=== PATIENT | male | born 1940 | race Caucasian/White ===

== ENCOUNTER 2017-06-05 15:11 | Inpatient (IN) | payer MEDICARE, MEDICAID ==
[2017-06-05 15:13] VITALS: BMI 29.2
--- NOTE | 2017-06-05 15:31 | ED PDOC ---
Arrival/HPI - General Time Seen by Provider: 06/05/17 15:20 Historian: Patient - History of Present Illness Narrative History of Present Illness (Text): 06/05/17 15:27 77yo male with PMhx of hypertension bib BLS for b/l lower leg swelling/pain. States he only noticed the swelling yesterday. He reports remote history of gout and thought it was gout. He admits to [facility] for few weeks now. States he have not seen his PMD for a while now and have not taken any antitussive for a while now. He denies diaphoresis, chest pain, dizziness, nausea, vomiting, ripping/tearing upper back pain, trauma, any other complaint. Past Medical History - Provider Review Nursing Documentation Reviewed: Yes - Infectious Disease Hx of Infectious Diseases: None - Tetanus Immunization Tetanus Immunization: Unknown - Past Medical History Past Medical History: No Previous - Cardiac Hx Hypertension: Yes - Musculoskeletal/Rheumatological Hx Musculoskeletal Disorders: Yes Hx Unsteady Gait: Yes - Psychiatric Hx Depression: No Hx Emotional Abuse: No Hx Physical Abuse: No Hx Substance Use: No - Past Surgical History Past Surgical History: No Previous - Suicidal Assessment Feels Threatened In Home Enviroment: No Family/Social History - Physician Review Nursing Documentation Reviewed: Yes Family/Social History: Unknown Family HX Smoking Status: Never Smoked Hx Alcohol Use: No Hx Substance Use: No Allergies/Home Meds Allergies/Adverse Reactions: Allergies No Known Allergies Allergy (Verified 05/25/13 15:34) Home Medications: Home Meds Medication Instructions Recorded Confirmed Cholecalciferol [Vitamin D 1000 IU] 2 cap PO DAILY 06/05/17 06/05/17 Febuxostat [Uloric] 1 tab PO DAILY 06/05/17 06/05/17 Folic Acid [Folic Acid] 4 mg PO DAILY 06/05/17 06/05/17 Magnesium Oxide [Mag-Ox] 1 tab PO BID 06/05/17 06/05/17 Nebivolol [Bystolic] 1 tab PO DAILY 06/05/17 06/05/17 Valsartan [Diovan] 1 tab PO DAILY 06/05/17 06/05/17 Warfarin [Coumadin] 1 tab PO DAILY 06/05/17 06/05/17 amLODIPine [Norvasc] 1 tab PO BID 06/05/17 06/05/17 hydrALAZINE [Apresoline] 1 tab PO QID 06/05/17 06/05/17 Review of Systems - Physician Review All systems were reviewed & negative as marked: Yes - Review of Systems Constitutional: Normal Eyes: Normal ENT: Normal Respiratory: SOB Cardiovascular: Edema, Calf Pain, ALAMO. absent: Chest Pain, Palpitations, Orthopnea, Syncope Gastrointestinal: Normal Genitourinary Male: Normal Musculoskeletal: Normal Skin: Normal Neurological: Normal Endocrine: Normal Hemo/Lymphatic: Normal Psychiatric: Normal Physical Exam Vital Signs Reviewed: Yes Vital Signs Temp Pulse Resp BP Pulse Ox 06/05/17 20:50 113 H 121/95 H 06/05/17 19:17 113 H 18 112/74 100 06/05/17 16:45 86 18 107/81 100 06/05/17 16:41 125/79 06/05/17 16:06 93 H 20 129/80 100 06/05/17 15:52 105 H 135/92 H 100 06/05/17 15:51 22 100 06/05/17 15:41 154 H 157/99 H 06/05/17 15:40 97.3 F L 153 H 24 157/99 H 100 Temperature: Afebrile Blood Pressure: Normal Pulse: Regular Respiratory Rate: Normal Appearance: Positive for: Well-Appearing, Non-Toxic, Comfortable Pain Distress: None Mental Status: Positive for: Alert and Oriented X 3 - Systems Exam Head: Present: Atraumatic, Normocephalic Pupils: Present: PERRL Extroacular Muscles: Present: EOMI Conjunctiva: Present: Normal Mouth: Present: Moist Mucous Membranes Neck: Present: Normal Range of Motion Respiratory/Chest: Present: Clear to Auscultation, Good Air Exchange, Other ( Crackles - scattered). No: Respiratory Distress, Accessory Muscle Use, Decreased Breath Sounds, Rales, Retracting, Rhonchi Cardiovascular: Present: Regular Rate and Rhythm, Normal S1, S2. No: Murmurs Abdomen: Present: Normal Bowel Sounds. No: Tenderness, Distention, Peritoneal Signs Back: Present: Normal Inspection Upper Extremity: Present: Normal Inspection. No: Cyanosis, Edema Lower Extremity: Present: Edema (3+ Edema), CALF TENDERNESS (Left lower calf), NORMAL PULSES, Normal ROM, Neurovascularly Intact. No: Tenderness Neurological: Present: GCS=15, CN II-XII Intact, Speech Normal Skin: Present: Warm, Dry, Normal Color. No: Rashes Psychiatric: Present: Alert, Oriented x 3, Normal Insight, Normal Concentration Medical Decision Making ED Course and Treatment: 06/05/17 23:33 PT in ED for stated history. EKG Afib with RVR @ 169bpm. Rate improved with Cardizem bolus in ED and Heparin bolus was given in ED. Lab was reviewed and hyponatremia was noted. Elevated lactic acid level was noted was noted in the first VBG, this was likely secondary to the Afib and Elevated BNP. Pt was afebrile and does not meet criteria for sepsis. Lasix was given for the elevated BNP LE doppler was negative for DVT b/l Case was DW Dr. Street, he accepted pt for admission and saw pt in ED at the bedside. He requested Dr. Grayson consult. cAse was DW Dr. Radford who is covering Dr. Grayson and he request Lovonox 100mg SQ instead of the Heparin drip. All result and plan was DW the pt and he agreed. - Lab Interpretations Lab Results: 06/05/17 15:45 06/05/17 15:45 Lab Results 06/05/17 15:45: TSH 3rd Generation 2.34 06/05/17 15:45: Sodium 127 L, Chloride 92 L, Potassium 4.4, Carbon Dioxide 21, Anion Gap 19, BUN 13, Creatinine 1.2, Est GFR ( Amer) > 60, Est GFR (Non- Af Amer) 58, Random Glucose 110, Calcium 9.9, Total Bilirubin 2.1 H, AST 43, ALT 39, Alkaline Phosphatase 112, Lactate Dehydrogenase 684, Total Creatine Kinase 245 H, CK-MB (CK-2) 5.7 H, CK-MB (CK-2) % 2.3 L, Troponin I 0.03 D, NT- Pro-B Natriuret Pep 56501 H, Total Protein 6.7, Albumin 3.5, Globulin 3.2, Albumin/Globulin Ratio 1.1 06/05/17 15:45: pO2 67 H, VBG pH 7.39, VBG pCO2 36.0 L, VBG HCO3 21.8, VBG Total CO2 22.9, VBG O2 Sat (Calc) 95.8 H, VBG Base Excess -2.6 L, VBG Potassium 4.7, Sodium 124.0 L, Chloride 91.0 L, Glucose 120 H, Lactate 2.5 H, FiO2 21.0, Venous Blood Potassium 4.7 06/05/17 15:45: WBC 3.1 L, RBC 4.96, Hgb 14.4, Hct 41.4 L, MCV 83.5, MCH 29.0, MCHC 34.8, RDW 15.5 H, Plt Count 164, MPV 9.9, Gran % 50.1, Lymph % (Auto) 30.5 , Preston % (Auto) 15.6 H, Eos % (Auto) 1.9, Baso % (Auto) 1.9, Gran # 1.54, Lymph # (Auto) 0.9 L, Preston # (Auto) 0.5, Eos # (Auto) 0.1, Baso # (Auto) 0.06 06/05/17 15:45: PT 18.0 H, INR 1.56 H, APTT 33.9 - RAD Interpretation Radiology Orders: 06/05/17 15:25 DUPLEX LOWER EXTRM VEIN BILAT [US] Stat 06/05/17 15:26 CHEST PORTABLE [RAD] Stat - Medication Orders Current Medication Orders: Allopurinol (Zyloprim) 300 mg PO DAILY [facility] Aspirin (Ecotrin) 81 mg PO DAILY [facility] Last Admin: 06/05/17 20:48 Dose: 81 mg Atorvastatin Calcium (Lipitor) 40 mg PO DIN [facility] Docusate Sodium (Colace) 100 mg PO TID [facility] Enoxaparin Sodium (Lovenox) 100 mg SC Q12H [facility] PRN Reason: Protocol Last Admin: 06/05/17 20:07 Dose: Furosemide (Lasix) 40 mg IVP Q12H [facility] Last Admin: 06/05/17 20:50 Dose: 40 mg MAR Blood Pressure Document 06/05/17 20:50 GMD (Rec: 06/05/17 20:50 GMD [facility] [id number]) Blood Pressure Blood Pressure (100/60-150/90) 121/95 IVP Administration Document 06/05/17 20:50 GMD (Rec: 06/05/17 20:50 GMD [facility] [id number]) Charges for Administration # of IVP Administrations 1 Dobutamine HCl/Dextrose (Dobutamine/Dextrose 5% 500mg/250ml) 500 mg in 250 mls @ 14.696 mls/hr IV .Q17H1M PRN; Protocol; 5 MCG/KG/MIN PRN Reason: TITRATE PER PROTOCOL Last Admin: 06/05/17 21:57 Dose: 5 mcg/kg/min, 14.696 mls/hr eMAR Start Stop Document 06/05/17 21:57 CLARICE (Rec: 06/05/17 21:58 CLARICE [id number]) Intravenous Solution Start Date 06/05/17 Start Time 21:58 MAR Pulse and Blood Pressure Document 06/05/17 21:57 CLARICE (Rec: 06/05/17 21:58 [id number]) Pulse Pulse Rate (60-90) 115 Blood Pressure Blood Pressure (100/60-150/90) 131/95 Titration Intervention Document 06/05/17 21:57 CLARICE (Rec: 06/05/17 21:58 CLARICE [id number]) Titration Intake Waste Amount 0 Container Volume 250 Titration Dosing Titration Dose 5 IV Rate 14.696 Intake/Decrease Started Metoprolol Tartrate (Lopressor) 25 mg PO Q12H NIGEL Last Admin: 06/05/17 20:50 Dose: 25 mg MAR Pulse and Blood Pressure Document 06/05/17 20:50 GMD (Rec: 06/05/17 20:50 GMD [facility] [id number]) Pulse Pulse Rate (60-90) 113 Blood Pressure Blood Pressure (100/60-150/90) 121/95 Pantoprazole Sodium (Protonix Ec Tab) 20 mg PO 0600,1600 NIGEL Discontinued Medications Diltiazem HCl (Cardizem) 15 mg IVP STAT STA Stop: 06/05/17 15:36 Last Admin: 06/05/17 15:40 Dose: Diltiazem HCl (Cardizem) 20 mg IVP STAT STA Stop: 06/05/17 15:40 Last Admin: 06/05/17 15:41 Dose: 20 mg IVP Administration Document 06/05/17 15:41 GMD (Rec: 06/05/17 15:41 GMD [facility] [id number]) Charges for Administration # of IVP Administrations 1 MAR Pulse and Blood Pressure Document 06/05/17 15:41 GMD (Rec: 06/05/17 15:41 GMD [facility] [id number]) Pulse Pulse Rate (60-90) 154 Blood Pressure Blood Pressure (100/60-150/90) 157/99 Enoxaparin Sodium (Lovenox) 100 mg SC ONCE STA PRN Reason: Protocol Stop: 06/05/17 17:14 Last Admin: 06/05/17 17:37 Dose: 100 mg Subcutaneous Administrations Document 06/05/17 17:37 GMD (Rec: 06/05/17 17:37 GMD [facility] [id number][place] Injection Site MAR Injection Site Left Abdomen Charges for Administration # of Subcutaneous Administrations 1 Furosemide (Lasix) 40 mg IVP STAT STA Stop: 06/05/17 16:33 Last Admin: 06/05/17 16:41 Dose: 40 mg MAR Blood Pressure Document 06/05/17 16:41 GMD (Rec: 06/05/17 16:41 GMD [facility] [id number][place] Blood Pressure Blood Pressure (100/60-150/90) 125/79 IVP Administration Document 06/05/17 16:41 GMD (Rec: 06/05/17 16:41 GMD [facility] [id number]) Charges for Administration # of IVP Administrations 1 Heparin Sodium (Porcine) (Heparin) 4,000 units IV ONCE ONE PRN Reason: Protocol Stop: 06/05/17 16:49 Last Admin: 06/05/17 17:37 Dose: 4,000 units eMAR Start Stop Document 06/05/17 17:37 GMD (Rec: 06/05/17 17:37 GMD [facility] [id number][place] Intravenous Solution Start Date 06/05/17 Start Time 17:37 Disposition/Present on Arrival - Present on Arrival Any Indicators Present on Arrival: No History of DVT/PE: No History of Uncontrolled Diabetes: No Urinary Catheter: No History Surgical Site Infection Following: None - Disposition Have Diagnosis and Disposition been Completed?: Yes Diagnosis: Atrial fibrillation, CHF (congestive heart failure), Hyponatremia Disposition: HOSPITALIZED Disposition Time: 17:00 Patient Problems: Current Active Problems Problem Status Onset Atrial fibrillation Acute CHF (congestive heart failure) Acute Hyponatremia Acute Condition: FAIR
[2017-06-05 16:04] LABS: BASO # 0.06 K/mm3 (0.0-2.0); BASO % 1.9 % (0.0-3.0); EOS # 0.1 (0.0-0.7); EOS % 1.9 % (1.5-5.0); GRAN # 1.54 (1.4-6.5); GRAN % 50.1 % (50.0-68.0); HEMOGLOBIN 14.4 g/dL (14.0-18.0); LYMPH # 0.9 (1.2-3.4); LYMPH % 30.5 % (22.0-35.0); MEAN CELL VOLUME 83.5 fl (80.0-105.0); MEAN CORPUSCULAR HGB CONC 34.8 g/dl (31.0-37.0); MEAN PLATELET VOLUME 9.9 fl (7.0-11.0); MONO # 0.5 (0.1-0.6); MONO % 15.6 % (1.0-6.0); RBC 4.96 10^6/uL (3.5-6.1); RED CELL DISTRIBUTION WIDTH 15.5 % (11.5-14.5); VENOUS BLOOD GAS BASE EXCESS -2.6 mmol/L (0.0-2.0); VENOUS BLOOD GAS PO2 67 mm/Hg (30-55); VENOUS BLOOD PH 7.39 (7.32-7.43); WHITE BLOOD COUNT 3.1 10^3/ul (4.5-11.0)
[2017-06-05 16:12] LABS: INR 1.56 (0.93-1.08); PARTIAL THROMBOPLASTIN TIME 33.9 Seconds (25.1-36.5)
[2017-06-05 16:30] LABS: B-TYPE NATRIURETIC PEPTIDE 11300 pg/mL (0-450); TROPONIN I 0.03 ng/mL
[2017-06-05 16:36] LABS: ALB/GLOB RATIO 1.1 (1.1-1.8); ALBUMIN 3.5 g/dL (3.0-4.8); ALT/SGPT 39 U/L (7-56); AST/SGOT 43 U/L (17-59); BLOOD UREA NITROGEN 13 mg/dL (7-21); CALCIUM 9.9 mg/dL (8.4-10.5); GFR AFRICAN-AMERICAN > 60; GFR NON-AFRICAN AMERICAN 58
[2017-06-05 16:38] LABS: CK MB% 2.3 % (2.5-3.0); CK-MB 5.7 ng/mL (0.0-3.6)
[2017-06-05] MEDS ORDERED: Heparin25000 units/250ml 1/2NS 25,000 UNITS/250 ML BAG IV PRN (16:48)
[2017-06-05] MEDS ORDERED: Enoxaparin 100 mg Syringe SC STA (17:13)
[2017-06-05 17:35] LABS: URINE BILIRUBIN NEGATIVE (NEGATIVE); URINE BLOOD TRACE-INTACT (NEGATIVE); URINE GLUCOSE (UA) NEGATIVE (NEGATIVE); URINE LEUKOCYTE ESTERASE NEGATIVE Leu/uL (NEGATIVE); URINE NITRATE NEGATIVE (NEGATIVE); URINE PROTEIN TRACE mg/dL (<30 mg/dL); URINE UROBILINOGEN 0.2 E.U./dL (<1 E.U./dL)
[2017-06-05 17:37] LABS: URINE APPEARANCE CLEAR (CLEAR); URINE COLOR YELLOW (YELLOW)
[2017-06-05 17:38] LABS: URINE BACTERIA TRACE (NEG); URINE EPITHELIAL CELLS 0 - 2 /hpf (0-5); URINE RBC 0 - 2 /hpf (0-2); URINE WBC 0 - 2 /hpf (0-6)
--- NOTE | 2017-06-05 17:49 | RAD ---
HISTORY: SOB COMPARISON: 05/25/2013 FINDINGS: LUNGS: No active pulmonary disease. PLEURA: No significant pleural effusion identified, no pneumothorax apparent. CARDIOVASCULAR: Cardiomegaly. No evidence of acute, significant cardiovascular disease. This represents a new finding compared to the prior study. OSSEOUS STRUCTURES: No significant abnormalities. VISUALIZED UPPER ABDOMEN: Normal. OTHER FINDINGS: None. IMPRESSION: Cardiomegaly without evidence CHF. No active pulmonary disease.
[2017-06-05 17:54] LABS: BARBITURATES, UR NEGATIVE (NEGATIVE); BENZODIAZEPINES, UR NEGATIVE (NEGATIVE); OPIATES, UR NEGATIVE (NEGATIVE); PHENCYCLIDINE, UR NEGATIVE (NEGATIVE)
[2017-06-05 19:52] LABS: VENOUS BLOOD GAS BASE EXCESS 0.2 mmol/L (0.0-2.0); VENOUS BLOOD GAS PO2 32 mm/Hg (30-55); VENOUS BLOOD PH 7.33 (7.32-7.43)
[2017-06-05] MEDS: Enoxaparin 100 mg Syringe SC SCH (20:07)
[2017-06-05 20:08] LABS: MAGNESIUM 1.7 mg/dL (1.7-2.2); URIC ACID 7.9 mg/dL (3.5-8.5)
[2017-06-05 20:13] LABS: IRON 51 ug/dL (45-180)
[2017-06-05 20:18] LABS: TROPONIN I 0.03 ng/mL
[2017-06-05 20:23] LABS: % IRON SATURATION 15 % (20-55); TOTAL IRON BINDING CAPACITY 340 ug/dL (261-462)
[2017-06-05 20:33] LABS: FREE T4 1.5 ng/dL (0.78-2.19); T4 5.9 ug/dL (5.5-11.0)
--- NOTE | 2017-06-05 20:35 | US ---
HISTORY: Leg pain and swelling. Evaluate for DVT PHYSICIAN(S): Vincenzo Daniels MD. TECHNIQUE: Duplex sonography and color-flow Doppler with graded compression were used to evaluate the deep venous systems of both lower extremities. The exam is limited by edema. The tibial veins are not well seen. FINDINGS: The visualized deep venous systems of both lower extremities are sonographically normal and compressible. Normal wave forms and augmentation are seen. There is no sonographic evidence for deep venous thrombosis in the visualized segments of both lower extremities. IMPRESSION: No sonographic evidence for deep venous thrombosis in the visualized segments of both lower extremities.
[2017-06-05] MEDS: DOBUTamine 500mg/250ml D5W 500 MG/250 ML BAG IV PRN (21:57)
--- NOTE | 2017-06-05 22:12 | CT ---
EXAM: CT Chest Without Intravenous Contrast CLINICAL HISTORY: 77 years old, male; Signs and symptoms; Other: Bilateral leg swelling; Shortness of breath; Additional info: Chf/anasarca TECHNIQUE: Axial computed tomography images of the chest without intravenous contrast. All CT scans at this facility use one or more dose reduction techniques, viz.: automated exposure control; ma/kV adjustment per patient size (including targeted exams where dose is matched to indication; i.e. head); or iterative reconstruction technique. Coronal and sagittal reformatted images were created and reviewed. COMPARISON: No relevant prior studies available. FINDINGS: Limitations: Lack of intravenous contrast. Motion artifact - mild. Lungs: Early to mild centrilobular and paraseptal emphysematous changes. Mild atelectasis/scarring. No consolidation. Few pulmonary nodules, up to 0.3 cm. Pleural space: Small bilateral pleural effusions, right greater than left. Heart: Mild cardiomegaly. No significant pericardial effusion. Coronary artery calcifications. Bones/joints: Few scattered sclerotic lesions within visualized bones. Mild degenerative changes of spine. No acute fracture. Soft tissues: [id number] diffuse stranding within subcutaneous tissues. Vasculature: Minimal atherosclerotic disease. Lymph nodes: No pathologically enlarged lymph nodes. IMPRESSION: 1. Mild anasarca. 2. Bilateral pleural effusions, RIGHT > LEFT. 3. Emphysema. 4. Sclerotic bone lesions compatible with metastases. Clinical correlation is needed. 5. Pulmonary nodules. For low-risk patients, no follow-up is necessary. For high-risk patients (smoking history or other known risk factors) an optional CT at 12 months could be performed. 6. Incidental/non-acute findings are described above. EXAM: CT Abdomen and Pelvis Without Intravenous Contrast CLINICAL HISTORY: 77 years old, male; Signs and symptoms; Other: Bilateral leg swelling; Shortness of breath; Additional info: Chf/anasarca TECHNIQUE: Axial computed tomography images of the abdomen and pelvis without intravenous contrast. All CT scans at this facility use one or more dose reduction techniques, viz.: automated exposure control; ma/kV adjustment per patient size (including targeted exams where dose is matched to indication; i.e. head); or iterative reconstruction technique. Coronal and sagittal reformatted images were created and reviewed. COMPARISON: No relevant prior studies available. FINDINGS: Limitations: Lack of intravenous contrast. Motion artifact - mild. ABDOMEN: Liver: Unremarkable. Gallbladder and bile ducts: No calcified stones. No ductal dilation. Pancreas: Unremarkable. No ductal dilation. Spleen: No splenomegaly. Adrenals: Mild hypertrophy of adrenal glands. Kidneys and ureters: Scarring of right kidney. Probable RIGHT renal cyst. Too small to characterize lesion within LEFT kidney. Small vascular calcification vs calculus within LEFT kidney. No hydronephrosis. Stomach and bowel: Few scattered diverticula within colon. No associated inflammatory stranding. No definite mural thickening. No obstruction. Appendix: No findings to suggest acute appendicitis. PELVIS: Bladder: Unremarkable. No stones. Reproductive: Unremarkable as visualized. ABDOMEN and PELVIS: Intraperitoneal space: Small free fluid within abdomen. 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 Degenerative changes of spine. No acute fracture. Soft tissues: Moderate diffuse stranding throughout subcutaneous tissues. Small umbilical hernia containing fat. Small inguinal hernias containing fat and fluid. Vasculature: Moderate atherosclerotic disease. No aneurysm. Lymph nodes: Few subcentimeter short axis retroperitoneal lymph nodes. IMPRESSION: 1. Moderate anasarca. 2. Small ascites. 3. Sclerotic bone lesions compatible with metastases. Clinical correlation is needed. 4. Incidental/non-acute findings are described above.
--- NOTE | 2017-06-05 23:45 | CARD ---
APPROVED REPORT EKG Measurement Heart [id number] <Conclusion> Atrial fibrillation with premature ventricular or aberrantly conducted complexes Low voltage QRS T wave abnormality, consider anterolateral ischemia or digitalis effect Prolonged QT Abnormal ECG
--- NOTE | 2017-06-05 23:48 | CARD ---
APPROVED REPORT EKG Measurement Heart [id number] <Conclusion> Atrial fibrillation with rapid ventricular response Low voltage QRS Nonspecific T wave abnormality, probably digitalis effect Abnormal ECG
[2017-06-06] MEDS: Pantoprazole 20 mg EC Tab PO SCH ×2 (05:58→17:39)
[2017-06-06 07:06] LABS: BASO # 0.04 K/mm3 (0.0-2.0); BASO % 1.1 % (0.0-3.0); EOS # 0.1 (0.0-0.7); EOS % 1.3 % (1.5-5.0); GRAN # 2.32 (1.4-6.5); HEMOGLOBIN 13.3 g/dL (14.0-18.0); LYMPH # 0.8 (1.2-3.4); LYMPH % 21.7 % (22.0-35.0); MEAN CELL VOLUME 83.3 fl (80.0-105.0); MEAN CORPUSCULAR HEMOGLOBIN 28.5 pg (25.0-35.0); MEAN CORPUSCULAR HGB CONC 34.3 g/dl (31.0-37.0); MONO # 0.5 (0.1-0.6); MONO % 13.9 % (1.0-6.0); RBC 4.66 10^6/uL (3.5-6.1); RED CELL DISTRIBUTION WIDTH 15.6 % (11.5-14.5); WHITE BLOOD COUNT 3.7 10^3/ul (4.5-11.0)
--- NOTE | 2017-06-06 07:10 | HP ---
HISTORY OF PRESENT ILLNESS: Patient is a 77-year-old male who has been lost to follow up since last almost one year, comes to the emergency room via the [facility]. According to the triage note, patient presented with bilateral lower extremity swelling, shortness of breath, dyspnea on exertion for more than a week. Patient also has been lost to follow up since last one year and has stopped taking his medications many months ago. According to the patient's son, Rakesh who was present at the bedside, patient's son states that he is not aware of patient's worsening leg swelling. Patient was seen by the physician special education assistant in the emergency room. According to the ER evaluation, patient stated to the ER staff that patient thought that this is his gout acting up, but now patient also admitted to dyspnea on exertion for a few weeks. Patient at present and the son at present is unable to exactly state that for how long the patient has been developing leg swelling and having shortness of breath. REVIEW OF SYSTEMS: A 13-system review was done, pertinent positive and negative dictated above. CODE STATUS: Full code. LIVING WILL ADVANCE DIRECTIVE: None. ALLERGIES: NONE. Height is 5 feet 11 inches. Weight is 216. BMI is 30. SOCIAL HISTORY: Denies smoking. Denies alcohol. Denies drug use. Denies communicable transmissible disease. PAST MEDICATIONS: Patient's list of medications for more than a year ago is: 1. Uloric 40 mg daily. 2. Vitamin D3 2000 units daily. 3. Hydralazine 50 mg q.i.d. or 10 mg q.i.d. 4. Diovan 320 mg daily. 5. Magnesium oxide 400 mg twice a day. 6. Folic acid 4 mg daily. 7. Norvasc 5 mg daily. 8. Patient was given Coumadin 5 mg, which he is not taking. 9. Bystolic 5 mg daily, which is according to the patient's home medication, but patient is not taking these medicines for many months. OCCUPATIONAL HISTORY: A 77-year-old male, not employed. FAMILY HISTORY: Not available. History of decreased left ventricular ejection fraction of around 40%, history of poor compliance and noncompliance. Patient refusing to see urologist and have a prostate biopsy, history of hypovitaminosis D, history of hypomagnesemia, history of dyslipidemia, history of atrial fibrillation diagnosed more than a year ago, refusing to take anticoagulation and refusing to comply with medication. Patient's past medical history is significant for history of uncontrolled hypertension, history of hyperuricemia, history of inferolateral coronary ischemic changes, history of elevated PSA, history of venous stasis of the lower extremity, history of degenerative joint disease of the feet, history of cellulitis of the lower extremity, history of trace mitral regurgitation and history of bilateral lower extremity cameron. Past medical history is also significant for right foot cellulitis, history of hypertensive cardiovascular disease, history of cardiomyopathy, history of leukopenia, history of osteoarthritis of the right hip, history of left ventricular ejection fraction of 43%. SOCIAL HISTORY: History of former smoking and social drinking. Patient's occupational history, retired warehouse shipping clerk. Patient is seen in stretcher #18. Patient is lying in the bed. The patient's son, Rakesh at bedside. PHYSICAL EXAMINATION: VITAL SIGNS: T-max 97.3. Heart rate is initially was 153, 154, 105, 93, 86 and 113. Patient's heart rate came down after Cardizem bolus was given IV. Initial blood pressure 157/99, 135/92, 129/80, 125/79. Respiration 20, O2 sat 100% on nasal cannula. GENERAL: Does not appear to be in any distress. Patient is seen lying in the stretcher. HEENT: Head examination, normocephalic, atraumatic. HEENT examination shows pink conjunctivae. Anicteric sclerae. Positive jugular venous distention. CHEST: Kyphosis. LUNGS: Shows decreased breath sound at the bases. Positive crackles noted. CARDIOVASCULAR: S1, S2, irregular rhythm. Positive systolic murmur, left sternal border, right second intercostal space, left second intercostal space. ABDOMEN: Protuberant, distended, firm, positive bowel sounds. GENITALIA: Male. Positive scrotal edema noted. Anasarca noted. EXTREMITIES: Significant lower extremity pedal edema, more than 3 to 4+ pitting edema of the lower extremity noted. Positive bilateral calf tenderness noted. No Glo's signs noted. Vascular examination could not be assessed. MUSCULOSKELETAL: Shows a body mass index of 30.1. NEUROLOGIC: Patient is alert, awake, oriented x3. Cranial nerve II through XII grossly intact. Gait examination is not tested. DIAGNOSTICS: WBC 3.1, hemoglobin/hematocrit 14.4/41.4, platelets 164. PT/PTT 18 and 33.9. The VBG shows a lactate of 2.5, pO2 of 67, pH of 7.39. Sodium is 127, potassium is 4.4, chloride 92, CO2 of 21, anion gap 19, BUN 13, creatinine 1.2. GFR greater than 60. Glucose 110, calcium 9.9, total bili 2.1, CPK 245. Troponin 0.03. BNP is 11,300. TSH is 2.34. Urine, trace protein, trace blood, trace bacteria. Urine drug screen was negative. Patient's chest x-ray was reviewed, shows cardiomegaly, increased and prominent vascular marking, venous Doppler was ordered. Preliminary results negative for DVT. EKG: Patient had two EKG shows low-voltage, atrial fibrillation with rapid ventricular response of 170. Repeat EKG was done after more than an hour. Patient shows atrial fibrillation with controlled response of heart rate 94 with PVCs and anterolateral ST-T ischemic changes. Patient was seen in the emergency room by Jyoti Salazar. Patient was given Cardizem 15 mg then patient was given 20 mg IV push Cardizem, Lovenox 100 mg subcu given, Lasix 40 IV was given and patient was advised to be admitted. IMPRESSION AND PLAN: A 77-year-old male who has been lost to followup for more than one year. At the most last visit in the office, patient was diagnosis with atrial fibrillation and was placed on anticoagulation, but the patient never came back for followup. Did not take any medicines for more than a year. Came to the emergency room with complaining of dyspnea on exertion, shortness of breath and bilateral lower extremity swelling. DIAGNOSES: 1. Atrial fibrillation with rapid ventricular response. 2. Ruben-inferolateral coronary ischemia. 3. History of hypertension. 4. Most possible and most likely systolic congestive heart failure with elevated BNP. 5. Cardiomegaly and pulmonary vascular congestion, suggestive of congestive heart failure. 6. Leukopenia. 7. Lactic acidosis. 8. Hyponatremia, etiology undetermined. 9. Questionable syndrome of inappropriate (excretion) of antidiuretic hormone. 10. Indeterminate troponin. 11. Elevated BNP suggestive of congestive heart failure. 12. Trace proteinuria, trace microscopic hematuria, trace bacteriuria. 13. Bilateral lower extremity lymphedema. 14. Anasarca. 15. Extremely poor compliance and noncompliance. 16. History of hypovitaminosis D. 17. History of hyperuricemia, hypomagnesemia and history of elevated prostate-specific antigen. PLAN: At this time, patient was treated in the emergency room with IV Cardizem bolus x2. Patient was given Lovenox 100 mg subcu, Lasix 40 mg IV was given. Patient's management and admission was discussed with Dr. Grayson and the covering bacteriologist dairy by the ER staff, who recommends Lovenox instead of IV heparin and Cardizem drip was declined. At present, patient will be admitted to Telemetry. Patient has been ordered serial labs, serial cardiac enzymes. Current consultation, Cardiology. Nephrology has been requested. Lactic acid, procalcitonin level has been ordered. Daily BNP has been ordered. Daily chemistry has been ordered. Patient has been ordered daily labs. Serial cardiac enzymes ordered. Patient was started on Colace 100 mg three times a day. Patient is started on dobutamine drip at 5 mcg/kg per minute. Ecotrin 81 daily, Lasix 40 IV q.12 with monitoring of electrolytes, Lipitor 40 mg daily, Lopressor 25 q.12, Lovenox 100 mg subcu q.12, Protonix 20 mg twice a day. Patient has been ordered CAT scan of the chest, abdomen, pelvis without contrast. Oxygen 2 liters continuously and daily EKGs. Echo with Doppler. Heart-healthy diet. Out of bed. SCDs, LIV stockings ordered. Occupational therapy, physical therapy ordered. TCU evaluation ordered. At present, the patient's condition, diagnosis, test results and overall clinical condition and admitting diagnosis discussed and explained to the patient and the patient's son, Rakesh who is at the bedside. I have explained to the patient's son and the patient in a very clear layman's language about patient's extremely sick and critical status, need for further more diagnostic testing and therapeutic intervention, need for multiple subspecialty evaluation for the treatment and management of the patient, was explained to the patient and patient's son in layman's language and all questions and concerns answered. Patient has stated on multiple occasions during this ER visit that patient is his own boss and will decide which test to undergo and which test to refuse. I have again reinforced to the patient and the patient's son that patient needs to comply with his medical management, medical treatment. Otherwise, patient is risking his life and patient is setting himself up for negative and negative consequences and adverse consequences and adverse health effects, which the patient and the patient's son acknowledged and understand. Dictated and electronically signed, not read. Benny Street MD [place]
[2017-06-06 07:15] LABS: ALBUMIN 3.2 g/dL (3.0-4.8); ALT/SGPT 31 U/L (7-56); AST/SGOT 40 U/L (17-59); BILIRUBIN,DIRECT 1.3 mg/dL (0.0-0.4); BLOOD UREA NITROGEN 13 mg/dL (7-21); CALCIUM 9.3 mg/dL (8.4-10.5); GFR AFRICAN-AMERICAN > 60; GFR NON-AFRICAN AMERICAN 58; MAGNESIUM 1.5 mg/dL (1.7-2.2)
[2017-06-06 07:25] LABS: TROPONIN I 0.04 ng/mL
[2017-06-06] MEDS: Enoxaparin 100 mg Syringe SC SCH ×2 (08:40→20:40)
[2017-06-06] MEDS: Potassium Chloride 20 mEq ER Tab PO SCH (08:40)
[2017-06-06] MEDS: Magnesium Sulfate 2 GM in Sodium Chloride 0.9% 100 ML IVPB SCH ×2 (09:41→12:28)
--- NOTE | 2017-06-06 10:13 | CP.PCM.CON ---
History of Present Illness - History of Present Illness History of Present Illness: Consult for Hyponatremia HPI: 77 yo M w/ pmh of CHF, enlarged prostate, afib that presented w/ LE edema. Pt is a poor historian but the issue seems to have been ongoing for several weeks but has been worsening. He has not been compliant with any of his medications. He last saw his PCP about a year ago. He endorses some mild sob. he endorses very frequent overnight urination and straining w/ urination. He denies any n/v. He denies any fever or chills. A full detailed ROS is negative except as above pmh: chf, htn, bph, elevated psa meds: reviewed below nkda famhx: no esrd sochx: hx of smoke, hx of etoh, no ivdu pe: vs as below gen: nad sclera: anicteric op: clear neck: supple cv: +s1+s2 lungs: dec bs at bases abd: soft ext: 1+ edema neuro: a+ox3 psych: nml affect skin: no rash labs and imaging reviewed imp: Hyponatremia/ Acute on Chronic systolic heart failure/ Anemia / BPH/ Obstructive uropathy / hypomag plan: Na probably from hypervolemic hyponatremia from chf. Reasonable to continue gentle diuresis. Will check serum , urine osm, urine lytes though likely to see high u na w/ the lasix. Given elevated post voids julianne lget lawrence. F/u w/ urology - w/ high PSA and concern for bone mets concern for prostate ca replete magnesium hgb stable f/u cardiology Past Patient History - Infectious Disease Hx of Infectious Diseases: None - Tetanus Immunizations Tetanus Immunization: Unknown - Past Social History Smoking Status: Never Smoked - CARDIAC Hx Hypertension: Yes - PULMONARY Hx Respiratory Disorders: No - NEUROLOGICAL Hx Neurological Disorder: No - HEENT Hx HEENT Problems: No - RENAL Hx Chronic Kidney Disease: No - ENDOCRINE/METABOLIC Hx Endocrine Disorders: No - HEMATOLOGICAL/ONCOLOGICAL Hx Blood Disorders: No - INTEGUMENTARY Hx Dermatological Problems: No - MUSCULOSKELETAL/RHEUMATOLOGICAL Hx Musculoskeletal Disorders: Yes Hx Unsteady Gait: Yes - GASTROINTESTINAL Hx Gastrointestinal Disorders: No - GENITOURINARY/GYNECOLOGICAL Hx Genitourinary Disorders: No - PSYCHIATRIC Hx Depression: No Hx Emotional Abuse: No Hx Physical Abuse: No Hx Substance Use: No - SURGICAL HISTORY Hx Surgeries: No - ANESTHESIA Hx Anesthesia: No Meds Allergies/Adverse Reactions: Allergies Allergy/AdvReac Type Severity Reaction Status Date / Time No Known Allergies Allergy Verified 05/25/13 15:34 - Medications Medications: Current Medications Allopurinol (Zyloprim) 300 mg PO DAILY [facility] Aspirin (Ecotrin) 81 mg PO DAILY [facility] Last Admin: 06/05/17 20:48 Dose: 81 mg Atorvastatin Calcium (Lipitor) 40 mg PO DIN [facility] Docusate Sodium (Colace) 100 mg PO TID [facility] Enoxaparin Sodium (Lovenox) 100 mg SC Q12H [facility] PRN Reason: Protocol Last Admin: 06/06/17 08:40 Dose: 100 mg Furosemide (Lasix) 40 mg IVP Q12H [facility] Last Admin: 06/06/17 08:40 Dose: 40 mg Dobutamine HCl/Dextrose (Dobutamine/Dextrose 5% 500mg/250ml) 500 mg in 250 mls @ 14.696 mls/hr IV .Q17H1M PRN; Protocol; 5 MCG/KG/MIN PRN Reason: TITRATE PER PROTOCOL Last Admin: 06/05/17 21:57 Dose: 5 mcg/kg/min, 14.696 mls/hr Magnesium Sulfate 2 gm/ Sodium (Chloride) 104 mls @ 102 mls/hr IVPB Q3H [facility] Stop: 06/06/17 12:32 Last Admin: 06/06/17 09:41 Dose: 102 mls/hr Magnesium Oxide (Mag-Ox) 400 mg PO BID [facility] Metoprolol Tartrate (Lopressor) 25 mg PO Q12H [facility] Last Admin: 06/06/17 08:40 Dose: 25 mg Pantoprazole Sodium (Protonix Ec Tab) 20 mg PO 0600,1600 [facility] Last Admin: 06/06/17 05:58 Dose: 20 mg Potassium Chloride (K-Dur 20 Meq Er Tab) 20 meq PO BRK [facility] Last Admin: 06/06/17 08:40 Dose: 20 meq Results - Vital Signs Recent Vital Signs: Last Vital Signs Temp 97.4 F L 06/06/17 06:00 Pulse 118 H 06/06/17 08:40 Resp 20 06/06/17 06:00 BP 139/72 06/06/17 08:40 Pulse Ox 99 06/06/17 06:00 - Labs Result Diagrams: 06/06/17 05:30 06/06/17 05:30 Labs: Laboratory Results - last 24 hr 06/05/17 06/05/17 06/05/17 17:20 17:20 19:25 WBC RBC Hgb Hct MCV MCH MCHC RDW Plt Count MPV Gran % Lymph % (Auto) [place] % (Auto) Eos % (Auto) Baso % (Auto) Gran # Lymph # (Auto) [place] # (Auto) Eos # (Auto) Baso # (Auto) pO2 32 VBG pH 7.33 VBG pCO2 51.0 VBG HCO3 26.9 VBG Total CO2 28.5 H VBG O2 Sat (Calc) 61.1 VBG Base Excess 0.2 VBG Potassium 4.5 Sodium 126.0 L Chloride 93.0 L Glucose 108 Lactate 1.7 FiO2 21.0 Potassium Carbon Dioxide Anion Gap BUN Creatinine Est GFR ( Amer) Est GFR (Non-Af Amer) Random Glucose Lactic Acid Uric Acid Calcium Magnesium Iron TIBC % Saturation Total Bilirubin Direct Bilirubin AST ALT Alkaline Phosphatase Total Creatine Kinase Troponin I Total Protein Albumin Globulin Albumin/Globulin Ratio Prostate Specific Ag Free T4 Thyroxine (T4) Venous Blood Potassium 4.5 Urine Color Yellow Urine Appearance Clear Urine pH 6.0 Ur Specific Chloe 1.010 Urine Protein Trace H Urine Glucose (UA) Negative Urine Ketones Negative Urine Blood Trace-intact H Urine Nitrate Negative Urine Bilirubin Negative Urine Urobilinogen 0.2 Ur Leukocyte Esterase Negative Urine RBC 0 - 2 Urine WBC 0 - 2 Ur Epithelial Cells 0 - 2 Urine Bacteria Trace Urine Opiates Screen Negative Urine Methadone Screen Negative Ur Barbiturates Screen Negative Ur Phencyclidine Scrn Negative Ur Amphetamines Screen Negative U Benzodiazepines Scrn Negative U Oth Cocaine Metabols Negative U Cannabinoids Screen Negative 06/05/17 06/05/17 06/05/17 19:25 19:25 19:25 WBC RBC Hgb Hct MCV MCH MCHC RDW Plt Count MPV Gran % Lymph % (Auto) [place] % (Auto) Eos % (Auto) Baso % (Auto) Gran # Lymph # (Auto) [place] # (Auto) Eos # (Auto) Baso # (Auto) pO2 VBG pH VBG pCO2 VBG HCO3 VBG Total CO2 VBG O2 Sat (Calc) VBG Base Excess VBG Potassium Sodium Chloride Glucose Lactate FiO2 Potassium Carbon Dioxide Anion Gap BUN Creatinine Est GFR ( Amer) Est GFR (Non-Af Amer) Random Glucose Lactic Acid Uric Acid 7.9 Calcium Magnesium 1.7 Iron 51 TIBC 340 % Saturation 15 L Total Bilirubin Direct Bilirubin AST ALT Alkaline Phosphatase Total Creatine Kinase 213 Troponin I 0.03 Total Protein Albumin Globulin Albumin/Globulin Ratio Prostate Specific Ag 97.4 H Free T4 1.50 Thyroxine (T4) 5.9 Venous Blood Potassium Urine Color Urine Appearance Urine pH Ur Specific Chloe Urine Protein Urine Glucose (UA) Urine Ketones Urine Blood Urine Nitrate Urine Bilirubin Urine Urobilinogen Ur Leukocyte Esterase Urine RBC Urine WBC Ur Epithelial Cells Urine Bacteria Urine Opiates Screen Urine Methadone Screen Ur Barbiturates Screen Ur Phencyclidine Scrn Ur Amphetamines Screen U Benzodiazepines Scrn U Oth Cocaine Metabols U Cannabinoids Screen 06/05/17 06/05/17 06/06/17 21:00 23:15 05:30 WBC RBC Hgb Hct MCV MCH MCHC RDW Plt Count MPV Gran % Lymph % (Auto) [place] % (Auto) Eos % (Auto) Baso % (Auto) Gran # Lymph # (Auto) [place] # (Auto) Eos # (Auto) Baso # (Auto) pO2 VBG pH VBG pCO2 VBG HCO3 VBG Total CO2 VBG O2 Sat (Calc) VBG Base Excess VBG Potassium Sodium 129 L Chloride 94 L Glucose Lactate FiO2 Potassium 3.8 Carbon Dioxide 23 Anion Gap 15 BUN 13 Creatinine 1.2 Est GFR ( Amer) > 60 Est GFR (Non-Af Amer) 58 Random Glucose 102 Lactic Acid 1.7 Uric Acid Calcium 9.3 Magnesium 1.5 L Iron TIBC % Saturation Total Bilirubin 2.2 H Direct Bilirubin 1.3 H AST 40 ALT 31 Alkaline Phosphatase 88 Total Creatine Kinase 229 217 Troponin I 0.04 D Total Protein 6.3 Albumin 3.2 Globulin 3.1 Albumin/Globulin Ratio 1.0 L Prostate Specific Ag Free T4 Thyroxine (T4) Venous Blood Potassium Urine Color Urine Appearance Urine pH Ur Specific Chloe Urine Protein Urine Glucose (UA) Urine Ketones Urine Blood Urine Nitrate Urine Bilirubin Urine Urobilinogen Ur Leukocyte Esterase Urine RBC Urine WBC Ur Epithelial Cells Urine Bacteria Urine Opiates Screen Urine Methadone Screen Ur Barbiturates Screen Ur Phencyclidine Scrn Ur Amphetamines Screen U Benzodiazepines Scrn U Oth Cocaine Metabols U Cannabinoids Screen 06/06/17 06/06/17 06/06/17 05:30 05:30 05:30 WBC 3.7 L RBC 4.66 Hgb 13.3 L Hct 38.8 L MCV 83.3 MCH 28.5 MCHC 34.3 RDW 15.6 H Plt Count 164 MPV 10.0 Gran % 62.0 Lymph % (Auto) 21.7 L [place] % (Auto) 13.9 H Eos % (Auto) 1.3 L Baso % (Auto) 1.1 Gran # 2.32 Lymph # (Auto) 0.8 L [place] # (Auto) 0.5 Eos # (Auto) 0.1 Baso # (Auto) 0.04 pO2 VBG pH VBG pCO2 VBG HCO3 VBG Total CO2 VBG O2 Sat (Calc) VBG Base Excess VBG Potassium Sodium Chloride Glucose Lactate FiO2 Potassium Carbon Dioxide Anion Gap BUN Creatinine Est GFR ( Amer) Est GFR (Non-Af Amer) Random Glucose Lactic Acid 1.1 Uric Acid Calcium Magnesium Iron TIBC % Saturation Total Bilirubin Direct Bilirubin AST ALT Alkaline Phosphatase Total Creatine Kinase Troponin I Total Protein Albumin Globulin Albumin/Globulin Ratio Prostate Specific Ag 90.5 H Free T4 Thyroxine (T4) Venous Blood Potassium Urine Color Urine Appearance Urine pH Ur Specific Chloe Urine Protein Urine Glucose (UA) Urine Ketones Urine Blood Urine Nitrate Urine Bilirubin Urine Urobilinogen Ur Leukocyte Esterase Urine RBC Urine WBC Ur Epithelial Cells Urine Bacteria Urine Opiates Screen Urine Methadone Screen Ur Barbiturates Screen Ur Phencyclidine Scrn Ur Amphetamines Screen U Benzodiazepines Scrn U Oth Cocaine Metabols U Cannabinoids Screen
[2017-06-06] MEDS ORDERED: Gadodiamide 287 MG/ML VIAL (15ML) IV ONE (10:46)
--- NOTE | 2017-06-06 11:39 | MRI ---
PROCEDURE: MRI BRAIN WITH AND WITHOUT CONTRAST HISTORY: Evaluation for possible metastasis COMPARISON: No prior similar exam available for comparison TECHNIQUE: Multiplanar, multisequence MR images of the brain were obtained with and without intravenous contrast enhancement. 15 cc of Omniscan was injected intravenously. FINDINGS: HEMORRHAGE: None DWI: No evidence of an acute or early subacute infarction. BRAIN PARENCHYMA: No mass,mass effect or edema. Mild to moderate volume loss is noted. ENHANCEMENT: No abnormal intracranial enhancement. VENTRICLES: Unremarkable. No hydrocephalus. CRANIUM: Unremarkable. ORBITS: Grossly unremarkable. PARANASAL SINUSES/MASTOIDS: Clear VASCULAR SYSTEM: Skull base flow voids intact. OTHER FINDINGS: None . IMPRESSION: No evidence of enhancing mass lesion mass effect or midline shift. [id number] volume loss. No evidence of acute infarction or acute pathology in the brain.
[2017-06-06 12:58] LABS: FOLATE 6.7 ng/mL
[2017-06-06] MEDS: DOBUTamine 500mg/250ml D5W 500 MG/250 ML BAG IV PRN (17:37)
--- NOTE | 2017-06-06 17:46 | CARD ---
APPROVED REPORT EXAM: Two-dimensional and M-mode echocardiogram with Doppler and color Doppler. INDICATION Atrial Fibrillation 2D DIMENSIONS Left Atrium (2D)5.4 (1.6-4.0cm)IVSd1.3 (0.7-1.1cm) LVDd4.8 (3.9-5.9cm)PWd1.2 (0.7-1.1cm) LVDs4.4 (2.5-4.0cm)FS (%) 9.6 % LVEF (%)20.9 (>50%) M-Mode DIMENSIONS Aortic Root2.40 (2.2-3.7cm)Aortic Cusp Exc.1.40 (1.5-2.0cm) Aortic Valve AoV Peak [id number]/[place] Peak GR.11mmHg Mitral Valve E/A ratio0.0 TDI E/Lateral E'0.0E/Medial E'0.0 Tricuspid Valve TR Peak [id number] Peak Gr.42mmHg [id number] LEFT VENTRICLE The left ventricle is normal size. There is mild concentric left ventricular hypertrophy. The systolic function is moderately to severely impaired. There is global hypokinesis of the left ventricle. No left ventricle thrombus noted on this study. RIGHT VENTRICLE The right ventricle is normal size. There is normal right ventricular wall thickness. RV Systolic function is mildly to moderately reduced. ATRIA The left atrium is moderately dilated. The right atrium is moderately dilated. AORTIC VALVE The aortic valve is moderately thickened. No aortic regurgitation is present. There is no aortic valvular stenosis. MITRAL VALVE The mitral valve is moderately thickened. Mitral regurgitation is moderate. TRICUSPID VALVE There is moderate tricuspid regurgitation. There is moderate pulmonary hypertension. GREAT VESSELS The aortic root is normal in size. PERICARDIAL EFFUSION There is a small circumferential pericardial effusion. <Conclusion> The left ventricle is normal size. There is mild concentric left ventricular hypertrophy. The systolic function is moderately to severely impaired. There is global hypokinesis of the left ventricle. No left ventricle thrombus noted on this study. Mitral regurgitation is moderate. There is moderate tricuspid regurgitation. There is moderate pulmonary hypertension.
--- NOTE | 2017-06-06 17:49 | NM ---
PROCEDURE: Whole Body Bone Scan HISTORY: ELEVATED PSA BONE METS COMPARISON: None available. TECHNIQUE: Following administration of 27.3 miCu of Tc MDP multiplanar whole body images were obtained. FINDINGS: Evidence for bony metastatic disease: Foci of abnormal increased uptake thoracolumbar spine, right iliac bone, posterior right ribs, bilateral scapula, proximal femurs bilaterally including lesser trochanter on the right and sub trochanteric region on the left. Focus of increased uptake in the sternum. Degenerative uptake: None. Physiologic uptake: Normal physiologic activity in the kidneys. Other findings: None. 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
--- NOTE | 2017-06-06 19:37 | CP.PCM.CON ---
History of Present Illness - History of Present Illness History of Present Illness: 77 year old male with a history of CHF, afib, admitted with LE swelling, found to have bone/lung lesions, elevated PSA concerning for prostate cancer. The patient reports to worsening LE swelling which prompted him to come to the hospital. He denies bone pain. He has had difficulty passing his urine for about 2 weeks but no dysuria or fevers. He also admits to shortness of breath at times with exertion. A CT and bone scan showed diffuse bone lesions. His CT scan showed subcentimeter lung lesions and B/L pleural effusions. Past medical history: CHF, afib Past surgical history: None Family history: Father had throat cancer Social history: Former 1/2ppd x 50 years, former alcohol, denies illicit drug use. Allergies: NKA Review of systems: All remaining review of systems including HEENT, cardiovascular, respiratory, gastrointestinal, genitourinary, musculoskeletal, dermatologic, neurologic and psychiatric are negative unless mentioned in the HPI. Past Patient History - Infectious Disease Hx of Infectious Diseases: None - Tetanus Immunizations Tetanus Immunization: Unknown - Past Social History Smoking Status: Never Smoked - CARDIAC Hx Hypertension: Yes - PULMONARY Hx Respiratory Disorders: No - NEUROLOGICAL Hx Neurological Disorder: No - HEENT Hx HEENT Problems: No - RENAL Hx Chronic Kidney Disease: No - ENDOCRINE/METABOLIC Hx Endocrine Disorders: No - HEMATOLOGICAL/ONCOLOGICAL Hx Blood Disorders: No - INTEGUMENTARY Hx Dermatological Problems: No - MUSCULOSKELETAL/RHEUMATOLOGICAL Hx Musculoskeletal Disorders: Yes Hx Unsteady Gait: Yes - GASTROINTESTINAL Hx Gastrointestinal Disorders: No - GENITOURINARY/GYNECOLOGICAL Hx Genitourinary Disorders: No - PSYCHIATRIC Hx Depression: No Hx Emotional Abuse: No Hx Physical Abuse: No Hx Substance Use: No - SURGICAL HISTORY Hx Surgeries: No - ANESTHESIA Hx Anesthesia: No Meds Allergies/Adverse Reactions: Allergies Allergy/AdvReac Type Severity Reaction Status Date / Time No Known Allergies Allergy Verified 05/25/13 15:34 - Medications Medications: Current Medications Allopurinol (Zyloprim) 300 mg PO DAILY [facility] Last Admin: 06/06/17 10:12 Dose: 300 mg Aspirin (Ecotrin) 81 mg PO DAILY [facility] Last Admin: 06/06/17 10:12 Dose: 81 mg Atorvastatin Calcium (Lipitor) 40 mg PO DIN [facility] Last Admin: 06/06/17 17:35 Dose: 40 mg Docusate Sodium (Colace) 100 mg PO TID [facility] Last Admin: 06/06/17 17:34 Dose: 100 mg Enoxaparin Sodium (Lovenox) 100 mg SC Q12H NIGEL PRN Reason: Protocol Last Admin: 06/06/17 08:40 Dose: 100 mg Furosemide (Lasix) 40 mg IVP Q12H [facility] Last Admin: 06/06/17 08:40 Dose: 40 mg Dobutamine HCl/Dextrose (Dobutamine/Dextrose 5% 500mg/250ml) 500 mg in 250 mls @ 14.696 mls/hr IV .Q17H1M PRN; Protocol; 5 MCG/KG/MIN PRN Reason: TITRATE PER PROTOCOL Last Admin: 06/06/17 17:37 Dose: 5 mcg/kg/min, 14.696 mls/hr Magnesium Oxide (Mag-Ox) 400 mg PO BID [facility] Metoprolol Tartrate (Lopressor) 25 mg PO Q8H [facility] Pantoprazole Sodium (Protonix Ec Tab) 20 mg PO 0600,1600 [facility] Last Admin: 06/06/17 17:39 Dose: 20 mg Potassium Chloride (K-Dur 20 Meq Er Tab) 20 meq PO BRK [facility] Last Admin: 06/06/17 08:40 Dose: 20 meq Physical Exam - Head Exam Head Exam: ATRAUMATIC - Eye Exam Eye Exam: Normal appearance - ENT Exam ENT Exam: Mucous Membranes Dry - Respiratory Exam Respiratory Exam: NORMAL BREATHING PATTERN - Cardiovascular Exam Cardiovascular Exam: +S1, +S2 - GI/Abdominal Exam GI & Abdominal Exam: Normal Bowel Sounds - Extremities Exam Extremities exam: Positive for: pedal edema - Neurological Exam Neurological exam: Oriented x3 - Psychiatric Exam Psychiatric exam: Normal Affect, Normal Mood - Skin Skin Exam: Warm Results - Vital Signs Recent Vital Signs: Last Vital Signs Temp 97.3 F L 06/06/17 18:00 Pulse 130 H 06/06/17 18:00 Resp 19 06/06/17 18:00 BP 134/88 06/06/17 18:00 Pulse Ox 99 06/06/17 06:00 - Labs Result Diagrams: 06/06/17 05:30 06/06/17 05:30 Labs: Laboratory Results - last 24 hr 06/05/17 06/05/17 06/05/17 19:25 19:25 19:25 WBC RBC Hgb Hct MCV MCH MCHC RDW Plt Count MPV Gran % Lymph % (Auto) [place] % (Auto) Eos % (Auto) Baso % (Auto) Gran # Lymph # (Auto) [place] # (Auto) Eos # (Auto) Baso # (Auto) pO2 32 VBG pH 7.33 VBG pCO2 51.0 VBG HCO3 26.9 VBG Total CO2 28.5 H VBG O2 Sat (Calc) 61.1 VBG Base Excess 0.2 VBG Potassium 4.5 Sodium 126.0 L Chloride 93.0 L Glucose 108 Lactate 1.7 FiO2 21.0 Potassium Carbon Dioxide Anion Gap BUN Creatinine Est GFR ( Amer) Est GFR (Non-Af Amer) Random Glucose Serum Osmolality Lactic Acid Uric Acid 7.9 Calcium Magnesium 1.7 Iron TIBC % Saturation Ferritin Total Bilirubin Direct Bilirubin AST ALT Alkaline Phosphatase Total Creatine Kinase 213 Troponin I 0.03 Total Protein Albumin Globulin Albumin/Globulin Ratio Prostate Specific Ag Vitamin B12 Folate Procalcitonin 0.14 L Free T4 Thyroxine (T4) Venous Blood Potassium 4.5 06/05/17 06/05/17 06/05/17 19:25 19:25 19:25 WBC RBC Hgb Hct MCV MCH MCHC RDW Plt Count MPV Gran % Lymph % (Auto) [place] % (Auto) Eos % (Auto) Baso % (Auto) Gran # Lymph # (Auto) [place] # (Auto) Eos # (Auto) Baso # (Auto) pO2 VBG pH VBG pCO2 VBG HCO3 VBG Total CO2 VBG O2 Sat (Calc) VBG Base Excess VBG Potassium Sodium Chloride Glucose Lactate FiO2 Potassium Carbon Dioxide Anion Gap BUN Creatinine Est GFR ( Amer) Est GFR (Non-Af Amer) Random Glucose Serum Osmolality Lactic Acid Uric Acid Calcium Magnesium Iron 51 TIBC 340 % Saturation 15 L Ferritin 206.0 Total Bilirubin Direct Bilirubin AST ALT Alkaline Phosphatase Total Creatine Kinase Troponin I Total Protein Albumin Globulin Albumin/Globulin Ratio Prostate Specific Ag 97.4 H Vitamin B12 896 Folate 6.7 Procalcitonin Free T4 1.50 Thyroxine (T4) 5.9 Venous Blood Potassium 06/05/17 06/05/17 06/06/17 21:00 23:15 05:30 WBC RBC Hgb Hct MCV MCH MCHC RDW Plt Count MPV Gran % Lymph % (Auto) [place] % (Auto) Eos % (Auto) Baso % (Auto) Gran # Lymph # (Auto) [place] # (Auto) Eos # (Auto) Baso # (Auto) pO2 VBG pH VBG pCO2 VBG HCO3 VBG Total CO2 VBG O2 Sat (Calc) VBG Base Excess VBG Potassium Sodium 129 L Chloride 94 L Glucose Lactate FiO2 Potassium 3.8 Carbon Dioxide 23 Anion Gap 15 BUN 13 Creatinine 1.2 Est GFR ( Amer) > 60 Est GFR (Non-Af Amer) 58 Random Glucose 102 Serum Osmolality Lactic Acid 1.7 Uric Acid Calcium 9.3 Magnesium 1.5 L Iron TIBC % Saturation Ferritin Total Bilirubin 2.2 H Direct Bilirubin 1.3 H AST 40 ALT 31 Alkaline Phosphatase 88 Total Creatine Kinase 229 217 Troponin I 0.04 D Total Protein 6.3 Albumin 3.2 Globulin 3.1 Albumin/Globulin Ratio 1.0 L Prostate Specific Ag Vitamin B12 Folate Procalcitonin Free T4 Thyroxine (T4) Venous Blood Potassium 06/06/17 06/06/17 06/06/17 05:30 05:30 05:30 WBC 3.7 L RBC 4.66 Hgb 13.3 L Hct 38.8 L MCV 83.3 MCH 28.5 MCHC 34.3 RDW 15.6 H Plt Count 164 MPV 10.0 Gran % 62.0 Lymph % (Auto) 21.7 L [place] % (Auto) 13.9 H Eos % (Auto) 1.3 L Baso % (Auto) 1.1 Gran # 2.32 Lymph # (Auto) 0.8 L [place] # (Auto) 0.5 Eos # (Auto) 0.1 Baso # (Auto) 0.04 pO2 VBG pH VBG pCO2 VBG HCO3 VBG Total CO2 VBG O2 Sat (Calc) VBG Base Excess VBG Potassium Sodium Chloride Glucose Lactate FiO2 Potassium Carbon Dioxide Anion Gap BUN Creatinine Est GFR ( Amer) Est GFR (Non-Af Amer) Random Glucose Serum Osmolality Lactic Acid 1.1 Uric Acid Calcium Magnesium Iron TIBC % Saturation Ferritin Total Bilirubin Direct Bilirubin AST ALT Alkaline Phosphatase Total Creatine Kinase Troponin I Total Protein Albumin Globulin Albumin/Globulin Ratio Prostate Specific Ag 90.5 H Vitamin B12 Folate Procalcitonin Free T4 Thyroxine (T4) Venous Blood Potassium 06/06/17 06/06/17 11:30 11:30 WBC RBC Hgb Hct MCV MCH MCHC RDW Plt Count MPV Gran % Lymph % (Auto) [place] % (Auto) Eos % (Auto) Baso % (Auto) Gran # Lymph # (Auto) [place] # (Auto) Eos # (Auto) Baso # (Auto) pO2 VBG pH VBG pCO2 VBG HCO3 VBG Total CO2 VBG O2 Sat (Calc) VBG Base Excess VBG Potassium Sodium Chloride Glucose Lactate FiO2 Potassium Carbon Dioxide Anion Gap BUN Creatinine Est GFR ( Amer) Est GFR (Non-Af Amer) Random Glucose Serum Osmolality 281 Lactic Acid Uric Acid Calcium Magnesium Iron TIBC % Saturation Ferritin Total Bilirubin Direct Bilirubin AST ALT Alkaline Phosphatase Total Creatine Kinase Troponin I 0.03 D Total Protein Albumin Globulin Albumin/Globulin Ratio Prostate Specific Ag Vitamin B12 Folate Procalcitonin Free T4 Thyroxine (T4) Venous Blood Potassium Assessment & Plan (1) Bone lesion Assessment and Plan: suspect metastatic prostate cancer given elevated PSA urology evaluation Status: Acute (2) Pleural effusion Assessment and Plan: ? CHF related ? malignancy related consider thoracentesis if symptomatic Status: Acute (3) Leukopenia Assessment and Plan: no neutropenia ? related to bone mets Status: Acute (4) Anemia Assessment and Plan: mild likely chronic disease Status: Acute (5) Coagulopathy Assessment and Plan: likely nutritional Thank you for this interesting consult. Status: Acute
[2017-06-06 22:43] LABS: CREATININE,RANDOM URINE 11 mg/dL
--- NOTE | 2017-06-06 23:37 | CARD ---
APPROVED REPORT EKG Measurement Heart [id number] <Conclusion> Atrial fibrillation with rapid ventricular response with premature ventricular or aberrantly conducted complexes Nonspecific ST and T wave abnormality, probably digitalis effect Abnormal ECG
--- NOTE | 2017-06-07 00:08 | CON ---
DATE: CARDIOLOGY CONSULTATION REASON FOR CONSULTATION: Congestive heart failure as well as paroxysmal atrial fibrillation. HISTORY OF PRESENT ILLNESS: The patient is a 77-year-old male who presented because of worsening of leg swelling and pain as well as weakness and shortness of breath. The patient has not seen a physician for a long period of time. The patient was found to be on rapid atrial fibrillation and was started on IV Cardizem bolus and then infusion. Subsequently IV Cardizem was discontinued. On the monitor, the patient was in paroxysmal atrial fibrillation and the last time when I saw him around 01:00 p.m. he was in AFib with controlled heart rate. The patient denies any retrosternal chest pain and he is unaware of any history of heart attack in the past. SOCIAL HISTORY: Patient is a former smoker and former ETOH abuser. MEDICATIONS: Aspirin 81 mg once a day, K-Dur 20 mEq once a day, Lasix 40 mg intravenously twice a day, Lipitor 40 mg once a day, Lopressor 25 mg twice a day, Lovenox 100 mg subcutaneous twice a day, Zyloprim 300 mg daily, Protonix 20 mg twice a day. REVIEW OF SYSTEMS: No recent fall. No fever or chills. No vomiting or diarrhea. PHYSICAL EXAMINATION: GENERAL: Patient is an elderly male, who does not appear to be in acute distress. VITAL SIGNS: Blood pressure 125/85, heart rate 109, temperature 97.3, respirations 20. HEENT: Normocephalic. CHEST: Minimal rhonchi. HEART: S1, S2 regular. ABDOMEN: Soft. EXTREMITIES: 2+ pitting edema. DIAGNOSTIC DATA: Chest x-ray revealed significant cardiomegaly, no infiltrate or effusion. EKG revealed rapid atrial fibrillation, heart rate 119 with nonspecific T-wave changes. Brain MRI revealed no evidence of enhancing mass, lesion, mass effect or midline shift, [id number] volume loss. Venous Doppler of lower extremity, no DVT in the visualized segments. Chest, abdomen and pelvis CT scan; moderate anasarca, small ascites, sclerotic bone lesions compatible with metastasis. LABORATORY DATA: Hemoglobin and hematocrit of 13.3, and 38.8, white count 3.7, platelet count 164,000. Estimated serum sodium 129, potassium 3.8, chloride 94, CO2 of 21, glucose 102, BUN 13, creatinine 1.2. Troponins 0.04 and 0.03. Urine drug screen is negative. INR is 1.56. ASSESSMENT: 1. Congestive heart failure. 2. Paroxysmal atrial fibrillation. 3. Rule out metastatic bone lesions. 4. Hypomagnesemia. RECOMMENDATIONS: Continue current; aspirin 81 mg once a day, K-Dur 20 mEq once a day, Lasix 40 mg intravenously twice a day, Lipitor 40 mg once a day, magnesium oxide 400 mg twice a day, therapeutic subcutaneous Lovenox 100 mg twice a day. Obtain PSA level, and I would review the echocardiographic study performed today. Phi Radford MD
--- NOTE | 2017-06-07 01:33 | PN ---
DATE: 06/06/2017 LOCATION: Patient is seen in room 272, bed 2. SUBJECTIVE: Patient is lying in the bed. Overnight nurse's notes were reviewed. Patient continued to be on atrial fibrillation. Patient's heart rate is around low 100s, blood pressure 131/95 overnight. Patient continued on dobutamine drip. Urology consult was notified to Dr. Lopez, ordered free and total PSA. Patient's bladder scan was done overnight. Patient had more than 600 mL of urine. Straight cath was done. Even in the morning, patient's bladder scan was more than 400. Pettit catheter was placed this morning, patient had more than 350 mL of output. Patient was seen by Dr. Siu by Urology. Patient was found to be alert, awake, oriented x3. Patient underwent echocardiogram. PHYSICAL EXAMINATION: VITAL SIGNS: Overnight, T-max 97.4. Telemetry shows atrial fibrillation. Heart rate in low 100s and 110s. Blood pressure is steady with 125/95, 131/95, 138/81, 140/94, 139/72; respirations 18 to 20; O2 sat is 99% to 100%. Total output is 3150 yesterday. Today's output is 1350. HEENT: Head examination, normocephalic, atraumatic. HEENT examination shows pink conjunctivae. Anicteric sclerae. No oropharyngeal lesion. No neck rigidity. Positive jugular venous tension. CHEST: Kyphosis, decreased breath sound at the bases. Positive creps, crackles noted bilaterally. CARDIOVASCULAR: Shows S1, S2, irregular rhythm. Positive systolic murmur left sternal border, right second intercostal space, left second intercostal space. ABDOMEN: Protuberant, distended, tense, positive bowel sounds. Unable to appreciate any hepatosplenomegaly. No guarding. No rigidity. No rebound tenderness. GENITALIA: Male. Positive scrotal swelling. EXTREMITIES: Bilateral lower extremity more than 2 to 3+ pitting edema. Positive skin changes of the lower extremity. SCDs, LIV stockings missing. MUSCULOSKELETAL: Shows a body mass index of 30. DIAGNOSTICS: On 06/06, WBC 3.7, hemoglobin and hematocrit 13.3 and 38.8, platelet . Repeat VBG shows a lactate of 1.7. Repeat lactic acid was 1.7 and 1.1. Serum osmolality 281. Sodium 129, gone up from 127; potassium 3.8; chloride 94; CO2 23; anion gap 15; BUN 13; creatinine 1.2; GFR greater than 60; glucose 102; uric acid 9.3; magnesium is low at 1.5. Total bili 2.2, direct bili 1.3. Iron 51; iron saturation 15; TIBC 314; iron level 51, which is low normal; ferritin 206. PSA is 97.4 and 90.5. Procalcitonin level is low. TSH and T4 is and ProBNP is 11,300. Troponin all four sets is indeterminate and peak troponin is 0.04. Trace protein, microscopic hematuria, bacteriuria noted on the urinalysis. Patient's CAT scan of the chest, abdomen, pelvis, MRI of the brain, bone scan, all reviewed and explained to the patient in layman's language. MRI of the brain with moderate volume loss, cerebral cortical atrophy of the brain. Bone scan is positive for evidence of bony metastasis noted with abnormal increased uptake thoracolumbar spine, right iliac bone, posterior right ribcage, bilateral scapula, proximal femur including lesser trochanter on the right and subtrochanteric on the left, increased uptake on the sternum suggestive of osseous metastatic disease within the axial skeleton. Patient's CAT scan of the chest, abdomen and pelvis was reviewed also and explained to the patient. CAT scan of the chest, abdomen, pelvis shows centrilobular paraseptal emphysema, atelectasis scarring, pulmonary nodules, bilateral pleural effusion, mild cardiomegaly, coronary artery calcification, scattered sclerotic lesions in the bone, degenerative joint disease of spine, positive anasarca with diffuse stranding within the subcutaneous tissue and subcentimeter pulmonary nodule noted of 0.3 cm, adrenal gland hypertrophy noted. Possible right renal cyst noted. Diverticulosis noted. 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 Small umbilical hernia and inguinal hernia noted. Moderate atherosclerotic disease noted, Subcentimeter retroperitoneal lymph nodes noted. EKG and echocardiogram results were noted. Ejection fraction 20%. Right ventricular systolic pressure 52 mmHg, concentric left ventricular hypertrophy, moderate to severely impaired left ventricular systolic function, global left ventricular hypokinesis, no thrombus. Moderately reduced right ventricular systolic function, moderately dilated left and right atrium, moderately thickened aortic valve, moderately thickened mitral valve with moderate mitral regurgitation and moderate tricuspid regurgitation with moderate pulmonary arterial hypertension with elevated right ventricular systolic pressure of 52 noted. EKG done today shows atrial fibrillation with rapid ventricle response, ST-T changes. IMPRESSION AND PLAN: 1. Hypertension. 2. Atrial fibrillation with rapid ventricular response. 3. Acute systolic and diastolic congestive heart failure with decreased left ventricular ejection fraction of 20% and abnormal weight gain and bilateral lower extremity lymphedema. 4. Leukopenia. 5. Transient lactic acidosis. 6. Hyponatremia, possibly syndrome of inappropriate antidiuretic hormone secretion. 7. Hypomagnesemia. 8. Hyperbilirubinemia. 9. Elevated prostate-specific antigen of greater than 90. 10. Gait dysfunction. 11. Deconditioning. 12. Proteinuria, hematuria, bacteriuria. 13. Axial skeleton diffuse osseous metastatic disease with abnormal increased uptake of the thoracolumbar spine, right iliac bone, posterior rib in the right rib, bilateral scapula, proximal femur bilaterally including the lesser trochanter on the right and subtrochanteric region on the left with increased uptake in the sternum. 14. Cerebral cortical atrophy of the brain with moderate volume loss. 15. Centrilobular and paraseptal emphysema with atelectasis scarring. 16. Subcentimeter pulmonary nodules of 0.3 cm. 17. Bilateral pleural effusion. 18. Cardiomegaly. 19. Scattered sclerotic bony lesion. 20. Moderate diffuse stranding of the subcutaneous tissue and anasarca. 21. Bilateral adrenal gland hypertrophy. 22. Probable right renal cyst. 23. Colonic diverticulosis. 24. 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 25. Degenerative joint disease of the spine. 26. Small fat-containing umbilical hernia. 27. Small fat-containing inguinal hernia. 28. Subcentimeter retroperitoneal lymphadenopathy. 29. Dilated cardiomyopathy with left ventricular ejection fraction of 21%. 30. Concentric left ventricular hypertrophy. 31. [id number] impaired left ventricular systolic function with left ventricular ejection fraction of 21% and left ventricular global hypokinesis. 32. Moderately reduced right ventricular systolic function. 33. Moderately dilated left and right atrium. 34. Moderately thickened aortic valve. 35. Moderately thickened mitral valve. 36. Moderate mitral regurgitation. 37. Moderate tricuspid regurgitation with moderate pulmonary arterial hypertension with right ventricular systolic pressure of 52 mmHg. 38. History of poor compliance and noncompliance. 39. Hypervolemic hyponatremia secondary to systolic congestive heart failure. 40. Increased urinary retention. 41. Possible and probable stage IV prostate carcinoma with bone metastasis and extremely high PSA of greater than 90. 1. Atrial fibrillation with rapid ventricular response. 2. Ruben-inferolateral coronary ischemia. 3. History of hypertension. 4. Most possible and most likely systolic congestive heart failure with elevated BNP. 5. Cardiomegaly and pulmonary vascular congestion, suggestive of congestive heart failure. 6. Leukopenia. 7. Lactic acidosis. 8. Hyponatremia, etiology undetermined. 9. Questionable syndrome of inappropriate (excretion) of antidiuretic hormone. 10. Indeterminate troponin. 11. Elevated BNP suggestive of congestive heart failure. 12. Trace proteinuria, trace microscopic hematuria, trace bacteriuria. 13. Bilateral lower extremity lymphedema. 14. Anasarca. 15. Extremely poor compliance and noncompliance. 16. History of hypovitaminosis D. 17. History of hyperuricemia, hypomagnesemia and history of elevated prostate-specific antigen. At this time, I have seen the patient, examined the patient in room 272, bed 2. I have explained to the patient that patient most probably has prostate cancer. I have used the word cancer in explaining to the patient that he has advanced, stage IV, widely metastatic prostate cancer to the bones and I have explained to the patient that the patient needs Urology, Hematology/Oncology Cardiology, Nephrology evaluation. Patient will be continued on telemetry until patient's atrial fibrillation and congestive heart failure is improved. Patient has been ordered serial labs, CMP, LFT, magnesium, lipid panel ordered. HIV results pending. CBC repeat ordered. CONSULTATION: 1. Cardiology. 2. Nephrology. 3. Urology. 4. Hematology/Oncology. Flow cytometry is pending. CURRENT MEDICATIONS: 1. Colace 100 mg three times a day. 2. Dobutamine drip at 5 mcg/kg per minute. 3. Ecotrin 81 mg daily. 4. Patient has been ordered K-Dur 20 mEq daily. 5. Lasix 40 mg IV q. 12. 6. Lipitor 40 mg daily. 7. Lopressor 25 mg q. 8 increased to 25 mg q. 8. 8. Lovenox 100 mg subcu q. 12. 9. Magnesium oxide 400 mg twice a day. 10. Protonix 40 mg daily. 11. Allopurinol 300 mg daily. Patient is ordered oxygen 2 liters continuous. Repeat EKG ordered. Heart healthy diet ordered. Out of bed to chair ordered. LIV stockings, SCDs ordered. Occupational therapy, physical therapy ordered. Pettit catheter ordered. Dictated and electronically signed, not read. Benny Street MD MTDD
[2017-06-07] MEDS: Pantoprazole 20 mg EC Tab PO SCH ×2 (05:15→17:13)
[2017-06-07 07:47] LABS: BASO # 0.04 K/mm3 (0.0-2.0); BASO % 0.8 % (0.0-3.0); EOS # 0.2 (0.0-0.7); EOS % 4.6 % (1.5-5.0); GRAN # 2.83 (1.4-6.5); HEMOGLOBIN 13.2 g/dL (14.0-18.0); LYMPH % 19.8 % (22.0-35.0); MEAN CELL VOLUME 83.8 fl (80.0-105.0); MEAN CORPUSCULAR HEMOGLOBIN 28.5 pg (25.0-35.0); MEAN PLATELET VOLUME 9.6 fl (7.0-11.0); MONO # 0.8 (0.1-0.6); MONO % 15.8 % (1.0-6.0); RBC 4.63 10^6/uL (3.5-6.1); RED CELL DISTRIBUTION WIDTH 15.5 % (11.5-14.5); WHITE BLOOD COUNT 4.8 10^3/ul (4.5-11.0)
[2017-06-07 07:59] LABS: ALT/SGPT 34 U/L (7-56); AST/SGOT 37 U/L (17-59); BILIRUBIN,DIRECT 0.8 mg/dL (0.0-0.4); BLOOD UREA NITROGEN 12 mg/dL (7-21); CALCIUM 9.1 mg/dL (8.4-10.5); GFR AFRICAN-AMERICAN > 60; GFR NON-AFRICAN AMERICAN > 60; HDL CHOLESTEROL 31 mg/dL (29-60); MAGNESIUM 1.7 mg/dL (1.7-2.2)
[2017-06-07 08:10] LABS: LDL CHOLESTEROL 46 mg/dL (0-129)
[2017-06-07] MEDS ORDERED: Potassium Chloride 20 mEq ER Tab PO ONE (08:49)
[2017-06-07] MEDS: Potassium Chloride 20 mEq ER Tab PO SCH ×2 (09:35→17:15)
[2017-06-07] MEDS: Enoxaparin 100 mg Syringe SC SCH ×2 (09:42→21:06)
[2017-06-07] MEDS: Magnesium Oxide 400 mg Tab UD PO SCH ×4 (09:42→17:14)
[2017-06-07] MEDS ORDERED: Magnesium Oxide 400 mg Tab UD PO SCH (10:00)
[2017-06-07 11:18] LABS: TOTAL PSA 103.4 ng/mL (< or = 4.0)
[2017-06-07] MEDS: DOBUTamine 500mg/250ml D5W 500 MG/250 ML BAG IV PRN (11:32)
--- NOTE | 2017-06-07 11:47 | PN ---
DATE: 06/07/2017 SUBJECTIVE: The patient is seen lying in the bed in room 272, bed 2. The patient does report increased diuresis. The patient states that his leg swelling has gone down, but the foot swelling is still persistent. Overnight, the patient slept well. PHYSICAL EXAMINATION: VITAL SIGNS: T-max is 97.6. Telemetry shows atrial fibrillation, heart rate came down from 130S yesterday to 110, 101, 114. Blood pressure in the last 24 hours, 134/88, 115/83, 133/97, 117/81. Respiration 20, O2 sat 100%. Yesterday, output was 3150 plus 1350. Today's output documented is 3200. The patient's weight has not been done in the last 2 days. GENERAL: The patient is seen lying in the bed. HEENT: Head examination is normocephalic, atraumatic. HEENT examination shows pink conjunctiva. Anicteric sclerae. No oropharyngeal lesion. Positive jugular venous distention. CHEST: Kyphosis. LUNGS: Shows decreased breath sounds bilaterally. Positive creps, crackles. CARDIOVASCULAR: S1, S2. Irregular rhythm. Positive systolic murmur, right second intercostal space, left second intercostal space, left sternal border. ABDOMEN: Soft, slightly protuberant. Positive bowel sounds. Unable to appreciate any hepatosplenomegaly. No guarding. No rigidity. No rebound tenderness. GENITALIA: Male. RECTAL: Deferred. EXTREMITY: Shows decreasing 2 to 3+ pitting edema of the legs, but positive pitting edema of the feet is persistent. MUSCULOSKELETAL: Shows a body mass index of 30.1. NEUROLOGIC: The patient is alert, awake, oriented x3. Cranial nerves II through XII grossly limited. Gait examination could not be tested. VASCULAR: Unable to be palpated because of the pitting edema and lymphedema of the lower extremity. Body mass index is 30. DIAGNOSTICS: On 06/07/2017, WBC 4.8, hemoglobin and hematocrit 13.2 and 38.8, platelets 141. Sodium 132, potassium 3.5, chloride 93, CO2 of 26, anion gap 16, BUN 12, creatinine 1.1, GFR greater than 60, glucose 76, calcium 9.1, magnesium 1.7, total bili 1.8, direct bili 0.8. PSA was done three consecutive days, PSA is 97, 90.5, 85, persistently elevated. EKG from today shows atrial fibrillation with rapid ventricular response, ST-T wave changes, PVCs. IMPRESSION AND PLAN: 1. Atrial fibrillation with rapid ventricular response. 2. Dilated cardiomyopathy with ejection fraction of 21%. 3. Concentric left ventricular hypertrophy. 4. Moderate to severely impaired left ventricular function with left ventricle ejection fraction of 21%. 5. Global left ventricular hypokinesis. 6. Moderately reduced right ventricular systolic function. 7. Moderately dilated left and right atrium. 8. Moderately thickened aortic valve. 9. Moderately thickened mitral valve with moderate mitral regurgitation. 10. Moderate tricuspid regurgitation with moderate pulmonary arterial hypertension with right ventricular systolic pressure of 52 mmHg. 11. Atrial fibrillation with rapid ventricular response. 12. Gait dysfunction. 13. Bilateral lower extremity lymphedema and venous stasis. 14. Leukopenia. 15. Anemia. 16. Lactic acidosis. 17. Hypokalemia. 18. Hyperbilirubinemia. 19. Elevated prostate-specific antigen. 20. Hyperbilirubinemia. 21. Hyponatremia. 22. Possible syndrome of inappropriate antidiuretic hormone. 23. Systolic congestive heart failure with elevated BNP. 24. Systolic and diastolic congestive heart failure with elevated BNP, decreased left ventricular ejection fraction of 21% and moderate pulmonary arterial hypertension, moderate tricuspid regurgitation. 1. Hypertension. 2. Atrial fibrillation with rapid ventricular response. 3. Acute systolic and diastolic congestive heart failure with decreased left ventricular ejection fraction of 20% and abnormal weight gain and bilateral lower extremity lymphedema. 4. Leukopenia. 5. Transient lactic acidosis. 6. Hyponatremia, possibly syndrome of inappropriate antidiuretic hormone secretion. 7. Hypomagnesemia. 8. Hyperbilirubinemia. 9. Elevated prostate-specific antigen of greater than 90. 10. Gait dysfunction. 11. Deconditioning. 12. Proteinuria, hematuria, bacteriuria. 13. Axial skeleton diffuse osseous metastatic disease with abnormal increased uptake of the thoracolumbar spine, right iliac bone, posterior rib in the right rib, bilateral scapula, proximal femur bilaterally including the lesser trochanter on the right and subtrochanteric region on the left with increased uptake in the sternum. 14. Cerebral cortical atrophy of the brain with moderate volume loss. 15. Centrilobular and paraseptal emphysema with atelectasis scarring. 16. Subcentimeter pulmonary nodules of 0.3 cm. 17. Bilateral pleural effusion. 18. Cardiomegaly. 19. Scattered sclerotic bony lesion. 20. Moderate diffuse stranding of the subcutaneous tissue and anasarca. 21. Bilateral adrenal gland hypertrophy. 22. Probable right renal cyst. 23. Colonic diverticulosis. 24. 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 25. Degenerative joint disease of the spine. 26. Small fat-containing umbilical hernia. 27. Small fat-containing inguinal hernia. 28. Subcentimeter retroperitoneal lymphadenopathy. 29. Dilated cardiomyopathy with left ventricular ejection fraction of 21%. 30. Concentric left ventricular hypertrophy. 31. [id number]-[id number] impaired left ventricular systolic function with left ventricular ejection fraction of 21% and left ventricular global hypokinesis. 32. Moderately reduced right ventricular systolic function. 33. Moderately dilated left and right atrium. 34. Moderately thickened aortic valve. 35. Moderately thickened mitral valve. 36. Moderate mitral regurgitation. 37. Moderate tricuspid regurgitation with moderate pulmonary arterial hypertension with right ventricular systolic pressure of 52 mmHg. 38. History of poor compliance and noncompliance. 39. Hypervolemic hyponatremia secondary to systolic congestive heart failure. 40. Increased urinary retention. 41. Possible and probable stage IV prostate carcinoma with bone metastasis and extremely high PSA of greater than 90. 1. Atrial fibrillation with rapid ventricular response. 2. Ruben-inferolateral coronary ischemia. 3. History of hypertension. 4. Most possible and most likely systolic congestive heart failure with elevated BNP. 5. Cardiomegaly and pulmonary vascular congestion, suggestive of congestive heart failure. 6. Leukopenia. 7. Lactic acidosis. 8. Hyponatremia, etiology undetermined. 9. Questionable syndrome of inappropriate (excretion) of antidiuretic hormone. 10. Indeterminate troponin. 11. Elevated BNP suggestive of congestive heart failure. 12. Trace proteinuria, trace microscopic hematuria, trace bacteriuria. 13. Bilateral lower extremity lymphedema. 14. Anasarca. 15. Extremely poor compliance and noncompliance. 16. History of hypovitaminosis D. 17. History of hyperuricemia, hypomagnesemia and history of elevated prostate-specific antigen. PLAN: At this time, the patient has been ordered serial CMP, LFTs, repeat labs. The patient's current consultation; 1. Cardiology. 2. Nephrology. 3. Urology. 4. Hematology/Oncology. The patient is referred to Transitional Care Unit. Flow cytometry ordered. Current medications: Colace 100 mg three times a day, dobutamine drip 5 mcg/kg/minute, Ecotrin 81 mg daily. The patient is given potassium supplementation. The patient's potassium supplementation has been increased from 20 once a day to 20 twice a day. The patient is given a stat dose of 40 mEq of K-Dur. The patient is on Lasix 40 IV q. 12, Lipitor 40 mg daily, Lopressor 25 mg q. 8, Lovenox 100 mg subcu q. 12, magnesium oxide 400 mg three times a day, Protonix 40 mg daily, allopurinol 300 mg daily. The patient's metoprolol, Lopressor will be increased to 50 mg twice a day for atrial fibrillation and rate control. The patient has been again updated about his diagnosis, treatment recommendations. Recommendations of all the physicians involved in the care of the patient was explained to the patient. We are still awaiting Urology evaluation and recommendation since June 05. The patient is seen by Cardiology, Nephrology and Hematology/Oncology. Dictated and electronically signed, not read. Benny Street MD MTDD
--- NOTE | 2017-06-07 14:35 | CP.PCM.PN ---
Subjective - Date & Time of Evaluation Date of Evaluation: 06/07/17 Time of Evaluation: 14:32 - Subjective Subjective: RENAL FOLLOW UP S: seen and examined feels ok no complaints, lawrence in place pe: vs as below gen: nad sclera: anicteric op: clear neck: supple cv: +s1+s2 lungs: dec bs at bases abd: soft ext: 1+ edema neuro: a+ox3 psych: nml affect skin: no rash labs and imaging reviewed imp: Hyponatremia/ Acute on Chronic systolic heart failure/ Anemia / BPH/ Obstructive uropathy / hypomag plan: Na slowly improving, can continue gentle diuresis f/u gu eval on oral mag k repleted hgb stable f/u cardiology Objective - Vital Signs/Intake and Output Vital Signs (last 24 hours): Temp Pulse Resp BP Pulse Ox 97.8 F 52 L 19 110/82 100 06/07/17 12:00 06/07/17 12:00 06/07/17 12:00 06/07/17 12:00 06/07/17 05:57 Intake and Output: 06/07/17 06/07/17 06:59 18:59 Intake Total 533 250 Output Total 3200 Balance -2667 250 - Medications Medications: Current Medications Allopurinol (Zyloprim) 300 mg PO DAILY [facility] Last Admin: 06/07/17 09:46 Dose: 300 mg Aspirin (Ecotrin) 81 mg PO DAILY [facility] Last Admin: 06/07/17 09:42 Dose: 81 mg Atorvastatin Calcium (Lipitor) 40 mg PO DIN [facility] Last Admin: 06/06/17 17:35 Dose: 40 mg Docusate Sodium (Colace) 100 mg PO TID [facility] Last Admin: 06/07/17 14:06 Dose: 100 mg Enoxaparin Sodium (Lovenox) 100 mg SC Q12H [facility] PRN Reason: Protocol Last Admin: 06/07/17 09:42 Dose: 100 mg Furosemide (Lasix) 40 mg IVP Q12H [facility] Last Admin: 06/07/17 09:39 Dose: 40 mg Dobutamine HCl/Dextrose (Dobutamine/Dextrose 5% 500mg/250ml) 500 mg in 250 mls @ 14.696 mls/hr IV .Q17H1M PRN; Protocol; 5 MCG/KG/MIN PRN Reason: TITRATE PER PROTOCOL Last Admin: 06/07/17 11:32 Dose: 5 mcg/kg/min, 14.696 mls/hr Magnesium Oxide (Mag-Ox) 400 mg PO TID [facility] Last Admin: 06/07/17 14:06 Dose: 400 mg Metoprolol Tartrate (Lopressor) 50 mg PO BID [facility] Last Admin: 06/07/17 09:42 Dose: 50 mg Pantoprazole Sodium (Protonix Ec Tab) 20 mg PO 0600,1600 [facility] Last Admin: 06/07/17 05:15 Dose: 20 mg Potassium Chloride (K-Dur 20 Meq Er Tab) 20 meq PO BID [facility] - Labs Labs: 06/07/17 06:45 06/07/17 06:45 PT 18.0 SECONDS (9.4-12.5) H 06/05/17 15:45 INR 1.56 (0.93-1.08) H 06/05/17 15:45 APTT 33.9 Seconds (25.1-36.5) 06/05/17 15:45
--- NOTE | 2017-06-07 16:37 | CARD ---
APPROVED REPORT EKG Measurement Heart [id number] <Conclusion> Atrial fibrillation with rapid ventricular response with premature ventricular or aberrantly conducted complexes Low voltage QRS T wave abnormality, consider lateral ischemia or digitalis effect Abnormal ECG
--- NOTE | 2017-06-07 19:06 | PN ---
DATE: SUBJECTIVE: The patient's shortness of breath has improved slightly. No retrosternal chest pain. PHYSICAL EXAMINATION: VITAL SIGNS: Blood pressure 110/82, heart rate 62, temperature 97.8, respirations 19. HEENT: Normocephalic. CHEST: Absent breath sounds over the bases. HEART: S1 and S2, regular. EXTREMITIES: A 1+ pitting edema, slight improvement compared to yesterday. LABORATORY DATA: Hemoglobin and hematocrit 13.1 and 38.8, white count and platelet count are within normal limits. SMA-7: Sodium 132, potassium 3.5, chloride 93, CO2 is 26, glucose 76, BUN 12, and creatinine 1.1. Echocardiographic study revealed mild concentric LVH with severely depressed ejection fraction and moderate pulmonary hypertension. ASSESSMENT: 1. Acute systolic heart failure. 2. Paroxysmal atrial fibrillation. 3. Rule out metastatic bone disease. 4. Hypokalemia and hypomagnesemia. RECOMMENDATIONS: Continue current Dobutrex infusion. Continue aspirin 81 mg once a day. K-Dur was increased to 20 mEq twice a day. Continue Lasix 40 mg intravenously twice a day, Lopressor 50 mg twice a day, therapeutic subcutaneous Lovenox, Zyloprim 300 mg once a day. Consider initiating Coumadin therapy if the patient is committed to an outpatient followup with the primary physician. Phi Radford MD
--- NOTE | 2017-06-07 19:09 | CP.PCM.PN ---
Subjective - Date & Time of Evaluation Date of Evaluation: 06/07/17 Time of Evaluation: 19:00 - Subjective Subjective: No complaints Objective - Vital Signs/Intake and Output Vital Signs (last 24 hours): Temp Pulse Resp BP Pulse Ox 97.1 F L 111 H 19 132/92 H 100 06/07/17 17:22 06/07/17 17:57 06/07/17 17:22 06/07/17 17:22 06/07/17 05:57 Intake and Output: 06/07/17 06/08/17 18:59 06:59 Intake Total 250 Balance 250 - Medications Medications: Current Medications Allopurinol (Zyloprim) 300 mg PO DAILY [facility] Last Admin: 06/07/17 09:46 Dose: 300 mg Aspirin (Ecotrin) 81 mg PO DAILY [facility] Last Admin: 06/07/17 09:42 Dose: 81 mg Atorvastatin Calcium (Lipitor) 40 mg PO DIN [facility] Last Admin: 06/07/17 17:12 Dose: 40 mg Docusate Sodium (Colace) 100 mg PO TID [facility] Last Admin: 06/07/17 17:15 Dose: 100 mg Enoxaparin Sodium (Lovenox) 100 mg SC Q12H [facility] PRN Reason: Protocol Last Admin: 06/07/17 09:42 Dose: 100 mg Furosemide (Lasix) 40 mg IVP Q12H [facility] Last Admin: 06/07/17 09:39 Dose: 40 mg Dobutamine HCl/Dextrose (Dobutamine/Dextrose 5% 500mg/250ml) 500 mg in 250 mls @ 14.696 mls/hr IV .Q17H1M PRN; Protocol; 5 MCG/KG/MIN PRN Reason: TITRATE PER PROTOCOL Last Admin: 06/07/17 11:32 Dose: 5 mcg/kg/min, 14.696 mls/hr Magnesium Oxide (Mag-Ox) 400 mg PO TID [facility] Last Admin: 06/07/17 17:14 Dose: 400 mg Metoprolol Tartrate (Lopressor) 50 mg PO BID [facility] Last Admin: 06/07/17 17:13 Dose: 50 mg Pantoprazole Sodium (Protonix Ec Tab) 20 mg PO 0600,1600 [facility] Last Admin: 06/07/17 17:13 Dose: 20 mg Potassium Chloride (K-Dur 20 Meq Er Tab) 20 meq PO BID [facility] Last Admin: 06/07/17 17:15 Dose: 20 meq - Labs Labs: 06/07/17 06:45 06/07/17 06:45 PT 18.0 SECONDS (9.4-12.5) H 06/05/17 15:45 INR 1.56 (0.93-1.08) H 06/05/17 15:45 APTT 33.9 Seconds (25.1-36.5) 06/05/17 15:45 - Head Exam Head Exam: ATRAUMATIC - Eye Exam Eye Exam: Normal appearance - ENT Exam ENT Exam: Mucous Membranes Dry - Respiratory Exam Respiratory Exam: NORMAL BREATHING PATTERN - Cardiovascular Exam Cardiovascular Exam: +S1, +S2 - GI/Abdominal Exam GI & Abdominal Exam: Normal Bowel Sounds - Extremities Exam Extremities Exam: Pedal Edema Assessment and Plan (1) Bone lesion Assessment & Plan: suspect bone mets from prostate cancer consider IR bone lesion biopsy if patient not to have prostate biopsy by urology Status: Acute (2) Pleural effusion Assessment & Plan: comfortable at rest consider thoracentesis if patient become symptomatic Status: Acute (3) Leukopenia Assessment & Plan: resolved may be related to bone mets Status: Acute (4) Anemia Assessment & Plan: chronic disease no iron/b12/folate deficiency Status: Acute (5) Coagulopathy Status: Acute
[2017-06-08] MEDS: Pantoprazole 20 mg EC Tab PO SCH ×2 (06:11→17:41)
[2017-06-08] MEDS: DOBUTamine 500mg/250ml D5W 500 MG/250 ML BAG IV PRN (06:12)
--- NOTE | 2017-06-08 06:17 | PCM.URO ---
Urology Progress Note - Objective Lab Studies: Reviewed (no change from 06/06 see dictated note possible cysto 06/09 depending on medical status) Lab Results Last 24 Hours: Laboratory Results - last 24 hr 06/06/17 06/06/17 06/07/17 05:30 22:25 06:45 WBC RBC Hgb Hct MCV MCH MCHC RDW Plt Count MPV Gran % Lymph % (Auto) [place] % (Auto) Eos % (Auto) Baso % (Auto) Gran # Lymph # (Auto) [place] # (Auto) Eos # (Auto) Baso # (Auto) Sodium Potassium Chloride Carbon Dioxide Anion Gap BUN Creatinine Est GFR ( Amer) Est GFR (Non-Af Amer) Random Glucose Calcium Magnesium Total Bilirubin Direct Bilirubin AST ALT Alkaline Phosphatase Total Protein Albumin Globulin Albumin/Globulin Ratio Triglycerides Cholesterol LDL Cholesterol Direct HDL Cholesterol Prostate Specific Ag 85.1 H Free PSA 5.2 % Free PSA Not calculated Total PSA 103.4 H Urine Osmolality 190 L WB Flow Cytometry 06/07/17 06/07/17 06/07/17 06:45 06:45 07:03 WBC 4.8 D RBC 4.63 Hgb 13.2 L Hct 38.8 L MCV 83.8 MCH 28.5 MCHC 34.0 RDW 15.5 H Plt Count 141 MPV 9.6 Gran % 59.0 Lymph % (Auto) 19.8 L [place] % (Auto) 15.8 H Eos % (Auto) 4.6 Baso % (Auto) 0.8 Gran # 2.83 Lymph # (Auto) 1.0 L [place] # (Auto) 0.8 H Eos # (Auto) 0.2 Baso # (Auto) 0.04 Sodium 132 Potassium 3.5 L Chloride 93 L Carbon Dioxide 26 Anion Gap 16 BUN 12 Creatinine 1.1 Est GFR ( Amer) > 60 Est GFR (Non-Af Amer) > 60 Random Glucose 76 Calcium 9.1 Magnesium 1.7 Total Bilirubin 1.8 H Direct Bilirubin 0.8 H AST 37 ALT 34 Alkaline Phosphatase 95 Total Protein 6.0 Albumin 3.0 Globulin 3.0 Albumin/Globulin Ratio 1.0 L Triglycerides 38 Cholesterol 86 L LDL Cholesterol Direct 46 HDL Cholesterol 31 Prostate Specific Ag Free PSA % Free PSA Total PSA Urine Osmolality WB Flow Cytometry Reference test Intake & Output: Intake & Output 06/07/17 06/07/17 06/08/17 06:59 18:59 06:59 Intake Total 533 250 550 Output Total 3200 3000 Balance -2667 250 -2450 Weight 201 lb 4.8 oz Intake: IV 353 250 250 Left Wrist 353 Oral 180 300 Output: Urine 3200 3000 Urethral (Pettit) 3000 Urine, Voided 3200 Other: # Bowel Movements 0 0 Vital Signs: Vital Signs - 24 hr 06/07/17 06/07/17 06/07/17 09:39 09:42 10:00 Temperature Pulse Rate 118 H 122 H Respiratory Rate Blood Pressure 118/70 O2 Sat by Pulse Oximetry 06/07/17 06/07/17 06/07/17 11:32 12:00 17:13 Temperature 97.8 F Pulse Rate 90 52 L 114 H Respiratory 19 Rate Blood Pressure 116/60 110/82 132/92 H O2 Sat by Pulse Oximetry 06/07/17 06/07/17 06/07/17 17:22 17:57 21:06 Temperature 97.1 F L Pulse Rate 94 H 111 H Respiratory 19 Rate Blood Pressure 132/92 H 125/83 O2 Sat by Pulse Oximetry 06/07/17 06/07/17 06/08/17 22:00 23:06 00:00 Temperature 97.4 F L 97.4 F L Pulse Rate 110 H 94 H 94 H Respiratory 19 19 Rate Blood Pressure 100/77 100/77 O2 Sat by Pulse 97 Oximetry 06/08/17 06/08/17 06/08/17 02:00 05:59 06:12 Temperature 97.4 F L Pulse Rate 107 H 76 98 H Respiratory 20 Rate Blood Pressure 111/81 119/80 O2 Sat by Pulse 100 Oximetry
[2017-06-08 06:46] LABS: BASO # 0.04 K/mm3 (0.0-2.0); EOS # 0.2 (0.0-0.7); EOS % 6.1 % (1.5-5.0); GRAN # 1.96 (1.4-6.5); GRAN % 49.9 % (50.0-68.0); LYMPH % 25.7 % (22.0-35.0); MEAN CELL VOLUME 84.7 fl (80.0-105.0); MEAN CORPUSCULAR HEMOGLOBIN 28.3 pg (25.0-35.0); MEAN CORPUSCULAR HGB CONC 33.4 g/dl (31.0-37.0); MEAN PLATELET VOLUME 9.6 fl (7.0-11.0); MONO # 0.7 (0.1-0.6); MONO % 17.3 % (1.0-6.0); RBC 4.59 10^6/uL (3.5-6.1); RED CELL DISTRIBUTION WIDTH 15.5 % (11.5-14.5); WHITE BLOOD COUNT 3.9 10^3/ul (4.5-11.0)
[2017-06-08 06:58] LABS: ALB/GLOB RATIO 1.1 (1.1-1.8); ALBUMIN 3.2 g/dL (3.0-4.8); ALT/SGPT 33 U/L (7-56); AST/SGOT 39 U/L (17-59); BILIRUBIN,DIRECT 0.9 mg/dL (0.0-0.4); BLOOD UREA NITROGEN 13 mg/dL (7-21); CALCIUM 9.2 mg/dL (8.4-10.5); GFR AFRICAN-AMERICAN > 60; GFR NON-AFRICAN AMERICAN 58; MAGNESIUM 1.7 mg/dL (1.7-2.2)
[2017-06-08] MEDS: Enoxaparin 100 mg Syringe SC SCH (08:45)
[2017-06-08] MEDS: Magnesium Oxide 400 mg Tab UD PO SCH ×3 (11:13→17:42)
[2017-06-08] MEDS: Potassium Chloride 20 mEq ER Tab PO SCH ×2 (11:15→17:41)
--- NOTE | 2017-06-08 12:32 | CP.PCM.PN ---
Subjective - Date & Time of Evaluation Date of Evaluation: 06/08/17 Time of Evaluation: 12:30 - Subjective Subjective: RENAL FOLLOW UP S: seen and examined feels ok no complaints, lawrence in place pe: vs as below gen: nad sclera: anicteric op: clear neck: supple cv: +s1+s2 lungs: dec bs at bases abd: soft ext: 1+ edema neuro: a+ox3 psych: nml affect skin: no rash labs and imaging reviewed imp: Hyponatremia/ Acute on Chronic systolic heart failure/ Anemia / BPH/ Obstructive uropathy / hypomag plan: Na slightly worse today, if drops further would recc hold lasix, will consider tolvaptan, may have element of SIAdh from ? met prostate ca f/u gu eval on oral mag k stable hgb stable Objective - Vital Signs/Intake and Output Vital Signs (last 24 hours): Temp Pulse Resp BP Pulse Ox 97.5 F L 91 H 19 114/74 100 06/08/17 12:00 06/08/17 12:00 06/08/17 12:00 06/08/17 12:00 06/08/17 05:59 Intake and Output: 06/08/17 06/08/17 06:59 18:59 Intake Total 550 Output Total 3000 Balance -2450 - Medications Medications: Current Medications Allopurinol (Zyloprim) 300 mg PO DAILY [facility] Last Admin: 06/08/17 11:14 Dose: 300 mg Aspirin (Ecotrin) 81 mg PO DAILY [facility] Last Admin: 06/08/17 11:13 Dose: 81 mg Atorvastatin Calcium (Lipitor) 40 mg PO DIN [facility] Last Admin: 06/07/17 17:12 Dose: 40 mg Docusate Sodium (Colace) 100 mg PO TID [facility] Last Admin: 06/08/17 11:13 Dose: 100 mg Enoxaparin Sodium (Lovenox) 100 mg SC Q12H [facility] PRN Reason: Protocol Last Admin: 06/08/17 08:45 Dose: 100 mg Furosemide (Lasix) 40 mg IVP Q12H [facility] Last Admin: 06/08/17 08:45 Dose: 40 mg Dobutamine HCl/Dextrose (Dobutamine/Dextrose 5% 500mg/250ml) 500 mg in 250 mls @ 14.696 mls/hr IV .Q17H1M PRN; Protocol; 5 MCG/KG/MIN PRN Reason: TITRATE PER PROTOCOL Last Admin: 06/08/17 06:12 Dose: 5 mcg/kg/min, 14.696 mls/hr Magnesium Oxide (Mag-Ox) 400 mg PO TID [facility] Last Admin: 06/08/17 11:13 Dose: 400 mg Metoprolol Tartrate (Lopressor) 50 mg PO BID [facility] Last Admin: 06/08/17 11:13 Dose: 50 mg Pantoprazole Sodium (Protonix Ec Tab) 20 mg PO 0600,1600 [facility] Last Admin: 06/08/17 06:11 Dose: 20 mg Potassium Chloride (K-Dur 20 Meq Er Tab) 20 meq PO BID [facility] Last Admin: 06/08/17 11:15 Dose: 20 meq - Labs Labs: 06/08/17 06:00 06/08/17 06:00 PT 18.0 SECONDS (9.4-12.5) H 06/05/17 15:45 INR 1.56 (0.93-1.08) H 06/05/17 15:45 APTT 33.9 Seconds (25.1-36.5) 06/05/17 15:45
[2017-06-08] MEDS ORDERED: Enoxaparin 100 mg Syringe SC SCH (14:09)
--- NOTE | 2017-06-08 18:54 | PN ---
DATE: SUBJECTIVE: Patient's shortness of breath improved. PHYSICAL EXAMINATION: VITAL SIGNS: Blood pressure 114/74, heart rate 91, temperature 97.5, respiration 19. HEENT: Normocephalic. CHEST: Absent breath sound over the bases. HEART: S1, S2, regular. EXTREMITIES: 1+ pitting edema. LABORATORY DATA: Hemoglobin and hemoglobin 13 and 38.5. Today's SMA-7: Sodium 127, potassium 4.3, chloride 89, CO2 of 27, glucose 81, BUN 13, and creatinine 1.2. EKG revealed atrial fibrillation, rate 103. Consider lateral ischemia, PVCs versus aberrancy. ASSESSMENT: 1. Congestive heart failure. 2. Atrial fibrillation. 3. Hyponatremia. 4. Osseous metastasis within the axial skeleton. RECOMMENDATIONS: Continue aspirin 81 mg once a day, K-Dur 20 mEq twice a day, change Lasix to 40 mg p.o. once a day, change Lovenox to 40 mg subcutaneous once a day, and conservative medical approach. As the patient remains hyponatremic, discontinue dietary sodium restriction. Phi Radford MD
--- NOTE | 2017-06-08 20:37 | CARD ---
APPROVED REPORT EKG Measurement Heart [id number] <Conclusion> Atrial fibrillation with rapid ventricular response with premature ventricular or aberrantly conducted complexes T wave abnormality, consider lateral ischemia or digitalis effect Abnormal ECG
--- NOTE | 2017-06-08 21:32 | CP.PCM.PN ---
Subjective - Date & Time of Evaluation Date of Evaluation: 06/08/17 Time of Evaluation: 17:15 - Subjective Subjective: Leg swelling improved. Discussed the role of biopsy in further w/u of likely malignancy with the patient and his son. The patient indicated he wants to think about it further. Objective - Vital Signs/Intake and Output Vital Signs (last 24 hours): Temp Pulse Resp BP Pulse Ox 97.6 F 117 H 19 119/79 100 06/08/17 17:41 06/08/17 18:00 06/08/17 17:41 06/08/17 17:41 06/08/17 05:59 - Medications Medications: Current Medications Allopurinol (Zyloprim) 300 mg PO DAILY [facility] Last Admin: 06/08/17 11:14 Dose: 300 mg Aspirin (Ecotrin) 81 mg PO DAILY [facility] Last Admin: 06/08/17 11:13 Dose: 81 mg Atorvastatin Calcium (Lipitor) 40 mg PO DIN [facility] Last Admin: 06/08/17 17:41 Dose: 40 mg Docusate Sodium (Colace) 100 mg PO TID [facility] Last Admin: 06/08/17 17:41 Dose: 100 mg Enoxaparin Sodium (Lovenox) 40 mg SC DAILY [facility] PRN Reason: Protocol Furosemide (Lasix) 40 mg IVP DAILY [facility] Dobutamine HCl/Dextrose (Dobutamine/Dextrose 5% 500mg/250ml) 500 mg in 250 mls @ 14.696 mls/hr IV .Q17H1M PRN; Protocol; 5 MCG/KG/MIN PRN Reason: TITRATE PER PROTOCOL Last Admin: 06/08/17 06:12 Dose: 5 mcg/kg/min, 14.696 mls/hr Magnesium Oxide (Mag-Ox) 400 mg PO TID [facility] Last Admin: 06/08/17 17:42 Dose: 400 mg Metoprolol Tartrate (Lopressor) 50 mg PO BID [facility] Last Admin: 06/08/17 17:41 Dose: 50 mg Pantoprazole Sodium (Protonix Ec Tab) 20 mg PO 0600,1600 [facility] Last Admin: 06/08/17 17:41 Dose: 20 mg Potassium Chloride (K-Dur 20 Meq Er Tab) 20 meq PO BID [facility] Last Admin: 06/08/17 17:41 Dose: 20 meq - Labs Labs: 06/08/17 06:00 06/08/17 06:00 PT 18.0 SECONDS (9.4-12.5) H 06/05/17 15:45 INR 1.56 (0.93-1.08) H 06/05/17 15:45 APTT 33.9 Seconds (25.1-36.5) 06/05/17 15:45 - Head Exam Head Exam: ATRAUMATIC - Eye Exam Eye Exam: Normal appearance - ENT Exam ENT Exam: Mucous Membranes Dry - Cardiovascular Exam Cardiovascular Exam: +S1, +S2 - GI/Abdominal Exam GI & Abdominal Exam: Normal Bowel Sounds - Extremities Exam Extremities Exam: Pedal Edema Assessment and Plan (1) Bone lesion Assessment & Plan: likely prostate mets Status: Acute (2) Pleural effusion Assessment & Plan: not currently symptomatic Status: Acute (3) Leukopenia Assessment & Plan: no neutropenia may be related to bone mets Status: Acute (4) Anemia Assessment & Plan: mild, chronic disease may be related to bone mets Status: Acute (5) Coagulopathy Status: Acute
--- NOTE | 2017-06-08 23:10 | PN ---
DATE: 06/08/2017 LOCATION: Patient is seen in room 272, bed 2. SUBJECTIVE: Patient lying in the bed. The patient's alert, awake, oriented x3. Patient does not appear to be in any distress. Overnight nurse's notes were reviewed. Patient denies any chest pain. Denies any shortness of breath. Patient's leg swelling has significantly resolved to trace pitting edema, but still has foot swelling. PHYSICAL EXAMINATION: VITAL SIGNS: T max is 97.5. Telemetry shows atrial fibrillation. Heart rate 115, 91, 61, 98, 118, 76; blood pressure , 114/74, 136/94, 119/80, 132/92; respiration 18; O2 sat is 97% to 100%. INTAKE AND OUTPUT: Output yesterday 3200. Today's output is 3000. Patient's weight is 203 pounds from admission weight of 210. HEENT: Head examination normocephalic, atraumatic. HEENT examination shows pinkish conjunctivae. Anicteric sclerae. No oropharyngeal lesion. Positive jugular venous distention. CHEST: Kyphosis. LUNGS: Shows decreased breath sounds, significantly decrease in crackles, rales and creps. CARDIOVASCULAR: Shows S1, S2, irregular rhythm. Positive systolic murmur left sternal border, right second intercostal space, left second intercostal space. ABDOMEN: Abdominal distention is significantly reduced. Abdomen is soft. Positive bowel sounds. No appreciable hepatosplenomegaly. No guarding. No rigidity. No rebound tenderness. GENITALIA: Male. RECTAL: Examination is deferred. Positive Pettit catheter. EXTREMITIES: Show bilateral lower extremity resolution of the pitting edema, positive swelling of the bilateral feet noted. MUSCULOSKELETAL: Shows a body mass index of 28.4. NEUROLOGIC: Patient is alert, awake and oriented x3. Cranial nerves II through XII grossly intact. DIAGNOSTICS: On 06/08, WBC 3.9, hemoglobin and hematocrit 13 and 39, platelet . Sodium 127, potassium 4.3, chloride 89, CO2 27, anion gap 15, BUN 13, creatinine 1.2, GFR greater than 60, glucose 81, calcium 9.2, magnesium 1.7, total bili 1.5. LFTs are normal. Total PSA is 103.4, which should be less than 4.0. Prostate cancer risk is pending. EKG from 06/06 shows atrial fibrillation, low voltage PVCs, lateral ischemic changes with T-wave inversion in I, aVL and V4 to V6. Patient seen by Hematology/Oncology. Patient seen by Urology this morning. The only recommendations noted on the Urology note is possible cystoscopy on 06/09. IMPRESSION AND PLAN: 1. New-onset atrial fibrillation with rapid ventricular response. 2. Dilated cardiomyopathy. 3. Acute systolic congestive heart failure with elevated brain natriuretic peptide. 4. Hyponatremia. 5. Questionable syndrome of inappropriate antidiuretic hormone secretion. 6. Most probable metastatic prostate carcinoma with multiple bone metastases. 7. Leukopenia and anemia. 8. Transient lactic acidosis. 9. Hypokalemia. 10. Hyperbilirubinemia. 11. Elevated prostate-specific antigen of greater than 90. 12. Proteinuria, microscopic hematuria. 13. Moderate pulmonary arterial hypertension with moderate tricuspid regurgitation and elevated right ventricular systolic pressure of 52 mmHg. 14. Bilateral lower extremity lymphedema and venous stasis, resolving. 15. Lateral coronary ischemic changes. 16. Constipation. 17. Hypercholesteremia. 18. Hypomagnesemia. 19. Hyperuricemia. 1. Atrial fibrillation with rapid ventricular response. 2. Dilated cardiomyopathy with ejection fraction of 21%. 3. Concentric left ventricular hypertrophy. 4. Moderate to severely impaired left ventricular function with left ventricle ejection fraction of 21%. 5. Global left ventricular hypokinesis. 6. Moderately reduced right ventricular systolic function. 7. Moderately dilated left and right atrium. 8. Moderately thickened aortic valve. 9. Moderately thickened mitral valve with moderate mitral regurgitation. 10. Moderate tricuspid regurgitation with moderate pulmonary arterial hypertension with right ventricular systolic pressure of 52 mmHg. 11. Atrial fibrillation with rapid ventricular response. 12. Gait dysfunction. 13. Bilateral lower extremity lymphedema and venous stasis. 14. Leukopenia. 15. Anemia. 16. Lactic acidosis. 17. Hypokalemia. 18. Hyperbilirubinemia. 19. Elevated prostate-specific antigen. 20. Hyperbilirubinemia. 21. Hyponatremia. 22. Possible syndrome of inappropriate antidiuretic hormone. 23. Systolic congestive heart failure with elevated BNP. 24. Systolic and diastolic congestive heart failure with elevated BNP, decreased left ventricular ejection fraction of 21% and moderate pulmonary arterial hypertension, moderate tricuspid regurgitation. 1. Hypertension. 2. Atrial fibrillation with rapid ventricular response. 3. Acute systolic and diastolic congestive heart failure with decreased left ventricular ejection fraction of 20% and abnormal weight gain and bilateral lower extremity lymphedema. 4. Leukopenia. 5. Transient lactic acidosis. 6. Hyponatremia, possibly syndrome of inappropriate antidiuretic hormone secretion. 7. Hypomagnesemia. 8. Hyperbilirubinemia. 9. Elevated prostate-specific antigen of greater than 90. 10. Gait dysfunction. 11. Deconditioning. 12. Proteinuria, hematuria, bacteriuria. 13. Axial skeleton diffuse osseous metastatic disease with abnormal increased uptake of the thoracolumbar spine, right iliac bone, posterior rib in the right rib, bilateral scapula, proximal femur bilaterally including the lesser trochanter on the right and subtrochanteric region on the left with increased uptake in the sternum. 14. Cerebral cortical atrophy of the brain with moderate volume loss. 15. Centrilobular and paraseptal emphysema with atelectasis scarring. 16. Subcentimeter pulmonary nodules of 0.3 cm. 17. Bilateral pleural effusion. 18. Cardiomegaly. 19. Scattered sclerotic bony lesion. 20. Moderate diffuse stranding of the subcutaneous tissue and anasarca. 21. Bilateral adrenal gland hypertrophy. 22. Probable right renal cyst. 23. Colonic diverticulosis. 24. 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 25. Degenerative joint disease of the spine. 26. Small fat-containing umbilical hernia. 27. Small fat-containing inguinal hernia. 28. Subcentimeter retroperitoneal lymphadenopathy. 29. Dilated cardiomyopathy with left ventricular ejection fraction of 21%. 30. Concentric left ventricular hypertrophy. 31. [id number] impaired left ventricular systolic function with left ventricular ejection fraction of 21% and left ventricular global hypokinesis. 32. Moderately reduced right ventricular systolic function. 33. Moderately dilated left and right atrium. 34. Moderately thickened aortic valve. 35. Moderately thickened mitral valve. 36. Moderate mitral regurgitation. 37. Moderate tricuspid regurgitation with moderate pulmonary arterial hypertension with right ventricular systolic pressure of 52 mmHg. 38. History of poor compliance and noncompliance. 39. Hypervolemic hyponatremia secondary to systolic congestive heart failure. 40. Increased urinary retention. 41. Possible and probable stage IV prostate carcinoma with bone metastasis and extremely high PSA of greater than 90. 1. Atrial fibrillation with rapid ventricular response. 2. Ruben-inferolateral coronary ischemia. 3. History of hypertension. 4. Most possible and most likely systolic congestive heart failure with elevated BNP. 5. Cardiomegaly and pulmonary vascular congestion, suggestive of congestive heart failure. 6. Leukopenia. 7. Lactic acidosis. 8. Hyponatremia, etiology undetermined. 9. Questionable syndrome of inappropriate (excretion) of antidiuretic hormone. 10. Indeterminate troponin. 11. Elevated BNP suggestive of congestive heart failure. 12. Trace proteinuria, trace microscopic hematuria, trace bacteriuria. 13. Bilateral lower extremity lymphedema. 14. Anasarca. 15. Extremely poor compliance and noncompliance. 16. History of hypovitaminosis D. 17. History of hyperuricemia, hypomagnesemia and history of elevated prostate-specific antigen. Plan at this time, patient has been ordered to repeat CMP, LFT, magnesium, CBC, PT/PTT. CONSULTATION: 1. Cardiology. 2. Nephrology. 3. Urology. 4. Hematology/Oncology. 5. Interventional Radiology, 6. TCU evaluation. CURRENT MEDICATIONS: 1. Colace 100 mg three times a day. 2. Dobutamine drip at 5 mcg/kg per minute. 3. Aspirin 81 mg daily. 4. K-Dur 20 mEq twice a day. 5. Lasix decreased to 40 mg IV daily by Dr. Radford. 6. Lipitor 40 mg daily. 7. Lopressor 50 mg twice a day. 8. Lovenox 40 mg subcu daily. 9. Magnesium oxide 400 mg three times a day. 10. Protonix 40 mg daily. 11. Allopurinol 300 mg daily. Heart-healthy diet, out of bed, LIV stockings, SCDs, occupational therapy, physical therapy ordered. At present, patient will be continued with above therapeutic intervention. Patient has again been ordered SCDs, LIV stockings. Patient has been updated about his condition, diagnosis, treatment plan, management plan at length. Patient was advised about the need for prostate biopsy in order to confirm the diagnosis, which he acknowledged and understand. Dictated and electronically signed, not read. Benny Street MD MTDTang
[2017-06-09] MEDS: DOBUTamine 500mg/250ml D5W 500 MG/250 ML BAG IV PRN (01:40)
[2017-06-09] MEDS ORDERED: Metoprolol 1 mg/ml Inj IVP ONE ×2 (03:08→04:11)
[2017-06-09 03:46] LABS: ALB/GLOB RATIO 1.1 (1.1-1.8); ALBUMIN 3.3 g/dL (3.0-4.8); ALT/SGPT 28 U/L (7-56); AST/SGOT 42 U/L (17-59); BLOOD UREA NITROGEN 13 mg/dL (7-21); GFR AFRICAN-AMERICAN > 60; GFR NON-AFRICAN AMERICAN 58; MAGNESIUM 1.6 mg/dL (1.7-2.2)
[2017-06-09 04:42] LABS: BASO # 0.02 K/mm3 (0.0-2.0); BASO % 0.4 % (0.0-3.0); EOS # 0.1 (0.0-0.7); EOS % 1.4 % (1.5-5.0); GRAN # 3.32 (1.4-6.5); GRAN % 68.2 % (50.0-68.0); HEMOGLOBIN 13.4 g/dL (14.0-18.0); LYMPH # 0.8 (1.2-3.4); LYMPH % 16.2 % (22.0-35.0); MEAN CELL VOLUME 84.4 fl (80.0-105.0); MEAN CORPUSCULAR HEMOGLOBIN 28.7 pg (25.0-35.0); MEAN PLATELET VOLUME 10.1 fl (7.0-11.0); MONO # 0.7 (0.1-0.6); MONO % 13.8 % (1.0-6.0); RBC 4.67 10^6/uL (3.5-6.1); RED CELL DISTRIBUTION WIDTH 15.4 % (11.5-14.5); WHITE BLOOD COUNT 4.9 10^3/ul (4.5-11.0)
[2017-06-09 04:51] LABS: INR 1.39 (0.93-1.08); PARTIAL THROMBOPLASTIN TIME 46.1 Seconds (25.1-36.5); PROTHROMBIN TIME 16.1 SECONDS (9.4-12.5)
[2017-06-09] MEDS ORDERED: Magnesium Sulfate 1 gm in D5W 1 GM/100 ML BAG IVPB ONE (04:58)
[2017-06-09] MEDS: Pantoprazole 20 mg EC Tab PO SCH ×2 (05:35→17:31)
--- NOTE | 2017-06-09 09:44 | CARD ---
APPROVED REPORT EKG Measurement Heart [id number] <Conclusion> Atrial fibrillation with rapid ventricular response Rightward axis Low voltage QRS limb leads PRWP Nonspecific T wave abnormality No change
--- NOTE | 2017-06-09 09:50 | CARD ---
APPROVED REPORT EKG Measurement Heart [id number] <Conclusion> Atrial fibrillation with rapid ventricular responce Low voltage QRS limb leads Nonspecific T wave abnormality No change
[2017-06-09] MEDS ORDERED: Enoxaparin 100 mg Syringe SC SCH (10:00)
[2017-06-09] MEDS ORDERED: Tolvaptan 15 MG TAB PO ONE (10:05)
[2017-06-09] MEDS: Enoxaparin 40 mg Syringe SC SCH (10:14)
--- NOTE | 2017-06-09 10:21 | CP.PCM.PN ---
<Maurice Madera - Last Filed: 06/10/17 11:05> Subjective - Date & Time of Evaluation Date of Evaluation: 06/09/17 Time of Evaluation: 10:18 - Subjective Subjective: Patient seen and examined at bedside. Patient doing well with no acute events overnight. Patient with no complaints at this time. Patient had a bowel movement yesterday. Denies chest pain, shortness of breath, nausea, vomiting, diarrhea, fever, chills. Objective - Vital Signs/Intake and Output Vital Signs (last 24 hours): Temp Pulse Resp BP Pulse Ox 98 F 120 H 20 112/69 96 06/09/17 06:00 06/09/17 06:00 06/09/17 06:00 06/09/17 06:21 06/09/17 06:00 Intake and Output: 06/09/17 06/09/17 06:59 18:59 Intake Total 730 Output Total 1400 Balance -670 - Medications Medications: Current Medications Allopurinol (Zyloprim) 300 mg PO DAILY [facility] Last Admin: 06/08/17 11:14 Dose: 300 mg Aspirin (Ecotrin) 81 mg PO DAILY [facility] Last Admin: 06/08/17 11:13 Dose: 81 mg Atorvastatin Calcium (Lipitor) 40 mg PO DIN [facility] Last Admin: 06/08/17 17:41 Dose: 40 mg Docusate Sodium (Colace) 100 mg PO TID [facility] Last Admin: 06/08/17 17:41 Dose: 100 mg Enoxaparin Sodium (Lovenox) 40 mg SC DAILY [facility] PRN Reason: Protocol Magnesium Oxide (Mag-Ox) 800 mg PO BID [facility] Metoprolol Tartrate (Lopressor) 50 mg PO BID [facility] Last Admin: 06/08/17 17:41 Dose: 50 mg Pantoprazole Sodium (Protonix Ec Tab) 20 mg PO 0600,1600 [facility] Last Admin: 06/09/17 05:35 Dose: 20 mg - Labs Labs: 06/09/17 04:30 06/09/17 03:20 PT 16.1 SECONDS (9.4-12.5) H 06/09/17 04:30 INR 1.39 (0.93-1.08) H 06/09/17 04:30 APTT 46.1 Seconds (25.1-36.5) H 06/09/17 04:30 - Constitutional Appears: Non-toxic, No Acute Distress - Head Exam Head Exam: ATRAUMATIC, NORMAL INSPECTION, NORMOCEPHALIC - ENT Exam ENT Exam: Mucous Membranes Moist - Respiratory Exam Respiratory Exam: Clear to Ausculation Bilateral, NORMAL BREATHING PATTERN - Cardiovascular Exam Cardiovascular Exam: RRR, +S1, +S2 - GI/Abdominal Exam GI & Abdominal Exam: Soft, Normal Bowel Sounds. absent: Tenderness - Extremities Exam Extremities Exam: Pedal Edema (+1 edema b/l). absent: Calf Tenderness - Neurological Exam Neurological Exam: Alert, Awake, Oriented x3 - Psychiatric Exam Psychiatric exam: Normal Affect, Normal Mood - Skin Skin Exam: Intact, Normal Color, Warm Assessment and Plan - Assessment and Plan (Free Text) Plan: 77 y/o male with past medical history of CHF and A-fib initially presenting for A-fib with RVR and found to have elevated PSA. Patient subsequently had a bone scan performed which showed multiple metastatic lesions of the axial skeleton. Patient is currently being followed by Oncology, Nephrology, Urology, and IR. Patient will need a biopsy of lesions to confirm diagnosis. Patient will potentially have a cystoscopy tomorrow, as per Urology. 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 We will continue to follow closely and await recommendations from consultants. Santy, PGY-[address] <[address] U - Last Filed: 06/20/17 16:30> Objective - Vital Signs/Intake and Output Vital Signs (last 24 hours): Temp Pulse Resp BP Pulse Ox 97.5 F L 81 18 145/96 H 96 06/17/17 07:00 06/17/17 09:25 06/17/17 09:00 06/17/17 09:26 06/17/17 09:00 - Labs Labs: 06/16/17 07:00 06/17/17 11:15 PT 16.7 SECONDS (9.4-12.5) H 06/16/17 07:00 INR 1.44 (0.93-1.08) H 06/16/17 07:00 APTT 43.5 Seconds (25.1-36.5) H 06/16/17 07:00 Attending/Attestation - Attestation I have personally seen and examined this patient.: Yes I have fully participated in the care of the patient.: Yes I have reviewed all pertinent clinical information, including history, physical exam and plan: Yes Notes (Text): Please see/read my dictated notes.
--- NOTE | 2017-06-09 13:03 | PN ---
DATE: FOLLOWUP SUBJECTIVE: The patient denies any chest pain. Shortness of breath is improved. PHYSICAL EXAMINATION: VITAL SIGNS: Blood pressure 112/69, heart rate 104, temperature 98, respirations 20. HEENT: Normocephalic. CHEST: Minimal basal rhonchi. HEART: S1 and S2 regular. ABDOMEN: Soft. EXTREMITIES: 1+ pitting edema. LABORATORY DATA: Today's hemoglobin and hematocrit 13.4 and 39.4. White count and platelet count are within normal limit. SMA-7: Sodium 125, potassium 4.8, chloride 89, CO2 of 28, glucose 97, BUN 13, creatinine 1.2. Yesterday's EKG revealed atrial fibrillation with rapid ventricular response at rate of 133. Poor R-wave progression. ASSESSMENT: 1. Congestive heart failure. 2. Persistent atrial fibrillation. 3. Hyponatremia. 4. Bone metastasis, most likely prostatic cancer is the primary. RECOMMENDATIONS: Discontinue Lasix. Continue 81 mg once a day, Lovenox is 40 mg once a day, Zyloprim at 300 mg daily. Phi Radford MD
[2017-06-09] MEDS: Magnesium Oxide 400 mg Tab UD PO SCH (17:30)
--- NOTE | 2017-06-09 19:09 | CP.PCM.PN ---
Subjective - Date & Time of Evaluation Date of Evaluation: 06/09/17 Time of Evaluation: 11:00 - Subjective Subjective: Follow up Nephrology Consultation Note Assessment: Stable Hypervolemic hyponatremia likely due to CHF and ? contribution by metastatic cancer leading to excess ADH (SIADH) Hypertensive Chronic Kidney Disease (I12.9) Chronic Kidney Disease (N18.3) Stage3 with Cr 1.2 metastatic cancer, HTN (I12.9) CHF LVEF 20% Hypokalemia hypomagnesemia, hx of BPH Plan No acute need for renal replacement therapy at this time. Hypertension control with meds as ordered. Monitor Input/Output, daily weights and renal function with basic metabolic panel supplement electrolytes as needed since Na worsened after diuresis with lasix, will dose with tolvaptan 15 mg today. monitor Na q 6 hr. avoid correction in serum Na > 6-8 meq/24 hrs should be able to resume diuretics as lasix soon Avoid nephrotoxins/NSAIDs Glycemic control Further work up for as per primary team Thanks for allowing me to participate in care of your patient. Will follow patient with you. Please call if any Qs. d/w team Dr Grupo [facility] Office: [phone] Subjective: Noted events overnight. Patients feels okay. Denies chest pain, palpitation, improved shortness of breath, leg swelling. All other negative Physical Examination: General Appearance: Comfortable, in no acute respiratory distress, co-operative . Vitals reviewed and noted as below Head; Atraumatic, normocephalic ENT: no ulcers no thrush. Tongue is midline. Oropharynx: no rash or ulcers. EYES: Pupils are equal, round and reactive to light accommodation. Eye muscles and extraocular movement intact. Sclera is anicteric. Neck; supple no lymphadenopathy, no thyromegaly or bruit Lungs: Normal respiratory rate/effort. Breath sounds bilateral equal and clear. somewhat decreased at bases Heart: Normal rate. s1s2 normal. No rub or gallop. Extremities: no edema. No varicose veins Neurological: Patient is alert, awake and oriented to person, place and time. No focal deficit. Strength bilateral appropriate and equal Skin: Warm and dry. Normal turgor. No rash. Palpitation: Normal elasticity for age Abdomen: Abdomen is soft. Bowel sounds +. There is no abdominal tenderness, no guarding/rigidity no organomegaly Psych: normal insight and normal affect/mood MSK: no joint tenderness or swelling. Digits and nails normal, no deformity : kidney or bladder not palpable Labs/imaging reviewed. Past medical history, past surgical history, family history, social history, allergy reviewed and noted as below Family hx: no hx of CKD. Rest non-contributory urine Na 75 urine osmol 190 Serum osmol 281 uric acid 7.9 TSH 2.3 LVEF 20% Objective - Vital Signs/Intake and Output Vital Signs (last 24 hours): Temp Pulse Resp BP Pulse Ox 97.3 F L 52 L 18 94/67 L 96 06/09/17 12:00 06/09/17 12:00 06/09/17 12:00 06/09/17 17:26 06/09/17 06:00 Intake and Output: 06/09/17 06/10/17 18:59 06:59 Intake Total 480 Output Total 300 Balance 180 - Medications Medications: Current Medications Allopurinol (Zyloprim) 300 mg PO DAILY [facility] Last Admin: 06/09/17 10:54 Dose: 300 mg Aspirin (Ecotrin) 81 mg PO DAILY [facility] Last Admin: 06/09/17 10:13 Dose: 81 mg Atorvastatin Calcium (Lipitor) 40 mg PO DIN [facility] Last Admin: 06/09/17 17:30 Dose: 40 mg Docusate Sodium (Colace) 100 mg PO TID [facility] Last Admin: 06/09/17 17:30 Dose: 100 mg Enoxaparin Sodium (Lovenox) 40 mg SC DAILY [facility] PRN Reason: Protocol Last Admin: 06/09/17 10:14 Dose: 40 mg Magnesium Oxide (Mag-Ox) 800 mg PO BID [facility] Last Admin: 06/09/17 17:30 Dose: 800 mg Metoprolol Tartrate (Lopressor) 50 mg PO BID [facility] Last Admin: 06/09/17 17:26 Dose: Not Given Pantoprazole Sodium (Protonix Ec Tab) 20 mg PO 0600,1600 [facility] Last Admin: 06/09/17 17:31 Dose: 20 mg - Labs Labs: 06/09/17 04:30 06/09/17 12:20 PT 16.1 SECONDS (9.4-12.5) H 06/09/17 04:30 INR 1.39 (0.93-1.08) H 06/09/17 04:30 APTT 46.1 Seconds (25.1-36.5) H 06/09/17 04:30
--- NOTE | 2017-06-09 19:43 | CP.PCM.PN ---
Subjective - Date & Time of Evaluation Date of Evaluation: 06/09/17 Time of Evaluation: 19:00 - Subjective Subjective: No complaints. Reports to have urologic procedure tomorrow. Objective - Vital Signs/Intake and Output Vital Signs (last 24 hours): Temp Pulse Resp BP Pulse Ox 97.3 F L 99 H 18 94/67 L 96 06/09/17 12:00 06/09/17 18:00 06/09/17 12:00 06/09/17 17:26 06/09/17 06:00 Intake and Output: 06/09/17 06/10/17 18:59 06:59 Intake Total 480 Output Total 300 Balance 180 - Medications Medications: Current Medications Allopurinol (Zyloprim) 300 mg PO DAILY [facility] Last Admin: 06/09/17 10:54 Dose: 300 mg Aspirin (Ecotrin) 81 mg PO DAILY [facility] Last Admin: 06/09/17 10:13 Dose: 81 mg Atorvastatin Calcium (Lipitor) 40 mg PO DIN [facility] Last Admin: 06/09/17 17:30 Dose: 40 mg Docusate Sodium (Colace) 100 mg PO TID [facility] Last Admin: 06/09/17 17:30 Dose: 100 mg Enoxaparin Sodium (Lovenox) 40 mg SC DAILY [facility] PRN Reason: Protocol Last Admin: 06/09/17 10:14 Dose: 40 mg Magnesium Oxide (Mag-Ox) 800 mg PO BID [facility] Last Admin: 06/09/17 17:30 Dose: 800 mg Metoprolol Tartrate (Lopressor) 50 mg PO BID [facility] Last Admin: 06/09/17 17:26 Dose: Not Given Pantoprazole Sodium (Protonix Ec Tab) 20 mg PO 0600,1600 [facility] Last Admin: 06/09/17 17:31 Dose: 20 mg - Labs Labs: 06/09/17 04:30 06/09/17 19:02 PT 16.1 SECONDS (9.4-12.5) H 06/09/17 04:30 INR 1.39 (0.93-1.08) H 06/09/17 04:30 APTT 46.1 Seconds (25.1-36.5) H 06/09/17 04:30 - Head Exam Head Exam: ATRAUMATIC - Eye Exam Eye Exam: Normal appearance - ENT Exam ENT Exam: Mucous Membranes Dry - Respiratory Exam Respiratory Exam: NORMAL BREATHING PATTERN - Cardiovascular Exam Cardiovascular Exam: +S1, +S2 - GI/Abdominal Exam GI & Abdominal Exam: Normal Bowel Sounds - Extremities Exam Extremities Exam: Pedal Edema Assessment and Plan (1) Bone lesion Assessment & Plan: elevated PSA suspect metastatic prostate cancer for urologic procedure tomorrow Status: Acute (2) Pleural effusion Assessment & Plan: reports gets short of breath off oxygen consider thoracentesis Status: Acute (3) Leukopenia Assessment & Plan: intermittent no neutropenia Status: Acute (4) Anemia Assessment & Plan: chronic disease Status: Acute (5) Coagulopathy Status: Acute
--- NOTE | 2017-06-09 22:07 | PCM.URO ---
Urology Progress Note - Objective Lab Studies: Reviewed (plans for possible cysto 06/11 if medically cleared) Lab Results Last 24 Hours: Laboratory Results - last 24 hr 06/09/17 06/09/17 06/09/17 03:20 04:30 04:30 WBC 4.9 D RBC 4.67 Hgb 13.4 L Hct 39.4 L MCV 84.4 MCH 28.7 MCHC 34.0 RDW 15.4 H Plt Count 138 MPV 10.1 Gran % 68.2 H Lymph % (Auto) 16.2 L Summit % (Auto) 13.8 H Eos % (Auto) 1.4 L Baso % (Auto) 0.4 Gran # 3.32 Lymph # (Auto) 0.8 L Summit # (Auto) 0.7 H Eos # (Auto) 0.1 Baso # (Auto) 0.02 PT 16.1 H INR 1.39 H APTT 46.1 H Sodium 125 L Potassium 4.8 Chloride 89 L Carbon Dioxide 27 Anion Gap 14 BUN 13 Creatinine 1.2 Est GFR ( Amer) > 60 Est GFR (Non-Af Amer) 58 Random Glucose 97 Calcium 9.0 Magnesium 1.6 L Total Bilirubin 1.7 H Direct Bilirubin 1.0 H AST 42 ALT 28 Alkaline Phosphatase 93 Total Protein 6.4 Albumin 3.3 Globulin 3.1 Albumin/Globulin Ratio 1.1 06/09/17 06/09/17 12:20 19:02 WBC RBC Hgb Hct MCV MCH MCHC RDW Plt Count MPV Gran % Lymph % (Auto) Summit % (Auto) Eos % (Auto) Baso % (Auto) Gran # Lymph # (Auto) Summit # (Auto) Eos # (Auto) Baso # (Auto) PT INR APTT Sodium 124 L 125 L Potassium Chloride Carbon Dioxide Anion Gap BUN Creatinine Est GFR ( Amer) Est GFR (Non-Af Amer) Random Glucose Calcium Magnesium Total Bilirubin Direct Bilirubin AST ALT Alkaline Phosphatase Total Protein Albumin Globulin Albumin/Globulin Ratio Intake & Output: Intake & Output 06/09/17 06/09/17 06/10/17 06:59 18:59 06:59 Intake Total 730 480 Output Total 1400 300 Balance -670 180 Weight 200 lb 4.8 oz Intake: IV 250 Oral 480 480 Output: Urine 1400 300 Urethral (Pettit) 1400 300 Other: # Bowel Movements 2 0 Vital Signs: Vital Signs - 24 hr 06/09/17 06/09/17 06/09/17 00:01 01:40 02:00 Temperature 98.6 F Pulse Rate 100 H 101 H 134 H Respiratory 20 Rate Blood Pressure 102/82 115/85 O2 Sat by Pulse 98 Oximetry 06/09/17 06/09/17 06/09/17 03:19 03:43 04:24 Temperature 98 F Pulse Rate 133 H 120 H 130 H Respiratory 20 Rate Blood Pressure 117/82 128/70 O2 Sat by Pulse 95 Oximetry 06/09/17 06/09/17 06/09/17 06:00 06:21 10:00 Temperature 98 F Pulse Rate 120 H 100 H Respiratory 20 Rate Blood Pressure 98/62 L 112/69 O2 Sat by Pulse 96 Oximetry 06/09/17 06/09/17 06/09/17 10:14 12:00 17:26 Temperature 97.3 F L Pulse Rate 104 H 52 L Respiratory 18 Rate Blood Pressure 112/69 110/71 94/67 L O2 Sat by Pulse Oximetry 06/09/17 18:00 Temperature 97.5 F L Pulse Rate 100 H Respiratory 18 Rate Blood Pressure 94/67 L O2 Sat by Pulse Oximetry
--- NOTE | 2017-06-10 01:01 | PN ---
DATE: 06/09/2017 SUBJECTIVE: The patient is seen in room 272, bed 2. Overnight nurse's notes were reviewed. The patient had atrial fibrillation with rapid ventricular response. The patient in the last few days has atrial fibrillation with controlled ventricular response, but overnight the patient had rapid ventricular response requiring IV Lopressor. PHYSICAL EXAMINATION: VITAL SIGNS: T-max is 97.4, 98.6. Telemetry shows atrial fibrillation, heart rate in low 100s to 130s and 120s around food safety manager 4:00 to 5:00 a.m. Today morning around 10:00 a.m., the patient's heart rate is 104. Blood pressure in the last 24 hours 119/62, 136/94, 119/79, 120/82, 128/70, 112/69. Respiration 18. O2 sat is 95, 96, 100%. Yesterday's output is 3000. Today's output is 1400. HEENT: Head examination normocephalic, atraumatic. HEENT examination shows pink conjunctivae. Anicteric sclerae. No oropharyngeal lesion. NECK: No neck rigidity. No jugular venous distention. CHEST: Kyphosis. LUNGS: Shows decreased breath sound at the left base. Decreasing crackle, rales or wheezing. CARDIOVASCULAR: S1, S2. Irregular rhythm. Positive systolic murmur, left sternal border, right second intercostal space, left second intercostal space. ABDOMEN: Soft. Positive bowel sounds. Less distended. GENITALIA: Male. Positive Pettit catheter. EXTREMITY: Shows complete resolution of the bilateral lower extremity pitting edema. There is trace ankle swelling. Pitting edema of the feet is also almost resolved. MUSCULOSKELETAL: Examination shows a body mass index of 28. Gait examination is not tested. VASCULAR: Palpable pulses. DIAGNOSTICS: On 06/09/2017, WBC 4.9, hemoglobin and hematocrit 13.4 and 39.4, platelets 138. PT/PTT 16.1 and 46.1, INR 1.39. Sodium is 125, potassium 4.8, chloride 89, CO2 of 27, anion gap 14, BUN 13, creatinine 1.2, GFR greater than 60, glucose 97, calcium 9.0, magnesium 1.6. Total bili 1.7. Direct bili 1.0. HIV nonreactive. Flow cytometry is negative. EKG from today shows atrial fibrillation with rapid ventricle response, right axis deviation, nonspecific ST changes. IMPRESSION AND PLAN: 1. Atrial fibrillation with rapid ventricular response. 2. Suspect metastatic prostate carcinoma with bone metastasis. 3. Pleural effusion. 4. Leukopenia. 5. Anemia. 6. Refractory hyponatremia. 7. Hypervolemic hyponatremia secondary to congestive heart failure. 8. Possible syndrome of inappropriate antidiuretic hormone. 9. Hypertensive chronic kidney disease. 10. Systolic congestive heart failure with cardiomyopathy. 11. Hypokalemia. 12. Hypomagnesemia. 13. Normocytic anemia. 14. Granulocytosis. 15. Transient lactic acidosis. 16. Hypokalemia. 17. Hyponatremia. 18. Hypomagnesemia. 19. Hyperbilirubinemia. 20. Transient hypotension. 21. Constipation. 22. Hypercholesteremia. 23. Hypomagnesemia. 24. Hyperuricemia. 1. New-onset atrial fibrillation with rapid ventricular response. 2. Dilated cardiomyopathy. 3. Acute systolic congestive heart failure with elevated brain natriuretic peptide. 4. Hyponatremia. 5. Questionable syndrome of inappropriate antidiuretic hormone secretion. 6. Most probable metastatic prostate carcinoma with multiple bone metastases. 7. Leukopenia and anemia. 8. Transient lactic acidosis. 9. Hypokalemia. 10. Hyperbilirubinemia. 11. Elevated prostate-specific antigen of greater than 90. 12. Proteinuria, microscopic hematuria. 13. Moderate pulmonary arterial hypertension with moderate tricuspid regurgitation and elevated right ventricular systolic pressure of 52 mmHg. 14. Bilateral lower extremity lymphedema and venous stasis, resolving. 15. Lateral coronary ischemic changes. 16. Constipation. 17. Hypercholesteremia. 18. Hypomagnesemia. 19. Hyperuricemia. 1. Atrial fibrillation with rapid ventricular response. 2. Dilated cardiomyopathy with ejection fraction of 21%. 3. Concentric left ventricular hypertrophy. 4. Moderate to severely impaired left ventricular function with left ventricle ejection fraction of 21%. 5. Global left ventricular hypokinesis. 6. Moderately reduced right ventricular systolic function. 7. Moderately dilated left and right atrium. 8. Moderately thickened aortic valve. 9. Moderately thickened mitral valve with moderate mitral regurgitation. 10. Moderate tricuspid regurgitation with moderate pulmonary arterial hypertension with right ventricular systolic pressure of 52 mmHg. 11. Atrial fibrillation with rapid ventricular response. 12. Gait dysfunction. 13. Bilateral lower extremity lymphedema and venous stasis. 14. Leukopenia. 15. Anemia. 16. Lactic acidosis. 17. Hypokalemia. 18. Hyperbilirubinemia. 19. Elevated prostate-specific antigen. 20. Hyperbilirubinemia. 21. Hyponatremia. 22. Possible syndrome of inappropriate antidiuretic hormone. 23. Systolic congestive heart failure with elevated BNP. 24. Systolic and diastolic congestive heart failure with elevated BNP, decreased left ventricular ejection fraction of 21% and moderate pulmonary arterial hypertension, moderate tricuspid regurgitation. 1. Hypertension. 2. Atrial fibrillation with rapid ventricular response. 3. Acute systolic and diastolic congestive heart failure with decreased left ventricular ejection fraction of 20% and abnormal weight gain and bilateral lower extremity lymphedema. 4. Leukopenia. 5. Transient lactic acidosis. 6. Hyponatremia, possibly syndrome of inappropriate antidiuretic hormone secretion. 7. Hypomagnesemia. 8. Hyperbilirubinemia. 9. Elevated prostate-specific antigen of greater than 90. 10. Gait dysfunction. 11. Deconditioning. 12. Proteinuria, hematuria, bacteriuria. 13. Axial skeleton diffuse osseous metastatic disease with abnormal increased uptake of the thoracolumbar spine, right iliac bone, posterior rib in the right rib, bilateral scapula, proximal femur bilaterally including the lesser trochanter on the right and subtrochanteric region on the left with increased uptake in the sternum. 14. Cerebral cortical atrophy of the brain with moderate volume loss. 15. Centrilobular and paraseptal emphysema with atelectasis scarring. 16. Subcentimeter pulmonary nodules of 0.3 cm. 17. Bilateral pleural effusion. 18. Cardiomegaly. 19. Scattered sclerotic bony lesion. 20. Moderate diffuse stranding of the subcutaneous tissue and anasarca. 21. Bilateral adrenal gland hypertrophy. 22. Probable right renal cyst. 23. Colonic diverticulosis. 24. 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 25. Degenerative joint disease of the spine. 26. Small fat-containing umbilical hernia. 27. Small fat-containing inguinal hernia. 28. Subcentimeter retroperitoneal lymphadenopathy. 29. Dilated cardiomyopathy with left ventricular ejection fraction of 21%. 30. Concentric left ventricular hypertrophy. 31. [id number] impaired left ventricular systolic function with left ventricular ejection fraction of 21% and left ventricular global hypokinesis. 32. Moderately reduced right ventricular systolic function. 33. Moderately dilated left and right atrium. 34. Moderately thickened aortic valve. 35. Moderately thickened mitral valve. 36. Moderate mitral regurgitation. 37. Moderate tricuspid regurgitation with moderate pulmonary arterial hypertension with right ventricular systolic pressure of 52 mmHg. 38. History of poor compliance and noncompliance. 39. Hypervolemic hyponatremia secondary to systolic congestive heart failure. 40. Increased urinary retention. 41. Possible and probable stage IV prostate carcinoma with bone metastasis and extremely high PSA of greater than 90. 1. Atrial fibrillation with rapid ventricular response. 2. Ruben-inferolateral coronary ischemia. 3. History of hypertension. 4. Most possible and most likely systolic congestive heart failure with elevated BNP. 5. Cardiomegaly and pulmonary vascular congestion, suggestive of congestive heart failure. 6. Leukopenia. 7. Lactic acidosis. 8. Hyponatremia, etiology undetermined. 9. Questionable syndrome of inappropriate (excretion) of antidiuretic hormone. 10. Indeterminate troponin. 11. Elevated BNP suggestive of congestive heart failure. 12. Trace proteinuria, trace microscopic hematuria, trace bacteriuria. 13. Bilateral lower extremity lymphedema. 14. Anasarca. 15. Extremely poor compliance and noncompliance. 16. History of hypovitaminosis D. 17. History of hyperuricemia, hypomagnesemia and history of elevated prostate-specific antigen. PLAN: At this time, the patient's dobutamine has been discontinued. IV Lasix is discontinued. Potassium is discontinued. The patient was seen by Urology, Hematology/Oncology, Nephrology, Cardiology. Current medications: Colace 100 mg three times a day, Ecotrin 81 mg daily, Lipitor 40 mg daily. The patient received IV Lopressor 5 mg x2 doses food safety manager because of the rapid A fib. The patient is on Lopressor 50 twice a day, Lovenox 40 mg subcu daily, magnesium oxide 800 twice a day. The patient was given magnesium sulfate rider x1 gram, Protonix 40 mg daily. The patient was given tolvaptan 15 mg x1 dose by Dr. Mcelroy. The patient is on allopurinol 100 mg daily. The patient has been ordered repeat EKG, out of bed, SCDs, LIV stocking, physical therapy, occupational therapy. The patient was seen by physical therapist, recommended subacute rehab. The patient was seen by the social group worker. The patient is to be continued on the above therapeutic intervention. The patient will be monitored very closely. We are awaiting tissue diagnosis. Dictated and electronically signed, not read. Benny Street MD [facility] # [id number] [place]
[2017-06-10 06:37] LABS: BASO # 0.04 K/mm3 (0.0-2.0); BASO % 0.8 % (0.0-3.0); EOS # 0.2 (0.0-0.7); EOS % 3.4 % (1.5-5.0); GRAN # 2.51 (1.4-6.5); GRAN % 52.8 % (50.0-68.0); HEMOGLOBIN 13.7 g/dL (14.0-18.0); LYMPH # 1.3 (1.2-3.4); LYMPH % 27.5 % (22.0-35.0); MEAN CELL VOLUME 85.6 fl (80.0-105.0); MEAN CORPUSCULAR HEMOGLOBIN 28.2 pg (25.0-35.0); MEAN PLATELET VOLUME 10.1 fl (7.0-11.0); MONO # 0.7 (0.1-0.6); MONO % 15.5 % (1.0-6.0); RBC 4.85 10^6/uL (3.5-6.1); RED CELL DISTRIBUTION WIDTH 15.3 % (11.5-14.5); WHITE BLOOD COUNT 4.8 10^3/ul (4.5-11.0)
[2017-06-10] MEDS: Pantoprazole 20 mg EC Tab PO SCH ×2 (06:56→17:40)
--- NOTE | 2017-06-10 07:23 | CP.PCM.PCO ---
Physician Communication Note - Physician Communication Note Physician Communication Note: PATIENT MODERATE SURGICAL RISK 2/2 UNDERLYING COMORBIDITIES,NEEDS IV ABX.
--- NOTE | 2017-06-10 08:10 | CON ---
DATE: 06/06/2017 UROLOGY CONSULTATION REASON FOR CONSULTATION: Elevated PSA. HISTORY OF PRESENT ILLNESS: Mr. Cartagena is a pleasant gentleman. He is 77 years old. He is under the care of Dr. Benny Street and he is in the hospital for management of atrial fibrillation. The consultation was for an elevation in serum PSA, see the labs listed below. In the interim from the consultation last night until this morning, the patient also has an indwelling Pettit catheter with hematuria as noted. The patient reports he has some baseline voiding dysfunction, irritative and obstructive urinary complaints. The patient is more comfortable with the catheter and he was in retention before the catheter was inserted, the catheter was inserted with a residual of greater than 300 mL. The patient felt relieved. noted, otherwise unremarkable. Past medical, surgical, and the current medical history, all listed in the chart. From Urology standpoint, the patient is with AFib. Presumably starting some blood thinner soon pending Urology workup. See the plans listed below. MEDICATIONS: See chart. ALLERGIES: SOCIAL HISTORY: Essentially unremarkable. PHYSICAL EXAMINATION: GENERAL: A well nourished male, in no apparent distress. VITAL SIGNS: As noted. ABDOMEN: Relatively soft. Pettit catheter. Otherwise unremarkable. RECTAL: Deferred at this time. LABORATORY DATA: See chart. BUN, creatinine, and PSA all noted. ASSESSMENT: 1. Elevation in serum PSA. 2. Hematuria. 3. Urinary retention and voiding dysfunction. PLAN: From Urology standpoint, for now, we will leave the Pettit catheter with irrigation p.r.n. In terms of blood thinner use with medications such as Coumadin, discuss the use of this and the timing for Urology workup. From Urology workup, he needs the followin. He needs a prostate ultrasound and prostate biopsy. 2. He also needs a cystoscopy and retrograde pyelogram. 3. A CT scan of the abdomen and pelvis without and with IV contrast. Once all these tests are done, then we can decide what to do further for further management. We need to rule out any underlying malignancy, whether prostate cancer, bladder cancer, kidney cancer, or the like and also going to work up voiding dysfunction and urinary retention. So, in the interim, the plan is as follows: 1. Maintain the current Pettit. 2. When medically stable, we will plan for a prostate ultrasound and prostate ultrasound guided biopsy. 3. We will arrange for a CT scan. 4. We will arrange for a cystoscopy when medically cleared. Nicanor Lopez MD
[2017-06-10] MEDS ORDERED: Lidocaine 2% Inj (20ml) ONE (09:18)
[2017-06-10] MEDS ORDERED: Midazolam 2 MG/2 ML VIAL ONE (09:19)
--- NOTE | 2017-06-10 09:31 | PN ---
DATE: 06/09/2017 SUBJECTIVE: See the previously dictated consult and daily progress note. The patient is currently resting comfortably. The urine is clear. He is scheduled for a biopsy tomorrow of his bone with Dr. Vincenzo Daniels. See our plans below. PAST MEDICAL AND SURGICAL: No other changes. PHYSICAL EXAMINATION: No change. UROLOGY DIAGNOSES: Elevated PSA, voiding dysfunction, sclerotic bone lesions, urinary retention and gross hematuria. From urology standpoint, the plan is as follows; For the prostate being elevated, we are going to do a prostate biopsy, but if there is a bone biopsy that will be done first. If that shows metastatic cancer from the prostate to the bone, we can avoid the prostate biopsy. Regarding the urinary retention and the gross hematuria, we certainly recommend a cystoscope. While we do it, we have arranged for it now for 06/11/2017 a.m., so instead of tomorrow on 06/10/2017, not to have any conflicting schedules, we are going to have him have the biopsy for his bone with Dr. Vincenzo Daniels and we will arrange for 06/11/2017. In fact, we may be able to avoid the biopsy for the prostate pending the results of the bone biopsy. Further plans will be discussed with Dr. Street. Nicanor Lopez MD
[2017-06-10] MEDS ORDERED: Sodium Chloride 0.45% 1,000 ML IV SCH (10:00)
[2017-06-10 10:13] LABS: ALB/GLOB RATIO 1.1 (1.1-1.8); ALBUMIN 3.5 g/dL (3.0-4.8); CALCIUM 9.5 mg/dL (8.4-10.5)
[2017-06-10] MEDS ORDERED: Sod Polystyrene Sulf 15 gm/60 ml Susp PO ONE (10:25)
--- NOTE | 2017-06-10 10:34 | CARD ---
APPROVED REPORT EKG Measurement Heart [id number] <Conclusion> Atrial fibrillation with rapid ventricular response PRWP Low voltage QRS limb leads Nonspecific T wave abnormality No change except the rate is faster
--- NOTE | 2017-06-10 11:13 | CP.PCM.PN ---
<Maurice Madera - Last Filed: 06/10/17 11:07> Subjective - Date & Time of Evaluation Date of Evaluation: 06/10/17 Time of Evaluation: 11:07 - Subjective Subjective: Patient seen and examined at bedside in PACU. Patient with no acute events overnight. Patient made NPO overnight for procedures this morning. Patient with no complaints after procedure, although he is still lethargic from sedation. Denies chest pain, shortness of breath, nausea, vomiting, diarrhea, fever, chills. Objective - Vital Signs/Intake and Output Vital Signs (last 24 hours): Temp Pulse Resp BP Pulse Ox 98 F 108 H 13 118/82 99 06/10/17 10:32 06/10/17 10:47 06/10/17 10:47 06/10/17 10:47 06/10/17 10:47 Intake and Output: 06/10/17 06/10/17 06:59 18:59 Intake Total 240 100 Output Total 800 Balance -560 100 - Medications Medications: Current Medications Allopurinol (Zyloprim) 300 mg PO DAILY [facility] Last Admin: 06/09/17 10:54 Dose: 300 mg Aspirin (Ecotrin) 81 mg PO DAILY [facility] Last Admin: 06/09/17 10:13 Dose: 81 mg Atorvastatin Calcium (Lipitor) 40 mg PO DIN [facility] Last Admin: 06/09/17 17:30 Dose: 40 mg Docusate Sodium (Colace) 100 mg PO TID [facility] Last Admin: 06/09/17 17:30 Dose: 100 mg Enoxaparin Sodium (Lovenox) 40 mg SC DAILY [facility] PRN Reason: Protocol Last Admin: 06/09/17 10:14 Dose: 40 mg Magnesium Oxide (Mag-Ox) 800 mg PO BID [facility] Last Admin: 06/09/17 17:30 Dose: 800 mg Metoprolol Tartrate (Lopressor) 50 mg PO BID [facility] Last Admin: 06/09/17 17:26 Dose: Not Given Pantoprazole Sodium (Protonix Ec Tab) 20 mg PO 0600,1600 [facility] Last Admin: 06/10/17 06:56 Dose: Not Given - Labs Labs: 06/10/17 05:30 06/10/17 05:30 PT 16.1 SECONDS (9.4-12.5) H 06/09/17 04:30 INR 1.39 (0.93-1.08) H 06/09/17 04:30 APTT 46.1 Seconds (25.1-36.5) H 06/09/17 04:30 - Constitutional Appears: Non-toxic, No Acute Distress - Head Exam Head Exam: ATRAUMATIC, NORMAL INSPECTION, NORMOCEPHALIC - ENT Exam ENT Exam: Mucous Membranes Moist, Normal Exam - Respiratory Exam Respiratory Exam: Clear to Ausculation Bilateral, NORMAL BREATHING PATTERN - Cardiovascular Exam Cardiovascular Exam: Tachycardia, Irregular Rhythm, +S1, +S2 - GI/Abdominal Exam GI & Abdominal Exam: Soft, Normal Bowel Sounds. absent: Tenderness - Extremities Exam Extremities Exam: Pedal Edema (Trace b/l). absent: Calf Tenderness - Neurological Exam Neurological Exam: Alert, Awake - Psychiatric Exam Psychiatric exam: Normal Affect, Normal Mood - Skin Skin Exam: Dry, Normal Color, Warm Assessment and Plan - Assessment and Plan (Free Text) Plan: 77 y/o male with past medical history of CHF and A-fib initially presenting for A-fib with RVR and found to have elevated PSA. Patient subsequently had a bone scan performed which showed multiple metastatic lesions of the axial skeleton. Patient is currently being followed by Oncology, Nephrology, Urology, and IR. Patient had biopsy and of spine this morning and cystoscopy. We will await pathology results and await recommendations as per oncology. 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 Patient will receive 1 dose of Tolvaptan. Continue current medical regimen. We will continue to follow closely and await recommendations from consultants. Santy, PGY-[address] <[address] U - Last Filed: 06/20/17 16:30> Objective - Vital Signs/Intake and Output Vital Signs (last 24 hours): Temp Pulse Resp BP Pulse Ox 97.5 F L 81 18 145/96 H 96 06/17/17 07:00 06/17/17 09:25 06/17/17 09:00 06/17/17 09:26 06/17/17 09:00 - Labs Labs: 06/16/17 07:00 06/17/17 11:15 PT 16.7 SECONDS (9.4-12.5) H 06/16/17 07:00 INR 1.44 (0.93-1.08) H 06/16/17 07:00 APTT 43.5 Seconds (25.1-36.5) H 06/16/17 07:00 Attending/Attestation - Attestation I have personally seen and examined this patient.: Yes I have fully participated in the care of the patient.: Yes I have reviewed all pertinent clinical information, including history, physical exam and plan: Yes Notes (Text): Please see/read my dictated notes.
[2017-06-10] MEDS: Enoxaparin 40 mg Syringe SC SCH (11:28)
[2017-06-10] MEDS: Magnesium Oxide 400 mg Tab UD PO SCH ×2 (11:30→17:42)
--- NOTE | 2017-06-10 12:45 | CP.PCM.PN ---
Subjective - Date & Time of Evaluation Date of Evaluation: 06/10/17 Time of Evaluation: 12:43 - Subjective Subjective: Follow up Nephrology Consultation Note Assessment: Stable Hypervolemic hyponatremia likely due to CHF and ? contribution by metastatic cancer leading to excess ADH (SIADH) Hypertensive Chronic Kidney Disease (I12.9) Chronic Kidney Disease (N18.3) Stage 3 with Cr 1.2 with superimposed mild MASSIEL metastatic cancer, HTN (I12.9) CHF LVEF 20% Hypokalemia hypomagnesemia, hx of BPH Plan No acute need for renal replacement therapy at this time. Hypertension control with meds as ordered. not on ACEI/ARB due to MASSIEL Monitor Input/Output, daily weights and renal function with basic metabolic panel supplement electrolytes as needed since Na worsened after diuresis with lasix, will redose with tolvaptan 30 mg today. monitor Na q 6 hr. avoid correction in serum Na > 6-8 meq/24 hrs should be able to resume diuretics as lasix soon once renal function stable. dos eof kayexylate today Avoid nephrotoxins/NSAIDs Glycemic control Further work up for as per primary team Thanks for allowing me to participate in care of your patient. Will follow patient with you. Please call if any Qs. Dr Grupo Vital Office: [phone] Subjective: Noted events overnight. Patients feels okay. Denies chest pain, palpitation, improved shortness of breath, leg swelling. All other negative. had bone biopsy by IR on 06/10/17 Physical Examination: General Appearance: Comfortable, in no acute respiratory distress, co-operative . Vitals reviewed and noted as below Head; Atraumatic, normocephalic ENT: no ulcers no thrush. Tongue is midline. Oropharynx: no rash or ulcers. EYES: Pupils are equal, round and reactive to light accommodation. Eye muscles and extraocular movement intact. Sclera is anicteric. Neck; supple no lymphadenopathy, no thyromegaly or bruit Lungs: Normal respiratory rate/effort. Breath sounds bilateral decreased at bases Heart: Normal rate. s1s2 normal. No rub or gallop. Extremities: no edema. No varicose veins Neurological: Patient is alert, awake and oriented to person, place and time. No focal deficit. Strength bilateral appropriate and equal Skin: Warm and dry. Normal turgor. No rash. Palpitation: Normal elasticity for age Abdomen: Abdomen is soft. Bowel sounds +. There is no abdominal tenderness, no guarding/rigidity no organomegaly Psych: normal insight and normal affect/mood MSK: no joint tenderness or swelling. Digits and nails normal, no deformity : kidney or bladder not palpable Labs/imaging reviewed. Past medical history, past surgical history, family history, social history, allergy reviewed and noted as below Family hx: no hx of CKD. Rest non-contributory urine Na 75 urine osmol 190 Serum osmol 281 uric acid 7.9 TSH 2.3 LVEF 20% Objective - Vital Signs/Intake and Output Vital Signs (last 24 hours): Temp Pulse Resp BP Pulse Ox 98 F 132 H 13 118/82 99 06/10/17 10:32 06/10/17 11:29 06/10/17 10:47 06/10/17 10:47 06/10/17 10:47 Intake and Output: 06/10/17 06/10/17 06:59 18:59 Intake Total 240 100 Output Total 800 Balance -560 100 - Medications Medications: Current Medications Allopurinol (Zyloprim) 300 mg PO DAILY [facility] Last Admin: 06/09/17 10:54 Dose: 300 mg Aspirin (Ecotrin) 81 mg PO DAILY [facility] Last Admin: 06/10/17 11:37 Dose: 81 mg Atorvastatin Calcium (Lipitor) 40 mg PO DIN [facility] Last Admin: 06/09/17 17:30 Dose: 40 mg Diltiazem HCl (Cardizem) 60 mg PO TID [facility] Docusate Sodium (Colace) 100 mg PO TID [facility] Last Admin: 06/09/17 17:30 Dose: 100 mg Enoxaparin Sodium (Lovenox) 40 mg SC DAILY [facility] PRN Reason: Protocol Last Admin: 06/10/17 11:28 Dose: 40 mg Magnesium Oxide (Mag-Ox) 800 mg PO BID [facility] Last Admin: 06/10/17 11:30 Dose: 800 mg Metoprolol Tartrate (Lopressor) 50 mg PO BID [facility] Last Admin: 06/10/17 11:29 Dose: 50 mg Pantoprazole Sodium (Protonix Ec Tab) 20 mg PO 0600,1600 [facility] Last Admin: 06/10/17 06:56 Dose: Not Given - Labs Labs: 06/10/17 05:30 06/10/17 05:30 PT 16.1 SECONDS (9.4-12.5) H 06/09/17 04:30 INR 1.39 (0.93-1.08) H 06/09/17 04:30 APTT 46.1 Seconds (25.1-36.5) H 06/09/17 04:30
--- NOTE | 2017-06-10 13:20 | PN ---
DATE: 06/10/2017 CARDIOLOGY FOLLOWUP SUBJECTIVE: The patient is in bed. He is comfortable without shortness of breath, without chest pain. PHYSICAL EXAMINATION: VITAL SIGNS: Blood pressure is 118/82, heart rate is atrial fibrillation in the 90s. NECK: Negative JVD. LUNGS: Without rales. HEART: With S1, S2. EXTREMITIES: Without edema. LABORATORY DATA: Hemoglobin is 13.7. Chemistries: BUN and creatinine 16 and 1.5. IMPRESSION: 1. Atrial fibrillation. 2. Hypertension. 3. Prostate cancer. 4. Hypercholesterolemia. PLAN: Given these findings, the patient is currently on a beta riky for better heart rate control. The patient will need long-term anticoagulation. We will add Cardizem to his regimen for better heart rate control. Vincenzo Grayson MD
--- NOTE | 2017-06-10 13:38 | PN ---
DATE: 06/10/2017 SUBJECTIVE: The patient was seen in recovery room after having a CT-guided biopsy. The patient is seen lying in the recovery room. The patient is arousable, sedated. PHYSICAL EXAMINATION: VITAL SIGNS: T-max 98. Telemetry shows atrial fibrillation, heart rate in low 100s, blood pressure 125/77, respirations 13-18, O2 sat 99-100%. Yesterday's output 1400. HEENT: Head examination normocephalic, atraumatic. HEENT examination shows pinkish conjunctivae. Anicteric sclerae. No oropharyngeal lesion. No neck rigidity. No jugular venous distention. CHEST: Kyphosis. LUNGS: Shows decreased breath sound at the bases. No rales or crackles today. CARDIOVASCULAR: S1, S2. Irregular rhythm. ABDOMEN: Soft. Positive bowel sound. GENITALIA: Male. RECTAL: Deferred. EXTREMITY: Shows no pitting edema, no calf numbness, no Glo's signs of the legs. No swelling and edema of the feet noted. Positive SCDs noted. MUSCULOSKELETAL: Shows a body mass index of 28. NEUROLOGIC: The patient was sedated, arousable. DIAGNOSTICS: On 06/10/2017, WBC 4.8, hemoglobin and hematocrit 13.7 and 41.5, platelets 140. Sodium is down to 126, potassium is 5.4, chloride 88, CO2 of 25, anion gap 18, BUN 16, creatinine 1.5, GFR 55, glucose 98, calcium 9.5, magnesium 2.0, total bili 1.6, direct bili 1.0. LFTs are normal. The patient underwent a CT-guided biopsy of the lumbar spine. EKG done in the emergency room. EKG from today shows atrial fibrillation, heart rate in 130s. IMPRESSION AND PLAN: 1. Atrial fibrillation with rapid ventricular response. 2. Transient hypotension (resolved). 3. Leukopenia, anemia. 4. Transient lactic acidosis. 5. Refractory hyponatremia. 6. Hyperkalemia. 7. Hypomagnesemia. 8. Hyperbilirubinemia. 9. Most likely suspected metastatic prostate carcinoma with bone metastasis with elevated PSA. 10. Trace proteinuria, microscopic hematuria. 11. Status post CT-guided lumbar spine biopsy. 12. Atrial fibrillation with rapid ventricular response. 13. Voiding dysfunction. 14. Gait dysfunction. 15. Systolic congestive heart failure (resolving). 16. Constipation. 17. Dyslipidemia. 18. Hypomagnesemia. 19. Hyperuricemia. 20. Deconditioning. 1. Atrial fibrillation with rapid ventricular response. 2. Suspect metastatic prostate carcinoma with bone metastasis. 3. Pleural effusion. 4. Leukopenia. 5. Anemia. 6. Refractory hyponatremia. 7. Hypervolemic hyponatremia secondary to congestive heart failure. 8. Possible syndrome of inappropriate antidiuretic hormone. 9. Hypertensive chronic kidney disease. 10. Systolic congestive heart failure with cardiomyopathy. 11. Hypokalemia. 12. Hypomagnesemia. 13. Normocytic anemia. 14. Granulocytosis. 15. Transient lactic acidosis. 16. Hypokalemia. 17. Hyponatremia. 18. Hypomagnesemia. 19. Hyperbilirubinemia. 20. Transient hypotension. 21. Constipation. 22. Hypercholesteremia. 23. Hypomagnesemia. 24. Hyperuricemia. 1. New-onset atrial fibrillation with rapid ventricular response. 2. Dilated cardiomyopathy. 3. Acute systolic congestive heart failure with elevated brain natriuretic peptide. 4. Hyponatremia. 5. Questionable syndrome of inappropriate antidiuretic hormone secretion. 6. Most probable metastatic prostate carcinoma with multiple bone metastases. 7. Leukopenia and anemia. 8. Transient lactic acidosis. 9. Hypokalemia. 10. Hyperbilirubinemia. 11. Elevated prostate-specific antigen of greater than 90. 12. Proteinuria, microscopic hematuria. 13. Moderate pulmonary arterial hypertension with moderate tricuspid regurgitation and elevated right ventricular systolic pressure of 52 mmHg. 14. Bilateral lower extremity lymphedema and venous stasis, resolving. 15. Lateral coronary ischemic changes. 16. Constipation. 17. Hypercholesteremia. 18. Hypomagnesemia. 19. Hyperuricemia. 1. Atrial fibrillation with rapid ventricular response. 2. Dilated cardiomyopathy with ejection fraction of 21%. 3. Concentric left ventricular hypertrophy. 4. Moderate to severely impaired left ventricular function with left ventricle ejection fraction of 21%. 5. Global left ventricular hypokinesis. 6. Moderately reduced right ventricular systolic function. 7. Moderately dilated left and right atrium. 8. Moderately thickened aortic valve. 9. Moderately thickened mitral valve with moderate mitral regurgitation. 10. Moderate tricuspid regurgitation with moderate pulmonary arterial hypertension with right ventricular systolic pressure of 52 mmHg. 11. Atrial fibrillation with rapid ventricular response. 12. Gait dysfunction. 13. Bilateral lower extremity lymphedema and venous stasis. 14. Leukopenia. 15. Anemia. 16. Lactic acidosis. 17. Hypokalemia. 18. Hyperbilirubinemia. 19. Elevated prostate-specific antigen. 20. Hyperbilirubinemia. 21. Hyponatremia. 22. Possible syndrome of inappropriate antidiuretic hormone. 23. Systolic congestive heart failure with elevated BNP. 24. Systolic and diastolic congestive heart failure with elevated BNP, decreased left ventricular ejection fraction of 21% and moderate pulmonary arterial hypertension, moderate tricuspid regurgitation. 1. Hypertension. 2. Atrial fibrillation with rapid ventricular response. 3. Acute systolic and diastolic congestive heart failure with decreased left ventricular ejection fraction of 20% and abnormal weight gain and bilateral lower extremity lymphedema. 4. Leukopenia. 5. Transient lactic acidosis. 6. Hyponatremia, possibly syndrome of inappropriate antidiuretic hormone secretion. 7. Hypomagnesemia. 8. Hyperbilirubinemia. 9. Elevated prostate-specific antigen of greater than 90. 10. Gait dysfunction. 11. Deconditioning. 12. Proteinuria, hematuria, bacteriuria. 13. Axial skeleton diffuse osseous metastatic disease with abnormal increased uptake of the thoracolumbar spine, right iliac bone, posterior rib in the right rib, bilateral scapula, proximal femur bilaterally including the lesser trochanter on the right and subtrochanteric region on the left with increased uptake in the sternum. 14. Cerebral cortical atrophy of the brain with moderate volume loss. 15. Centrilobular and paraseptal emphysema with atelectasis scarring. 16. Subcentimeter pulmonary nodules of 0.3 cm. 17. Bilateral pleural effusion. 18. Cardiomegaly. 19. Scattered sclerotic bony lesion. 20. Moderate diffuse stranding of the subcutaneous tissue and anasarca. 21. Bilateral adrenal gland hypertrophy. 22. Probable right renal cyst. 23. Colonic diverticulosis. 24. 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 25. Degenerative joint disease of the spine. 26. Small fat-containing umbilical hernia. 27. Small fat-containing inguinal hernia. 28. Subcentimeter retroperitoneal lymphadenopathy. 29. Dilated cardiomyopathy with left ventricular ejection fraction of 21%. 30. Concentric left ventricular hypertrophy. 31. Pcypjyry-[id number]-[id number] impaired left ventricular systolic function with left ventricular ejection fraction of 21% and left ventricular global hypokinesis. 32. Moderately reduced right ventricular systolic function. 33. Moderately dilated left and right atrium. 34. Moderately thickened aortic valve. 35. Moderately thickened mitral valve. 36. Moderate mitral regurgitation. 37. Moderate tricuspid regurgitation with moderate pulmonary arterial hypertension with right ventricular systolic pressure of 52 mmHg. 38. History of poor compliance and noncompliance. 39. Hypervolemic hyponatremia secondary to systolic congestive heart failure. 40. Increased urinary retention. 41. Possible and probable stage IV prostate carcinoma with bone metastasis and extremely high PSA of greater than 90. 1. Atrial fibrillation with rapid ventricular response. 2. Ruben-inferolateral coronary ischemia. 3. History of hypertension. 4. Most possible and most likely systolic congestive heart failure with elevated BNP. 5. Cardiomegaly and pulmonary vascular congestion, suggestive of congestive heart failure. 6. Leukopenia. 7. Lactic acidosis. 8. Hyponatremia, etiology undetermined. 9. Questionable syndrome of inappropriate (excretion) of antidiuretic hormone. 10. Indeterminate troponin. 11. Elevated BNP suggestive of congestive heart failure. 12. Trace proteinuria, trace microscopic hematuria, trace bacteriuria. 13. Bilateral lower extremity lymphedema. 14. Anasarca. 15. Extremely poor compliance and noncompliance. 16. History of hypovitaminosis D. 17. History of hyperuricemia, hypomagnesemia and history of elevated prostate-specific antigen. PLAN: At this time, the patient will be continued on serial labs. CURRENT MEDICATIONS: 1. Colace 100 mg three times a day. 2. Ecotrin 81 mg daily. 3. The patient has been given a dose of Kayexalate 15 g by Nephrology. 4. Lipitor 40 mg daily. 5. Lopressor 50 mg twice a day. 6. Lovenox 40 mg subcu daily. 7. Magnesium oxide 800 mg twice a day. 8. The patient is given a dose of tolvaptan 30 mg. 9. Allopurinol 300 mg daily. Oxygen, out of bed, SCDs, LIV stocking, physical therapy, occupational therapy. The patient was seen by physical therapist. The recommendations are subacute rehab. Dictated and electronically signed, not read. Benny Street MD [facility]
--- NOTE | 2017-06-10 18:37 | CT ---
PROCEDURE: CT guided L2 vertebral body biopsy. HISTORY: Sclerotic lesion L2 vertebral body. Elevated PSA. Evaluate for prostate [place] PHYSICIAN(S): Vincenzo Daniels MD. TECHNIQUE: The relative risks and indications of the procedure were explained to the patient and consent obtained. The patient was placed prone on the CT scanner and preliminary images through the upper lumbar spine obtained. Conscious sedation and monitoring were provided throughout the procedure by a nurse. Is a mixed sclerotic lytic lesion in the L2 vertebral body.. A right posterior paraspinal approach was selected and the area prepped and draped in the usual sterile fashion. 1% Xylocaine was used to anesthetize the skin and soft tissues. A on control bone biopsy needle was advanced to L2 vertebral body and its position confirmed with CT. Two long core biopsies were obtained through the L2 vertebral body with on control needle. The patient tolerated the procedure well. IMPRESSION: 1. CT-guided L2 vertebral body biopsy as described above.
--- NOTE | 2017-06-10 20:01 | CP.PCM.PN ---
Subjective - Date & Time of Evaluation Date of Evaluation: 06/10/17 Time of Evaluation: 11:00 - Subjective Subjective: No complaints, s/p IR bone lesion biopsy. Objective - Vital Signs/Intake and Output Vital Signs (last 24 hours): Temp Pulse Resp BP Pulse Ox 97.3 F L 105 H 20 97/67 L 99 06/10/17 18:00 06/10/17 18:00 06/10/17 18:00 06/10/17 18:00 06/10/17 10:47 Intake and Output: 06/10/17 06/11/17 18:59 06:59 Intake Total 100 Balance 100 - Medications Medications: Current Medications Allopurinol (Zyloprim) 300 mg PO DAILY [facility] Last Admin: 06/10/17 14:07 Dose: 300 mg Aspirin (Ecotrin) 81 mg PO DAILY [facility] Last Admin: 06/10/17 11:37 Dose: 81 mg Atorvastatin Calcium (Lipitor) 40 mg PO DIN [facility] Last Admin: 06/10/17 17:44 Dose: 40 mg Diltiazem HCl (Cardizem) 60 mg PO TID [facility] Last Admin: 06/10/17 17:40 Dose: 60 mg Docusate Sodium (Colace) 100 mg PO TID [facility] Last Admin: 06/10/17 17:40 Dose: 100 mg Enoxaparin Sodium (Lovenox) 40 mg SC DAILY [facility] PRN Reason: Protocol Last Admin: 06/10/17 11:28 Dose: 40 mg Magnesium Oxide (Mag-Ox) 800 mg PO BID [facility] Last Admin: 06/10/17 17:42 Dose: 800 mg Metoprolol Tartrate (Lopressor) 50 mg PO BID [facility] Last Admin: 06/10/17 17:36 Dose: Not Given Pantoprazole Sodium (Protonix Ec Tab) 20 mg PO 0600,1600 [facility] Last Admin: 06/10/17 17:40 Dose: 20 mg - Labs Labs: 06/10/17 05:30 06/10/17 18:55 PT 16.1 SECONDS (9.4-12.5) H 06/09/17 04:30 INR 1.39 (0.93-1.08) H 06/09/17 04:30 APTT 46.1 Seconds (25.1-36.5) H 06/09/17 04:30 - Head Exam Head Exam: ATRAUMATIC - Eye Exam Eye Exam: Normal appearance - ENT Exam ENT Exam: Mucous Membranes Dry - Respiratory Exam Respiratory Exam: NORMAL BREATHING PATTERN - Cardiovascular Exam Cardiovascular Exam: +S1, +S2 - GI/Abdominal Exam GI & Abdominal Exam: Normal Bowel Sounds - Extremities Exam Extremities Exam: Pedal Edema Assessment and Plan (1) Bone lesion Assessment & Plan: s/p IR bone lesion biopsy suspect metastatic prostate cancer f/u path Status: Acute (2) Pleural effusion Assessment & Plan: reports breaths well with oxygen but short of breath without Status: Acute (3) Leukopenia Assessment & Plan: no neutropenia Status: Acute (4) Anemia Assessment & Plan: chronic disease Status: Acute (5) Coagulopathy Status: Acute
[2017-06-11] MEDS: Pantoprazole 20 mg EC Tab PO SCH ×2 (05:10→17:15)
[2017-06-11 06:35] LABS: BASO # 0.03 K/mm3 (0.0-2.0); BASO % 0.6 % (0.0-3.0); EOS # 0.1 (0.0-0.7); EOS % 1.7 % (1.5-5.0); GRAN # 3.43 (1.4-6.5); GRAN % 66.5 % (50.0-68.0); HEMOGLOBIN 13.3 g/dL (14.0-18.0); LYMPH % 19.4 % (22.0-35.0); MEAN CELL VOLUME 85.4 fl (80.0-105.0); MEAN CORPUSCULAR HEMOGLOBIN 28.1 pg (25.0-35.0); MEAN CORPUSCULAR HGB CONC 32.8 g/dl (31.0-37.0); MEAN PLATELET VOLUME 9.7 fl (7.0-11.0); MONO # 0.6 (0.1-0.6); MONO % 11.8 % (1.0-6.0); RBC 4.74 10^6/uL (3.5-6.1); RED CELL DISTRIBUTION WIDTH 15.1 % (11.5-14.5); WHITE BLOOD COUNT 5.2 10^3/ul (4.5-11.0)
[2017-06-11 06:55] LABS: ALB/GLOB RATIO 1.2 (1.1-1.8); ALBUMIN 3.7 g/dL (3.0-4.8); BILIRUBIN,DIRECT 1.1 mg/dL (0.0-0.4); CALCIUM 9.4 mg/dL (8.4-10.5); MAGNESIUM 2.1 mg/dL (1.7-2.2)
--- NOTE | 2017-06-11 08:05 | PN ---
DATE: 06/08/2017. DAILY PROGRESS NOTE SUBJECTIVE: Please see the briefly dictated note from 06/06/2017. He had a Urology consult at that time for hematuria, urinary retention, voiding dysfunction, elevated PSA and this is a progress note and today is 06/08/2017. The patient is currently resting comfortably in his bed. There is no past medical and surgical history, no changes. MEDICATIONS: As before. The patient is on Lovenox. His physical exam remains unchanged. The catheter is relatively clear. DIAGNOSES: Elevated PSA, voiding dysfunction, urinary retention and hematuria. PLAN: I would likely recommend a cystoscopy and retrograde pyelogram, possible biopsy depending on what we find. The timing on this will be up to Dr. Street and the Medical and the Cardiology team. In regards to his prostate ultrasound and prostate ultrasound-guided biopsy, the same thing, we just need for medical clearance and to see what we can do in terms of blood thinner. If it is conceivable and possible we would try to do it this week, maybe on 06/10/2017 or 06/11/2017, depending on the patient's health and medical status and willingness and medical clearance. The other possibility is to use the anticoagulants and then time later. We can discuss all this with Dr. Street. Further plans, we will follow depending on what the medical plan will be, but from Urology standpoint, the following tests needs to be done at some point in the future, prostate ultrasound, prostate ultrasound-guided biopsy and cystoscopy and retrograde pyelogram. The timing of this to be determined. Nicanor Lopez MD
[2017-06-11] MEDS: Sod Polystyrene Sulf 15 gm/60 ml Susp PO ONE ×2 (09:45→13:26)
--- NOTE | 2017-06-11 09:54 | PN ---
DATE: 06/11/2017 CARDIOLOGY FOLLOWUP SUBJECTIVE: The patient is resting comfortably. PHYSICAL EXAMINATION: VITAL SIGNS: Blood pressure is 112/72, heart rates in the 80s, atrial fibrillation. NECK: Negative JVD. LUNGS: Without rales. HEART: With S1, S2. Extremities: Without edema. LABORATORY DATA: BUN and creatinine are 19 and 1.7. Hemoglobin is 13.3. IMPRESSION: 1. Atrial fibrillation. 2. Prostate cancer. 3. Renal insufficiency. 4. Hypertension. 5. Hypercholesterolemia. PLAN: Given these findings, the patient's heart rate is well-controlled. The patient is for urologic procedure today. We will change his short-acting Cardizem to long-acting Cardizem. Vincenzo Grayson MD
[2017-06-11] MEDS ORDERED: diltiaZEM 180 mg/24 Hours CD Cap PO SCH (10:00)
[2017-06-11] MEDS: Enoxaparin 40 mg Syringe SC SCH ×2 (10:00→13:36)
[2017-06-11] MEDS ORDERED: Etomidate 40 MG/20 ML ML IV ONE (10:33)
[2017-06-11] MEDS ORDERED: Lidocaine 2% Inj (20ml) ONE (10:33)
[2017-06-11] MEDS ORDERED: cefTRIAXone (Rocephin) 1 gm Inj ONE (10:37)
[2017-06-11] MEDS ORDERED: Sodium Chloride 0.9% 1,000 ML IV SCH (11:15)
[2017-06-11] MEDS: Magnesium Oxide 400 mg Tab UD PO SCH ×2 (11:59→18:15)
[2017-06-11] MEDS ORDERED: Sod Polystyrene Sulf 15 gm/60 ml Susp PO ONE (13:17)
--- NOTE | 2017-06-11 13:58 | CP.PCM.PN ---
Subjective - Date & Time of Evaluation Date of Evaluation: 06/11/17 Time of Evaluation: 13:58 - Subjective Subjective: Follow up Nephrology Consultation Note Assessment: Stable Hypervolemic hyponatremia likely due to CHF and ? contribution by metastatic cancer leading to excess ADH (SIADH) Hypertensive Chronic Kidney Disease (I12.9) Chronic Kidney Disease (N18.3) Stage 3 with Cr 1.2 with superimposed mild MASSIEL metastatic cancer, HTN (I12.9) CHF LVEF 20% Hypokalemia hypomagnesemia, hx of BPH Plan No acute need for renal replacement therapy at this time. Hypertension control with meds as ordered. not on ACEI/ARB due to MASSIEL Monitor Input/Output, daily weights and renal function with basic metabolic panel supplement electrolytes as needed continue with tolvaptan 30 mg. monitor Na q 6 hr. avoid correction in serum Na > 6-8 meq/24 hrs should be able to resume diuretics as lasix soon once renal function stable. dose of kayexylate today Avoid nephrotoxins/NSAIDs Glycemic control Further work up for as per primary team Thanks for allowing me to participate in care of your patient. Will follow patient with you. Please call if any Qs. Dr Grupo [facility]ital Office: [phone] Subjective: Noted events overnight. Patients feels okay. Denies chest pain, palpitation, improved shortness of breath, leg swelling. All other negative. had bone biopsy by IR on 06/10/17 Physical Examination: General Appearance: Comfortable, in no acute respiratory distress, co-operative . Vitals reviewed and noted as below Head; Atraumatic, normocephalic ENT: no ulcers no thrush. Tongue is midline. Oropharynx: no rash or ulcers. EYES: Pupils are equal, round and reactive to light accommodation. Eye muscles and extraocular movement intact. Sclera is anicteric. Neck; supple no lymphadenopathy, no thyromegaly or bruit Lungs: Normal respiratory rate/effort. Breath sounds bilateral decreased at bases Heart: Normal rate. s1s2 normal. No rub or gallop. Extremities: no edema. No varicose veins Neurological: Patient is alert, awake and oriented to person, place and time. No focal deficit. Strength bilateral appropriate and equal Skin: Warm and dry. Normal turgor. No rash. Palpitation: Normal elasticity for age Abdomen: Abdomen is soft. Bowel sounds +. There is no abdominal tenderness, no guarding/rigidity no organomegaly Psych: normal insight and normal affect/mood MSK: no joint tenderness or swelling. Digits and nails normal, no deformity : kidney or bladder not palpable Labs/imaging reviewed. Past medical history, past surgical history, family history, social history, allergy reviewed and noted as below Family hx: no hx of CKD. Rest non-contributory urine Na 75 urine osmol 190 Serum osmol 281 uric acid 7.9 TSH 2.3 LVEF 20% Objective - Vital Signs/Intake and Output Vital Signs (last 24 hours): Temp Pulse Resp BP Pulse Ox 98.4 F 91 H 17 101/71 100 06/11/17 11:50 06/11/17 11:50 06/11/17 11:50 06/11/17 11:50 06/11/17 11:50 Intake and Output: 06/11/17 06/11/17 06:59 18:59 Intake Total 120 Output Total 1000 Balance -880 - Medications Medications: Current Medications Allopurinol (Zyloprim) 300 mg PO DAILY [facility] Last Admin: 06/11/17 13:37 Dose: 300 mg Aspirin (Ecotrin) 81 mg PO DAILY [facility] Last Admin: 06/11/17 13:37 Dose: 81 mg Atorvastatin Calcium (Lipitor) 40 mg PO DIN [facility] Last Admin: 06/10/17 17:44 Dose: 40 mg Diltiazem HCl (Cardizem Cd) 180 mg PO DAILY [facility] Last Admin: 06/11/17 09:42 Dose: 180 mg Docusate Sodium (Colace) 100 mg PO TID [facility] Last Admin: 06/11/17 13:36 Dose: 100 mg Enoxaparin Sodium (Lovenox) 40 mg SC DAILY [facility] PRN Reason: Protocol Last Admin: 06/11/17 13:36 Dose: 40 mg Magnesium Oxide (Mag-Ox) 800 mg PO BID [facility] Last Admin: 06/11/17 11:59 Dose: Not Given Metoprolol Tartrate (Lopressor) 50 mg PO BID [facility] Last Admin: 06/11/17 09:42 Dose: 50 mg Ondansetron HCl (Zofran Inj) 4 mg IVP ONCE PRN PRN Reason: Nausea/Vomiting Pantoprazole Sodium (Protonix Ec Tab) 20 mg PO 0600,1600 [facility] Last Admin: 06/11/17 05:10 Dose: 20 mg Tolvaptan (Samsca) 30 mg PO DAILY [facility] Stop: 06/13/17 09:45 Last Admin: 06/11/17 13:38 Dose: 30 mg - Labs Labs: 06/11/17 06:00 06/11/17 06:00 PT 16.1 SECONDS (9.4-12.5) H 06/09/17 04:30 INR 1.39 (0.93-1.08) H 06/09/17 04:30 APTT 46.1 Seconds (25.1-36.5) H 06/09/17 04:30
--- NOTE | 2017-06-11 22:41 | CP.PCM.PN ---
Subjective - Date & Time of Evaluation Date of Evaluation: 06/11/17 Time of Evaluation: 18:15 - Subjective Subjective: No complaints. Objective - Vital Signs/Intake and Output Vital Signs (last 24 hours): Temp Pulse Resp BP Pulse Ox 97.3 F L 84 18 109/66 100 06/11/17 17:28 06/11/17 20:36 06/11/17 17:28 06/11/17 18:14 06/11/17 11:50 Intake and Output: 06/11/17 06/12/17 18:59 06:59 Intake Total 180 Output Total 775 Balance -595 - Medications Medications: Current Medications Allopurinol (Zyloprim) 300 mg PO DAILY [facility] Last Admin: 06/11/17 13:37 Dose: 300 mg Aspirin (Ecotrin) 81 mg PO DAILY [facility] Last Admin: 06/11/17 13:37 Dose: 81 mg Atorvastatin Calcium (Lipitor) 40 mg PO DIN [facility] Last Admin: 06/11/17 18:00 Dose: 40 mg Diltiazem HCl (Cardizem Cd) 180 mg PO DAILY [facility] Last Admin: 06/11/17 09:42 Dose: 180 mg Docusate Sodium (Colace) 100 mg PO TID [facility] Last Admin: 06/11/17 18:14 Dose: 100 mg Enoxaparin Sodium (Lovenox) 40 mg SC DAILY [facility] PRN Reason: Protocol Last Admin: 06/11/17 13:36 Dose: 40 mg Magnesium Oxide (Mag-Ox) 800 mg PO BID [facility] Last Admin: 06/11/17 18:15 Dose: 800 mg Metoprolol Tartrate (Lopressor) 50 mg PO BID [facility] Last Admin: 06/11/17 18:14 Dose: 50 mg Ondansetron HCl (Zofran Inj) 4 mg IVP ONCE PRN PRN Reason: Nausea/Vomiting Pantoprazole Sodium (Protonix Ec Tab) 20 mg PO 0600,1600 [facility] Last Admin: 06/11/17 17:15 Dose: 20 mg Tolvaptan (Samsca) 30 mg PO DAILY [facility] Stop: 06/13/17 09:45 Last Admin: 06/11/17 13:38 Dose: 30 mg - Labs Labs: 06/11/17 06:00 06/11/17 06:00 PT 16.1 SECONDS (9.4-12.5) H 06/09/17 04:30 INR 1.39 (0.93-1.08) H 06/09/17 04:30 APTT 46.1 Seconds (25.1-36.5) H 06/09/17 04:30 - Head Exam Head Exam: ATRAUMATIC - Eye Exam Eye Exam: Normal appearance - ENT Exam ENT Exam: Mucous Membranes Dry - Respiratory Exam Respiratory Exam: NORMAL BREATHING PATTERN - Cardiovascular Exam Cardiovascular Exam: +S1, +S2 - GI/Abdominal Exam GI & Abdominal Exam: Normal Bowel Sounds Assessment and Plan (1) Bone lesion Assessment & Plan: s/p IR biopsy ? metastatic prostate cancer f/u path Status: Acute (2) Pleural effusion Assessment & Plan: comfortable at rest and with 02 Status: Acute (3) Anemia Assessment & Plan: chronic disease, bone mets Status: Acute
--- NOTE | 2017-06-12 00:46 | PN ---
DATE: 06/11/2017 SUBJECTIVE: The patient is seen lying in the bed in room 272, bed 2. The patient was attempted to be seen in the morning, but the patient was undergoing multiple testing and was in the operating room for urological intervention. PHYSICAL EXAMINATION: VITAL SIGNS: T-max 98.4. Telemetry shows atrial fibrillation, heart rate 63, 96, 69, 91, 85, 86, 78; respiration 18; O2 sat is 100%; blood pressure in the last 24 hours 127/79, 122/56, 100/74, 130/82, 109/74, 104/74. Intake/output: Yesterday's output is 800. Today's urine output is 1000. HEENT: The patient's head examination is normocephalic, atraumatic. HEENT examination shows pink conjunctivae. Anicteric sclerae. No oropharyngeal lesion. No jugular venous distention. CHEST: Kyphosis. LUNGS: Shows questionable decreased breath sound at the bases. CARDIOVASCULAR: S1 and S2 with regular rhythm. Positive systolic murmur, left sternal border, right second intercostal space, left second intercostal space. ABDOMEN: Protuberant, distended, tympanic, but decreased bowel sounds. GENITALIA: Male. Positive Pettit catheter noted draining urine. Bladder scan was done, which shows zero residual. EXTREMITIES: Shows complete resolution of the pitting edema of the legs and the feet. There is some edema of the thigh noted. MUSCULOSKELETAL: Examination shows a body mass index of 29. NEUROLOGIC: The patient is alert, awake, responsive, is able to move upper and lower extremity without assistance. Gait examination is not tested. VASCULAR: Palpable pulses. DIAGNOSTICS: On 06/11/2017, WBC 5.2, hemoglobin and hematocrit 13.3 and 40.5, platelet 156. Sodium has dropped to 126, potassium 5.1, chloride 87, CO2 of 26, anion gap 18, BUN 19, creatinine 1.7, GFR 47, glucose 104, calcium 9.4, magnesium 2.1, total bili 1.7, direct bili 1.1, AST 62. LFTs are normal. HIV is negative. IMPRESSION AND PLAN: 1. Status post cystoscopy, insertion of 18-Tristanian two-way Pettit catheter. Status post cystoscopy, evacuation of clots and fulguration and retrograde pyelogram. 2. Atrial fibrillation with rapid ventricular response, resolving. 3. Abdominal distention, etiology undetermined versus constipation. 4. Leukopenia. 5. Normocytic anemia. 6. Mild coagulopathy. 7. Transient lactic acidosis. 8. Persistent refractory hyponatremia. 9. Non-hemolyzed hyperkalemia. 10. Hypochloremic hyponatremia. 11. Hyperbilirubinemia. 12. Transaminitis. 13. Elevated prostate-specific antigen. 14. Gait dysfunction. 15. Deconditioning. 16. Proteinuria, hematuria, bacteriuria. 17. Status post CT-guided L2 vertebral body biopsy. 18. Hypervolemic hyponatremia, probably secondary to congestive heart failure versus secondary to metastatic carcinoma. 19. Syndrome of inappropriate antidiuretic hormone. 20. Hypertensive kidney disease. 21. Acute kidney injury with underlying chronic kidney disease. 22. Systolic congestive heart failure and cardiomyopathy. 23. Prostatic hypertrophy. 24. New-onset atrial fibrillation with rapid ventricular response. 25. Suspected metastases prostate carcinoma with extremely elevated PSA and bone metastasis. 1. Atrial fibrillation with rapid ventricular response. 2. Transient hypotension (resolved). 3. Leukopenia, anemia. 4. Transient lactic acidosis. 5. Refractory hyponatremia. 6. Hyperkalemia. 7. Hypomagnesemia. 8. Hyperbilirubinemia. 9. Most likely suspected metastatic prostate carcinoma with bone metastasis with elevated PSA. 10. Trace proteinuria, microscopic hematuria. 11. Status post CT-guided lumbar spine biopsy. 12. Atrial fibrillation with rapid ventricular response. 13. Voiding dysfunction. 14. Gait dysfunction. 15. Systolic congestive heart failure (resolving). 16. Constipation. 17. Dyslipidemia. 18. Hypomagnesemia. 19. Hyperuricemia. 20. Deconditioning. 1. Atrial fibrillation with rapid ventricular response. 2. Suspect metastatic prostate carcinoma with bone metastasis. 3. Pleural effusion. 4. Leukopenia. 5. Anemia. 6. Refractory hyponatremia. 7. Hypervolemic hyponatremia secondary to congestive heart failure. 8. Possible syndrome of inappropriate antidiuretic hormone. 9. Hypertensive chronic kidney disease. 10. Systolic congestive heart failure with cardiomyopathy. 11. Hypokalemia. 12. Hypomagnesemia. 13. Normocytic anemia. 14. Granulocytosis. 15. Transient lactic acidosis. 16. Hypokalemia. 17. Hyponatremia. 18. Hypomagnesemia. 19. Hyperbilirubinemia. 20. Transient hypotension. 21. Constipation. 22. Hypercholesteremia. 23. Hypomagnesemia. 24. Hyperuricemia. 1. New-onset atrial fibrillation with rapid ventricular response. 2. Dilated cardiomyopathy. 3. Acute systolic congestive heart failure with elevated brain natriuretic peptide. 4. Hyponatremia. 5. Questionable syndrome of inappropriate antidiuretic hormone secretion. 6. Most probable metastatic prostate carcinoma with multiple bone metastases. 7. Leukopenia and anemia. 8. Transient lactic acidosis. 9. Hypokalemia. 10. Hyperbilirubinemia. 11. Elevated prostate-specific antigen of greater than 90. 12. Proteinuria, microscopic hematuria. 13. Moderate pulmonary arterial hypertension with moderate tricuspid regurgitation and elevated right ventricular systolic pressure of 52 mmHg. 14. Bilateral lower extremity lymphedema and venous stasis, resolving. 15. Lateral coronary ischemic changes. 16. Constipation. 17. Hypercholesteremia. 18. Hypomagnesemia. 19. Hyperuricemia. 1. Atrial fibrillation with rapid ventricular response. 2. Dilated cardiomyopathy with ejection fraction of 21%. 3. Concentric left ventricular hypertrophy. 4. Moderate to severely impaired left ventricular function with left ventricle ejection fraction of 21%. 5. Global left ventricular hypokinesis. 6. Moderately reduced right ventricular systolic function. 7. Moderately dilated left and right atrium. 8. Moderately thickened aortic valve. 9. Moderately thickened mitral valve with moderate mitral regurgitation. 10. Moderate tricuspid regurgitation with moderate pulmonary arterial hypertension with right ventricular systolic pressure of 52 mmHg. 11. Atrial fibrillation with rapid ventricular response. 12. Gait dysfunction. 13. Bilateral lower extremity lymphedema and venous stasis. 14. Leukopenia. 15. Anemia. 16. Lactic acidosis. 17. Hypokalemia. 18. Hyperbilirubinemia. 19. Elevated prostate-specific antigen. 20. Hyperbilirubinemia. 21. Hyponatremia. 22. Possible syndrome of inappropriate antidiuretic hormone. 23. Systolic congestive heart failure with elevated BNP. 24. Systolic and diastolic congestive heart failure with elevated BNP, decreased left ventricular ejection fraction of 21% and moderate pulmonary arterial hypertension, moderate tricuspid regurgitation. 1. Hypertension. 2. Atrial fibrillation with rapid ventricular response. 3. Acute systolic and diastolic congestive heart failure with decreased left ventricular ejection fraction of 20% and abnormal weight gain and bilateral lower extremity lymphedema. 4. Leukopenia. 5. Transient lactic acidosis. 6. Hyponatremia, possibly syndrome of inappropriate antidiuretic hormone secretion. 7. Hypomagnesemia. 8. Hyperbilirubinemia. 9. Elevated prostate-specific antigen of greater than 90. 10. Gait dysfunction. 11. Deconditioning. 12. Proteinuria, hematuria, bacteriuria. 13. Axial skeleton diffuse osseous metastatic disease with abnormal increased uptake of the thoracolumbar spine, right iliac bone, posterior rib in the right rib, bilateral scapula, proximal femur bilaterally including the lesser trochanter on the right and subtrochanteric region on the left with increased uptake in the sternum. 14. Cerebral cortical atrophy of the brain with moderate volume loss. 15. Centrilobular and paraseptal emphysema with atelectasis scarring. 16. Subcentimeter pulmonary nodules of 0.3 cm. 17. Bilateral pleural effusion. 18. Cardiomegaly. 19. Scattered sclerotic bony lesion. 20. Moderate diffuse stranding of the subcutaneous tissue and anasarca. 21. Bilateral adrenal gland hypertrophy. 22. Probable right renal cyst. 23. Colonic diverticulosis. 24. 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 25. Degenerative joint disease of the spine. 26. Small fat-containing umbilical hernia. 27. Small fat-containing inguinal hernia. 28. Subcentimeter retroperitoneal lymphadenopathy. 29. Dilated cardiomyopathy with left ventricular ejection fraction of 21%. 30. Concentric left ventricular hypertrophy. 31. Bljicqee-bl-llegdglh impaired left ventricular systolic function with left ventricular ejection fraction of 21% and left ventricular global hypokinesis. 32. Moderately reduced right ventricular systolic function. 33. Moderately dilated left and right atrium. 34. Moderately thickened aortic valve. 35. Moderately thickened mitral valve. 36. Moderate mitral regurgitation. 37. Moderate tricuspid regurgitation with moderate pulmonary arterial hypertension with right ventricular systolic pressure of 52 mmHg. 38. History of poor compliance and noncompliance. 39. Hypervolemic hyponatremia secondary to systolic congestive heart failure. 40. Increased urinary retention. 41. Possible and probable stage IV prostate carcinoma with bone metastasis and extremely high PSA of greater than 90. 1. Atrial fibrillation with rapid ventricular response. 2. Ruben-inferolateral coronary ischemia. 3. History of hypertension. 4. Most possible and most likely systolic congestive heart failure with elevated BNP. 5. Cardiomegaly and pulmonary vascular congestion, suggestive of congestive heart failure. 6. Leukopenia. 7. Lactic acidosis. 8. Hyponatremia, etiology undetermined. 9. Questionable syndrome of inappropriate (excretion) of antidiuretic hormone. 10. Indeterminate troponin. 11. Elevated BNP suggestive of congestive heart failure. 12. Trace proteinuria, trace microscopic hematuria, trace bacteriuria. 13. Bilateral lower extremity lymphedema. 14. Anasarca. 15. Extremely poor compliance and noncompliance. 16. History of hypovitaminosis D. 17. History of hyperuricemia, hypomagnesemia and history of elevated prostate-specific antigen. PLAN: At this time, the patient has been ordered a stat obstructive series for evaluation of abdominal distention. The patient is to be continued on the Pettit catheter drainage of the urinary bladder. The patient has been ordered repeat labs. Obstructive series stat ordered. Current consultation: Cardiology, Nephrology, Urology, Hematology/Oncology, Interventional Radiology. The patient has been has been ordered Transitional Care Unit. The patient was seen by jailer. Tolvaptan prescription is sent to the [facility] pharmacy. Current medications: The patient is started on Cardizem CD 180 mg p.o. daily, Colace 100 mg three times a day, Ecotrin 81 mg daily. The patient was given Kayexalate 30 g p.o. once today, Lipitor 40 mg daily, Lopressor 50 mg twice a day, Lovenox 40 mg subcu daily, magnesium oxide 800 twice a day, Protonix 40 mg daily. The patient was given today tolvaptan/Samsca 30 mg daily started by Dr. Mcelroy. The patient is on allopurinol 3 mg daily, oxygen continuous 2 L. Out of bed, LIV stockings, SCDs, occupational therapy, physical therapy ordered. The patient was seen by physical therapist. Recommend continue PT and subacute rehab. The patient has been ordered out of bed to chair. Daily weights, SCDs. At present, plan at this time, if the patient's bone biopsy results are not available, the patient will proceed with urology prostate biopsy. As per Dr. Lopez, which has been updated to the patient. At present, the patient has also been ordered Dulcolax suppository for constipation. Dictated and electronically signed, not read. Benny Street MD [facility]
[2017-06-12] MEDS: Pantoprazole 20 mg EC Tab PO SCH ×2 (05:13→17:19)
[2017-06-12 07:24] LABS: BASO # 0.05 K/mm3 (0.0-2.0); BASO % 1.1 % (0.0-3.0); EOS # 0.3 (0.0-0.7); EOS % 5.9 % (1.5-5.0); GRAN # 2.36 (1.4-6.5); GRAN % 53.6 % (50.0-68.0); HEMOGLOBIN 12.7 g/dL (14.0-18.0); LYMPH # 1.1 (1.2-3.4); LYMPH % 25.5 % (22.0-35.0); MEAN CELL VOLUME 85.7 fl (80.0-105.0); MEAN CORPUSCULAR HGB CONC 32.7 g/dl (31.0-37.0); MEAN PLATELET VOLUME 9.6 fl (7.0-11.0); MONO # 0.6 (0.1-0.6); MONO % 13.9 % (1.0-6.0); RBC 4.53 10^6/uL (3.5-6.1); RED CELL DISTRIBUTION WIDTH 15.4 % (11.5-14.5); WHITE BLOOD COUNT 4.4 10^3/ul (4.5-11.0)
[2017-06-12 07:32] LABS: ALB/GLOB RATIO 1.1 (1.1-1.8); ALBUMIN 3.4 g/dL (3.0-4.8); BILIRUBIN,DIRECT 0.8 mg/dL (0.0-0.4); CALCIUM 9.5 mg/dL (8.4-10.5); MAGNESIUM 2.1 mg/dL (1.7-2.2)
[2017-06-12] MEDS: Magnesium Oxide 400 mg Tab UD PO SCH ×2 (09:10→17:19)
[2017-06-12] MEDS: diltiaZEM 240 mg/24 Hours CD Cap PO SCH (09:12)
--- NOTE | 2017-06-12 10:07 | RAD ---
HISTORY: ABDOMINAL DISTENTION COMPARISON: No prior. FINDINGS: BOWEL: Gas is seen partially distending numerous large bowel loops and potentially a few central small bowel loops may contain some gas as well. Consider potential developing ileus pattern. Distal large bowel obstruction is unlikely but not fully excluded. No definite free intraperitoneal gas. A few phlebolith type radiodensities are seen in the inferior right pelvic soft tissues. A [id number] amount of gas seen in the region of the gastric viscus. BONES: Diffuse osteopenia suggests osteoporosis. OTHER FINDINGS: None. IMPRESSION: Potential developing ileus pattern involving primarily large bowel. No gross free intraperitoneal gas. Clinical correlation and radiographic follow-up are advised.
--- NOTE | 2017-06-12 10:44 | PN ---
DATE: 06/12/2017 CARDIOLOGY FOLLOWUP SUBJECTIVE: The patient is comfortable. There is no further urologic procedures plan. PHYSICAL EXAMINATION VITAL SIGNS: Blood pressure 119/95, the heart rate is currently 110, atrial fibrillation. NECK: Negative JVD. LUNGS: Without rales. HEART: Reveals S1, S2. EXTREMITIES: Without edema. LABORATORY DATA: Hemoglobin is 12.7. Chemistries: BUN and creatinine are unremarkable. IMPRESSION: 1. Atrial fibrillation with increased heart rate. 2. Prostate cancer. 3. Hypertension. 4. Improved renal function. 5. Hypercholesterolemia. PLAN: Given these findings, we will give an extra dose of Cardizem today. We will increase his long-acting Cardizem to 240 CD. In addition, we will restart his Eliquis at 2.5 mg b.i.d. to prevent thromboembolism. Vincenzo Grayson MD
--- NOTE | 2017-06-12 12:12 | PCM.URO ---
Urology Progress Note - Objective Lab Studies: Reviewed (dx: elevated psa, retention, plans: check pathology for prostate cancer, trial of void to follow) Lab Results Last 24 Hours: Laboratory Results - last 24 hr 06/12/17 06/12/17 06:40 06:40 WBC 4.4 L RBC 4.53 Hgb 12.7 L Hct 38.8 L MCV 85.7 MCH 28.0 MCHC 32.7 RDW 15.4 H Plt Count 128 MPV 9.6 Gran % 53.6 Lymph % (Auto) 25.5 [place] % (Auto) 13.9 H Eos % (Auto) 5.9 H Baso % (Auto) 1.1 Gran # 2.36 Lymph # (Auto) 1.1 L [place] # (Auto) 0.6 Eos # (Auto) 0.3 Baso # (Auto) 0.05 Sodium 129 L Potassium 4.5 Chloride 90 L Carbon Dioxide 27 Anion Gap 16 BUN 20 Creatinine 1.5 Est GFR ( Amer) 55 Est GFR (Non-Af Amer) 45 Random Glucose 90 Calcium 9.5 Magnesium 2.1 Total Bilirubin 1.2 Direct Bilirubin 0.8 H AST 59 ALT 41 Alkaline Phosphatase 118 Total Protein 6.6 Albumin 3.4 Globulin 3.1 Albumin/Globulin Ratio 1.1 Intake & Output: Intake & Output 06/11/17 06/12/17 06/12/17 18:59 06:59 18:59 Intake Total 180 240 Output Total 775 800 Balance -595 -560 Weight 205 lb 206 lb Intake: Oral 180 240 Output: Urine 775 800 Urethral (Pettit) 775 800 Other: # Bowel Movements 0 2 Vital Signs: Vital Signs - 24 hr 06/11/17 06/11/17 06/11/17 14:00 17:28 18:00 Temperature 97.3 F L Pulse Rate 99 H 63 96 H Respiratory 18 Rate Blood Pressure 109/66 O2 Sat by Pulse Oximetry 06/11/17 06/11/17 06/11/17 18:14 20:36 23:49 Temperature 97.8 F Pulse Rate 63 84 81 Respiratory 19 Rate Blood Pressure 109/66 95/67 L O2 Sat by Pulse 92 L Oximetry 06/12/17 06/12/17 06/12/17 02:00 05:22 06:00 Temperature 97.4 F L Pulse Rate 95 H 95 H 99 H Respiratory 20 Rate Blood Pressure 119/95 H O2 Sat by Pulse 98 Oximetry 06/12/17 06/12/17 06/12/17 09:09 09:12 10:00 Temperature Pulse Rate 104 H 110 H 110 H Respiratory Rate Blood Pressure O2 Sat by Pulse Oximetry 06/12/17 11:46 Temperature 97.6 F Pulse Rate 84 Respiratory 20 Rate Blood Pressure 121/76 O2 Sat by Pulse Oximetry
--- NOTE | 2017-06-12 12:38 | CP.PCM.PN ---
Subjective - Date & Time of Evaluation Date of Evaluation: 06/12/17 Time of Evaluation: 12:36 - Subjective Subjective: Follow up Nephrology Consultation Note Assessment: Stable Hypervolemic hyponatremia likely due to CHF and ? contribution by metastatic cancer leading to excess ADH (SIADH) Hypertensive Chronic Kidney Disease (I12.9) Chronic Kidney Disease (N18.3) Stage 3 with Cr 1.2 with superimposed mild MASSIEL metastatic cancer, HTN (I12.9) CHF LVEF 20% Hypokalemia hypomagnesemia, hx of BPH Plan No acute need for renal replacement therapy at this time. Hypertension control with meds as ordered. not on ACEI/ARB due to MASSIEL, consider outpt once stable K and stable creatinine. Monitor Input/Output, daily weights and renal function with basic metabolic panel supplement electrolytes as needed continue with tolvaptan 30 mg while in hospital and at d/c. Rx was given to CM. Avoid correction in serum Na > 6-8 meq/24 hrs should be able to resume diuretics as lasix soon once renal function stable. Avoid nephrotoxins/NSAIDs Glycemic control Further work up for as per primary team pt stable for d/c from renal perspective when planned Thanks for allowing me to participate in care of your patient. Will follow patient with you. Please call if any Qs. had d/w team Dr Grupo [facility] Office: [phone] Subjective: Noted events overnight. Patients feels okay. Denies chest pain, palpitation, improved shortness of breath, leg swelling. All other negative. had bone biopsy by IR on 06/10/17 Physical Examination: General Appearance: Comfortable, in no acute respiratory distress, co-operative . Vitals reviewed and noted as below Head; Atraumatic, normocephalic ENT: no ulcers no thrush. Tongue is midline. Oropharynx: no rash or ulcers. EYES: Pupils are equal, round and reactive to light accommodation. Eye muscles and extraocular movement intact. Sclera is anicteric. Neck; supple no lymphadenopathy, no thyromegaly or bruit Lungs: Normal respiratory rate/effort. Breath sounds bilateral decreased at bases Heart: Normal rate. s1s2 normal. No rub or gallop. Extremities: no edema. No varicose veins Neurological: Patient is alert, awake and oriented to person, place and time. No focal deficit. Strength bilateral appropriate and equal Skin: Warm and dry. Normal turgor. No rash. Palpitation: Normal elasticity for age Abdomen: Abdomen is soft. Bowel sounds +. There is no abdominal tenderness, no guarding/rigidity no organomegaly Psych: normal insight and normal affect/mood MSK: no joint tenderness or swelling. Digits and nails normal, no deformity : kidney or bladder not palpable Labs/imaging reviewed. Past medical history, past surgical history, family history, social history, allergy reviewed and noted as below Family hx: no hx of CKD. Rest non-contributory urine Na 75 urine osmol 190 Serum osmol 281 uric acid 7.9 TSH 2.3 LVEF 20% Objective - Vital Signs/Intake and Output Vital Signs (last 24 hours): Temp Pulse Resp BP Pulse Ox 97.6 F 84 20 121/76 98 06/12/17 11:46 06/12/17 11:46 06/12/17 11:46 06/12/17 11:46 06/12/17 06:00 Intake and Output: 06/12/17 06/12/17 06:59 18:59 Intake Total 240 Output Total 800 Balance -560 - Medications Medications: Current Medications Allopurinol (Zyloprim) 300 mg PO DAILY [facility] Last Admin: 06/11/17 13:37 Dose: 300 mg Apixaban (Eliquis) 2.5 mg PO BID [facility] PRN Reason: Protocol Last Admin: 06/12/17 09:09 Dose: 2.5 mg Aspirin (Ecotrin) 81 mg PO DAILY [facility] Last Admin: 06/12/17 09:09 Dose: 81 mg Atorvastatin Calcium (Lipitor) 40 mg PO DIN [facility] Last Admin: 06/11/17 18:00 Dose: 40 mg Diltiazem HCl (Cardizem Cd) 240 mg PO DAILY [facility] Last Admin: 06/12/17 09:12 Dose: 240 mg Docusate Sodium (Colace) 100 mg PO TID [facility] Last Admin: 06/12/17 09:09 Dose: 100 mg Magnesium Oxide (Mag-Ox) 800 mg PO BID [facility] Last Admin: 06/12/17 09:10 Dose: 800 mg Metoprolol Tartrate (Lopressor) 50 mg PO BID [facility] Last Admin: 06/12/17 09:09 Dose: 50 mg Ondansetron HCl (Zofran Inj) 4 mg IVP ONCE PRN PRN Reason: Nausea/Vomiting Pantoprazole Sodium (Protonix Ec Tab) 20 mg PO 0600,1600 [facility] Last Admin: 06/12/17 05:13 Dose: 20 mg Tolvaptan (Samsca) 30 mg PO DAILY [facility] Stop: 06/13/17 09:45 Last Admin: 06/11/17 13:38 Dose: 30 mg - Labs Labs: 06/12/17 06:40 06/12/17 06:40 PT 16.1 SECONDS (9.4-12.5) H 06/09/17 04:30 INR 1.39 (0.93-1.08) H 06/09/17 04:30 APTT 46.1 Seconds (25.1-36.5) H 06/09/17 04:30
--- NOTE | 2017-06-12 15:16 | PN ---
DATE: 06/12/2017 SUBJECTIVE: Patient is seen lying in the bed, in room 272, bed 2. As mentioned yesterday, patient still has distended abdomen. The patient refused Dulcolax suppository yesterday. OBJECTIVE: VITAL SIGNS: T-max 97.8. Telemetry shows atrial fibrillation, heart rate in 80s and 90s. Blood pressure 119/95, 109/66, 104/74. Respirations 20, O2 saturation 98%. HEENT: Head examination: Normocephalic, atraumatic. HEENT examination shows pinkish conjunctivae. Anicteric sclerae. No oropharyngeal lesion. NECK: No neck rigidity. No visible jugular venous distention. LUNGS: Questionable decreased breath sound at the bases. CARDIOVASCULAR: S1, S2, irregular rhythm. Positive systolic murmur, left sternal border, right second intercostal space, left second intercostal space. ABDOMEN: Still distended, decreased bowel sounds noted. GENITALIA: Male. Positive Pettit catheter. Draining urine. EXTREMITIES: Shows today, patient has some early trace swelling of the right ankle. Patient is missing LIV stocking despite my orders, missing SCDs. Patient has not been out of bed and has not done much with the physical therapy. DIAGNOSTIC: On 06/12, WBC 4.4, hemoglobin and hematocrit 12.7 and 38.8, and platelets 128. Sodium 129, potassium 4.5, chloride 90, CO2 of 27, anion gap 16. BUN 20, creatinine 1.5. GFR 55. Glucose 90. Calcium 9.5, magnesium 2.1. LFTs are normal. HIV negative. Patient's obstructive series from yesterday shows ileus with dilated large bowel loops. Patient refused Dulcolax suppository yesterday. KUB shows distended large bowel loops with gas, possible ileus, moderate amount of gas in the gastric viscus. Diffuse osteopenia, osteoporosis. Obstructive series shows developing ileus. IMPRESSION: 1. Possible developing versus impending ileus involving large bowel with distending large bowel loops and with large bowel loop gas. 2. Moderate amount of gastric viscus gas. 3. Diffuse osteopenia, osteoporosis. 4. Atrial fibrillation with rapid ventricular response. 5. Hyper and hypotension. 6. Leukopenia, anemia. 7. Persistent refractory hyponatremia, non-hemolyzed hyperkalemia. 8. Transaminitis. 9. Elevated prostate-specific antigen. 1. Status post cystoscopy, insertion of 18-Welsh two-way Pettit catheter. Status post cystoscopy, evacuation of clots and fulguration and retrograde pyelogram. 2. Atrial fibrillation with rapid ventricular response, resolving. 3. Abdominal distention, etiology undetermined versus constipation. 4. Leukopenia. 5. Normocytic anemia. 6. Mild coagulopathy. 7. Transient lactic acidosis. 8. Persistent refractory hyponatremia. 9. Non-hemolyzed hyperkalemia. 10. Hypochloremic hyponatremia. 11. Hyperbilirubinemia. 12. Transaminitis. 13. Elevated prostate-specific antigen. 14. Gait dysfunction. 15. Deconditioning. 16. Proteinuria, hematuria, bacteriuria. 17. Status post CT-guided L2 vertebral body biopsy. 18. Hypervolemic hyponatremia, probably secondary to congestive heart failure versus secondary to metastatic carcinoma. 19. Syndrome of inappropriate antidiuretic hormone. 20. Hypertensive kidney disease. 21. Acute kidney injury with underlying chronic kidney disease. 22. Systolic congestive heart failure and cardiomyopathy. 23. Prostatic hypertrophy. 24. New-onset atrial fibrillation with rapid ventricular response. 25. Suspected metastases prostate carcinoma with extremely elevated PSA and bone metastasis. 1. Atrial fibrillation with rapid ventricular response. 2. Transient hypotension (resolved). 3. Leukopenia, anemia. 4. Transient lactic acidosis. 5. Refractory hyponatremia. 6. Hyperkalemia. 7. Hypomagnesemia. 8. Hyperbilirubinemia. 9. Most likely suspected metastatic prostate carcinoma with bone metastasis with elevated PSA. 10. Trace proteinuria, microscopic hematuria. 11. Status post CT-guided lumbar spine biopsy. 12. Atrial fibrillation with rapid ventricular response. 13. Voiding dysfunction. 14. Gait dysfunction. 15. Systolic congestive heart failure (resolving). 16. Constipation. 17. Dyslipidemia. 18. Hypomagnesemia. 19. Hyperuricemia. 20. Deconditioning. 1. Atrial fibrillation with rapid ventricular response. 2. Suspect metastatic prostate carcinoma with bone metastasis. 3. Pleural effusion. 4. Leukopenia. 5. Anemia. 6. Refractory hyponatremia. 7. Hypervolemic hyponatremia secondary to congestive heart failure. 8. Possible syndrome of inappropriate antidiuretic hormone. 9. Hypertensive chronic kidney disease. 10. Systolic congestive heart failure with cardiomyopathy. 11. Hypokalemia. 12. Hypomagnesemia. 13. Normocytic anemia. 14. Granulocytosis. 15. Transient lactic acidosis. 16. Hypokalemia. 17. Hyponatremia. 18. Hypomagnesemia. 19. Hyperbilirubinemia. 20. Transient hypotension. 21. Constipation. 22. Hypercholesteremia. 23. Hypomagnesemia. 24. Hyperuricemia. 1. New-onset atrial fibrillation with rapid ventricular response. 2. Dilated cardiomyopathy. 3. Acute systolic congestive heart failure with elevated brain natriuretic peptide. 4. Hyponatremia. 5. Questionable syndrome of inappropriate antidiuretic hormone secretion. 6. Most probable metastatic prostate carcinoma with multiple bone metastases. 7. Leukopenia and anemia. 8. Transient lactic acidosis. 9. Hypokalemia. 10. Hyperbilirubinemia. 11. Elevated prostate-specific antigen of greater than 90. 12. Proteinuria, microscopic hematuria. 13. Moderate pulmonary arterial hypertension with moderate tricuspid regurgitation and elevated right ventricular systolic pressure of 52 mmHg. 14. Bilateral lower extremity lymphedema and venous stasis, resolving. 15. Lateral coronary ischemic changes. 16. Constipation. 17. Hypercholesteremia. 18. Hypomagnesemia. 19. Hyperuricemia. 1. Atrial fibrillation with rapid ventricular response. 2. Dilated cardiomyopathy with ejection fraction of 21%. 3. Concentric left ventricular hypertrophy. 4. Moderate to severely impaired left ventricular function with left ventricle ejection fraction of 21%. 5. Global left ventricular hypokinesis. 6. Moderately reduced right ventricular systolic function. 7. Moderately dilated left and right atrium. 8. Moderately thickened aortic valve. 9. Moderately thickened mitral valve with moderate mitral regurgitation. 10. Moderate tricuspid regurgitation with moderate pulmonary arterial hypertension with right ventricular systolic pressure of 52 mmHg. 11. Atrial fibrillation with rapid ventricular response. 12. Gait dysfunction. 13. Bilateral lower extremity lymphedema and venous stasis. 14. Leukopenia. 15. Anemia. 16. Lactic acidosis. 17. Hypokalemia. 18. Hyperbilirubinemia. 19. Elevated prostate-specific antigen. 20. Hyperbilirubinemia. 21. Hyponatremia. 22. Possible syndrome of inappropriate antidiuretic hormone. 23. Systolic congestive heart failure with elevated BNP. 24. Systolic and diastolic congestive heart failure with elevated BNP, decreased left ventricular ejection fraction of 21% and moderate pulmonary arterial hypertension, moderate tricuspid regurgitation. 1. Hypertension. 2. Atrial fibrillation with rapid ventricular response. 3. Acute systolic and diastolic congestive heart failure with decreased left ventricular ejection fraction of 20% and abnormal weight gain and bilateral lower extremity lymphedema. 4. Leukopenia. 5. Transient lactic acidosis. 6. Hyponatremia, possibly syndrome of inappropriate antidiuretic hormone secretion. 7. Hypomagnesemia. 8. Hyperbilirubinemia. 9. Elevated prostate-specific antigen of greater than 90. 10. Gait dysfunction. 11. Deconditioning. 12. Proteinuria, hematuria, bacteriuria. 13. Axial skeleton diffuse osseous metastatic disease with abnormal increased uptake of the thoracolumbar spine, right iliac bone, posterior rib in the right rib, bilateral scapula, proximal femur bilaterally including the lesser trochanter on the right and subtrochanteric region on the left with increased uptake in the sternum. 14. Cerebral cortical atrophy of the brain with moderate volume loss. 15. Centrilobular and paraseptal emphysema with atelectasis scarring. 16. Subcentimeter pulmonary nodules of 0.3 cm. 17. Bilateral pleural effusion. 18. Cardiomegaly. 19. Scattered sclerotic bony lesion. 20. Moderate diffuse stranding of the subcutaneous tissue and anasarca. 21. Bilateral adrenal gland hypertrophy. 22. Probable right renal cyst. 23. Colonic diverticulosis. 24. 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 25. Degenerative joint disease of the spine. 26. Small fat-containing umbilical hernia. 27. Small fat-containing inguinal hernia. 28. Subcentimeter retroperitoneal lymphadenopathy. 29. Dilated cardiomyopathy with left ventricular ejection fraction of 21%. 30. Concentric left ventricular hypertrophy. 31. [id number]-izkaiemy impaired left ventricular systolic function with left ventricular ejection fraction of 21% and left ventricular global hypokinesis. 32. Moderately reduced right ventricular systolic function. 33. Moderately dilated left and right atrium. 34. Moderately thickened aortic valve. 35. Moderately thickened mitral valve. 36. Moderate mitral regurgitation. 37. Moderate tricuspid regurgitation with moderate pulmonary arterial hypertension with right ventricular systolic pressure of 52 mmHg. 38. History of poor compliance and noncompliance. 39. Hypervolemic hyponatremia secondary to systolic congestive heart failure. 40. Increased urinary retention. 41. Possible and probable stage IV prostate carcinoma with bone metastasis and extremely high PSA of greater than 90. 1. Atrial fibrillation with rapid ventricular response. 2. Ruben-inferolateral coronary ischemia. 3. History of hypertension. 4. Most possible and most likely systolic congestive heart failure with elevated BNP. 5. Cardiomegaly and pulmonary vascular congestion, suggestive of congestive heart failure. 6. Leukopenia. 7. Lactic acidosis. 8. Hyponatremia, etiology undetermined. 9. Questionable syndrome of inappropriate (excretion) of antidiuretic hormone. 10. Indeterminate troponin. 11. Elevated BNP suggestive of congestive heart failure. 12. Trace proteinuria, trace microscopic hematuria, trace bacteriuria. 13. Bilateral lower extremity lymphedema. 14. Anasarca. 15. Extremely poor compliance and noncompliance. 16. History of hypovitaminosis D. 17. History of hyperuricemia, hypomagnesemia and history of elevated prostate-specific antigen. PLAN: At this time, the patient has been put on clear liquid diet. We will consider Dulcolax suppository again and possible NG tube placement, if patient agrees. Patient has not been complying with physical therapy and geriatric social worker recommendations about subacute rehab and patient is not being much out of bed to chair. Patient's current medications has been updated and revised by Dr. Vincenzo Grayson. Patient is on Cardizem CD 240 mg daily, Colace 100 mg three times a day, Dulcolax suppository 10 mg once, Ecotrin 81 mg daily, Eliquis 2.5 mg twice a day. Patient is on Lipitor 40 mg daily, Lopressor 50 mg twice a day, magnesium oxide 800 twice a day, Protonix 40 mg daily, tolvaptan 30 mg daily, Zofran 4 mg IV p.r.n., and allopurinol 300 mg daily. Patient has been put on liquid diet. Awaiting possible consideration for NG tube placement, physical therapy, occupational therapy. Patient has been advised and recommended to consider subacute rehab option. Dictated and electronically signed, not read. Signing off, Benny Street MD MTDD
--- NOTE | 2017-06-12 20:58 | CP.PCM.PN ---
Subjective - Date & Time of Evaluation Date of Evaluation: 06/12/17 Time of Evaluation: 14:00 - Subjective Subjective: Feeling better s/p cystoscopy Objective - Vital Signs/Intake and Output Vital Signs (last 24 hours): Temp Pulse Resp BP Pulse Ox 97.6 F 85 20 105/74 98 06/12/17 11:46 06/12/17 18:00 06/12/17 11:46 06/12/17 17:18 06/12/17 06:00 - Medications Medications: Current Medications Allopurinol (Zyloprim) 300 mg PO DAILY [facility] Last Admin: 06/12/17 13:02 Dose: 300 mg Apixaban (Eliquis) 2.5 mg PO BID [facility] PRN Reason: Protocol Last Admin: 06/12/17 17:18 Dose: 2.5 mg Aspirin (Ecotrin) 81 mg PO DAILY [facility] Last Admin: 06/12/17 09:09 Dose: 81 mg Atorvastatin Calcium (Lipitor) 40 mg PO DIN [facility] Last Admin: 06/12/17 17:18 Dose: 40 mg Diltiazem HCl (Cardizem Cd) 240 mg PO DAILY [facility] Last Admin: 06/12/17 09:12 Dose: 240 mg Docusate Sodium (Colace) 100 mg PO TID [facility] Last Admin: 06/12/17 17:19 Dose: 100 mg Magnesium Oxide (Mag-Ox) 800 mg PO BID [facility] Last Admin: 06/12/17 17:19 Dose: 800 mg Metoprolol Tartrate (Lopressor) 50 mg PO BID [facility] Last Admin: 06/12/17 17:18 Dose: 50 mg Ondansetron HCl (Zofran Inj) 4 mg IVP ONCE PRN PRN Reason: Nausea/Vomiting Pantoprazole Sodium (Protonix Ec Tab) 20 mg PO 0600,1600 [facility] Last Admin: 06/12/17 17:19 Dose: 20 mg Tolvaptan (Samsca) 30 mg PO DAILY [facility] Stop: 06/13/17 09:45 Last Admin: 06/12/17 13:02 Dose: 30 mg - Labs Labs: 06/12/17 06:40 06/12/17 06:40 PT 16.1 SECONDS (9.4-12.5) H 06/09/17 04:30 INR 1.39 (0.93-1.08) H 06/09/17 04:30 APTT 46.1 Seconds (25.1-36.5) H 06/09/17 04:30 - Head Exam Head Exam: ATRAUMATIC - Eye Exam Eye Exam: Normal appearance - ENT Exam ENT Exam: Mucous Membranes Dry - Respiratory Exam Respiratory Exam: NORMAL BREATHING PATTERN - Cardiovascular Exam Cardiovascular Exam: +S1, +S2 - GI/Abdominal Exam GI & Abdominal Exam: Normal Bowel Sounds Assessment and Plan (1) Bone lesion Assessment & Plan: ? metastatic prostate cancer s/p bone lesion bx f/u path Status: Acute (2) Pleural effusion Status: Acute (3) Anemia Status: Acute
[2017-06-13 06:37] LABS: BASO # 0.04 K/mm3 (0.0-2.0); EOS # 0.2 (0.0-0.7); EOS % 3.9 % (1.5-5.0); GRAN # 2.41 (1.4-6.5); GRAN % 59.4 % (50.0-68.0); HEMOGLOBIN 12.4 g/dL (14.0-18.0); LYMPH # 0.9 (1.2-3.4); LYMPH % 21.7 % (22.0-35.0); MEAN CELL VOLUME 84.8 fl (80.0-105.0); MEAN CORPUSCULAR HEMOGLOBIN 28.2 pg (25.0-35.0); MEAN CORPUSCULAR HGB CONC 33.2 g/dl (31.0-37.0); MEAN PLATELET VOLUME 10.2 fl (7.0-11.0); MONO # 0.6 (0.1-0.6); RBC 4.4 10^6/uL (3.5-6.1); RED CELL DISTRIBUTION WIDTH 15.3 % (11.5-14.5); WHITE BLOOD COUNT 4.1 10^3/ul (4.5-11.0)
[2017-06-13 06:45] LABS: ALBUMIN 3.2 g/dL (3.0-4.8); BILIRUBIN,DIRECT 0.7 mg/dL (0.0-0.4); CALCIUM 9.5 mg/dL (8.4-10.5); MAGNESIUM 2.1 mg/dL (1.7-2.2)
[2017-06-13] MEDS: Pantoprazole 20 mg EC Tab PO SCH ×2 (06:53→15:47)
[2017-06-13] MEDS: Magnesium Oxide 400 mg Tab UD PO SCH ×2 (11:16→18:13)
[2017-06-13] MEDS: Digoxin 125 mcg (0.125 mg) Tab PO SCH ×2 (11:16→13:39)
[2017-06-13] MEDS: diltiaZEM 240 mg/24 Hours CD Cap PO SCH (11:18)
[2017-06-13] MEDS: Enoxaparin 80 mg Syringe SC SCH ×2 (11:20→22:31)
[2017-06-13] MEDS: POLYETHYLENE GLYCOL 3350 17 GM/Dose PACKET PO SCH ×2 (11:21→18:14)
--- NOTE | 2017-06-13 11:47 | PN ---
DATE: 06/13/2017 CARDIOLOGY FOLLOWUP SUBJECTIVE: The patient is comfortable. The heart rate is improved. PHYSICAL EXAMINATION VITAL SIGNS: Blood pressure is 113/68, the heart rate is atrial fibrillation at 100. NECK: Negative JVD. LUNGS: Without rales. HEART: Reveals S1, S2. EXTREMITIES: Without edema. LABORATORY DATA: BUN and creatinine are 18 and 1.4. Hemoglobin is 12.4. We will add low-dose digoxin to his regimen. We will continue the Cardizem and beta blockers. We will discontinue telemetry today. Vincenzo Grayson MD
--- NOTE | 2017-06-13 12:18 | PN ---
DATE: 06/13/2017 LOCATION: The patient is seen in room 267, bed 2. SUBJECTIVE: The patient is lying in the bed. The patient is having breakfast. Overnight events were noted. The patient's appetite was 100%. The patient was seen by the transition social worker. The patient is still interested in going to rehab or TCU in [facility]. According to the transition social worker's eval, TCU is in network with the patient's insurance. The patient slept well without any problems. PHYSICAL EXAMINATION: VITAL SIGNS: T-max is 97.4, 97.6. Heart rate 89, 78, 91, 101, 82, 84, 86; respiration 19; blood pressure 120/62, 121/76; O2 sat 100%. HEENT: Head examination is normocephalic, atraumatic. HEENT examination shows pink conjunctivae. Anicteric sclerae. No oropharyngeal lesion. No neck rigidity. No jugular venous distention. CHEST: Kyphosis. LUNGS: Shows no rales, crackles or wheezing. Decreased breath sound at the bases. CARDIOVASCULAR: S1 and S2 with regular rhythm. ABDOMEN: Soft. Positive bowel sound. GENITALIA: Male. RECTAL: Deferred. EXTREMITIES: Shows no pitting edema. No calf tenderness. No Glo's sign. Positive LIV stocking noted. MUSCULOSKELETAL: Shows a body mass index of 28.5. NEUROLOGIC: The patient is alert, awake, oriented x3. Cranial nerves II through XII intact. DIAGNOSTICS: On 06/13/2017, WBC 4.1, hemoglobin and hematocrit 124 and 37.3, platelet 139. Sodium is up to 132, potassium 4.6, chloride 92, CO2 of 28, anion gap 16, BUN 18, creatinine 1.4, GFR 59, glucose 95, calcium 9.5, magnesium 2.1, alk phos 128. EKG from yesterday shows atrial fibrillation. IMPRESSION AND PLAN: 1. Atrial fibrillation with rapid ventricular response. 2. Acute systolic congestive heart failure with elevated BNP and bilateral lower extremity lymphedema (resolved). 3. Dilated cardiomyopathy with left ventricular ejection fraction of 20% and pulmonary arterial hypertension with elevated right ventricular systolic pressure of 52 mmHg. 4. Moderate to severely impaired left ventricular systolic function and global left ventricular hypokinesis. 5. Concentric left ventricular hypertrophy. 6. Moderately reduced right ventricular systolic function. 7. Moderately dilated left atrium and moderately dilated right atrium. 8. Moderately thickened aortic valve. 9. Moderately thickened mitral valve. 10. Moderate mitral regurgitation. 11. Moderate tricuspid regurgitation and moderate pulmonary arterial hypertension. 12. Deconditioning. 13. Gait dysfunction. 14. Leukopenia, anemia. 15. Slow resolving refractory hyponatremia. 16. Lactic acidosis. 17. Status post nonhemolyzed hyperkalemia. 18. Status post acute kidney injury with chronic kidney disease stage 3. 19. Transaminitis. 1. Possible developing versus impending ileus involving large bowel with distending large bowel loops and with large bowel loop gas. 2. Moderate amount of gastric viscus gas. 3. Diffuse osteopenia, osteoporosis. 4. Atrial fibrillation with rapid ventricular response. 5. Hyper and hypotension. 6. Leukopenia, anemia. 7. Persistent refractory hyponatremia, non-hemolyzed hyperkalemia. 8. Transaminitis. 9. Elevated prostate-specific antigen. 1. Status post cystoscopy, insertion of 18-Kosovan two-way Pettit catheter. Status post cystoscopy, evacuation of clots and fulguration and retrograde pyelogram. 2. Atrial fibrillation with rapid ventricular response, resolving. 3. Abdominal distention, etiology undetermined versus constipation. 4. Leukopenia. 5. Normocytic anemia. 6. Mild coagulopathy. 7. Transient lactic acidosis. 8. Persistent refractory hyponatremia. 9. Non-hemolyzed hyperkalemia. 10. Hypochloremic hyponatremia. 11. Hyperbilirubinemia. 12. Transaminitis. 13. Elevated prostate-specific antigen. 14. Gait dysfunction. 15. Deconditioning. 16. Proteinuria, hematuria, bacteriuria. 17. Status post CT-guided L2 vertebral body biopsy. 18. Hypervolemic hyponatremia, probably secondary to congestive heart failure versus secondary to metastatic carcinoma. 19. Syndrome of inappropriate antidiuretic hormone. 20. Hypertensive kidney disease. 21. Acute kidney injury with underlying chronic kidney disease. 22. Systolic congestive heart failure and cardiomyopathy. 23. Prostatic hypertrophy. 24. New-onset atrial fibrillation with rapid ventricular response. 25. Suspected metastases prostate carcinoma with extremely elevated PSA and bone metastasis. 1. Atrial fibrillation with rapid ventricular response. 2. Transient hypotension (resolved). 3. Leukopenia, anemia. 4. Transient lactic acidosis. 5. Refractory hyponatremia. 6. Hyperkalemia. 7. Hypomagnesemia. 8. Hyperbilirubinemia. 9. Most likely suspected metastatic prostate carcinoma with bone metastasis with elevated PSA. 10. Trace proteinuria, microscopic hematuria. 11. Status post CT-guided lumbar spine biopsy. 12. Atrial fibrillation with rapid ventricular response. 13. Voiding dysfunction. 14. Gait dysfunction. 15. Systolic congestive heart failure (resolving). 16. Constipation. 17. Dyslipidemia. 18. Hypomagnesemia. 19. Hyperuricemia. 20. Deconditioning. 1. Atrial fibrillation with rapid ventricular response. 2. Suspect metastatic prostate carcinoma with bone metastasis. 3. Pleural effusion. 4. Leukopenia. 5. Anemia. 6. Refractory hyponatremia. 7. Hypervolemic hyponatremia secondary to congestive heart failure. 8. Possible syndrome of inappropriate antidiuretic hormone. 9. Hypertensive chronic kidney disease. 10. Systolic congestive heart failure with cardiomyopathy. 11. Hypokalemia. 12. Hypomagnesemia. 13. Normocytic anemia. 14. Granulocytosis. 15. Transient lactic acidosis. 16. Hypokalemia. 17. Hyponatremia. 18. Hypomagnesemia. 19. Hyperbilirubinemia. 20. Transient hypotension. 21. Constipation. 22. Hypercholesteremia. 23. Hypomagnesemia. 24. Hyperuricemia. 1. New-onset atrial fibrillation with rapid ventricular response. 2. Dilated cardiomyopathy. 3. Acute systolic congestive heart failure with elevated brain natriuretic peptide. 4. Hyponatremia. 5. Questionable syndrome of inappropriate antidiuretic hormone secretion. 6. Most probable metastatic prostate carcinoma with multiple bone metastases. 7. Leukopenia and anemia. 8. Transient lactic acidosis. 9. Hypokalemia. 10. Hyperbilirubinemia. 11. Elevated prostate-specific antigen of greater than 90. 12. Proteinuria, microscopic hematuria. 13. Moderate pulmonary arterial hypertension with moderate tricuspid regurgitation and elevated right ventricular systolic pressure of 52 mmHg. 14. Bilateral lower extremity lymphedema and venous stasis, resolving. 15. Lateral coronary ischemic changes. 16. Constipation. 17. Hypercholesteremia. 18. Hypomagnesemia. 19. Hyperuricemia. 1. Atrial fibrillation with rapid ventricular response. 2. Dilated cardiomyopathy with ejection fraction of 21%. 3. Concentric left ventricular hypertrophy. 4. Moderate to severely impaired left ventricular function with left ventricle ejection fraction of 21%. 5. Global left ventricular hypokinesis. 6. Moderately reduced right ventricular systolic function. 7. Moderately dilated left and right atrium. 8. Moderately thickened aortic valve. 9. Moderately thickened mitral valve with moderate mitral regurgitation. 10. Moderate tricuspid regurgitation with moderate pulmonary arterial hypertension with right ventricular systolic pressure of 52 mmHg. 11. Atrial fibrillation with rapid ventricular response. 12. Gait dysfunction. 13. Bilateral lower extremity lymphedema and venous stasis. 14. Leukopenia. 15. Anemia. 16. Lactic acidosis. 17. Hypokalemia. 18. Hyperbilirubinemia. 19. Elevated prostate-specific antigen. 20. Hyperbilirubinemia. 21. Hyponatremia. 22. Possible syndrome of inappropriate antidiuretic hormone. 23. Systolic congestive heart failure with elevated BNP. 24. Systolic and diastolic congestive heart failure with elevated BNP, decreased left ventricular ejection fraction of 21% and moderate pulmonary arterial hypertension, moderate tricuspid regurgitation. 1. Hypertension. 2. Atrial fibrillation with rapid ventricular response. 3. Acute systolic and diastolic congestive heart failure with decreased left ventricular ejection fraction of 20% and abnormal weight gain and bilateral lower extremity lymphedema. 4. Leukopenia. 5. Transient lactic acidosis. 6. Hyponatremia, possibly syndrome of inappropriate antidiuretic hormone secretion. 7. Hypomagnesemia. 8. Hyperbilirubinemia. 9. Elevated prostate-specific antigen of greater than 90. 10. Gait dysfunction. 11. Deconditioning. 12. Proteinuria, hematuria, bacteriuria. 13. Axial skeleton diffuse osseous metastatic disease with abnormal increased uptake of the thoracolumbar spine, right iliac bone, posterior rib in the right rib, bilateral scapula, proximal femur bilaterally including the lesser trochanter on the right and subtrochanteric region on the left with increased uptake in the sternum. 14. Cerebral cortical atrophy of the brain with moderate volume loss. 15. Centrilobular and paraseptal emphysema with atelectasis scarring. 16. Subcentimeter pulmonary nodules of 0.3 cm. 17. Bilateral pleural effusion. 18. Cardiomegaly. 19. Scattered sclerotic bony lesion. 20. Moderate diffuse stranding of the subcutaneous tissue and anasarca. 21. Bilateral adrenal gland hypertrophy. 22. Probable right renal cyst. 23. Colonic diverticulosis. 24. 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 25. Degenerative joint disease of the spine. 26. Small fat-containing umbilical hernia. 27. Small fat-containing inguinal hernia. 28. Subcentimeter retroperitoneal lymphadenopathy. 29. Dilated cardiomyopathy with left ventricular ejection fraction of 21%. 30. Concentric left ventricular hypertrophy. 31. [id number] impaired left ventricular systolic function with left ventricular ejection fraction of 21% and left ventricular global hypokinesis. 32. Moderately reduced right ventricular systolic function. 33. Moderately dilated left and right atrium. 34. Moderately thickened aortic valve. 35. Moderately thickened mitral valve. 36. Moderate mitral regurgitation. 37. Moderate tricuspid regurgitation with moderate pulmonary arterial hypertension with right ventricular systolic pressure of 52 mmHg. 38. History of poor compliance and noncompliance. 39. Hypervolemic hyponatremia secondary to systolic congestive heart failure. 40. Increased urinary retention. 41. Possible and probable stage IV prostate carcinoma with bone metastasis and extremely high PSA of greater than 90. 1. Atrial fibrillation with rapid ventricular response. 2. Ruben-inferolateral coronary ischemia. 3. History of hypertension. 4. Most possible and most likely systolic congestive heart failure with elevated BNP. 5. Cardiomegaly and pulmonary vascular congestion, suggestive of congestive heart failure. 6. Leukopenia. 7. Lactic acidosis. 8. Hyponatremia, etiology undetermined. 9. Questionable syndrome of inappropriate (excretion) of antidiuretic hormone. 10. Indeterminate troponin. 11. Elevated BNP suggestive of congestive heart failure. 12. Trace proteinuria, trace microscopic hematuria, trace bacteriuria. 13. Bilateral lower extremity lymphedema. 14. Anasarca. 15. Extremely poor compliance and noncompliance. 16. History of hypovitaminosis D. 17. History of hyperuricemia, hypomagnesemia and history of elevated prostate-specific antigen. At present, I have had a lengthy discussion with the patient. He is agreeable for Transitional Care Unit if the patient is accepted to Transitional Care Unit for aggressive rehab therapy. The patient has stated that he would prefer to stay in [place]. The patient has been ordered repeat labs for the morning. Current consultation: Cardiology, Nephrology, Urology, Hematology/Oncology. Current medications: Cardizem CD 240 mg daily, Colace 100 mg three times a day, digoxin 0.125 daily, Ecotrin 81 mg p.o. daily, Lipitor 40 mg daily, Lopressor 50 mg twice a day. The patient is resumed on Lovenox 80 mg subcu q. 12 hours in anticipation for a prostate biopsy by Urology. Magnesium oxide 800 twice a day, Protonix 40 mg daily, allopurinol 300 mg daily. The patient is on oxygen 2 L continuous humidified. The patient's diet will be increased to heart healthy since the patient is started to move his bowels. The patient will be started on heart-healthy diet. The patient will be continued on the above therapeutic intervention. At present, the patient will be considered for transfer to TCU for aggressive therapy, ambulation and gait training. The patient has been updated about his condition, diagnoses, treatment plan and recommendation. Dictated and electronically signed, not read. Benny Street MD MTDD
--- NOTE | 2017-06-13 14:47 | CP.PCM.PN ---
Subjective - Date & Time of Evaluation Date of Evaluation: 06/13/17 Time of Evaluation: 14:46 - Subjective Subjective: Follow up Nephrology Consultation Note Assessment: Stable Hypervolemic hyponatremia likely due to CHF and ? contribution by metastatic cancer leading to excess ADH (SIADH) Hypertensive Chronic Kidney Disease (I12.9) Chronic Kidney Disease (N18.3) Stage 3 with Cr 1.2 with superimposed mild MASSIEL metastatic cancer, HTN (I12.9) CHF LVEF 20% Hypokalemia hypomagnesemia, hx of BPH Plan No acute need for renal replacement therapy at this time. Hypertension control with meds as ordered. started low dose losartan. Monitor Input/Output, daily weights and renal function with basic metabolic panel supplement electrolytes as needed continue with tolvaptan 30 mg while in hospital and at d/c. Rx was given to CM. Avoid correction in serum Na > 6-8 meq/24 hrs should be able to resume diuretics as lasix soon once renal function stable. Avoid nephrotoxins/NSAIDs Glycemic control Further work up for as per primary team pt stable for d/c from renal perspective when planned Thanks for allowing me to participate in care of your patient. Will follow patient with you. Please call if any Qs. had d/w team Dr Grupo [facility] Office: [phone] Subjective: Noted events overnight. Patients feels okay. Denies chest pain, palpitation, improved shortness of breath, leg swelling. All other negative. had bone biopsy by IR on 06/10/17 Physical Examination: General Appearance: Comfortable, in no acute respiratory distress, co-operative . Vitals reviewed and noted as below Head; Atraumatic, normocephalic ENT: no ulcers no thrush. Tongue is midline. Oropharynx: no rash or ulcers. EYES: Pupils are equal, round and reactive to light accommodation. Eye muscles and extraocular movement intact. Sclera is anicteric. Neck; supple no lymphadenopathy, no thyromegaly or bruit Lungs: Normal respiratory rate/effort. Breath sounds bilateral improved Heart: Normal rate. s1s2 normal. No rub or gallop. Extremities: no edema. No varicose veins Neurological: Patient is alert, awake and oriented to person, place and time. No focal deficit. Strength bilateral appropriate and equal Skin: Warm and dry. Normal turgor. No rash. Palpitation: Normal elasticity for age Abdomen: Abdomen is soft. Bowel sounds +. There is no abdominal tenderness, no guarding/rigidity no organomegaly Psych: normal insight and normal affect/mood MSK: no joint tenderness or swelling. Digits and nails normal, no deformity : kidney or bladder not palpable Labs/imaging reviewed. Past medical history, past surgical history, family history, social history, allergy reviewed and noted as below Family hx: no hx of CKD. Rest non-contributory urine Na 75 urine osmol 190 Serum osmol 281 uric acid 7.9 TSH 2.3 LVEF 20% Objective - Vital Signs/Intake and Output Vital Signs (last 24 hours): Temp Pulse Resp BP Pulse Ox 97.6 F 73 18 120/72 100 06/13/17 12:00 06/13/17 12:00 06/13/17 12:00 06/13/17 12:00 06/13/17 06:00 Intake and Output: 06/13/17 06/13/17 06:59 18:59 Intake Total 360 Output Total 950 Balance -590 - Medications Medications: Current Medications Allopurinol (Zyloprim) 300 mg PO DAILY [facility] Last Admin: 06/13/17 12:11 Dose: 300 mg Aspirin (Ecotrin) 81 mg PO DAILY [facility] Last Admin: 06/13/17 11:20 Dose: 81 mg Atorvastatin Calcium (Lipitor) 40 mg PO DIN [facility] Last Admin: 06/12/17 17:18 Dose: 40 mg Digoxin (Digoxin) 0.125 mg PO 1400 [facility] Last Admin: 06/13/17 13:39 Dose: Not Given Diltiazem HCl (Cardizem Cd) 240 mg PO DAILY [facility] Last Admin: 06/13/17 11:18 Dose: 240 mg Docusate Sodium (Colace) 100 mg PO TID [facility] Last Admin: 06/13/17 11:20 Dose: 100 mg Enoxaparin Sodium (Lovenox) 80 mg SC Q12H [facility] PRN Reason: Protocol Last Admin: 06/13/17 11:20 Dose: 80 mg Losartan Potassium (Cozaar) 25 mg PO QPM [facility] Magnesium Oxide (Mag-Ox) 800 mg PO BID [facility] Last Admin: 06/13/17 11:16 Dose: 800 mg Metoprolol Tartrate (Lopressor) 50 mg PO BID [facility] Last Admin: 06/13/17 11:19 Dose: 50 mg Ondansetron HCl (Zofran Inj) 4 mg IVP ONCE PRN PRN Reason: Nausea/Vomiting Pantoprazole Sodium (Protonix Ec Tab) 20 mg PO 0600,1600 [facility] Last Admin: 06/13/17 06:53 Dose: 20 mg Polyethylene Glycol (Miralax) 17 gm PO BID [facility] Last Admin: 06/13/17 11:21 Dose: 17 gm Tolvaptan (Samsca) 30 mg PO DAILY [facility] Stop: 06/15/17 10:28 Last Admin: 06/13/17 12:11 Dose: 30 mg - Labs Labs: 06/13/17 06:02 06/13/17 06:02 PT 16.1 SECONDS (9.4-12.5) H 06/09/17 04:30 INR 1.39 (0.93-1.08) H 06/09/17 04:30 APTT 46.1 Seconds (25.1-36.5) H 06/09/17 04:30
--- NOTE | 2017-06-13 20:42 | CP.PCM.PN ---
Subjective - Date & Time of Evaluation Date of Evaluation: 06/13/17 Time of Evaluation: 18:00 - Subjective Subjective: No complaints. Objective - Vital Signs/Intake and Output Vital Signs (last 24 hours): Temp Pulse Resp BP Pulse Ox 97.4 F L 56 L 18 104/52 L 100 06/13/17 17:58 06/13/17 18:14 06/13/17 17:58 06/13/17 18:14 06/13/17 06:00 - Medications Medications: Current Medications Allopurinol (Zyloprim) 300 mg PO DAILY [facility] Last Admin: 06/13/17 12:11 Dose: 300 mg Aspirin (Ecotrin) 81 mg PO DAILY [facility] Last Admin: 06/13/17 11:20 Dose: 81 mg Atorvastatin Calcium (Lipitor) 40 mg PO DIN [facility] Last Admin: 06/13/17 18:13 Dose: 40 mg Digoxin (Digoxin) 0.125 mg PO 1400 [facility] Last Admin: 06/13/17 13:39 Dose: Not Given Diltiazem HCl (Cardizem Cd) 240 mg PO DAILY [facility] Last Admin: 06/13/17 11:18 Dose: 240 mg Docusate Sodium (Colace) 100 mg PO TID [facility] Last Admin: 06/13/17 18:27 Dose: Not Given Enoxaparin Sodium (Lovenox) 80 mg SC Q12H [facility] PRN Reason: Protocol Last Admin: 06/13/17 11:20 Dose: 80 mg Losartan Potassium (Cozaar) 25 mg PO QPM [facility] Last Admin: 06/13/17 18:14 Dose: Not Given Magnesium Oxide (Mag-Ox) 800 mg PO BID [facility] Last Admin: 06/13/17 18:13 Dose: 800 mg Metoprolol Tartrate (Lopressor) 50 mg PO BID [facility] Last Admin: 06/13/17 18:10 Dose: Not Given Ondansetron HCl (Zofran Inj) 4 mg IVP ONCE PRN PRN Reason: Nausea/Vomiting Pantoprazole Sodium (Protonix Ec Tab) 20 mg PO 0600,1600 [facility] Last Admin: 06/13/17 15:47 Dose: 20 mg Polyethylene Glycol (Miralax) 17 gm PO BID [facility] Last Admin: 06/13/17 18:14 Dose: 17 gm Tolvaptan (Samsca) 30 mg PO DAILY [facility] Stop: 06/15/17 10:28 Last Admin: 06/13/17 12:11 Dose: 30 mg - Labs Labs: 06/13/17 06:02 06/13/17 06:02 PT 16.1 SECONDS (9.4-12.5) H 06/09/17 04:30 INR 1.39 (0.93-1.08) H 06/09/17 04:30 APTT 46.1 Seconds (25.1-36.5) H 06/09/17 04:30 - Head Exam Head Exam: ATRAUMATIC - Eye Exam Eye Exam: Normal appearance - ENT Exam ENT Exam: Mucous Membranes Dry - Respiratory Exam Respiratory Exam: NORMAL BREATHING PATTERN - Cardiovascular Exam Cardiovascular Exam: +S1, +S2 - GI/Abdominal Exam GI & Abdominal Exam: Normal Bowel Sounds - Extremities Exam Extremities Exam: Pedal Edema Assessment and Plan (1) Bone lesion Assessment & Plan: suspect metastatic prostate cancer s/p bone lesion bx f/u path Status: Acute (2) Pleural effusion Assessment & Plan: comfortable at rest Status: Acute (3) Anemia Assessment & Plan: chronic disease and CKD bone marrow involvement of likely metastatic disease Status: Acute
[2017-06-14] MEDS: Pantoprazole 20 mg EC Tab PO SCH ×2 (06:32→16:16)
[2017-06-14 06:40] LABS: BASO # 0.05 K/mm3 (0.0-2.0); BASO % 1.3 % (0.0-3.0); EOS # 0.2 (0.0-0.7); EOS % 4.8 % (1.5-5.0); GRAN # 2.01 (1.4-6.5); GRAN % 53.2 % (50.0-68.0); HEMOGLOBIN 12.4 g/dL (14.0-18.0); LYMPH % 25.1 % (22.0-35.0); MEAN CORPUSCULAR HEMOGLOBIN 28.2 pg (25.0-35.0); MEAN CORPUSCULAR HGB CONC 33.2 g/dl (31.0-37.0); MEAN PLATELET VOLUME 10.2 fl (7.0-11.0); MONO # 0.6 (0.1-0.6); MONO % 15.6 % (1.0-6.0); RBC 4.4 10^6/uL (3.5-6.1); RED CELL DISTRIBUTION WIDTH 15.3 % (11.5-14.5); WHITE BLOOD COUNT 3.8 10^3/ul (4.5-11.0)
[2017-06-14 06:59] LABS: INR 1.53 (0.93-1.08); PROTHROMBIN TIME 17.8 SECONDS (9.4-12.5)
[2017-06-14 07:01] LABS: ALBUMIN 3.3 g/dL (3.0-4.8); BILIRUBIN,DIRECT 0.9 mg/dL (0.0-0.4); CALCIUM 9.4 mg/dL (8.4-10.5); MAGNESIUM 2.2 mg/dL (1.7-2.2)
[2017-06-14] MEDS: diltiaZEM 240 mg/24 Hours CD Cap PO SCH (09:15)
[2017-06-14] MEDS: Enoxaparin 80 mg Syringe SC SCH ×2 (09:16→21:46)
[2017-06-14] MEDS: POLYETHYLENE GLYCOL 3350 17 GM/Dose PACKET PO SCH ×2 (09:16→17:42)
[2017-06-14] MEDS: Magnesium Oxide 400 mg Tab UD PO SCH ×2 (09:18→17:40)
[2017-06-14] MEDS: Digoxin 125 mcg (0.125 mg) Tab PO SCH (15:00)
--- NOTE | 2017-06-14 16:45 | CP.PCM.PN ---
Subjective - Date & Time of Evaluation Date of Evaluation: 06/14/17 Time of Evaluation: 09:00 - Subjective Subjective: Follow up Nephrology Consultation Note Assessment: Stable Hypervolemic hyponatremia likely due to CHF and ? contribution by metastatic cancer leading to excess ADH (SIADH) Hypertensive Chronic Kidney Disease (I12.9) Chronic Kidney Disease (N18.3) Stage 3 with Cr 1.2 with superimposed mild MASSIEL metastatic cancer, HTN (I12.9) CHF LVEF 20% Hypokalemia hypomagnesemia, hx of BPH Plan No acute need for renal replacement therapy at this time. Hypertension control with meds as ordered. started low dose losartan. Monitor Input/Output, daily weights and renal function with basic metabolic panel supplement electrolytes as needed continue with tolvaptan 30 mg while in hospital and at d/c. Rx was given to CM. Avoid correction in serum Na > 6-8 meq/24 hrs should be able to resume diuretics as lasix soon once renal function stable. Avoid nephrotoxins/NSAIDs Glycemic control Further work up for as per primary team pt stable for d/c from renal perspective when planned Thanks for allowing me to participate in care of your patient. Will follow patient with you. Please call if any Qs. had d/w team Dr Grupo [facility] Office: [phone] Subjective: Noted events overnight. Patients feels okay. Denies chest pain, palpitation, improved shortness of breath, leg swelling. All other negative. had bone biopsy by IR on 06/10/17 Physical Examination: General Appearance: Comfortable, in no acute respiratory distress, co-operative . Vitals reviewed and noted as below Head; Atraumatic, normocephalic ENT: no ulcers no thrush. Tongue is midline. Oropharynx: no rash or ulcers. EYES: Pupils are equal, round and reactive to light accommodation. Eye muscles and extraocular movement intact. Sclera is anicteric. Neck; supple no lymphadenopathy, no thyromegaly or bruit Lungs: Normal respiratory rate/effort. Breath sounds bilateral improved Heart: Normal rate. s1s2 normal. No rub or gallop. Extremities: no edema. No varicose veins Neurological: Patient is alert, awake and oriented to person, place and time. No focal deficit. Strength bilateral appropriate and equal Skin: Warm and dry. Normal turgor. No rash. Palpitation: Normal elasticity for age Abdomen: Abdomen is soft. Bowel sounds +. There is no abdominal tenderness, no guarding/rigidity no organomegaly Psych: normal insight and normal affect/mood MSK: no joint tenderness or swelling. Digits and nails normal, no deformity : kidney or bladder not palpable Labs/imaging reviewed. Past medical history, past surgical history, family history, social history, allergy reviewed and noted as below Family hx: no hx of CKD. Rest non-contributory urine Na 75 urine osmol 190 Serum osmol 281 uric acid 7.9 TSH 2.3 LVEF 20% Objective - Vital Signs/Intake and Output Vital Signs (last 24 hours): Temp Pulse Resp BP Pulse Ox 97.1 F L 87 20 114/68 96 06/14/17 12:00 06/14/17 12:00 06/14/17 12:00 06/14/17 12:00 06/14/17 05:35 Intake and Output: 06/14/17 06/14/17 06:59 18:59 Intake Total 240 Output Total 1100 Balance -860 - Medications Medications: Current Medications Allopurinol (Zyloprim) 300 mg PO DAILY [facility] Last Admin: 06/14/17 09:28 Dose: 300 mg Aspirin (Ecotrin) 81 mg PO DAILY [facility] Last Admin: 06/14/17 09:17 Dose: 81 mg Atorvastatin Calcium (Lipitor) 40 mg PO DIN [facility] Last Admin: 06/13/17 18:13 Dose: 40 mg Digoxin (Digoxin) 0.125 mg PO 1400 [facility] Last Admin: 06/14/17 15:00 Dose: 0.125 mg Diltiazem HCl (Cardizem Cd) 240 mg PO DAILY [facility] Last Admin: 06/14/17 09:15 Dose: 240 mg Docusate Sodium (Colace) 100 mg PO TID [facility] Last Admin: 06/14/17 15:00 Dose: 100 mg Enoxaparin Sodium (Lovenox) 80 mg SC Q12H [facility] PRN Reason: Protocol Last Admin: 06/14/17 09:16 Dose: 80 mg Losartan Potassium (Cozaar) 25 mg PO QPM [facility] Last Admin: 06/13/17 18:14 Dose: Not Given Magnesium Oxide (Mag-Ox) 800 mg PO BID [facility] Last Admin: 06/14/17 09:18 Dose: 800 mg Metoprolol Tartrate (Lopressor) 50 mg PO BID [facility] Last Admin: 06/14/17 09:18 Dose: 50 mg Ondansetron HCl (Zofran Inj) 4 mg IVP ONCE PRN PRN Reason: Nausea/Vomiting Ondansetron HCl (Zofran Inj) 4 mg IVP Q4H PRN PRN Reason: Nausea/Vomiting Pantoprazole Sodium (Protonix Ec Tab) 20 mg PO 0600,1600 [facility] Last Admin: 06/14/17 16:16 Dose: 20 mg Polyethylene Glycol (Miralax) 17 gm PO BID [facility] Last Admin: 06/14/17 09:16 Dose: 17 gm Tolvaptan (Samsca) 30 mg PO DAILY [facility] Stop: 06/15/17 10:28 Last Admin: 06/14/17 09:28 Dose: 30 mg - Labs Labs: 06/14/17 06:00 06/14/17 06:00 PT 17.8 SECONDS (9.4-12.5) H 06/14/17 06:00 INR 1.53 (0.93-1.08) H 06/14/17 06:00 APTT 45.0 Seconds (25.1-36.5) H 06/14/17 06:00
--- NOTE | 2017-06-14 20:46 | PN ---
DATE: 06/14/2017 SUBJECTIVE: Patient was again seen in the morning between 8 and 9 a.m. Patient is seen lying in the bed in room 267, bed 2. Patient is alert, awake, responsive. Patient is having breakfast. Patient was found to be alert, awake, oriented x3 overnight. Slept well according to the nurses. Patient slept well without any distress. PHYSICAL EXAMINATION: VITAL SIGNS: T-max 97.4, heart rate 87, 80, 84, blood pressure in the last 24 hours 116/73, 118/74, 121/74, respirations 20, O2 sat is 96% to 100%. Urine output 950. HEENT: Head examination: Normocephalic, atraumatic. HEENT examination shows pink conjunctivae. Anicteric sclerae. No oropharyngeal lesion. No neck rigidity. CHEST: Kyphosis. LUNGS: Shows decreased breath sound at the bases. No rales, crackles or wheezing. CARDIOVASCULAR: S1, S2, regular rhythm. Positive systolic murmur, left sternal border, right second intercostal space, left second intercostal space. ABDOMEN: Soft, protuberant. Positive bowel sounds. GENITALIA: Male. RECTAL: Deferred. EXTREMITIES: Shows trace ankle swelling. No pitting edema noted. Patient has not been using LIV stockings and refusing SCDs as per the patient. Patient was seen and examined with the patient's nurses who were with the room with me at the time of examination. Patient was encouraged to use LIV stockings and wear LIV stockings and also use SCDs while in bed and SCDs needs to be connected to the device, which was advised to the patient's nurses. MUSCULOSKELETAL: Shows a body mass index of 28.5. NEUROLOGIC: The patient is alert, awake, oriented x3. He is able to move upper and lower extremity without assistance. Gait examination is not tested. VASCULAR: Palpable pulses. DIAGNOSTICS: On 06/14, WBC 3.8, hemoglobin and hematocrit 12.4 and 37.4, platelets 141. PT 17.8, INR 1.53. Sodium 131, potassium 4.7, chloride 93, CO2 29, anion gap 15, BUN 19, creatinine 1.5, GFR 55, glucose 119, calcium 9.4, magnesium 2.2. LFTs are normal. Direct bili is down 2.9. IMPRESSION AND PLAN: 1. New-onset atrial fibrillation with rapid ventricular response. 2. Acute systolic congestive heart failure. 3. Suspicious metastatic prostate carcinoma with bone metastasis and extremely elevated prostate-specific antigen. 4. Small pleural effusion. 5. Hypertension. 6. Acute systolic congestive heart failure with elevated BNP and bilateral lower extremity venous stasis. 7. Leukopenia, anemia. 8. Transient lactic acidosis. 9. Hyponatremia, slow resolving. 10. Non-hemolyzed hyperkalemia and hypokalemia. 11. Hypochloremic hyponatremia. 12. Hyperbilirubinemia. 13. Transaminitis. 14. Extremely elevated prostate-specific antigen of greater than 85 and greater than 90. 15. Gait dysfunction. 16. Deconditioning. 17. Transient acute kidney injury. 18. Possible ileus pattern. 19. Distended numerous large bowel loops with potential ileus pattern. 20. Diffuse osteopenia and osteoporosis. 21. Status post CAT scan guided L2 vertebral biopsy. 22. Atrial fibrillation with rapid ventricular response. 23. Constipation. 24. Dyslipidemia. 25. Hypomagnesemia. 26. Hyperuricemia. 1. Atrial fibrillation with rapid ventricular response. 2. Acute systolic congestive heart failure with elevated BNP and bilateral lower extremity lymphedema (resolved). 3. Dilated cardiomyopathy with left ventricular ejection fraction of 20% and pulmonary arterial hypertension with elevated right ventricular systolic pressure of 52 mmHg. 4. Moderate to severely impaired left ventricular systolic function and global left ventricular hypokinesis. 5. Concentric left ventricular hypertrophy. 6. Moderately reduced right ventricular systolic function. 7. Moderately dilated left atrium and moderately dilated right atrium. 8. Moderately thickened aortic valve. 9. Moderately thickened mitral valve. 10. Moderate mitral regurgitation. 11. Moderate tricuspid regurgitation and moderate pulmonary arterial hypertension. 12. Deconditioning. 13. Gait dysfunction. 14. Leukopenia, anemia. 15. Slow resolving refractory hyponatremia. 16. Lactic acidosis. 17. Status post nonhemolyzed hyperkalemia. 18. Status post acute kidney injury with chronic kidney disease stage 3. 19. Transaminitis. 1. Possible developing versus impending ileus involving large bowel with distending large bowel loops and with large bowel loop gas. 2. Moderate amount of gastric viscus gas. 3. Diffuse osteopenia, osteoporosis. 4. Atrial fibrillation with rapid ventricular response. 5. Hyper and hypotension. 6. Leukopenia, anemia. 7. Persistent refractory hyponatremia, non-hemolyzed hyperkalemia. 8. Transaminitis. 9. Elevated prostate-specific antigen. 1. Status post cystoscopy, insertion of 18-Bruneian two-way Pettit catheter. Status post cystoscopy, evacuation of clots and fulguration and retrograde pyelogram. 2. Atrial fibrillation with rapid ventricular response, resolving. 3. Abdominal distention, etiology undetermined versus constipation. 4. Leukopenia. 5. Normocytic anemia. 6. Mild coagulopathy. 7. Transient lactic acidosis. 8. Persistent refractory hyponatremia. 9. Non-hemolyzed hyperkalemia. 10. Hypochloremic hyponatremia. 11. Hyperbilirubinemia. 12. Transaminitis. 13. Elevated prostate-specific antigen. 14. Gait dysfunction. 15. Deconditioning. 16. Proteinuria, hematuria, bacteriuria. 17. Status post CT-guided L2 vertebral body biopsy. 18. Hypervolemic hyponatremia, probably secondary to congestive heart failure versus secondary to metastatic carcinoma. 19. Syndrome of inappropriate antidiuretic hormone. 20. Hypertensive kidney disease. 21. Acute kidney injury with underlying chronic kidney disease. 22. Systolic congestive heart failure and cardiomyopathy. 23. Prostatic hypertrophy. 24. New-onset atrial fibrillation with rapid ventricular response. 25. Suspected metastases prostate carcinoma with extremely elevated PSA and bone metastasis. 1. Atrial fibrillation with rapid ventricular response. 2. Transient hypotension (resolved). 3. Leukopenia, anemia. 4. Transient lactic acidosis. 5. Refractory hyponatremia. 6. Hyperkalemia. 7. Hypomagnesemia. 8. Hyperbilirubinemia. 9. Most likely suspected metastatic prostate carcinoma with bone metastasis with elevated PSA. 10. Trace proteinuria, microscopic hematuria. 11. Status post CT-guided lumbar spine biopsy. 12. Atrial fibrillation with rapid ventricular response. 13. Voiding dysfunction. 14. Gait dysfunction. 15. Systolic congestive heart failure (resolving). 16. Constipation. 17. Dyslipidemia. 18. Hypomagnesemia. 19. Hyperuricemia. 20. Deconditioning. 1. Atrial fibrillation with rapid ventricular response. 2. Suspect metastatic prostate carcinoma with bone metastasis. 3. Pleural effusion. 4. Leukopenia. 5. Anemia. 6. Refractory hyponatremia. 7. Hypervolemic hyponatremia secondary to congestive heart failure. 8. Possible syndrome of inappropriate antidiuretic hormone. 9. Hypertensive chronic kidney disease. 10. Systolic congestive heart failure with cardiomyopathy. 11. Hypokalemia. 12. Hypomagnesemia. 13. Normocytic anemia. 14. Granulocytosis. 15. Transient lactic acidosis. 16. Hypokalemia. 17. Hyponatremia. 18. Hypomagnesemia. 19. Hyperbilirubinemia. 20. Transient hypotension. 21. Constipation. 22. Hypercholesteremia. 23. Hypomagnesemia. 24. Hyperuricemia. 1. New-onset atrial fibrillation with rapid ventricular response. 2. Dilated cardiomyopathy. 3. Acute systolic congestive heart failure with elevated brain natriuretic peptide. 4. Hyponatremia. 5. Questionable syndrome of inappropriate antidiuretic hormone secretion. 6. Most probable metastatic prostate carcinoma with multiple bone metastases. 7. Leukopenia and anemia. 8. Transient lactic acidosis. 9. Hypokalemia. 10. Hyperbilirubinemia. 11. Elevated prostate-specific antigen of greater than 90. 12. Proteinuria, microscopic hematuria. 13. Moderate pulmonary arterial hypertension with moderate tricuspid regurgitation and elevated right ventricular systolic pressure of 52 mmHg. 14. Bilateral lower extremity lymphedema and venous stasis, resolving. 15. Lateral coronary ischemic changes. 16. Constipation. 17. Hypercholesteremia. 18. Hypomagnesemia. 19. Hyperuricemia. 1. Atrial fibrillation with rapid ventricular response. 2. Dilated cardiomyopathy with ejection fraction of 21%. 3. Concentric left ventricular hypertrophy. 4. Moderate to severely impaired left ventricular function with left ventricle ejection fraction of 21%. 5. Global left ventricular hypokinesis. 6. Moderately reduced right ventricular systolic function. 7. Moderately dilated left and right atrium. 8. Moderately thickened aortic valve. 9. Moderately thickened mitral valve with moderate mitral regurgitation. 10. Moderate tricuspid regurgitation with moderate pulmonary arterial hypertension with right ventricular systolic pressure of 52 mmHg. 11. Atrial fibrillation with rapid ventricular response. 12. Gait dysfunction. 13. Bilateral lower extremity lymphedema and venous stasis. 14. Leukopenia. 15. Anemia. 16. Lactic acidosis. 17. Hypokalemia. 18. Hyperbilirubinemia. 19. Elevated prostate-specific antigen. 20. Hyperbilirubinemia. 21. Hyponatremia. 22. Possible syndrome of inappropriate antidiuretic hormone. 23. Systolic congestive heart failure with elevated BNP. 24. Systolic and diastolic congestive heart failure with elevated BNP, decreased left ventricular ejection fraction of 21% and moderate pulmonary arterial hypertension, moderate tricuspid regurgitation. 1. Hypertension. 2. Atrial fibrillation with rapid ventricular response. 3. Acute systolic and diastolic congestive heart failure with decreased left ventricular ejection fraction of 20% and abnormal weight gain and bilateral lower extremity lymphedema. 4. Leukopenia. 5. Transient lactic acidosis. 6. Hyponatremia, possibly syndrome of inappropriate antidiuretic hormone secretion. 7. Hypomagnesemia. 8. Hyperbilirubinemia. 9. Elevated prostate-specific antigen of greater than 90. 10. Gait dysfunction. 11. Deconditioning. 12. Proteinuria, hematuria, bacteriuria. 13. Axial skeleton diffuse osseous metastatic disease with abnormal increased uptake of the thoracolumbar spine, right iliac bone, posterior rib in the right rib, bilateral scapula, proximal femur bilaterally including the lesser trochanter on the right and subtrochanteric region on the left with increased uptake in the sternum. 14. Cerebral cortical atrophy of the brain with moderate volume loss. 15. Centrilobular and paraseptal emphysema with atelectasis scarring. 16. Subcentimeter pulmonary nodules of 0.3 cm. 17. Bilateral pleural effusion. 18. Cardiomegaly. 19. Scattered sclerotic bony lesion. 20. Moderate diffuse stranding of the subcutaneous tissue and anasarca. 21. Bilateral adrenal gland hypertrophy. 22. Probable right renal cyst. 23. Colonic diverticulosis. 24. 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 25. Degenerative joint disease of the spine. 26. Small fat-containing umbilical hernia. 27. Small fat-containing inguinal hernia. 28. Subcentimeter retroperitoneal lymphadenopathy. 29. Dilated cardiomyopathy with left ventricular ejection fraction of 21%. 30. Concentric left ventricular hypertrophy. 31. [id number] impaired left ventricular systolic function with left ventricular ejection fraction of 21% and left ventricular global hypokinesis. 32. Moderately reduced right ventricular systolic function. 33. Moderately dilated left and right atrium. 34. Moderately thickened aortic valve. 35. Moderately thickened mitral valve. 36. Moderate mitral regurgitation. 37. Moderate tricuspid regurgitation with moderate pulmonary arterial hypertension with right ventricular systolic pressure of 52 mmHg. 38. History of poor compliance and noncompliance. 39. Hypervolemic hyponatremia secondary to systolic congestive heart failure. 40. Increased urinary retention. 41. Possible and probable stage IV prostate carcinoma with bone metastasis and extremely high PSA of greater than 90. 1. Atrial fibrillation with rapid ventricular response. 2. Ruben-inferolateral coronary ischemia. 3. History of hypertension. 4. Most possible and most likely systolic congestive heart failure with elevated BNP. 5. Cardiomegaly and pulmonary vascular congestion, suggestive of congestive heart failure. 6. Leukopenia. 7. Lactic acidosis. 8. Hyponatremia, etiology undetermined. 9. Questionable syndrome of inappropriate (excretion) of antidiuretic hormone. 10. Indeterminate troponin. 11. Elevated BNP suggestive of congestive heart failure. 12. Trace proteinuria, trace microscopic hematuria, trace bacteriuria. 13. Bilateral lower extremity lymphedema. 14. Anasarca. 15. Extremely poor compliance and noncompliance. 16. History of hypovitaminosis D. 17. History of hyperuricemia, hypomagnesemia and history of elevated prostate-specific antigen. PLAN: At this time, the patient was ordered out of bed to chair, Jennifer Huitron. Patient has been ordered serial labs. CURRENT CONSULTATION: Cardiology and Nephrology. CURRENT MEDICATIONS: 1. Cardizem CD 240 mg daily. 2. Colace 100 mg 3 times a day. 3. Cozaar 25 mg daily. 4. Digoxin 0.125 mg daily. 5. Aspirin 81 mg daily. 6. Lipitor 40 mg p.o. daily. 7. Lopressor 50 mg twice a day. 8. Lovenox 80 mg subcu q.12. 9. Magnesium oxide 800 mg twice a day. 10. MiraLax 17 g twice a day. 11. Protonix 40 mg daily. 12. Tolvaptan 30 mg daily. 13. Zofran 4 mg IV q.4 p.r.n. 14. Allopurinol 300 mg daily, At present, the patient is awaiting for subacute rehab placement versus TCU placement. In the meantime, the patient will be continued to be monitored. Patient has been ordered out of bed to chair. Patient has been ordered physical therapy, ambulation therapy, gait training. Patient updated about his condition, diagnosis, treatment plan, management plan, which he acknowledged and understand. Patient promises to comply. Patient has been extensively explained about his diagnostic test results and diagnosis. Dictated and electronically signed, not read. Benny Street MD [facility]
[2017-06-14] MEDS ORDERED: Ergocalciferol 50,000 Intl Units Cap PO SCH (21:15)
--- NOTE | 2017-06-14 21:19 | CP.PCM.PN ---
Subjective - Date & Time of Evaluation Date of Evaluation: 06/14/17 Time of Evaluation: 19:00 - Subjective Subjective: No complaints. Objective - Vital Signs/Intake and Output Vital Signs (last 24 hours): Temp Pulse Resp BP Pulse Ox 97.4 F L 89 20 117/67 96 06/14/17 17:26 06/14/17 17:41 06/14/17 17:26 06/14/17 17:41 06/14/17 05:35 - Medications Medications: Current Medications Allopurinol (Zyloprim) 300 mg PO DAILY [facility] Last Admin: 06/14/17 09:28 Dose: 300 mg Aspirin (Ecotrin) 81 mg PO DAILY [facility] Last Admin: 06/14/17 09:17 Dose: 81 mg Atorvastatin Calcium (Lipitor) 40 mg PO DIN [facility] Last Admin: 06/14/17 17:41 Dose: 40 mg Digoxin (Digoxin) 0.125 mg PO 1400 [facility] Last Admin: 06/14/17 15:00 Dose: 0.125 mg Diltiazem HCl (Cardizem Cd) 240 mg PO DAILY [facility] Last Admin: 06/14/17 09:15 Dose: 240 mg Docusate Sodium (Colace) 100 mg PO TID [facility] Last Admin: 06/14/17 19:03 Dose: Not Given Enoxaparin Sodium (Lovenox) 80 mg SC Q12H [facility] PRN Reason: Protocol Last Admin: 06/14/17 09:16 Dose: 80 mg Ergocalciferol (Drisdol 50,000 Intl Units Cap) 1 cap PO Q7D [facility] Losartan Potassium (Cozaar) 25 mg PO QPM [facility] Last Admin: 06/14/17 17:41 Dose: 25 mg Magnesium Oxide (Mag-Ox) 800 mg PO BID [facility] Last Admin: 06/14/17 17:40 Dose: 800 mg Metoprolol Tartrate (Lopressor) 50 mg PO BID [facility] Last Admin: 06/14/17 17:41 Dose: 50 mg Ondansetron HCl (Zofran Inj) 4 mg IVP ONCE PRN PRN Reason: Nausea/Vomiting Ondansetron HCl (Zofran Inj) 4 mg IVP Q4H PRN PRN Reason: Nausea/Vomiting Pantoprazole Sodium (Protonix Ec Tab) 20 mg PO 0600,1600 [facility] Last Admin: 06/14/17 16:16 Dose: 20 mg Polyethylene Glycol (Miralax) 17 gm PO BID [facility] Last Admin: 06/14/17 17:42 Dose: 17 gm Tolvaptan (Samsca) 30 mg PO DAILY [facility] Stop: 06/15/17 10:28 Last Admin: 06/14/17 09:28 Dose: 30 mg - Labs Labs: 06/14/17 06:00 06/14/17 06:00 PT 17.8 SECONDS (9.4-12.5) H 06/14/17 06:00 INR 1.53 (0.93-1.08) H 06/14/17 06:00 APTT 45.0 Seconds (25.1-36.5) H 06/14/17 06:00 - Head Exam Head Exam: ATRAUMATIC - Eye Exam Eye Exam: Normal appearance - ENT Exam ENT Exam: Mucous Membranes Dry - Respiratory Exam Respiratory Exam: NORMAL BREATHING PATTERN - Cardiovascular Exam Cardiovascular Exam: +S1, +S2 - GI/Abdominal Exam GI & Abdominal Exam: Normal Bowel Sounds - Extremities Exam Extremities Exam: Pedal Edema Assessment and Plan (1) Bone lesion Assessment & Plan: s/p biopsy ? metastatic prostate cancer f/u path Status: Acute (2) Pleural effusion Assessment & Plan: comfortable at rest Status: Acute (3) Anemia Assessment & Plan: chronic disease, likely bone mets, mild CKD Status: Acute
[2017-06-15] MEDS: Pantoprazole 20 mg EC Tab PO SCH ×2 (05:13→16:43)
[2017-06-15] MEDS: POLYETHYLENE GLYCOL 3350 17 GM/Dose PACKET PO SCH ×2 (11:00→17:49)
[2017-06-15] MEDS: Magnesium Oxide 400 mg Tab UD PO SCH ×2 (11:00→17:48)
[2017-06-15] MEDS: diltiaZEM 240 mg/24 Hours CD Cap PO SCH (11:01)
[2017-06-15] MEDS: Enoxaparin 80 mg Syringe SC SCH ×2 (11:07→20:44)
--- NOTE | 2017-06-15 14:10 | PN ---
DATE: SUBJECTIVE: The patient is a 77-year-old male. He is in the [facility] in [place], admitted few days ago with congestive heart failure, new onset atrial fibrillation, hypertension. The patient is seen this morning. He seems to be comfortable. He has no additional complaints. PHYSICAL EXAMINATION: VITAL SIGNS: His pulse is 87, AFib, blood pressure 121/73, respirations are 20, O2 sat 100% on 2 L of oxygen. HEENT: Head is normocephalic. The patient has no deficits in the scalp or neck area. NECK: The patient's thyroid is not enlarged. LUNGS: Clear. Trachea is central. Breath sounds are vesicular. Crepitations heard in the basal area. HEART: Atrial fibrillation with moderate ventricular response at this time. ABDOMEN: Soft. Liver and spleen not palpable clinically. There is no evidence of any ascites. CENTRAL NERVOUS SYSTEM: The patient is conscious, rational and oriented. No evidence of any cranial nerve abnormalities. He has some gait disability. He has history of gout in the past. The patient also has history of carcinoma of prostate with metastatic disease to the bones. The patient has history of hypertension and degenerative arthritis. MEDICATIONS: List consist of Cardizem 240 mg daily. The patient is on Lasix 100 mg t.i.d., Losartan 25 mg daily. The patient is on digoxin 125 mcg daily. Vitamin D. The patient is on aspirin 81 mg daily, Lipitor 40 mg daily, metoprolol 50 mg daily, Lovenox 80 mg subcutaneous q.12 hours. The patient is on magnesium oxide, Miralax, pantoprazole 20 mg daily. The patient is on Samsca (tolvaptan) possibly for prostrate cancer. The patient is getting allopurinol 300 mg daily also in the hospital. ASSESSMENT AND PLAN: The patient's diet is heart healthy. The patient is clinically stable. We will continue current management and follow up. Dahlia Hoang MD MTDTang
[2017-06-15] MEDS: Digoxin 125 mcg (0.125 mg) Tab PO SCH (14:30)
[2017-06-15 17:26] VITALS: RESP 18
[2017-06-16] MEDS: Pantoprazole 20 mg EC Tab PO SCH ×2 (05:50→19:51)
[2017-06-16 07:34] LABS: BASO # 0.04 K/mm3 (0.0-2.0); BASO % 0.9 % (0.0-3.0); EOS # 0.1 (0.0-0.7); EOS % 2.3 % (1.5-5.0); GRAN # 2.32 (1.4-6.5); GRAN % 52.2 % (50.0-68.0); HEMOGLOBIN 13.3 g/dL (14.0-18.0); LYMPH # 1.2 (1.2-3.4); LYMPH % 26.4 % (22.0-35.0); MEAN CORPUSCULAR HEMOGLOBIN 28.3 pg (25.0-35.0); MEAN CORPUSCULAR HGB CONC 32.9 g/dl (31.0-37.0); MEAN PLATELET VOLUME 9.9 fl (7.0-11.0); MONO # 0.8 (0.1-0.6); MONO % 18.2 % (1.0-6.0); RBC 4.7 10^6/uL (3.5-6.1); RED CELL DISTRIBUTION WIDTH 15.4 % (11.5-14.5); WHITE BLOOD COUNT 4.4 10^3/ul (4.5-11.0)
[2017-06-16 07:48] LABS: INR 1.44 (0.93-1.08); PARTIAL THROMBOPLASTIN TIME 43.5 Seconds (25.1-36.5); PROTHROMBIN TIME 16.7 SECONDS (9.4-12.5)
--- NOTE | 2017-06-16 08:21 | PCM.URO ---
Urology Progress Note - Objective Lab Studies: Reviewed (for now - no prostate biopsy we need to discuss voiding issues and eloquis) Lab Results Last 24 Hours: Laboratory Results - last 24 hr 06/16/17 06/16/17 07:00 07:00 WBC 4.4 L RBC 4.70 Hgb 13.3 L Hct 40.4 L MCV 86.0 MCH 28.3 MCHC 32.9 RDW 15.4 H Plt Count 158 MPV 9.9 Gran % 52.2 Lymph % (Auto) 26.4 Morehouse % (Auto) 18.2 H Eos % (Auto) 2.3 Baso % (Auto) 0.9 Gran # 2.32 Lymph # (Auto) 1.2 [place]house # (Auto) 0.8 H Eos # (Auto) 0.1 Baso # (Auto) 0.04 PT 16.7 H INR 1.44 H APTT 43.5 H Intake & Output: Intake & Output 06/15/17 06/16/17 06/16/17 18:59 06:59 18:59 Intake Total 780 Output Total 1500 Balance -720 Intake: Oral 780 Output: Urine 1500 Urethral (Pettit) 1500 Other: # Bowel Movements 1 Vital Signs: Vital Signs - 24 hr 06/15/17 06/15/17 06/15/17 11:01 11:05 12:00 Temperature 98 F Pulse Rate 85 85 88 Respiratory 20 Rate Blood Pressure 113/81 113/81 135/88 O2 Sat by Pulse Oximetry 06/15/17 06/15/17 06/16/17 17:25 17:48 06:00 Temperature 97.7 F 97.9 F Pulse Rate 62 74 88 Respiratory 18 18 Rate Blood Pressure 104/79 136/76 115/88 O2 Sat by Pulse 100 100 Oximetry
[2017-06-16 08:51] LABS: ALBUMIN 3.5 g/dL (3.0-4.8); BILIRUBIN,DIRECT 0.9 mg/dL (0.0-0.4); CALCIUM 9.8 mg/dL (8.4-10.5); MAGNESIUM 2.2 mg/dL (1.7-2.2)
[2017-06-16] MEDS ORDERED: Sod Polystyrene Sulf 15 gm/60 ml Susp PO STA (09:18)
--- NOTE | 2017-06-16 10:08 | PN ---
DATE: 06/12/2017 UROLOGY PROGRESS NOTE See the previously dictated consult notes and operative reports from 06/11. SUBJECTIVE: Mr. Cartagena is currently resting comfortably. Eating. He has a Pettit catheter in place, draining well. PAST MEDICAL HISTORY: No other changes. PAST SURGICAL HISTORY: No other changes. REVIEW OF SYSTEMS: No change. PHYSICAL EXAMINATION: No change. UROLOGY DIAGNOSES: Urinary retention, voiding dysfunction, gross hematuria, elevated prostate surface antigen. PLAN: As follows: We checked the pathology, it is still pending. They gave a verbal, but it is really pending and I do not want to act upon this. So, at this point, no urology changes. We are waiting to see if the biopsy from the bone is prostate cancer. I did have a chance to speak to Dr. Vincenzo Daniels who thinks he has got a good bone biopsy and sample. So, we are going to wait for the pathology. Once we know the pathology, then we can make the next recommendation. In the event that the bone biopsy shows prostate cancer, no prostate biopsy will be done. In the event that it does not, we will consider prostate ultrasound guided biopsy. The other part of importance is the patient's gross hematuria, urinary retention, and voiding dysfunction. We have discussed options with the patient including Flomax and a voiding trial versus the possibility for TURP. For now, the patient does not want the catheter back and forth and back and forth, he wants one treatment himself. We will have to discuss this in terms of medical clearance. We will discuss this further with Dr. Street. In the interim, the plan is for Pettit to straight drainage, await for pathology and then discuss workup and treatment for the prostate. Nicanor Lopez MD
[2017-06-16] MEDS ORDERED: Sod Polystyrene Sulf 15 gm/60 ml Susp PO ONE (10:30)
[2017-06-16] MEDS: Enoxaparin 80 mg Syringe SC SCH (11:30)
[2017-06-16] MEDS: diltiaZEM 240 mg/24 Hours CD Cap PO SCH (12:18)
[2017-06-16] MEDS: Magnesium Oxide 400 mg Tab UD PO SCH ×2 (12:22→19:51)
[2017-06-16] MEDS: POLYETHYLENE GLYCOL 3350 17 GM/Dose PACKET PO SCH ×2 (12:23→19:51)
[2017-06-16 12:51] LABS: CALCIUM 9.8 mg/dL (8.4-10.5)
--- NOTE | 2017-06-16 13:44 | PN ---
DATE: 06/13/2017 See many previously dictated notes. SUBJECTIVE: This is a very pleasant gentleman who presents with elevated PSA, looks like a bone lesion. He also has urinary retention, voiding dysfunction and gross hematuria and Urology is following for all the above, that is for elevated PSA, urinary retention, and gross hematuria. Our plans were as, see previous notes, to wait for the results of the bone biopsy because this is prostate cancer, no need for an ultrasound and prostate biopsy. For the voiding dysfunction and hematuria, we did a cystoscopy, see the dictated note. There is no pathology report yet back in the computer, Dr. Vincenzo Daniels did a biopsy the other day. I have been calling Pathology, in fact there was a verbal report that it was possibly negative, but, actually I called again today and they sent out for a second opinion from a special team. It looks like in fact, the biopsy result will be malignancy, see the plans listed below. I am waiting to give more results to the patient, but not giving them as of yet. See all plans listed below In the meantime, the patient is doing well. He is stable. Pettit catheter is in place, draining clear yellow urine. Also in medical standpoint, the patient has also been started just today on one dose of Eliquis. PAST MEDICAL HISTORY: Otherwise, unchanged. PAST SURGICAL HISTORY: Otherwise, unchanged. REVIEW OF SYSTEMS: . PHYSICAL EXAMINATION GENERAL: Well-developed, well-nourished male, in no apparent distress. VITAL SIGNS: Within normal limits. included in the chart. LUNGS: Clear. HEART: S1, S2. ABDOMEN: Soft. Pettit catheter in place. DIAGNOSES: Urinary retention, voiding dysfunction, gross hematuria, elevated prostate surface antigen, and possible bone metastasis from prostate cancer. From the Urology standpoint, I discussed with the patient the idea of using Flomax and trial to void. He does not want the Pettit catheter going in and out, so for now, we are going to leave that Pettit catheter. We will have to decide medically what to do with the presence of the Eliquis, but we are not going to perform a biopsy today, We are going to wait to see the final report. I spoke directly to the pathologist today who thinks that it should be back shortly, but at this point, it is 06/13/2017, that is Friday, so for today we are not going to remove the Pettit, we are going to wait to decide what to do We are also not planning for prostate biopsy until we get the results and if the results show prostate cancer, we will not do a biopsy; for now, we will do biopsy of the prostate. The plan for the today are as follows; 1. Maintain Pettit. 2. Plus or minus Flomax if medically okay to accept medication. Subsequently, we will plan for further evaluation. The patient may require transurethral resection of the prostate or GreenLight laser of the prostate depending on whether he can tolerate such medically Further plans to follow. We will discuss with Dr. Street. Nicanor Lopez MD
[2017-06-16] MEDS: Digoxin 125 mcg (0.125 mg) Tab PO SCH (14:00)
--- NOTE | 2017-06-16 14:07 | PN ---
DATE: 06/16/2017 CARDIOLOGY FOLLOWUP SUBJECTIVE: The patient is comfortable in bed. He remains confused from a urologic perspective whether biopsies going to be done. OBJECTIVE: VITAL SIGNS: Blood pressure is 115/88, heart rate is atrial fibrillation in the 80s. NECK: Negative JVD. LUNGS: Without rales. HEART: With S1, S2. EXTREMITIES: Without edema. LABORATORY DATA: Hemoglobin is 13. Chemistry, potassium is 5.8. IMPRESSION: 1. Chronic atrial fibrillation. 2. Urinary obstruction. 3. Likely prostate cancer. 4. Heart rate is well-controlled. PLAN: Given these findings, biopsies plans for an outpatient. We start the patient on Eliquis today and discontinue the subcu Lovenox. Vincenzo Grayson MD
--- NOTE | 2017-06-16 15:22 | RAD ---
HISTORY: dimished lung sounds COMPARISON: 06/05/2017 FINDINGS: LUNGS: There is a minimal patchy infiltrate at the right lung base PLEURA: No significant pleural effusion identified, no pneumothorax apparent. CARDIOVASCULAR: Moderate cardiomegaly OSSEOUS STRUCTURES: No significant abnormalities. VISUALIZED UPPER ABDOMEN: Normal. OTHER FINDINGS: None. IMPRESSION: Minimal patchy infiltrate at the right lung base
--- NOTE | 2017-06-16 15:41 | CP.PCM.PN ---
Subjective - Date & Time of Evaluation Date of Evaluation: 06/16/17 Time of Evaluation: 15:39 - Subjective Subjective: Follow up Nephrology Consultation Note Assessment: Stable Hypervolemic hyponatremia likely due to CHF and ? contribution by metastatic cancer leading to excess ADH (SIADH) Hypertensive Chronic Kidney Disease (I12.9) Chronic Kidney Disease (N18.3) Stage 3 with Cr 1.2 with superimposed mild MASSIEL metastatic cancer, HTN (I12.9) CHF LVEF 20% Hypokalemia hypomagnesemia, hx of BPH Plan No acute need for renal replacement therapy at this time. Hypertension control with meds as ordered. started low dose losartan but d/c due to hyperkalemia. Monitor Input/Output, daily weights and renal function with basic metabolic panel supplement electrolytes as needed continue with tolvaptan 30 mg at d/c. agree with lasix soon Avoid nephrotoxins/NSAIDs Glycemic control Further work up for as per primary team pt stable for d/c from renal perspective when planned Thanks for allowing me to participate in care of your patient. Will follow patient with you. Please call if any Qs. Dr Grupo Vital Office: [phone] Subjective: Noted events overnight. Patients feels okay. Denies chest pain, palpitation, c/o exertional shortness of breath, denies leg swelling. All other negative. had bone biopsy by IR on 06/10/17 Physical Examination: General Appearance: Comfortable, in no acute respiratory distress, co-operative . Vitals reviewed and noted as below Head; Atraumatic, normocephalic ENT: no ulcers no thrush. Tongue is midline. Oropharynx: no rash or ulcers. EYES: Pupils are equal, round and reactive to light accommodation. Eye muscles and extraocular movement intact. Sclera is anicteric. Neck; supple no lymphadenopathy, no thyromegaly or bruit Lungs: Normal respiratory rate/effort. Breath sounds reduced at rt base Heart: Normal rate. s1s2 normal. No rub or gallop. Extremities: no edema. No varicose veins Neurological: Patient is alert, awake and oriented to person, place and time. No focal deficit. Strength bilateral appropriate and equal Skin: Warm and dry. Normal turgor. No rash. Palpitation: Normal elasticity for age Abdomen: Abdomen is soft. Bowel sounds +. There is no abdominal tenderness, no guarding/rigidity no organomegaly Psych: normal insight and normal affect/mood MSK: no joint tenderness or swelling. Digits and nails normal, no deformity : kidney or bladder not palpable Labs/imaging reviewed. Past medical history, past surgical history, family history, social history, allergy reviewed and noted as below Family hx: no hx of CKD. Rest non-contributory urine Na 75 urine osmol 190 Serum osmol 281 uric acid 7.9 TSH 2.3 LVEF 20% Objective - Vital Signs/Intake and Output Vital Signs (last 24 hours): Temp Pulse Resp BP Pulse Ox 97.9 F 88 18 115/88 100 06/16/17 06:00 06/16/17 06:00 06/16/17 06:00 06/16/17 06:00 06/16/17 06:00 - Medications Medications: Current Medications Allopurinol (Zyloprim) 300 mg PO DAILY [facility] Last Admin: 06/16/17 12:23 Dose: 300 mg Apixaban (Eliquis) 2.5 mg PO BID [facility] PRN Reason: Protocol Aspirin (Ecotrin) 81 mg PO DAILY [facility] Last Admin: 06/16/17 12:22 Dose: 81 mg Atorvastatin Calcium (Lipitor) 40 mg PO DIN [facility] Last Admin: 06/15/17 17:49 Dose: 40 mg Digoxin (Digoxin) 0.125 mg PO 1400 [facility] Last Admin: 06/15/17 14:30 Dose: 0.125 mg Diltiazem HCl (Cardizem Cd) 240 mg PO DAILY [facility] Last Admin: 06/16/17 12:18 Dose: 240 mg Docusate Sodium (Colace) 100 mg PO TID [facility] Last Admin: 06/16/17 12:22 Dose: 100 mg Ergocalciferol (Drisdol 50,000 Intl Units Cap) 1 cap PO Q7D [facility] Last Admin: 06/14/17 21:46 Dose: 1 cap Furosemide (Lasix) 40 mg IVP DAILY [facility] Magnesium Oxide (Mag-Ox) 800 mg PO BID [facility] Last Admin: 06/16/17 12:22 Dose: 800 mg Metoprolol Tartrate (Lopressor) 50 mg PO BID [facility] Last Admin: 06/16/17 12:22 Dose: 50 mg Ondansetron HCl (Zofran Inj) 4 mg IVP Q4H PRN PRN Reason: Nausea/Vomiting Pantoprazole Sodium (Protonix Ec Tab) 20 mg PO 0600,1600 [facility] Last Admin: 06/16/17 05:50 Dose: 20 mg Polyethylene Glycol (Miralax) 17 gm PO BID [facility] Last Admin: 06/16/17 12:23 Dose: 17 gm - Labs Labs: 06/16/17 07:00 06/16/17 12:10 PT 16.7 SECONDS (9.4-12.5) H 06/16/17 07:00 INR 1.44 (0.93-1.08) H 06/16/17 07:00 APTT 43.5 Seconds (25.1-36.5) H 06/16/17 07:00
[2017-06-17] MEDS: Pantoprazole 20 mg EC Tab PO SCH (06:40)
[2017-06-17 06:43] LABS: ALBUMIN 3.4 g/dL (3.0-4.8); CALCIUM 9.5 mg/dL (8.4-10.5)
[2017-06-17] MEDS ORDERED: Albuterol 0.5% Inhal Sol (2.5 mg/0.5 ml) UD IH STA (06:50)
[2017-06-17] MEDS ORDERED: Dextrose 50% SYRINGE Inj (50 ml) IVP ONE (06:50)
[2017-06-17] MEDS ORDERED: Sod Polystyrene Sulf 15 gm/60 ml Susp PO ONE (06:50)
[2017-06-17 07:55] LABS: MAGNESIUM 2.1 mg/dL (1.7-2.2); URIC ACID 5.2 mg/dL (3.5-8.5)
--- NOTE | 2017-06-17 08:51 | DS ---
SUBJECTIVE: The patient was seen in room 235, bed #2. The patient is lying in the bed. The patient is comfortable. Overnight nurse's notes were reviewed. The patient is seen by psychiatric social worker. The patient's insurance does not accept TCU and the only subacute rehab, which is in the network with the patient's insurance is [facility]. The patient is seen lying in the bed. OBJECTIVE VITAL SIGNS: T-max 97.9; heart rate 74, 84, 82, 62; blood pressure 115/58, 136/76; respirations 18; O2 sat 100%. Output 850 yesterday and 1500. HEAD: Normocephalic, atraumatic. HEENT: Shows pinkish conjunctivae. Anicteric sclerae. NECK: No jugular venous distention. CHEST: Kyphosis. LUNGS: Shows decreased breath sound at the bases, left more than the right. CARDIOVASCULAR: Shows S1 and S2, regular rhythm. ABDOMEN: Slightly protuberant. Positive bowel sound. No hepatosplenomegaly noted. No guarding. No rigidity. No rebound tenderness. GENITALIA: Male. RECTAL: Deferred. EXTREMITIES: Shows positive SCDs. No LIV stockings. Positive swelling of the ankles noted and trace swelling of the legs noted. MUSCULOSKELETAL: Shows a body mass index of 28.5. NEUROLOGIC: The patient is alert, awake, oriented x3. Cranial nerves II-XII intact. Gait examination is not tested. VASCULAR: Palpable pulses. DIAGNOSTICS: WBC 4.4, hemoglobin and hematocrit 13.3 and 40.4, platelets 158,000. Sodium 132, potassium 5.8, chloride 95, CO2 25, anion gap18, BUN 16, creatinine 1.5, GFR 55, glucose 90, calcium 9.8, magnesium 2.2. Alkaline phosphatase 127. LFTs are normal. L2 vertebral body shows metastatic adenocarcinoma of the prostatic origin. Positive confirming. PSA and PSAP immunostains, positive metastatic adenocarcinoma of the prostatic origin. IMPRESSION AND PLAN 1. 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 2. Decompensated nonischemic cardiomyopathy with decompensated systolic congestive heart failure. 3. Atrial fibrillation with rapid ventricular response. 4. Non-hemolyzed hyperkalemia. 5. Slowly resolving hyponatremia. 6. Anemia and leukopenia. 7. Transient lactic acidosis. 8. Hypovitaminosis D. 9. Elevated prostate surface antigen of greater than 85, 90 and 97. 10. Trace proteinuria. 11. Constipation. 12. Hypomagnesemia. 13. Hyperuricemia. 1. New-onset atrial fibrillation with rapid ventricular response. 2. Acute systolic congestive heart failure. 3. Suspicious metastatic prostate carcinoma with bone metastasis and extremely elevated prostate-specific antigen. 4. Small pleural effusion. 5. Hypertension. 6. Acute systolic congestive heart failure with elevated BNP and bilateral lower extremity venous stasis. 7. Leukopenia, anemia. 8. Transient lactic acidosis. 9. Hyponatremia, slow resolving. 10. Non-hemolyzed hyperkalemia and hypokalemia. 11. Hypochloremic hyponatremia. 12. Hyperbilirubinemia. 13. Transaminitis. 14. Extremely elevated prostate-specific antigen of greater than 85 and greater than 90. 15. Gait dysfunction. 16. Deconditioning. 17. Transient acute kidney injury. 18. Possible ileus pattern. 19. Distended numerous large bowel loops with potential ileus pattern. 20. Diffuse osteopenia and osteoporosis. 21. Status post CAT scan guided L2 vertebral biopsy. 22. Atrial fibrillation with rapid ventricular response. 23. Constipation. 24. Dyslipidemia. 25. Hypomagnesemia. 26. Hyperuricemia. 1. Atrial fibrillation with rapid ventricular response. 2. Acute systolic congestive heart failure with elevated BNP and bilateral lower extremity lymphedema (resolved). 3. Dilated cardiomyopathy with left ventricular ejection fraction of 20% and pulmonary arterial hypertension with elevated right ventricular systolic pressure of 52 mmHg. 4. Moderate to severely impaired left ventricular systolic function and global left ventricular hypokinesis. 5. Concentric left ventricular hypertrophy. 6. Moderately reduced right ventricular systolic function. 7. Moderately dilated left atrium and moderately dilated right atrium. 8. Moderately thickened aortic valve. 9. Moderately thickened mitral valve. 10. Moderate mitral regurgitation. 11. Moderate tricuspid regurgitation and moderate pulmonary arterial hypertension. 12. Deconditioning. 13. Gait dysfunction. 14. Leukopenia, anemia. 15. Slow resolving refractory hyponatremia. 16. Lactic acidosis. 17. Status post nonhemolyzed hyperkalemia. 18. Status post acute kidney injury with chronic kidney disease stage 3. 19. Transaminitis. 1. Possible developing versus impending ileus involving large bowel with distending large bowel loops and with large bowel loop gas. 2. Moderate amount of gastric viscus gas. 3. Diffuse osteopenia, osteoporosis. 4. Atrial fibrillation with rapid ventricular response. 5. Hyper and hypotension. 6. Leukopenia, anemia. 7. Persistent refractory hyponatremia, non-hemolyzed hyperkalemia. 8. Transaminitis. 9. Elevated prostate-specific antigen. 1. Status post cystoscopy, insertion of 18-Italian two-way Pettit catheter. Status post cystoscopy, evacuation of clots and fulguration and retrograde pyelogram. 2. Atrial fibrillation with rapid ventricular response, resolving. 3. Abdominal distention, etiology undetermined versus constipation. 4. Leukopenia. 5. Normocytic anemia. 6. Mild coagulopathy. 7. Transient lactic acidosis. 8. Persistent refractory hyponatremia. 9. Non-hemolyzed hyperkalemia. 10. Hypochloremic hyponatremia. 11. Hyperbilirubinemia. 12. Transaminitis. 13. Elevated prostate-specific antigen. 14. Gait dysfunction. 15. Deconditioning. 16. Proteinuria, hematuria, bacteriuria. 17. Status post CT-guided L2 vertebral body biopsy. 18. Hypervolemic hyponatremia, probably secondary to congestive heart failure versus secondary to metastatic carcinoma. 19. Syndrome of inappropriate antidiuretic hormone. 20. Hypertensive kidney disease. 21. Acute kidney injury with underlying chronic kidney disease. 22. Systolic congestive heart failure and cardiomyopathy. 23. Prostatic hypertrophy. 24. New-onset atrial fibrillation with rapid ventricular response. 25. Suspected metastases prostate carcinoma with extremely elevated PSA and bone metastasis. 1. Atrial fibrillation with rapid ventricular response. 2. Transient hypotension (resolved). 3. Leukopenia, anemia. 4. Transient lactic acidosis. 5. Refractory hyponatremia. 6. Hyperkalemia. 7. Hypomagnesemia. 8. Hyperbilirubinemia. 9. Most likely suspected metastatic prostate carcinoma with bone metastasis with elevated PSA. 10. Trace proteinuria, microscopic hematuria. 11. Status post CT-guided lumbar spine biopsy. 12. Atrial fibrillation with rapid ventricular response. 13. Voiding dysfunction. 14. Gait dysfunction. 15. Systolic congestive heart failure (resolving). 16. Constipation. 17. Dyslipidemia. 18. Hypomagnesemia. 19. Hyperuricemia. 20. Deconditioning. 1. Atrial fibrillation with rapid ventricular response. 2. Suspect metastatic prostate carcinoma with bone metastasis. 3. Pleural effusion. 4. Leukopenia. 5. Anemia. 6. Refractory hyponatremia. 7. Hypervolemic hyponatremia secondary to congestive heart failure. 8. Possible syndrome of inappropriate antidiuretic hormone. 9. Hypertensive chronic kidney disease. 10. Systolic congestive heart failure with cardiomyopathy. 11. Hypokalemia. 12. Hypomagnesemia. 13. Normocytic anemia. 14. Granulocytosis. 15. Transient lactic acidosis. 16. Hypokalemia. 17. Hyponatremia. 18. Hypomagnesemia. 19. Hyperbilirubinemia. 20. Transient hypotension. 21. Constipation. 22. Hypercholesteremia. 23. Hypomagnesemia. 24. Hyperuricemia. 1. New-onset atrial fibrillation with rapid ventricular response. 2. Dilated cardiomyopathy. 3. Acute systolic congestive heart failure with elevated brain natriuretic peptide. 4. Hyponatremia. 5. Questionable syndrome of inappropriate antidiuretic hormone secretion. 6. Most probable metastatic prostate carcinoma with multiple bone metastases. 7. Leukopenia and anemia. 8. Transient lactic acidosis. 9. Hypokalemia. 10. Hyperbilirubinemia. 11. Elevated prostate-specific antigen of greater than 90. 12. Proteinuria, microscopic hematuria. 13. Moderate pulmonary arterial hypertension with moderate tricuspid regurgitation and elevated right ventricular systolic pressure of 52 mmHg. 14. Bilateral lower extremity lymphedema and venous stasis, resolving. 15. Lateral coronary ischemic changes. 16. Constipation. 17. Hypercholesteremia. 18. Hypomagnesemia. 19. Hyperuricemia. 1. Atrial fibrillation with rapid ventricular response. 2. Dilated cardiomyopathy with ejection fraction of 21%. 3. Concentric left ventricular hypertrophy. 4. Moderate to severely impaired left ventricular function with left ventricle ejection fraction of 21%. 5. Global left ventricular hypokinesis. 6. Moderately reduced right ventricular systolic function. 7. Moderately dilated left and right atrium. 8. Moderately thickened aortic valve. 9. Moderately thickened mitral valve with moderate mitral regurgitation. 10. Moderate tricuspid regurgitation with moderate pulmonary arterial hypertension with right ventricular systolic pressure of 52 mmHg. 11. Atrial fibrillation with rapid ventricular response. 12. Gait dysfunction. 13. Bilateral lower extremity lymphedema and venous stasis. 14. Leukopenia. 15. Anemia. 16. Lactic acidosis. 17. Hypokalemia. 18. Hyperbilirubinemia. 19. Elevated prostate-specific antigen. 20. Hyperbilirubinemia. 21. Hyponatremia. 22. Possible syndrome of inappropriate antidiuretic hormone. 23. Systolic congestive heart failure with elevated BNP. 24. Systolic and diastolic congestive heart failure with elevated BNP, decreased left ventricular ejection fraction of 21% and moderate pulmonary arterial hypertension, moderate tricuspid regurgitation. 1. Hypertension. 2. Atrial fibrillation with rapid ventricular response. 3. Acute systolic and diastolic congestive heart failure with decreased left ventricular ejection fraction of 20% and abnormal weight gain and bilateral lower extremity lymphedema. 4. Leukopenia. 5. Transient lactic acidosis. 6. Hyponatremia, possibly syndrome of inappropriate antidiuretic hormone secretion. 7. Hypomagnesemia. 8. Hyperbilirubinemia. 9. Elevated prostate-specific antigen of greater than 90. 10. Gait dysfunction. 11. Deconditioning. 12. Proteinuria, hematuria, bacteriuria. 13. Axial skeleton diffuse osseous metastatic disease with abnormal increased uptake of the thoracolumbar spine, right iliac bone, posterior rib in the right rib, bilateral scapula, proximal femur bilaterally including the lesser trochanter on the right and subtrochanteric region on the left with increased uptake in the sternum. 14. Cerebral cortical atrophy of the brain with moderate volume loss. 15. Centrilobular and paraseptal emphysema with atelectasis scarring. 16. Subcentimeter pulmonary nodules of 0.3 cm. 17. Bilateral pleural effusion. 18. Cardiomegaly. 19. Scattered sclerotic bony lesion. 20. Moderate diffuse stranding of the subcutaneous tissue and anasarca. 21. Bilateral adrenal gland hypertrophy. 22. Probable right renal cyst. 23. Colonic diverticulosis. 24. 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 25. Degenerative joint disease of the spine. 26. Small fat-containing umbilical hernia. 27. Small fat-containing inguinal hernia. 28. Subcentimeter retroperitoneal lymphadenopathy. 29. Dilated cardiomyopathy with left ventricular ejection fraction of 21%. 30. Concentric left ventricular hypertrophy. 31. [id number] impaired left ventricular systolic function with left ventricular ejection fraction of 21% and left ventricular global hypokinesis. 32. Moderately reduced right ventricular systolic function. 33. Moderately dilated left and right atrium. 34. Moderately thickened aortic valve. 35. Moderately thickened mitral valve. 36. Moderate mitral regurgitation. 37. Moderate tricuspid regurgitation with moderate pulmonary arterial hypertension with right ventricular systolic pressure of 52 mmHg. 38. History of poor compliance and noncompliance. 39. Hypervolemic hyponatremia secondary to systolic congestive heart failure. 40. Increased urinary retention. 41. Possible and probable stage IV prostate carcinoma with bone metastasis and extremely high PSA of greater than 90. 1. Atrial fibrillation with rapid ventricular response. 2. Ruben-inferolateral coronary ischemia. 3. History of hypertension. 4. Most possible and most likely systolic congestive heart failure with elevated BNP. 5. Cardiomegaly and pulmonary vascular congestion, suggestive of congestive heart failure. 6. Leukopenia. 7. Lactic acidosis. 8. Hyponatremia, etiology undetermined. 9. Questionable syndrome of inappropriate (excretion) of antidiuretic hormone. 10. Indeterminate troponin. 11. Elevated BNP suggestive of congestive heart failure. 12. Trace proteinuria, trace microscopic hematuria, trace bacteriuria. 13. Bilateral lower extremity lymphedema. 14. Anasarca. 15. Extremely poor compliance and noncompliance. 16. History of hypovitaminosis D. 17. History of hyperuricemia, hypomagnesemia and history of elevated prostate-specific antigen. PLAN: At this time, the patient will be considered for discharge home or subacute rehab as approved by the patient's insurance if the patient is not accepted to [facility] Transitional Care Unit. The patient's discharge medicines as per ambulatory orders plus new scripts. The patient will be given all new scripts upon discharge. Followup with Dr. Street within 1 week with all medications. The patient is also advised to follow up with Dr. Lopez and Dr. Milligan within one week. DISCHARGE MEDICATIONS 1. Eliquis 2.5 mg twice a day. 2. Ecotrin 81 mg daily. 3. Lipitor 40 mg daily. 4. Vitamin D3 2000 international units daily. 5. Digoxin 0.125 mg daily. 6. Cardizem CD 240 mg daily. 7. Colace 100 mg three times a day. 8. Drisdol 50,000 units every 7 days x 12. 9. Uloric 40 mg daily. 10. Allopurinol 300 mg daily. 11. Folic acid 1 mg daily. 12. Lasix 40 mg once or twice daily. 13. Magnesium oxide 800 mg twice a day. 14. Lopressor 50 mg twice a day. 15. Protonix 40 mg daily. 16. MiraLax 17 g twice a day. 17. Tolvaptan 30 mg daily. The patient's Cozaar is stopped. The patient is discharged home with above followups. During this hospitalization, the patient and the patient's son, Rakesh, have been extensively explained about the patient's diagnosis, test results, the need for the patient's compliance with close followup, and need for strict compliance with medication, diet, physician followup. All of the above was explained to the patient and the patient's son in layman's language. All questions concerned answered, which they acknowledged to understand. Time spent in the entire discharge process more than 45 minutes. Dictated and electronically signed, not read. Benny Street MD MTDD
[2017-06-17] MEDS: Magnesium Oxide 400 mg Tab UD PO SCH (09:23)
[2017-06-17] MEDS: diltiaZEM 240 mg/24 Hours CD Cap PO SCH (09:24)
[2017-06-17] MEDS: POLYETHYLENE GLYCOL 3350 17 GM/Dose PACKET PO SCH (09:26)
[2017-06-17 09:29] VITALS: BP 145/96; PULSE 81
--- NOTE | 2017-06-17 09:57 | CP.PCM.PN ---
Subjective - Date & Time of Evaluation Date of Evaluation: 06/17/17 Time of Evaluation: 09:53 - Subjective Subjective: Follow up Nephrology Consultation Note Assessment: Stable Hypervolemic hyponatremia likely due to CHF and ? contribution by metastatic cancer leading to excess ADH (SIADH) Hypertensive Chronic Kidney Disease (I12.9) Chronic Kidney Disease (N18.3) Stage 3 with Cr 1.2 with superimposed mild MASSIEL metastatic cancer, HTN (I12.9) CHF LVEF 20% Hypokalemia hypomagnesemia, hx of BPH Plan No acute need for renal replacement therapy at this time. Hypertension control with meds as ordered. started low dose losartan but d/c due to hyperkalemia. Monitor Input/Output, daily weights and renal function with basic metabolic panel supplement electrolytes as needed agree with diuretics Avoid nephrotoxins/NSAIDs Glycemic control Further work up for as per primary team medical management of hyperkalemia. expect K to improve as diuretics resumed. dig level 0.7 noted. pt stable for d/c from renal perspective when planned. can stop tolvaptan. off since friday Thanks for allowing me to participate in care of your patient. Will follow patient with you. Please call if any Qs. d/w team Dr Grupo Vital Office: [phone] Subjective: Noted events overnight. Patients feels okay. Denies chest pain, palpitation,improved shortness of breath, denies leg swelling. All other negative. had bone biopsy by IR on 06/10/17 Physical Examination: General Appearance: Comfortable, in no acute respiratory distress, co-operative . Vitals reviewed and noted as below Head; Atraumatic, normocephalic ENT: no ulcers no thrush. Tongue is midline. Oropharynx: no rash or ulcers. EYES: Pupils are equal, round and reactive to light accommodation. Eye muscles and extraocular movement intact. Sclera is anicteric. Neck; supple no lymphadenopathy, no thyromegaly or bruit Lungs: Normal respiratory rate/effort. Breath sounds reduced at rt base Heart: Normal rate. s1s2 normal. No rub or gallop. Extremities: no edema. No varicose veins Neurological: Patient is alert, awake and oriented to person, place and time. No focal deficit. Strength bilateral appropriate and equal Skin: Warm and dry. Normal turgor. No rash. Palpitation: Normal elasticity for age Abdomen: Abdomen is soft. Bowel sounds +. There is no abdominal tenderness, no guarding/rigidity no organomegaly Psych: normal insight and normal affect/mood MSK: no joint tenderness or swelling. Digits and nails normal, no deformity : kidney or bladder not palpable Labs/imaging reviewed. Past medical history, past surgical history, family history, social history, allergy reviewed and noted as below Family hx: no hx of CKD. Rest non-contributory urine Na 75 urine osmol 190 Serum osmol 281 uric acid 7.9 TSH 2.3 LVEF 20% Objective - Vital Signs/Intake and Output Vital Signs (last 24 hours): Temp Pulse Resp BP Pulse Ox 98 F 81 18 145/96 H 100 06/17/17 00:01 06/17/17 09:25 06/17/17 00:01 06/17/17 09:26 06/17/17 00:01 Intake and Output: 06/17/17 06/17/17 06:59 18:59 Intake Total 120 Output Total 1000 Balance -880 - Medications Medications: Current Medications Allopurinol (Zyloprim) 300 mg PO DAILY [facility] Last Admin: 06/17/17 09:26 Dose: 300 mg Apixaban (Eliquis) 2.5 mg PO BID [facility] PRN Reason: Protocol Last Admin: 06/17/17 09:25 Dose: 2.5 mg Aspirin (Ecotrin) 81 mg PO DAILY [facility] Last Admin: 06/17/17 09:26 Dose: 81 mg Atorvastatin Calcium (Lipitor) 40 mg PO DIN [facility] Last Admin: 06/16/17 19:50 Dose: 40 mg Digoxin (Digoxin) 0.125 mg PO 1400 [facility] Last Admin: 06/16/17 14:00 Dose: 0.125 mg Diltiazem HCl (Cardizem Cd) 240 mg PO DAILY [facility] Last Admin: 06/17/17 09:24 Dose: 240 mg Docusate Sodium (Colace) 100 mg PO TID [facility] Last Admin: 06/17/17 09:25 Dose: 100 mg Ergocalciferol (Drisdol 50,000 Intl Units Cap) 1 cap PO Q7D [facility] Last Admin: 06/14/17 21:46 Dose: 1 cap Furosemide (Lasix) 40 mg IVP DAILY [facility] Last Admin: 06/17/17 09:26 Dose: 40 mg Magnesium Oxide (Mag-Ox) 800 mg PO BID [facility] Last Admin: 06/17/17 09:23 Dose: 800 mg Metoprolol Tartrate (Lopressor) 50 mg PO BID [facility] Last Admin: 06/17/17 09:25 Dose: 50 mg Ondansetron HCl (Zofran Inj) 4 mg IVP Q4H PRN PRN Reason: Nausea/Vomiting Pantoprazole Sodium (Protonix Ec Tab) 20 mg PO 0600,1600 [facility] Last Admin: 06/17/17 06:40 Dose: 20 mg Polyethylene Glycol (Miralax) 17 gm PO BID [facility] Last Admin: 06/17/17 09:26 Dose: 17 gm Tamsulosin HCl (Flomax) 0.4 mg PO DAILY [facility] Last Admin: 06/17/17 09:26 Dose: 0.4 mg - Labs Labs: 06/16/17 07:00 06/17/17 05:15 PT 16.7 SECONDS (9.4-12.5) H 06/16/17 07:00 INR 1.44 (0.93-1.08) H 06/16/17 07:00 APTT 43.5 Seconds (25.1-36.5) H 06/16/17 07:00
[2017-06-17 10:35] VITALS: TEMP 97.5
[2017-06-17 10:36] VITALS: O2SAT 96
[2017-06-17 11:38] LABS: BLOOD UREA NITROGEN 13 mg/dL (7-21); CALCIUM 9.7 mg/dL (8.4-10.5); GFR AFRICAN-AMERICAN > 60; GFR NON-AFRICAN AMERICAN 53
[2017-06-17] MEDS: Digoxin 125 mcg (0.125 mg) Tab PO SCH (14:13)
[2017-06-17 14:20] VITALS: PULSE 66
--- NOTE | 2017-06-18 07:15 | DS ---
SUBJECTIVE: The patient is seen lying in the bed in room 235, bed #2. PHYSICAL EXAMINATION: VITAL SIGNS: T-max 98, heart rate 81, 82, 84, blood pressure initially in the last 24 hours 136/76, 128/ , 145/96, respirations 18, O2 sat 96%. Intake/output; output only shows 1500 mL day before yesterday and 1000 mL today. HEAD: Normocephalic, atraumatic. HEENT: Shows pinkish conjunctivae. Anicteric sclerae. No oropharyngeal lesion. No neck rigidity. No jugular venous distention. CHEST: Kyphosis. LUNGS: Shows decreased breath sound at the left base. No crackles, rales, or wheezing noted. CARDIOVASCULAR: Shows S1, S2, irregular rhythm. Positive systolic murmur at left sternal border, left second intercostal space, right second intercostal space. ABDOMEN: Less protuberant. GENITALIA: Male. RECTAL: Deferred. EXTREMITIES: Shows positive SCDs. Trace swelling of the ankles and feet noted. MUSCULOSKELETAL: Shows a body mass index of 29. NEUROLOGIC: The patient is alert, awake, responsive. He is able to move upper and lower extremities without assistance. GAIT: Not tested. VASCULAR: Palpable pulses. DIAGNOSTICS: On June 17; sodium 134, potassium 5.7, non-hemolyzed, chloride 97, CO2 of 29, anion gap 14, BUN 15, creatinine 1.4, GFR 59, glucose 94, uric acid 5.2, magnesium 2.1. LFTs are normal. FINAL IMPRESSION AND DISCHARGE DIAGNOSES: 1. Metastatic adenocarcinoma of the prostate. 2. Hypertension. 3. Atrial fibrillation with rapid ventricular response. 4. Leukopenia. 5. Anemia. 6. Mild coagulopathy. 7. Transient lactic acidosis. 8. Non-hemolyzed hyperkalemia, probably angiotensin receptive riky induced. 9. Hypovitaminosis D. 10. 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 11. Mild concentric left ventricular hypertrophy. 12. Moderate to severely impaired left ventricular systolic function and left ventricular global hypokinesis. 13. Moderately dilated left and right atriums. 14. Moderately reduced right ventricular systolic function. 15. Moderately thickened aortic valve. 16. Moderately thickened mitral valve. 17. Moderate mitral regurgitation. 18. Moderate tricuspid regurgitation. 19. Moderate pulmonary arterial hypertension. 20. Hypervolemic hyponatremia, secondary to congestive heart failure and metastatic adenocarcinoma of the prostate leading to his syndrome of inappropriate antidiuretic hormone. 21. Hypertensive chronic kidney disease stage III. 22. Hypokalemia, hypomagnesemia. 23. Constipation. 24. Hyperuricemia. 1. 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 2. Decompensated nonischemic cardiomyopathy with decompensated systolic congestive heart failure. 3. Atrial fibrillation with rapid ventricular response. 4. Non-hemolyzed hyperkalemia. 5. Slowly resolving hyponatremia. 6. Anemia and leukopenia. 7. Transient lactic acidosis. 8. Hypovitaminosis D. 9. Elevated prostate surface antigen of greater than 85, 90 and 97. 10. Trace proteinuria. 11. Constipation. 12. Hypomagnesemia. 13. Hyperuricemia. 1. New-onset atrial fibrillation with rapid ventricular response. 2. Acute systolic congestive heart failure. 3. Suspicious metastatic prostate carcinoma with bone metastasis and extremely elevated prostate-specific antigen. 4. Small pleural effusion. 5. Hypertension. 6. Acute systolic congestive heart failure with elevated BNP and bilateral lower extremity venous stasis. 7. Leukopenia, anemia. 8. Transient lactic acidosis. 9. Hyponatremia, slow resolving. 10. Non-hemolyzed hyperkalemia and hypokalemia. 11. Hypochloremic hyponatremia. 12. Hyperbilirubinemia. 13. Transaminitis. 14. Extremely elevated prostate-specific antigen of greater than 85 and greater than 90. 15. Gait dysfunction. 16. Deconditioning. 17. Transient acute kidney injury. 18. Possible ileus pattern. 19. Distended numerous large bowel loops with potential ileus pattern. 20. Diffuse osteopenia and osteoporosis. 21. Status post CAT scan guided L2 vertebral biopsy. 22. Atrial fibrillation with rapid ventricular response. 23. Constipation. 24. Dyslipidemia. 25. Hypomagnesemia. 26. Hyperuricemia. 1. Atrial fibrillation with rapid ventricular response. 2. Acute systolic congestive heart failure with elevated BNP and bilateral lower extremity lymphedema (resolved). 3. Dilated cardiomyopathy with left ventricular ejection fraction of 20% and pulmonary arterial hypertension with elevated right ventricular systolic pressure of 52 mmHg. 4. Moderate to severely impaired left ventricular systolic function and global left ventricular hypokinesis. 5. Concentric left ventricular hypertrophy. 6. Moderately reduced right ventricular systolic function. 7. Moderately dilated left atrium and moderately dilated right atrium. 8. Moderately thickened aortic valve. 9. Moderately thickened mitral valve. 10. Moderate mitral regurgitation. 11. Moderate tricuspid regurgitation and moderate pulmonary arterial hypertension. 12. Deconditioning. 13. Gait dysfunction. 14. Leukopenia, anemia. 15. Slow resolving refractory hyponatremia. 16. Lactic acidosis. 17. Status post nonhemolyzed hyperkalemia. 18. Status post acute kidney injury with chronic kidney disease stage 3. 19. Transaminitis. 1. Possible developing versus impending ileus involving large bowel with distending large bowel loops and with large bowel loop gas. 2. Moderate amount of gastric viscus gas. 3. Diffuse osteopenia, osteoporosis. 4. Atrial fibrillation with rapid ventricular response. 5. Hyper and hypotension. 6. Leukopenia, anemia. 7. Persistent refractory hyponatremia, non-hemolyzed hyperkalemia. 8. Transaminitis. 9. Elevated prostate-specific antigen. 1. Status post cystoscopy, insertion of 18-Kazakh two-way Pettit catheter. Status post cystoscopy, evacuation of clots and fulguration and retrograde pyelogram. 2. Atrial fibrillation with rapid ventricular response, resolving. 3. Abdominal distention, etiology undetermined versus constipation. 4. Leukopenia. 5. Normocytic anemia. 6. Mild coagulopathy. 7. Transient lactic acidosis. 8. Persistent refractory hyponatremia. 9. Non-hemolyzed hyperkalemia. 10. Hypochloremic hyponatremia. 11. Hyperbilirubinemia. 12. Transaminitis. 13. Elevated prostate-specific antigen. 14. Gait dysfunction. 15. Deconditioning. 16. Proteinuria, hematuria, bacteriuria. 17. Status post CT-guided L2 vertebral body biopsy. 18. Hypervolemic hyponatremia, probably secondary to congestive heart failure versus secondary to metastatic carcinoma. 19. Syndrome of inappropriate antidiuretic hormone. 20. Hypertensive kidney disease. 21. Acute kidney injury with underlying chronic kidney disease. 22. Systolic congestive heart failure and cardiomyopathy. 23. Prostatic hypertrophy. 24. New-onset atrial fibrillation with rapid ventricular response. 25. Suspected metastases prostate carcinoma with extremely elevated PSA and bone metastasis. 1. Atrial fibrillation with rapid ventricular response. 2. Transient hypotension (resolved). 3. Leukopenia, anemia. 4. Transient lactic acidosis. 5. Refractory hyponatremia. 6. Hyperkalemia. 7. Hypomagnesemia. 8. Hyperbilirubinemia. 9. Most likely suspected metastatic prostate carcinoma with bone metastasis with elevated PSA. 10. Trace proteinuria, microscopic hematuria. 11. Status post CT-guided lumbar spine biopsy. 12. Atrial fibrillation with rapid ventricular response. 13. Voiding dysfunction. 14. Gait dysfunction. 15. Systolic congestive heart failure (resolving). 16. Constipation. 17. Dyslipidemia. 18. Hypomagnesemia. 19. Hyperuricemia. 20. Deconditioning. 1. Atrial fibrillation with rapid ventricular response. 2. Suspect metastatic prostate carcinoma with bone metastasis. 3. Pleural effusion. 4. Leukopenia. 5. Anemia. 6. Refractory hyponatremia. 7. Hypervolemic hyponatremia secondary to congestive heart failure. 8. Possible syndrome of inappropriate antidiuretic hormone. 9. Hypertensive chronic kidney disease. 10. Systolic congestive heart failure with cardiomyopathy. 11. Hypokalemia. 12. Hypomagnesemia. 13. Normocytic anemia. 14. Granulocytosis. 15. Transient lactic acidosis. 16. Hypokalemia. 17. Hyponatremia. 18. Hypomagnesemia. 19. Hyperbilirubinemia. 20. Transient hypotension. 21. Constipation. 22. Hypercholesteremia. 23. Hypomagnesemia. 24. Hyperuricemia. 1. New-onset atrial fibrillation with rapid ventricular response. 2. Dilated cardiomyopathy. 3. Acute systolic congestive heart failure with elevated brain natriuretic peptide. 4. Hyponatremia. 5. Questionable syndrome of inappropriate antidiuretic hormone secretion. 6. Most probable metastatic prostate carcinoma with multiple bone metastases. 7. Leukopenia and anemia. 8. Transient lactic acidosis. 9. Hypokalemia. 10. Hyperbilirubinemia. 11. Elevated prostate-specific antigen of greater than 90. 12. Proteinuria, microscopic hematuria. 13. Moderate pulmonary arterial hypertension with moderate tricuspid regurgitation and elevated right ventricular systolic pressure of 52 mmHg. 14. Bilateral lower extremity lymphedema and venous stasis, resolving. 15. Lateral coronary ischemic changes. 16. Constipation. 17. Hypercholesteremia. 18. Hypomagnesemia. 19. Hyperuricemia. 1. Atrial fibrillation with rapid ventricular response. 2. Dilated cardiomyopathy with ejection fraction of 21%. 3. Concentric left ventricular hypertrophy. 4. Moderate to severely impaired left ventricular function with left ventricle ejection fraction of 21%. 5. Global left ventricular hypokinesis. 6. Moderately reduced right ventricular systolic function. 7. Moderately dilated left and right atrium. 8. Moderately thickened aortic valve. 9. Moderately thickened mitral valve with moderate mitral regurgitation. 10. Moderate tricuspid regurgitation with moderate pulmonary arterial hypertension with right ventricular systolic pressure of 52 mmHg. 11. Atrial fibrillation with rapid ventricular response. 12. Gait dysfunction. 13. Bilateral lower extremity lymphedema and venous stasis. 14. Leukopenia. 15. Anemia. 16. Lactic acidosis. 17. Hypokalemia. 18. Hyperbilirubinemia. 19. Elevated prostate-specific antigen. 20. Hyperbilirubinemia. 21. Hyponatremia. 22. Possible syndrome of inappropriate antidiuretic hormone. 23. Systolic congestive heart failure with elevated BNP. 24. Systolic and diastolic congestive heart failure with elevated BNP, decreased left ventricular ejection fraction of 21% and moderate pulmonary arterial hypertension, moderate tricuspid regurgitation. 1. Hypertension. 2. Atrial fibrillation with rapid ventricular response. 3. Acute systolic and diastolic congestive heart failure with decreased left ventricular ejection fraction of 20% and abnormal weight gain and bilateral lower extremity lymphedema. 4. Leukopenia. 5. Transient lactic acidosis. 6. Hyponatremia, possibly syndrome of inappropriate antidiuretic hormone secretion. 7. Hypomagnesemia. 8. Hyperbilirubinemia. 9. Elevated prostate-specific antigen of greater than 90. 10. Gait dysfunction. 11. Deconditioning. 12. Proteinuria, hematuria, bacteriuria. 13. Axial skeleton diffuse osseous metastatic disease with abnormal increased uptake of the thoracolumbar spine, right iliac bone, posterior rib in the right rib, bilateral scapula, proximal femur bilaterally including the lesser trochanter on the right and subtrochanteric region on the left with increased uptake in the sternum. 14. Cerebral cortical atrophy of the brain with moderate volume loss. 15. Centrilobular and paraseptal emphysema with atelectasis scarring. 16. Subcentimeter pulmonary nodules of 0.3 cm. 17. Bilateral pleural effusion. 18. Cardiomegaly. 19. Scattered sclerotic bony lesion. 20. Moderate diffuse stranding of the subcutaneous tissue and anasarca. 21. Bilateral adrenal gland hypertrophy. 22. Probable right renal cyst. 23. Colonic diverticulosis. 24. 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 25. Degenerative joint disease of the spine. 26. Small fat-containing umbilical hernia. 27. Small fat-containing inguinal hernia. 28. Subcentimeter retroperitoneal lymphadenopathy. 29. Dilated cardiomyopathy with left ventricular ejection fraction of 21%. 30. Concentric left ventricular hypertrophy. 31. [id number] impaired left ventricular systolic function with left ventricular ejection fraction of 21% and left ventricular global hypokinesis. 32. Moderately reduced right ventricular systolic function. 33. Moderately dilated left and right atrium. 34. Moderately thickened aortic valve. 35. Moderately thickened mitral valve. 36. Moderate mitral regurgitation. 37. Moderate tricuspid regurgitation with moderate pulmonary arterial hypertension with right ventricular systolic pressure of 52 mmHg. 38. History of poor compliance and noncompliance. 39. Hypervolemic hyponatremia secondary to systolic congestive heart failure. 40. Increased urinary retention. 41. Possible and probable stage IV prostate carcinoma with bone metastasis and extremely high PSA of greater than 90. 1. Atrial fibrillation with rapid ventricular response. 2. Ruben-inferolateral coronary ischemia. 3. History of hypertension. 4. Most possible and most likely systolic congestive heart failure with elevated BNP. 5. Cardiomegaly and pulmonary vascular congestion, suggestive of congestive heart failure. 6. Leukopenia. 7. Lactic acidosis. 8. Hyponatremia, etiology undetermined. 9. Questionable syndrome of inappropriate (excretion) of antidiuretic hormone. 10. Indeterminate troponin. 11. Elevated BNP suggestive of congestive heart failure. 12. Trace proteinuria, trace microscopic hematuria, trace bacteriuria. 13. Bilateral lower extremity lymphedema. 14. Anasarca. 15. Extremely poor compliance and noncompliance. 16. History of hypovitaminosis D. 17. History of hyperuricemia, hypomagnesemia and history of elevated prostate-specific antigen. PLAN: At this time, the patient is to be discharged. The patient has been cleared for discharge by all subspecialty including Nephrology. The patient is to be discharged home or subacute rehab as approved by the patient's insurance, if the patient is not accepted to [facility] and if the repeat potassium is normal today. Repeat potassium has been ordered to 11:00 a.m. Discharge medications as per updated ambulatory orders and the new prescription. DISCHARGE MEDICATIONS: Include, 1. Allopurinol 300 mg daily. 2. Eliquis 2.5 mg b.i.d. 3. Ecotrin 81 mg daily. 4. Lipitor 40 mg daily. 5. Vitamin D3 2000 units daily. 6. Digoxin 0.125 mg daily. 7. Cardizem CD 240 mg daily. 8. Colace 100 mg three times a day. 9. Vitamin D 250,000 units every week. 10. Uloric 40 mg daily or allopurinol 300 mg daily. 11. Folic acid 1 mg daily. 12. Lasix 40 mg p.o. daily. 13. Magnesium oxide 800 mg twice a day. 14. Lopressor 50 mg twice a day. 15. Protonix 40 mg daily. 16. MiraLax 17 g twice a day. 17. Flomax 0.4 mg daily. 18. Tolvaptan 15 mg every 48 hour for 10 doses. The patient's case is referred to [employer] [facility] [facility] for discharge planning. The patient has been updated about his diagnoses, test results, recommendation by all the physicians involved in the care of the patient. The patient has been advised that if the patient is accepted to subacute rehab, upon discharge, the patient needs to follow up with Dr. Street right away and the oncologist right away. The patient has been explained about the diagnosis of the prostate cancer spread to the bone in layman's language which he acknowledged to understand. Time spent in the entire discharge process, more than 45 minutes. Dictated and electronically signed, not read. Benny Street MD MTDD
--- NOTE | 2017-06-26 22:21 | CON ---
DATE: 06/26/2017 CARDIOLOGY CONSULTATION HISTORY OF PRESENT ILLNESS: The patient is a 77-year-old male, who presents from the subacute rehabilitation center for altered mental status. The patient's past medical history includes documented severe cardiomyopathy with an EF of 20% in the past. This was done by echocardiogram in 05/2017. In addition, the patient suffers from chronic atrial fibrillation in which the heart rate has been well controlled on digoxin as well as anticoagulated with Eliquis. He also suffers from chronic pedal edema, which has been treated with Lasix. Currently, his altered mental status is resolved. He denies chest pain. Denies shortness of breath. SOCIAL HISTORY: The patient does not drink. REVIEW OF SYSTEMS: Fourteen-point review of systems is reviewed in detail. No cardiac symptomatology is noted other than his chronic pedal edema. PHYSICAL EXAMINATION: VITAL SIGNS: Blood pressure 140/95; the heart rate is in the 80s, atrial fibrillation. NECK: Negative JVD. LUNGS: Without rales. HEART: Reveals S1, S2. EXTREMITIES: 1+ edema. EKG shows atrial fibrillation with nonspecific ST-T changes. LABORATORY DATA: Hemoglobin of 12.8. Chemistries: BUN and creatinine of 21 and 1.2. The sodium was found to be 115 and finally up to 119 today with IV fluids. His troponins are negative. IMPRESSION: 1. Altered mental status secondary to #2. 2. Hyponatremia. 3. Chronic atrial fibrillation, treated successfully with beta blockers, digoxin and Eliquis. 4. Severe dilated cardiomyopathy. 5. Pedal edema. 6. Pulmonary hypertension. PLAN: Given these findings, the electrolyte abnormalities have been corrected gently, but heading in the right direction. His atrial fibrillation in stable condition. There is no evidence for CHF. Vincenzo Grayson MD
--- NOTE | 2017-07-03 06:42 | OP ---
PROCEDURE DATE: 06/11/2017 UROLOGY OPERATIVE REPORT PREOPERATIVE DIAGNOSES: Urinary retention, voiding dysfunction, hematuria, and elevated prostate-specific antigen. POSTOPERATIVE DIAGNOSES: Urinary retention, voiding dysfunction, hematuria, and elevated prostate-specific antigen. PROCEDURE: Cystoscopy only. COMPLICATIONS: There were no complications. BLOOD LOSS: Less than 10 mL. INDICATIONS: See the history and physical for further details and consultation. A very pleasant gentleman, looks like he is with metastatic prostate cancer. He does not have a previous history of known prostate cancer. He has a bone lesion. I had a chance to speak to the radiologist. I discussed options with the patient and my recommendation is he undergo a cystoscopy for the gross hematuria, regarding the possibility of a prostate biopsy because he has an elevated PSA. He had a bone biopsy just a day ago. Because the pathology is not yet back, I do not want to make the patient undergo a prostate biopsy. If the bone biopsy shows prostate cancer, then we are not going to do a prostate biopsy, but if it does not show prostate cancer, then we are going to consider it. Meanwhile, he has gotten abnormal PSA, he has got a bone lesion. But, he needs a cystoscopic evaluation for the presence of gross hematuria to rule out any other bladder lesions and after evaluation and recommendation, discussing options, he is here for the above-listed procedure. So, again the procedure is cystoscopy. INDICATION: See history and physical in detail. This is a pleasant gentleman. DESCRIPTION OF PROCEDURE: Patient was brought to the table. Routine monitors were placed. Time-out was called to confirm patient positioning, etc. Patient also was given antibiotics. We introduced the cystoscope via urethra and the bladder was inspected carefully. about 3 to 4 cm of fair large prostate. No other real abnormality is detected. The bladder was inspected carefully, there is no real definite bladder lesions, redness, erythema. At the termination of procedure, patient tolerated without any complication. ADDENDUM: He had a bone biopsy; if that bone biopsy shows prostate cancer, there is no reason to do a second prostate biopsy. However, if the bone biopsy is negative, then we are going to consider a prostate biopsy and then we will have to discuss that if that is positive, how to manage. We have to discuss it at length. In the meantime, Mr. Cartagena is stable, having tolerated the cystoscopic evaluation well. So, the preop diagnoses is hematuria and urinary retention, voiding dysfunction, and prostate cancer, and the postop is same. Nicanor Lopez MD [facility]
== END 2017-06-17 16:58 | DRG 477 ==
LOC: ED 15:11 → ERH 17:11 → 2RSO 21:12 → 2RNO 06-12 13:48 → 2A 06-15 22:50
PROVIDERS: ADMIT Internal Medicine; ATTEND Internal Medicine
PROC: BR29ZZZ Computerized Tomography (CT Scan) of Lumbar Spine (ICD-10-PCS; 2017-06-10)
PROC: 0QB03ZX Excision of Lumbar Vertebra, Percutaneous Approach, Diagnostic (ICD-10-PCS; principal; 2017-06-10 09:00)
PROC: 0TJB8ZZ Inspection of Bladder, Via Natural or Artificial Opening Endoscopic (ICD-10-PCS; 2017-06-11)
DX: C79.51 Secondary malignant neoplasm of bone (principal); I50.43 Acute on chronic combined systolic (congestive) and diastolic (congestive) heart failure; N17.9 Acute kidney failure, unspecified; E87.2 Acidosis; D68.9 Coagulation defect, unspecified; E22.2 Syndrome of inappropriate secretion of antidiuretic hormone; E83.42 Hypomagnesemia; E87.5 Hyperkalemia; N18.3 Chronic kidney disease, stage 3 (moderate); I13.0 Hypertensive heart and chronic kidney disease with heart failure and stage 1 through stage 4 chronic kidney disease, or unspecified chronic kidney disease; J98.11 Atelectasis; M87.9 Osteonecrosis, unspecified; R17 Unspecified jaundice; I48.1 Persistent atrial fibrillation; I42.0 Dilated cardiomyopathy; I48.0 Paroxysmal atrial fibrillation; E87.8 Other disorders of electrolyte and fluid balance, not elsewhere classified; C61 Malignant neoplasm of prostate; D64.9 Anemia, unspecified; D72.819 Decreased white blood cell count, unspecified; E55.9 Vitamin D deficiency, unspecified; I48.2 Chronic atrial fibrillation; E78.00 Pure hypercholesterolemia, unspecified; E78.5 Hyperlipidemia, unspecified; E87.6 Hypokalemia; I08.1 Rheumatic disorders of both mitral and tricuspid valves; I27.21 Secondary pulmonary arterial hypertension; I87.8 Other specified disorders of veins; I89.0 Lymphedema, not elsewhere classified; J43.9 Emphysema, unspecified; K40.90 Unilateral inguinal hernia, without obstruction or gangrene, not specified as recurrent; K42.9 Umbilical hernia without obstruction or gangrene; K57.30 Diverticulosis of large intestine without perforation or abscess without bleeding; K59.00 Constipation, unspecified; M10.9 Gout, unspecified; M16.11 Unilateral primary osteoarthritis, right hip; M47.9 Spondylosis, unspecified; M81.0 Age-related osteoporosis without current pathological fracture; N13.9 Obstructive and reflux uropathy, unspecified; N28.1 Cyst of kidney, acquired; N40.0 Benign prostatic hyperplasia without lower urinary tract symptoms; R31.0 Gross hematuria; Z79.01 Long term (current) use of anticoagulants; Z79.899 Other long term (current) drug therapy; Z80.8 Family history of malignant neoplasm of other organs or systems; Z87.891 Personal history of nicotine dependence; Z91.19 Patient's noncompliance with other medical treatment and regimen; R40.2412 Glasgow coma scale score 13-15, at arrival to emergency department; Z68.28 Body mass index [BMI] 28.0-28.9, adult; M40.204 Unspecified kyphosis, thoracic region; R33.9 Retention of urine, unspecified

== ENCOUNTER 2017-06-26 04:15 | Inpatient (IN) | payer MEDICARE, MEDICAID ==
[2017-06-26 04:17] VITALS: BMI 29.2
--- NOTE | 2017-06-26 04:27 | ED PDOC ---
Arrival/HPI - General Time Seen by Provider: 06/26/17 04:20 Historian: Patient, [facility] - History of Present Illness Narrative History of Present Illness (Text): 06/26/17 04:24 Jimmy Cartagena is a 77 year old male, whose past medical history includes hypertension, atrial fibrillation, leukopenia, and osteoarthritis, who present to the Emergency department transferred from skilled nursing for intermittent episodes of altered mental status since yesterday. Patient currently awake, alert, and oriented x 3. Patient denies any fever, chills, chest pain, shortness of breath, nausea, vomiting, diarrhea, urinary symptoms, back pain, neck pain, headache, dizziness, trauma/injury, suicidal/homicidal ideation or any other complaints. Symptom Onset: Gradual Symptom Course: Unchanged Activities at Onset: Light Context: Home (assisted) Past Medical History - Provider Review Nursing Documentation Reviewed: Yes - Infectious Disease Hx of Infectious Diseases: None - Tetanus Immunization Tetanus Immunization: Unknown - Past Medical History Past Medical History: No Previous - Cardiac Hx Cardiac Disorders: Yes (Afib) Hx Hypertension: Yes - Pulmonary Hx Respiratory Disorders: No - Neurological Hx Neurological Disorder: No - HEENT Hx HEENT Disorder: No - Renal Hx Renal Disorder: No - Endocrine/Metabolic Hx Endocrine Disorders: No - Hematological/Oncological Hx Blood Disorders: No - Integumentary Hx Dermatological Disorder: No - Musculoskeletal/Rheumatological Hx Musculoskeletal Disorders: Yes Hx Unsteady Gait: Yes - Gastrointestinal Hx Gastrointestinal Disorders: No - Genitourinary/Gynecological Hx Genitourinary Disorders: No - Psychiatric Hx Depression: No Hx Emotional Abuse: No Hx Physical Abuse: No Hx Substance Use: No - Past Surgical History Past Surgical History: No Previous - Anesthesia Hx Anesthesia: No - Suicidal Assessment Feels Threatened In Home Enviroment: No Family/Social History - Physician Review Nursing Documentation Reviewed: Yes Family/Social History: Unknown Family HX Smoking Status: Never Smoked Hx Alcohol Use: No Hx Substance Use: No Allergies/Home Meds Allergies/Adverse Reactions: Allergies No Known Allergies Allergy (Verified 05/25/13 15:34) Home Medications: Home Meds Medication Instructions Recorded Confirmed Bisacodyl [Dulcolax] 10 mg RC DAILY PRN 06/26/17 06/26/17 Digoxin 0.125 mg PO DAILY 06/26/17 06/26/17 Ondansetron [Zofran] 4 mg PO Q4 PRN 06/26/17 06/26/17 Pantoprazole [Protonix EC Tab] 20 mg PO DAILY 06/26/17 06/26/17 Review of Systems - Physician Review All systems were reviewed & negative as marked: Yes - Review of Systems Constitutional: Normal. absent: Fevers Eyes: Normal ENT: Normal Respiratory: Normal. absent: SOB, Cough Cardiovascular: Normal. absent: Chest Pain Gastrointestinal: Normal. absent: Abdominal Pain, Diarrhea, Nausea, Vomiting Genitourinary Male: Normal. absent: Dysuria, Frequency, Hematuria, Urinary Output Changes Musculoskeletal: Normal. absent: Back Pain, Neck Pain Skin: Other (+altered mental status). absent: Rash Neurological: Normal. absent: Headache, Dizziness Endocrine: Normal Hemo/Lymphatic: Normal Psychiatric: Normal Physical Exam Vital Signs Reviewed: Yes Vital Signs Temp Pulse Resp BP Pulse Ox 06/26/17 08:59 88 18 137/65 100 06/26/17 08:01 98 H 17 142/90 97 06/26/17 06:28 70 19 157/76 H 100 06/26/17 04:26 98.2 F 60 18 152/98 H 100 Temperature: Afebrile Blood Pressure: Normal Pulse: Regular Respiratory Rate: Normal Appearance: Positive for: Well-Appearing, Non-Toxic, Comfortable Pain Distress: None Mental Status: Positive for: Alert and Oriented X 3 - Systems Exam Head: Present: Atraumatic, Normocephalic Pupils: Present: PERRL Extroacular Muscles: Present: EOMI Conjunctiva: Present: Normal Mouth: Present: Moist Mucous Membranes Neck: Present: Normal Range of Motion Respiratory/Chest: Present: Clear to Auscultation, Good Air Exchange. No: Respiratory Distress, Accessory Muscle Use Cardiovascular: Present: Regular Rate and Rhythm, Normal S1, S2. No: Murmurs Abdomen: Present: Normal Bowel Sounds. No: Tenderness, Distention, Peritoneal Signs Back: Present: Normal Inspection Upper Extremity: Present: Normal Inspection. No: Cyanosis, Edema Lower Extremity: Present: Normal Inspection. No: Edema Neurological: Present: GCS=15, CN II-XII Intact, Speech Normal Skin: Present: Warm, Dry, Normal Color. No: Rashes Psychiatric: Present: Alert, Oriented x 3, Normal Insight, Normal Concentration Medical Decision Making ED Course and Treatment: 06/26/17 04:24 Impression: 77 year old male sent from skilled nursing for intermittent episodes of altered mental status since yesterday. Plan: -- CT Head w/o contrast -- EKG -- Chest X-ray -- Labs, cardiac enzymes, alcohol level, blood cultures -- Urinalysis, urine cultures, urine drug screen -- Reassess and disposition Prior Visits: Notes and results from previous visits were reviewed. On 06/05/2017, pt was seen in the Emergency department for bilateral lower extremity swelling with pain and dyspnea on exertion. Pt was admitted to the hospital for further evaluation. Progress Notes: 06/26/17 04:58 Reviewed EKG, a fib at 74 bpm. PVC. Non-specific ST/T wave changes. Prolonged QT. 06/26/17 06:09 Chest X-ray reviewed, nad case d/w dr jeffers accepts case want icu case endorsed dr montoya pending icu evaluation 06/26/17 20:02 - Lab Interpretations Lab Results: 06/26/17 04:45 06/26/17 04:45 Lab Results 06/26/17 05:00: Urine Opiates Screen Negative, Urine Methadone Screen Negative, Ur Barbiturates Screen Negative, Ur Phencyclidine Scrn Negative, Ur Amphetamines Screen Negative, U Benzodiazepines Scrn Negative, U Oth Cocaine Metabols Negative, U Cannabinoids Screen Negative 06/26/17 05:00: Urine Color Yellow, Urine Appearance Sl cloudy, Urine pH 6.0, Ur Specific [place] 1.010, Urine Protein Trace H, Urine Glucose (UA) Negative, Urine Ketones Negative, Urine Blood Moderate H, Urine Nitrate Negative, Urine Bilirubin Negative, Urine Urobilinogen 0.2, Ur Leukocyte Esterase Moderate H, Urine RBC 1 - 3, Urine WBC 1 - 3, Ur Epithelial Cells 0 - 2, Urine Bacteria Rare 06/26/17 04:45: Digoxin 0.5 L 06/26/17 04:45: Hepatitis A IgM Ab Negative, Hep Bs Antigen Negative, Hep B Core IgM Ab Negative, Hepatitis C Antibody Negative 06/26/17 04:45: Prostate Specific Ag 54.1 H 06/26/17 04:45: Uric Acid 3.8 06/26/17 04:45: Alcohol, Quantitative < 10 06/26/17 04:45: Sodium 115 L*, Potassium 5.0, Chloride 81 L, Carbon Dioxide 22, Anion Gap 17, BUN 22 H, Creatinine 1.2, Est GFR ( Amer) > 60, Est GFR ( Non-Af Amer) 58, Random Glucose 85, Calcium 9.5, Phosphorus 3.9, Magnesium 1.8, Total Bilirubin 1.8 H, AST 145 H D, ALT 82 H, Alkaline Phosphatase 141 H, Lactate Dehydrogenase 860 H, Total Creatine Kinase 474 H, CK-MB (CK-2) 10.4 H, CK-MB (CK-2) % 2.2 L, Troponin I 0.03, Total Protein 7.3, Albumin 3.5, Globulin 3.8, Albumin/Globulin Ratio 0.9 L 06/26/17 04:45: PT 18.5 H, INR 1.59 H, APTT 36.5 06/26/17 04:45: WBC 6.9 D, RBC 4.53, Hgb 12.8 L, Hct 36.3 L, MCV 80.1 D, MCH 28.3, MCHC 35.3, RDW 14.5, Plt Count 191, MPV 9.8, Gran % 70.5 H, Lymph % (Auto ) 16.6 L, [place] % (Auto) 12.4 H, Eos % (Auto) 0.4 L, Baso % (Auto) 0.1, Gran # 4.83, Lymph # (Auto) 1.1 L, [place] # (Auto) 0.9 H, Eos # (Auto) 0.0, Baso # (Auto ) 0.01 I have reviewed the lab results: Yes - RAD Interpretation Radiology Orders: 06/26/17 04:27 HEAD W/O CONTRAST [CT] Stat 06/26/17 04:28 CHEST ONE VIEW [RAD] Stat Insulation Inspector: ED Physician - EKG Interpretation Interpreted by ED Physician: Yes Type: 12 lead EKG - Medication Orders Current Medication Orders: Allopurinol (Zyloprim) 300 mg PO DAILY [facility] Last Admin: 06/26/17 11:13 Dose: 300 mg Apixaban (Eliquis) 2.5 mg PO BID [facility] PRN Reason: Protocol Last Admin: 06/26/17 17:18 Dose: 2.5 mg Aspirin (Ecotrin) 81 mg PO DAILY [facility] Last Admin: 06/26/17 11:14 Dose: 81 mg Atorvastatin Calcium (Lipitor) 40 mg PO DIN [facility] Last Admin: 06/26/17 17:18 Dose: 40 mg Bicalutamide (Casodex) 50 mg PO DAILY [facility] Bisacodyl (Dulcolax) 10 mg RC DAILY PRN PRN Reason: Constipation Digoxin (Digoxin) 0.125 mg PO 1400 [facility] Last Admin: 06/26/17 15:20 Dose: 0.125 mg MAR Apical Pulse Rate Document 06/26/17 15:20 MMA (Rec: 06/26/17 15:22 [facility]) Apical Pulse Rate Apical Pulse Rate (60-90 beats/min) 82 Diltiazem HCl (Cardizem Cd) 240 mg PO DAILY [facility] Last Admin: 06/26/17 11:13 Dose: 240 mg MAR Pulse and Blood Pressure Document 06/26/17 11:13 MMA (Rec: 06/26/17 11:13 [facility]) Pulse Pulse Rate (60-90) 91 Blood Pressure Blood Pressure (100/60-150/90) 141/99 Docusate Sodium (Colace) 100 mg PO TID [facility] Last Admin: 06/26/17 17:17 Dose: 100 mg Last Bowel Movement Document 06/26/17 17:17 MMA (Rec: 06/26/17 17:18 [facility]) Last Bowel Movement Last Bowel Movement 06/24/17 Doxycycline Hyclate (Doryx) 100 mg PO Q12 [facility] PRN Reason: Protocol Last Admin: 06/26/17 15:17 Dose: 100 mg Ceftriaxone Sodium (Rocephin 2 Gm Ivpb) 2 gm in 100 mls @ 100 mls/hr IVPB DAILY [facility] PRN Reason: Protocol Last Admin: 06/26/17 11:20 Dose: 100 mls/hr eMAR Start Stop Document 06/26/17 11:20 MMA (Rec: 06/26/17 11:20 [facility]) Intravenous Solution Start Date 06/26/17 Start Time 11:20 End Date 06/26/17 End time 12:25 Total Infusion Time 65 Levalbuterol HCl (Xopenex) 0.63 mg IH [id number] [facility] Last Admin: 06/26/17 10:56 Dose: 0.63 mg Levalbuterol HCl (Xopenex) 0.63 mg IH Q2H PRN PRN Reason: Shortness of Breath Magnesium Oxide (Mag-Ox) 800 mg PO BID [facility] Last Admin: 06/26/17 17:17 Dose: 800 mg Metoprolol Tartrate (Lopressor) 50 mg PO BID [facility] Last Admin: 06/26/17 17:18 Dose: 50 mg MAR Pulse and Blood Pressure Document 06/26/17 17:18 MMA (Rec: 06/26/17 17:20 MMA [facility]) Pulse Pulse Rate (60-90) 71 Blood Pressure Blood Pressure (100/60-150/90) 118/67 Pantoprazole Sodium (Protonix Ec Tab) 20 mg PO ACBD [facility] Last Admin: 06/26/17 15:31 Dose: 20 mg Polyethylene Glycol (Miralax) 17 gm PO BID [facility] Last Admin: 06/26/17 17:17 Dose: 17 gm Discontinued Medications Bicalutamide (Casodex) 50 mg PO DAILY [facility] Sodium Chloride (Hypertonic Saline 3%) 100 mls @ 100 mls/hr IV ONCE ONE Stop: 06/26/17 07:59 Last Admin: 06/26/17 07:04 Dose: 100 mls/hr eMAR Start Stop Document 06/26/17 07:04 CNR (Rec: 06/26/17 07:05 CNR [facility] [place] [id number]) Intravenous Solution Start Date 06/26/17 Start Time 07:05 End Date 06/26/17 End time 08:05 Total Infusion Time 60 Vancomycin HCl (Vancomycin 1gm) 1 gm in 250 mls @ 167 mls/hr IVPB STAT STA PRN Reason: Protocol Stop: 06/26/17 11:30 Last Admin: 06/26/17 11:20 Dose: 167 mls/hr eMAR Start Stop Document 06/26/17 11:20 MMA (Rec: 06/26/17 11:20 MMA [facility] [place] [place]) Intravenous Solution Start Date 06/26/17 Start Time 12:25 End Date 06/26/17 End time 14:00 Total Infusion Time 95 Sodium Chloride (Hypertonic Saline 3%) 500 mls @ 20 mls/hr IV .Q24H [facility] Last Admin: 06/26/17 11:16 Dose: 20 mls/hr eMAR Start Stop Document 06/26/17 11:16 MMA (Rec: 06/26/17 11:17 MMA [facility] [place] [place]) Intravenous Solution Start Date 06/26/17 Start Time 11:16 End Date 06/27/17 End time 11:16 Total Infusion Time 1440 Pantoprazole Sodium (Protonix Ec Tab) 20 mg PO ACB [facility] Last Admin: 06/26/17 07:37 Dose: 20 mg - Arielle Statement The provider has reviewed the documentation as recorded by the Zinaibobinna Luna All medical record entries made by the Arielle were at my direction and personally dictated by me. I have reviewed the chart and agree that the record accurately reflects my personal performance of the history, physical exam, medical decision making, and the department course for this patient. I have also personally directed, reviewed, and agree with the discharge instructions and disposition. Disposition/Present on Arrival - Present on Arrival Any Indicators Present on Arrival: No History of DVT/PE: No History of Uncontrolled Diabetes: No Urinary Catheter: No History Surgical Site Infection Following: None - Disposition Have Diagnosis and Disposition been Completed?: Yes Diagnosis: Hyponatremia, Altered mental status Disposition: HOSPITALIZED Disposition Time: 07:00 Patient Problems: Current Active Problems Problem Status Onset Altered mental status Acute Hyponatremia Acute Condition: FAIR
[2017-06-26 05:09] LABS: BASO # 0.01 K/mm3 (0.0-2.0); BASO % 0.1 % (0.0-3.0); EOS % 0.4 % (1.5-5.0); GRAN # 4.83 (1.4-6.5); GRAN % 70.5 % (50.0-68.0); HEMOGLOBIN 12.8 g/dL (14.0-18.0); LYMPH # 1.1 (1.2-3.4); LYMPH % 16.6 % (22.0-35.0); MEAN CORPUSCULAR HEMOGLOBIN 28.3 pg (25.0-35.0); MEAN CORPUSCULAR HGB CONC 35.3 g/dl (31.0-37.0); MEAN PLATELET VOLUME 9.8 fl (7.0-11.0); MONO # 0.9 (0.1-0.6); MONO % 12.4 % (1.0-6.0); RBC 4.53 10^6/uL (3.5-6.1); RED CELL DISTRIBUTION WIDTH 14.5 % (11.5-14.5); WHITE BLOOD COUNT 6.9 10^3/ul (4.5-11.0)
[2017-06-26 05:18] LABS: MEAN CELL VOLUME 80.1 fl (80.0-105.0)
[2017-06-26 05:24] LABS: URINE BILIRUBIN NEGATIVE (NEGATIVE); URINE BLOOD MODERATE (NEGATIVE); URINE GLUCOSE (UA) NEGATIVE (NEGATIVE); URINE LEUKOCYTE ESTERASE MODERATE Leu/uL (NEGATIVE); URINE PROTEIN TRACE mg/dL (<30 mg/dL); URINE UROBILINOGEN 0.2 E.U./dL (<1 E.U./dL)
[2017-06-26 05:26] LABS: URINE APPEARANCE SL CLOUDY (CLEAR); URINE COLOR YELLOW (YELLOW)
[2017-06-26 05:29] LABS: URINE BACTERIA RARE (NEG); URINE EPITHELIAL CELLS 0 - 2 /hpf (0-5)
[2017-06-26 05:34] LABS: INR 1.59 (0.93-1.08); PARTIAL THROMBOPLASTIN TIME 36.5 Seconds (25.1-36.5); PROTHROMBIN TIME 18.5 SECONDS (9.4-12.5)
[2017-06-26 05:52] LABS: TROPONIN I 0.03 ng/mL
[2017-06-26 06:04] LABS: BARBITURATES, UR NEGATIVE (NEGATIVE); BENZODIAZEPINES, UR NEGATIVE (NEGATIVE); OPIATES, UR NEGATIVE (NEGATIVE); PHENCYCLIDINE, UR NEGATIVE (NEGATIVE)
[2017-06-26 06:21] LABS: ALB/GLOB RATIO 0.9 (1.1-1.8); ALBUMIN 3.5 g/dL (3.0-4.8); ALT/SGPT 82 U/L (7-56); AST/SGOT 145 U/L (17-59); BLOOD UREA NITROGEN 22 mg/dL (7-21); CALCIUM 9.5 mg/dL (8.4-10.5); GFR AFRICAN-AMERICAN > 60; GFR NON-AFRICAN AMERICAN 58
--- NOTE | 2017-06-26 06:56 | CT ---
EXAM: CT Head Without Intravenous Contrast CLINICAL HISTORY: 77 years old, male; Signs and symptoms; Altered mental status/memory loss; Confusion or disorientation; Additional info: AMS TECHNIQUE: Axial computed tomography images of the head/brain without intravenous contrast. All CT scans at this facility use one or more dose reduction techniques, viz.: automated exposure control; ma/kV adjustment per patient size (including targeted exams where dose is matched to indication; i.e. head); or iterative reconstruction technique. Coronal and sagittal reformatted images were created and reviewed. COMPARISON: MR - BRAIN W WO CONTRAST 2017-06-06 10:33 FINDINGS: Brain: Moderate atrophy. No intracranial hemorrhage. No mass. Minimal decreased attenuation within periventricular white matter. Probable chronic lacunar infarct about RIGHT basal ganglia. No definite edema. Ventricles: No hydrocephalus. Bones/joints: No acute fracture. Soft tissues: Unremarkable. Vasculature: Atherosclerotic disease of intracranial arteries. Sinuses: No acute sinusitis. Mastoid air cells: No mastoid effusion. Orbits: Unremarkable as visualized. IMPRESSION: 1. Nonspecific white matter changes. Acute infarction may be CT occult within first 24 hours. If a focal deficit persists, consider followup CT or MRI for further evaluation. 2. Incidental/non-acute findings are described above.
[2017-06-26 06:57] LABS: CK MB% 2.2 % (2.5-3.0); CK-MB 10.4 ng/mL (0.0-3.6)
[2017-06-26] MEDS ORDERED: Sodium Chloride 3% 100 ML IV ONE (07:00)
[2017-06-26] MEDS ORDERED: Sodium Chloride 3% 500 ML IV ONE (07:00)
--- NOTE | 2017-06-26 07:14 | ED PDOC ---
Physical Exam Vital Signs Temp Pulse Resp BP Pulse Ox 06/26/17 06:28 70 19 157/76 H 100 06/26/17 04:26 98.2 F 60 18 152/98 H 100 Finger Stick Blood Glucose: 87 Medical Decision Making ED Course and Treatment: 06/26/17 07:00 Case signed out to me by Dr. Hannah. Patient is a 77 year old male whose past medical history includes hypertension, atrial fibrillation, leukopenia, and osteoarthritis, and presents to the Emergency department from senior care for intermittent episodes of altered mental status since one day ago. Labs showed low Sodium at 115 and currently pending ICU. 06/26/17 07:[address] Tipton, who is aware of plan and agrees with admitting patient to ICU. 06/26/17 08:26 Dr. Tipton came to examine patient. Hypertonic saline was discontinued. - Critical Care Critical Care Minutes: 30 minutes - Lab Interpretations Lab Results: 06/26/17 04:45 06/26/17 04:45 Lab Results 06/26/17 05:00: Urine Opiates Screen Negative, Urine Methadone Screen Negative, Ur Barbiturates Screen Negative, Ur Phencyclidine Scrn Negative, Ur Amphetamines Screen Negative, U Benzodiazepines Scrn Negative, U Oth Cocaine Metabols Negative, U Cannabinoids Screen Negative 06/26/17 05:00: Urine Color Yellow, Urine Appearance Sl cloudy, Urine pH 6.0, Ur Specific [place] 1.010, Urine Protein Trace H, Urine Glucose (UA) Negative, Urine Ketones Negative, Urine Blood Moderate H, Urine Nitrate Negative, Urine Bilirubin Negative, Urine Urobilinogen 0.2, Ur Leukocyte Esterase Moderate H, Urine RBC 1 - 3, Urine WBC 1 - 3, Ur Epithelial Cells 0 - 2, Urine Bacteria Rare 06/26/17 04:45: Digoxin 0.5 L 06/26/17 04:45: Uric Acid 3.8 06/26/17 04:45: Alcohol, Quantitative < 10 06/26/17 04:45: Sodium 115 L*, Potassium 5.0, Chloride 81 L, Carbon Dioxide 22, Anion Gap 17, BUN 22 H, Creatinine 1.2, Est GFR ( Amer) > 60, Est GFR ( Non-Af Amer) 58, Random Glucose 85, Calcium 9.5, Phosphorus 3.9, Magnesium 1.8, Total Bilirubin 1.8 H, AST 145 H D, ALT 82 H, Alkaline Phosphatase 141 H, Lactate Dehydrogenase 860 H, Total Creatine Kinase 474 H, CK-MB (CK-2) 10.4 H, CK-MB (CK-2) % 2.2 L, Troponin I 0.03, Total Protein 7.3, Albumin 3.5, Globulin 3.8, Albumin/Globulin Ratio 0.9 L 06/26/17 04:45: PT 18.5 H, INR 1.59 H, APTT 36.5 06/26/17 04:45: WBC 6.9 D, RBC 4.53, Hgb 12.8 L, Hct 36.3 L, MCV 80.1 D, MCH 28.3, MCHC 35.3, RDW 14.5, Plt Count 191, MPV 9.8, Gran % 70.5 H, Lymph % (Auto ) 16.6 L, [place] % (Auto) 12.4 H, Eos % (Auto) 0.4 L, Baso % (Auto) 0.1, Gran # 4.83, Lymph # (Auto) 1.1 L, [place] # (Auto) 0.9 H, Eos # (Auto) 0.0, Baso # (Auto ) 0.01 - RAD Interpretation Radiology Orders: 06/26/17 04:27 HEAD W/O CONTRAST [CT] Stat 06/26/17 04:28 CHEST ONE VIEW [RAD] Stat - Medication Orders Current Medication Orders: Allopurinol (Zyloprim) 300 mg PO DAILY [facility] Apixaban (Eliquis) 2.5 mg PO BID [facility] PRN Reason: Protocol Aspirin (Ecotrin) 81 mg PO DAILY [facility] Atorvastatin Calcium (Lipitor) 40 mg PO DIN [facility] Bisacodyl (Dulcolax) 10 mg RC DAILY PRN PRN Reason: Constipation Digoxin (Digoxin) 0.125 mg PO 1400 [facility] Diltiazem HCl (Cardizem Cd) 240 mg PO DAILY [facility] Docusate Sodium (Colace) 100 mg PO TID [facility] Sodium Chloride (Hypertonic Saline 3%) 100 mls @ 100 mls/hr IV ONCE ONE Stop: 06/26/17 07:59 Last Admin: 06/26/17 07:04 Dose: 100 mls/hr eMAR Start Stop Document 06/26/17 07:04 CNR (Rec: 06/26/17 07:05 CNR [facility] [id number]) Intravenous Solution Start Date 06/26/17 Start Time 07:05 Magnesium Oxide (Mag-Ox) 800 mg PO BID [facility] Metoprolol Tartrate (Lopressor) 50 mg PO BID [facility] Pantoprazole Sodium (Protonix Ec Tab) 20 mg PO ACB [facility] Last Admin: 06/26/17 07:37 Dose: 20 mg Polyethylene Glycol (Miralax) 17 gm PO BID [facility] - Scribe Statement The provider has reviewed the documentation as recorded by the Arielle Drew Provider Scribe Attestation: All medical record entries made by the Zinaibe were at my direction and personally dictated by me. I have reviewed the chart and agree that the record accurately reflects my personal performance of the history, physical exam, medical decision making, and the department course for this patient. I have also personally directed, reviewed, and agree with the discharge instructions and disposition. Disposition/Present on Arrival - Present on Arrival Any Indicators Present on Arrival: No History of DVT/PE: No History of Uncontrolled Diabetes: No Urinary Catheter: No History of Decub. Ulcer: No History Surgical Site Infection Following: None - Disposition Have Diagnosis and Disposition been Completed?: Yes Diagnosis: Hyponatremia, Altered mental status Disposition: HOSPITALIZED Disposition Time: 07:53 Patient Plan: ICU Condition: IMPROVED
[2017-06-26] MEDS ORDERED: Pantoprazole 20 mg EC Tab PO SCH (07:30)
--- NOTE | 2017-06-26 09:36 | RAD ---
PROCEDURE: CHEST RADIOGRAPH, 1 VIEW HISTORY: Altered mental status COMPARISON: 06/16/2017. FINDINGS: LUNGS: The lungs are well inflated. There is airspace disease in the right lower lobe. PLEURA: No pneumothorax or pleural fluid seen. CARDIOVASCULAR: There is persistent moderate cardiomegaly. OSSEOUS STRUCTURES: No significant abnormalities. VISUALIZED UPPER ABDOMEN: Normal. OTHER FINDINGS: None. IMPRESSION: Airspace disease in the right lower lobe may represent atelectasis or pneumonia. Moderate cardiomegaly.
[2017-06-26 09:43] LABS: BLOOD UREA NITROGEN 21 mg/dL (7-21); CALCIUM 9.2 mg/dL (8.4-10.5); GFR AFRICAN-AMERICAN > 60; GFR NON-AFRICAN AMERICAN 58
--- NOTE | 2017-06-26 09:53 | CP.PCM.CON ---
History of Present Illness - History of Present Illness History of Present Illness: Critical Care Consult Note HPI Patient is 77yo male with PMhx of Prostate CA, CHF, Afib on A/C, HTN, presents from [place] for periods of confusion. Pt reports he has no major complaints, patient is AAOx3, NAD, comfortable. Pt denies fever, chills, cough, chest pain, sob, palpitations, DOHERTY, dizziness. Endorses ALAMO which is chronic, and LE edema. No other constitutional symptoms. Labs in the ER showed Na 115, given 3% saline 100cc. Repeat Na 117. PMHx as above PSHx as above Allergies NKDA Meds as per EMR ROS as above FHx NC Review of Systems - Review of Systems Review of Systems: as per HPI Past Patient History - Infectious Disease Hx of Infectious Diseases: None - Tetanus Immunizations Tetanus Immunization: Unknown - Past Social History Smoking Status: Never Smoked - CARDIAC Hx Cardiac Disorders: Yes (Afib) Hx Hypertension: Yes - PULMONARY Hx Respiratory Disorders: No - NEUROLOGICAL Hx Neurological Disorder: No - HEENT Hx HEENT Problems: No - RENAL Hx Chronic Kidney Disease: No - ENDOCRINE/METABOLIC Hx Endocrine Disorders: No - HEMATOLOGICAL/ONCOLOGICAL Hx Blood Disorders: No - INTEGUMENTARY Hx Dermatological Problems: No - MUSCULOSKELETAL/RHEUMATOLOGICAL Hx Musculoskeletal Disorders: Yes Hx Unsteady Gait: Yes - GASTROINTESTINAL Hx Gastrointestinal Disorders: No - GENITOURINARY/GYNECOLOGICAL Hx Genitourinary Disorders: No - PSYCHIATRIC Hx Depression: No Hx Emotional Abuse: No Hx Physical Abuse: No Hx Substance Use: No - SURGICAL HISTORY Hx Surgeries: No - ANESTHESIA Hx Anesthesia: No Meds Allergies/Adverse Reactions: Allergies Allergy/AdvReac Type Severity Reaction Status Date / Time No Known Allergies Allergy Verified 05/25/13 15:34 - Medications Medications: Current Medications Allopurinol (Zyloprim) 300 mg PO DAILY [facility] Apixaban (Eliquis) 2.5 mg PO BID [facility] PRN Reason: Protocol Aspirin (Ecotrin) 81 mg PO DAILY [facility] Atorvastatin Calcium (Lipitor) 40 mg PO DIN [facility] Bisacodyl (Dulcolax) 10 mg RC DAILY PRN PRN Reason: Constipation Digoxin (Digoxin) 0.125 mg PO 1400 [facility] Diltiazem HCl (Cardizem Cd) 240 mg PO DAILY [facility] Docusate Sodium (Colace) 100 mg PO TID [facility] Magnesium Oxide (Mag-Ox) 800 mg PO BID [facility] Metoprolol Tartrate (Lopressor) 50 mg PO BID [facility] Pantoprazole Sodium (Protonix Ec Tab) 20 mg PO ACB [facility] Last Admin: 06/26/17 07:37 Dose: 20 mg Polyethylene Glycol (Miralax) 17 gm PO BID [facility] Physical Exam - Constitutional Appears: Well, Non-toxic, No Acute Distress - Head Exam Head Exam: NORMAL INSPECTION - Eye Exam Eye Exam: Normal appearance - ENT Exam ENT Exam: Mucous Membranes Dry - Neck Exam Neck exam: Positive for: Full Rom - Respiratory Exam Respiratory Exam: Clear to Auscultation Bilateral, NORMAL BREATHING PATTERN - Cardiovascular Exam Cardiovascular Exam: REGULAR RHYTHM, +S1, +S2 - GI/Abdominal Exam GI & Abdominal Exam: Normal Bowel Sounds, Soft - Extremities Exam Extremities exam: Positive for: normal inspection - Neurological Exam Neurological exam: Alert, Oriented x3 Results - Vital Signs Recent Vital Signs: Last Vital Signs Temp 98.2 F 06/26/17 04:26 Pulse 88 06/26/17 08:59 Resp 18 06/26/17 08:59 BP 137/65 06/26/17 08:59 Pulse Ox 100 06/26/17 08:59 - Labs Result Diagrams: 06/26/17 04:45 06/26/17 09:20 Labs: Laboratory Results - last 24 hr 06/26/17 09:20 Sodium 117 L* Potassium 4.8 Chloride 84 L Carbon Dioxide 22 Anion Gap 17 BUN 21 Creatinine 1.2 Est GFR ( Amer) > 60 Est GFR (Non-Af Amer) 58 Random Glucose 83 Calcium 9.2 - Imaging and Cardiology Chest x-ray Status: Image reviewed by me, Report reviewed by me Assessment & Plan - Assessment and Plan (Free Text) Assessment: 77yo male a/w severe hyponatremia Hyponatremia Confusion Hx Prostate Ca Dehydration CHF, chronic Afib on A/C Recommend: - supp o2 as needed - pancutlure, BCx, UCx, Procal - BP control - resume A/C - Cardiology eval - IVF hydration, renal consult - check Ulytes, Cortisol level, TSH, Uric Acid - neuro checks - Q6hr BMP - RUQ sono - GI eval for elevated LFTs - GI ppx - DVT ppx - Monitor in MICU
[2017-06-26] MEDS ORDERED: Sodium Chloride 3% 500 ML IV SCH ×2 (10:00→10:53)
[2017-06-26] MEDS ORDERED: Vancomycin 1gm in NS 250ml 1 GM/250 ML BAG IVPB STA (10:01)
--- NOTE | 2017-06-26 10:05 | CARD ---
APPROVED REPORT EKG Measurement Heart [id number] <Conclusion> Atrial fibrillation Moderate Rate. ST_T Changes.
[2017-06-26 10:39] LABS: TROPONIN I 0.03 ng/mL
[2017-06-26] MEDS: Levalbuterol 0.63 MG/3 ML Inhal Soln UD IH SCH (10:56)
[2017-06-26 11:03] LABS: CK MB% 2.2 % (2.5-3.0); CK-MB 10.9 ng/mL (0.0-3.6)
--- NOTE | 2017-06-26 11:12 | CP.PCM.HP ---
History of Present Illness - History of Present Illness History of Present Illness: History and Physical for Dr. Street 77 year old male with past medical history of prostate cancer, CHF, A-fib on eliquis, and hypertension presents to the ED from retirement for altered mental status. According to retirement staff, patient had intermittent bouts of confusion and was sent to the ED. Patient was discovered to have severe hyponatremia and sent to the ICU. Upon examination, patient was alert and oriented x3. Patient states he was feeling fine and had no point of confusion. Patient denies chest pain, shortness of breath, nausea, vomiting, diarrhea, constipation, fever, chills, weight loss, syncope, numbness, tingling, changes in vision. PMH: prostate cancer, CHF, A-fib on eliquis, and hypertension Family history: Noncontributory Social History: Former smoker, former alcohol use. No illicit drug use Allergies: NKDA Medication: Reviewed, as per MAR Present on Admission - Present on Admission Any Indicators Present on Admission: No Review of Systems - Review of Systems Review of Systems: 12 point ROS as per HPI, otherwise negative. Past Patient History - Infectious Disease Hx of Infectious Diseases: None - Tetanus Immunizations Tetanus Immunization: Unknown - Past Social History Smoking Status: Never Smoked - CARDIAC Hx Cardiac Disorders: Yes (Afib) Hx Hypertension: Yes - PULMONARY Hx Respiratory Disorders: No - NEUROLOGICAL Hx Neurological Disorder: No - HEENT Hx HEENT Problems: No - RENAL Hx Chronic Kidney Disease: No - ENDOCRINE/METABOLIC Hx Endocrine Disorders: No - HEMATOLOGICAL/ONCOLOGICAL Hx Blood Disorders: No - INTEGUMENTARY Hx Dermatological Problems: No - MUSCULOSKELETAL/RHEUMATOLOGICAL Hx Musculoskeletal Disorders: Yes Hx Unsteady Gait: Yes - GASTROINTESTINAL Hx Gastrointestinal Disorders: No - GENITOURINARY/GYNECOLOGICAL Hx Genitourinary Disorders: No - PSYCHIATRIC Hx Depression: No Hx Emotional Abuse: No Hx Physical Abuse: No Hx Substance Use: No - SURGICAL HISTORY Hx Surgeries: No - ANESTHESIA Hx Anesthesia: No Meds Allergies/Adverse Reactions: Allergies Allergy/AdvReac Type Severity Reaction Status Date / Time No Known Allergies Allergy Verified 05/25/13 15:34 Physical Exam - Constitutional Appears: Non-toxic, No Acute Distress - Head Exam Head Exam: ATRAUMATIC, NORMAL INSPECTION, NORMOCEPHALIC - Eye Exam Eye Exam: EOMI, Normal appearance - ENT Exam ENT Exam: Mucous Membranes Moist, Normal Exam - Neck Exam Neck exam: Positive for: Normal Inspection. Negative for: Lymphadenopathy - Respiratory Exam Respiratory Exam: Decreased Breath Sounds, Rhonchi, NORMAL BREATHING PATTERN. absent: Rales, Wheezes - Cardiovascular Exam Cardiovascular Exam: RRR, +S1, +S2 - GI/Abdominal Exam GI & Abdominal Exam: Firm, Normal Bowel Sounds. absent: Rebound, Tenderness - Extremities Exam Extremities exam: Positive for: pedal edema (+1 edema b/l). Negative for: calf tenderness - Neurological Exam Neurological exam: Alert, CN II-XII Intact, Oriented x3 - Psychiatric Exam Psychiatric exam: Normal Affect, Normal Mood - Skin Skin Exam: Intact, Normal Color, Warm Results - Vital Signs Recent Vital Signs: Last Vital Signs Temp 98.2 F 06/26/17 04:26 Pulse 88 06/26/17 08:59 Resp 18 06/26/17 08:59 BP 137/65 06/26/17 08:59 Pulse Ox 100 06/26/17 08:59 - Labs Result Diagrams: 06/26/17 04:45 06/26/17 09:20 Labs: Laboratory Results - last 24 hr 06/26/17 06/26/17 09:20 10:12 Sodium 117 L* Cancelled Potassium 4.8 Cancelled Chloride 84 L Cancelled Carbon Dioxide 22 Cancelled Anion Gap 17 Cancelled BUN 21 Cancelled Creatinine 1.2 Est GFR ( Amer) > 60 Cancelled Est GFR (Non-Af Amer) 58 Cancelled Random Glucose 83 Cancelled Calcium 9.2 Cancelled Total Creatine Kinase 493 H Troponin I 0.03 Assessment & Plan - Assessment and Plan (Free Text) Plan: 77 year old male with past medical history of prostate cancer, CHF, A-fib on eliquis, and hypertension presents to the ED from retirement for altered mental status likely secondary to severe hyponatremia. Patient alert and oriented at bedside. Patient received hypertonic saline in the ED. Patient will be continued on hypertonic saline as to improve sodium levels at the rate of 0.5 -1/hr. We will consult nephrology for his hyponatremia. Will follow sodium levels q6h. Patient also found to have possible infiltrates on chest x-ray, will be started on empiric antibiotics for CAP. Cardiology to be consulted for a -fib. Patient also has a history of progressively worsening prostate cancer and will have oncology consulted. Will order chest/abdomen/pelvis CT to evaluate for worsening metastases. Patient also being followed by GI for acute elevation in transaminases. Continue current home medications at this time. We will continue to follow patient closely along with the ICU team. Santy, PGY-2
[2017-06-26] MEDS: diltiaZEM 240 mg/24 Hours CD Cap PO SCH (11:13)
[2017-06-26] MEDS: POLYETHYLENE GLYCOL 3350 17 GM/Dose PACKET PO SCH ×2 (11:19→17:17)
[2017-06-26] MEDS: Magnesium Oxide 400 mg Tab UD PO SCH ×2 (11:20→17:17)
[2017-06-26] MEDS: cefTRIAXone 2 GM IN NS 2 GM/100 ML BAG IVPB SCH (11:20)
--- NOTE | 2017-06-26 12:42 | CT ---
PROCEDURE: CT Chest, Abdomen and Pelvis without intravenous contrast HISTORY: PNEUMONIA/PROSTATE CA/HYPONATREMIA COMPARISON: 06/05/2017 TECHNIQUE: Radiation dose: Total exam DLP = 1100 mGy-cm. This CT exam was performed using one or more of the following dose reduction techniques: Automated exposure control, adjustment of the mA and/or kV according to patient size, and/or use of iterative reconstruction technique. FINDINGS: CT CHEST WITHOUT CONTRAST: LUNGS: There is focal consolidation at the right lung base adjacent to the pleural effusion MEDIASTINUM: Unremarkable. Normal caliber aorta and pulmonary arterial trunk. Normal size heart. LYMPH NODES: Unremarkable. PLEURA: Moderate size right pleural effusion BONES: Unremarkable. OTHER FINDINGS: None. CT ABDOMEN AND PELVIS: LIVER: Unremarkable. No gross lesion or ductal dilatation. GALLBLADDER AND BILE DUCTS: Unremarkable. PANCREAS: Unremarkable. No gross lesion or ductal dilatation. SPLEEN: Unremarkable. ADRENALS: Unremarkable. No mass. KIDNEYS AND URETERS: Unremarkable. No hydronephrosis. No solid mass. VASCULATURE: Unremarkable. No aortic aneurysm. BOWEL: Unremarkable. No obstruction. No gross mural thickening. APPENDIX: Normal appendix. PERITONEUM: Unremarkable. No free fluid. No free air. LYMPH NODES: Unremarkable. No enlarged lymph nodes. BLADDER: There is a Pettit catheter in the bladder. The bladder is decompressed REPRODUCTIVE: Unremarkable. BONES: There is bony sclerosis throughout the L1 vertebral body suspicious for metastatic disease. There is also a sclerotic lesion in the mid thoracic spine OTHER FINDINGS: None. IMPRESSION: Right lower lobe consolidation with moderate to large right pleural effusion. Sclerotic lesions in the spine consistent with metastatic disease.
--- NOTE | 2017-06-26 14:10 | HP ---
HISTORY OF PRESENT ILLNESS: The patient is transferred from [facility] because the patient was found to be confused with altered mental status. The patient was discharged to [facility] subacute rehab. According to the nurses and the triage notes and EMS and ambulance evaluation, EMS ambulance was called because the patient was found to be confused with altered mental status. According to the nurses' notes, according to the ER physician evaluation note, the patient presented with intermittent episodes of altered mental status and confusion. But when the patient came to the emergency room, the patient was back to baseline. LIVING WILL ADVANCE DIRECTIVE: None. HEIGHT: 5 feet 11. WEIGHT: 210. BMI 29.3. MEDICATIONS: Allopurinol 300 mg daily Eliquis 2.5 twice a day, Ecotrin 81 mg daily, Lipitor 40 mg daily, Dulcolax suppository 10 mg daily p.r.n., digoxin 0.125 daily, Cardizem CD 240 mg daily, Colace 100 mg three times a day, Lasix 40 mg daily, magnesium oxide 800 mg twice a day, Lopressor 50 mg twice a day, Zofran 4 mg q. p.r.n., Protonix 20 mg once or twice a day, MiraLax 17 g twice a day. SOCIAL HISTORY: Negative for smoking, alcohol, drug use, communicable or transmissible disease, occupational history. Occupational history is disabled. FAMILY HISTORY: Not available. 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, history of systolic congestive heart failure, history of hyponatremia, history of metastatic stage IV adenocarcinoma the prostate, history of hypertension, history of atrial fibrillation, history of leukopenia, history of hyperkalemia secondary to angiotensin receptor riky and PAUL-induced, history of hypovitaminosis D, history of nonischemic dilated cardiomyopathy with ejection fraction 20% and history of pulmonary arterial hypertension with right ventricular systolic pressure of 52 mmHg, history of concentric left ventricular hypertrophy, history of severely impaired left ventricle systolic function with global left ventricular hypokinesis, history of moderately dilated left and right atrium, history of decreased right ventricular systolic function, history of moderately thickened aortic and mitral valve, history of moderate mitral and tricuspid regurgitation, history of hyper and hypovolemic hyponatremia secondary to congestive heart failure and metastases adenocarcinoma of the prostate, history of syndrome of inappropriate antidiuretic hormone, history of hypertensive chronic kidney disease stage III, history of hypokalemia, hypomagnesemia, history of constipation, history of hyperuricemia, history of metastatic adenocarcinoma of the prostate with bone metastasis, status post lumbar 2 vertebral body biopsy, history of decompensated nonischemic dilated cardiomyopathy and decompensated systolic congestive heart failure, history of atrial fibrillation with rapid ventricle response, history of refractory slow resolving hyponatremia, history of anemia, history of elevated PSA of greater than 85, 90 and 97, history of transaminitis, history of hyperbilirubinemia, history of diffuse osteopenia and osteoporosis, history of questionable ileus, history of hypomagnesemia, history of status post acute kidney injury with underlying chronic kidney disease stage 3, history of cystoscopy and insertion of the 18-Yi two-way Pettit catheter with evacuation of clots and fulguration and retrograde pyelogram, history of abdominal distention, history of status post CAT scan guided lumber 2 vertebral body biopsy, history of hypervolemic hyponatremia secondary to congestive heart failure, history of syndrome of inappropriate antidiuretic hormone, history of dilated cardiomyopathy, history of bilateral lower extremity lymphedema secondary to pulmonary arterial hypertension and elevated right ventricular systolic pressure, history of constipation, history of global left ventricular hypokinesis, history of tricuspid regurgitation, mitral regurgitation, history of dilated left and right atrium, history of diffuse osseous metastases, history of cerebral cortical atrophy of the brain, history of centrilobular and paraseptal emphysema with atelectasis, history of cardiomegaly, history of anasarca, history of bilateral adrenal gland hypertrophy, history of right renal cyst, history of colonic diverticulosis, history of avascular necrosis of the femoral head, history of degenerative joint disease of the spine, history of retroperitoneal lymphadenopathy, history of gait dysfunction, history of deconditioning, history of urinary retention, history of stage IV prostate carcinoma with bone metastasis, history of inferolateral coronary ischemia, history of poor compliance, history of systolic congestive heart failure. PHYSICAL EXAMINATION: GENERAL: The patient was seen in the ICU bed 4. The patient is lying in the bed. The patient is comfortable. VITAL SIGNS: T-max 98.2. Telemetry shows atrial fibrillation, heart rate in 70s, 80s and 90s. Blood pressure is 152/98, 152/76, 142/90, 137/65; respirations 16-18, O2 sat 97-100% on nasal cannula. HEENT: Head examination normocephalic, atraumatic. HEENT examination shows pink conjunctivae. Anicteric sclerae. No oropharyngeal lesion. No jugular venous distention. CHEST: Kyphosis. LUNGS: Shows positive rhonchi, creps right more than the left. CARDIOVASCULAR: Shows S1, S2, irregular rhythm. Positive systolic murmur, right second costal space, left second intercostal space, left sternal border. ABDOMEN: Distended, protuberant, unable to appreciate any hepatosplenomegaly. No guarding. No rigidity. No rebound tenderness. GENITALIA: Male. Rectal examination is deferred. EXTREMITIES: Show 2+ pitting edema of the right lower extremity 1+ pitting edema of the left lower extremity. MUSCULOSKELETAL: Shows a body mass index of 29.3. Neurologically, at present, the patient is totally awake, alert, responsive, oriented to person, place and time. NEUROLOGIC: The patient is alert, awake, responsive, oriented x3. MUSCULOSKELETAL: Examination shows a body mass index of 29.3. Psychiatric examination negative for anxiety, depression. Negative for auditory or visual hallucination. DIAGNOSTICS: CBC shows WBC of 6.9, hemoglobin and hematocrit 12.8 and 36.3, platelet 191. Granulocytes 70% segs. PT 18.5, INR 1.5. Sodium 115, potassium 5.0, chloride 81, CO2 of 22, anion gap 17, BUN 32, creatinine 1.2. Repeat sodium is still low at 117, potassium 4.8, chloride 84, CO2 of 22, anion gap 17, BUN 21, calcium is 9.5, uric acid 3.8, magnesium 1.8, total bili 1.8, AST 145, ALT 42, alk phos 141, CPK 474. Troponin 0.03. Urine pH 6.0, specific gravity 1.010, trace protein, moderate blood, moderate leukocyte esterase. Bacteria. Urine drug screen negative. Digoxin 0.5. -Alcohol level negative. The patient had a chest x-ray and a head CT done, which was reviewed. EKG was also reviewed. The patient was seen in the emergency room by Dr. Hannah. The patient was started on the treatment in the emergency room. The patient was started on hypertonic saline by the ER physician and ER physician has requested. IMPRESSION AND PLAN: 1. Altered mental status with episodic confusion. 2. Severe symptomatic hyponatremia with altered mental status and episodic confusion. 3. Hypochloremic hyponatremia. 4. Mild prerenal kidney injury. 5. Hyperbilirubinemia. 6. Transaminitis. 7. Questionable obstructive jaundice with hyperbilirubinemia. 8. Questionable mild rhabdomyolysis with elevated CPK. 9. Indeterminate troponin. 10. Normocytic anemia. 11. Granulocytosis. 12. Mild coagulopathy. 14. Proteinuria, microscopic hematuria, pyuria, bacteriuria. 15. Atrial fibrillation with well controlled response with T-wave inversion. 16. Nonspecific ST changes with T-wave changes in lead I, II, aVL and V3-V6. 17. Healthcare-associated right lower lobe infiltrate pneumonia. 18. Cardiomegaly. 19. Healthcare-associated right lower lobe atelectasis, pneumonia and airspace disease. 20. Cerebral cortical atrophy of the brain. 21. Right basal ganglia, chronic lacunar infarct. 22. Intracranial arterial atherosclerosis. 23. Deconditioning. 24. History of stage IV metastatic prostate adenocarcinoma. 25. History of nonischemic dilated cardiomyopathy with ejection fraction of 20%. 26. Moderate mitral and tricuspid regurgitation. 27. Pulmonary arterial hypertension with elevated right ventricular systolic pressure. 28. Bilateral lower extremity lymphedema and venous stasis. 29. Abdominal distention, etiology undetermined. 30. History of ileus and constipation. 31. Hyperuricemia. 32. Eliquis-dependent atrial fibrillation. 33. Dyslipidemia. 34. Constipation. 35. Hypomagnesemia. Plan at this time, the patient is to be admitted to Intensive Care Unit. The patient has been ordered hepatitis panel, repeat basic metabolic panel every 6 hours. Repeat CMP daily. Repeat CPK. Repeat digoxin, LFTs, magnesium. Repeat CBC ordered. Blood, sputum, urine cultures ordered. CONSULTATION: 1. Cardiology. 2. Gastroenterology. 3. Hematology/Oncology. 4. Nephrology. CURRENT MEDICATIONS: 1. Cardizem CD 240 mg daily. 2. Colace 100 mg three times a day. 3. Digoxin 0.125 daily. 4. Doxycycline 100 mg p.o. q. 12. 5. Dulcolax 10 mg daily p.r.n. 6. Ecotrin 81 mg daily. 7. Eliquis 2.5 mg twice a day. 8. The patient's hypertonic saline was started at 3% hypertonic saline at 10 mL an hour. 9. Lipitor 40 mg daily. 10. Lopressor 50 mg twice a day. 11. Magnesium oxide 800 mg twice a day. 12. MiraLax 17 g twice a day. 13. Protonix 20 mg with breakfast, dinner. 14. The patient is ordered broad-spectrum IV antibiotic with Rocephin 2 g IV daily. 15. The patient is on 3% hypertonic at 10 mL an hour. 16. The patient was also given a dose of vancomycin 1 g stat. 17. The patient is on Xopenex nebulizer 0.63 mg every 6 hours. 18. Allopurinol 300 mg daily. CAT scan of the chest, abdomen, pelvis has been ordered for evaluation of pneumonia, prostate cancer, hyponatremia. Chest PT ordered. Repeat EKG ordered. Out of bed, LIV stockings, SCDs ordered. The patient's PT is already elevated at 18.4 with an INR of 1.6 with the patient is also started on DVT and GI prophylaxis at present. I have also spoken to the patient and the patient's son at length, Rakesh on phone number [phone]. I have explained to the patient and the patient's son about the patient's overall guarded to poor prognosis which they acknowledged, understand. I have also advised the patient's son to contact the social work professor for further management and further other issues which he acknowledged, understand. Dictated and electronically signed, not read. Benny Street MD
--- NOTE | 2017-06-26 14:52 | CP.PCM.CON ---
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 Current patient was on hypertonic saline his repeat sodium is 119 initially his sodium was 115. Stop hypertonic saline now. Resume low-salt diet with oral fluid fluid restriction 1000 m L per day. Monitor serum sodium every 6 hours. Avoid correction serum sodium more than 6-8 meq over 24 hours We'll consider resuming diuretics or Samsca tomorrow Check urine osm and urine sodium Hypertension control with meds as ordered. unable to tolerate losartan due to hyperkalemia. Monitor Input/Output, daily weights and renal function with basic metabolic panel supplement electrolytes as needed Avoid nephrotoxins/NSAIDs Glycemic control Further work up for as per primary team Thanks for allowing me to participate in care of your patient. Will follow patient with you. Please call if any Qs. d/w team. Dr Grupo Vital Office: [phone] Chief complaint low salt Reason for consultation is Hyponatremia HPI patient is 77-year-old male with history of chronic systolic CHF EF 20% also metastatic prostate cancer , BPH, recently seen for hyponatremia due to CHF and likely SIADH which was treated with samsca and and diuretic. Discharged to long term here with the acute change in mentaL status and low sodium of 115 hence renal consult was requested. Patient at this time Feels better.He denies shortness of breath nausea vomiting any pain in his stomach. Subjective/ROS: Noted events overnight. Patients feels okay. Denies chest pain, palpitation,improved shortness of breath, denies leg swelling. All other negative Except as mentioned in HPI. had bone biopsy by IR on 06/10/17 Showed metastatic adeno carcinoma of prostate Physical Examination: General Appearance: Comfortable, in no acute respiratory distress, co-operative . Vitals reviewed and noted as below Head; Atraumatic, normocephalic ENT: no ulcers no thrush. Tongue is midline. Oropharynx: no rash or ulcers. EYES: Pupils are equal, round and reactive to light accommodation. Eye muscles and extraocular movement intact. Sclera is anicteric. Neck; supple no lymphadenopathy, no thyromegaly or bruit Lungs: Normal respiratory rate/effort. Breath sounds reduced at base Heart: Normal rate. s1s2 normal. No rub or gallop. Extremities: RLE 1+ edema. No varicose veins Neurological: Patient is alert, awake and oriented to person, place and time. No focal deficit. Strength bilateral appropriate and equal Skin: Warm and dry. Normal turgor. No rash. Palpitation: Normal elasticity for age. Feets somewhat cool to touch Abdomen: Abdomen is soft. Bowel sounds +. There is no abdominal tenderness, no guarding/rigidity no organomegaly Psych: normal insight and normal affect/mood MSK: no joint tenderness or swelling. Digits and nails normal, no deformity : kidney or bladder not palpable. Has Pettit catheter in place Labs/imaging reviewed. Past medical history, past surgical history, family history, social history, allergy reviewed and noted as below Family hx: no hx of CKD. Rest non-contributory Past Patient History - Infectious Disease Hx of Infectious Diseases: None - Tetanus Immunizations Tetanus Immunization: Unknown - Past Social History Smoking Status: Never Smoked - CARDIAC Hx Cardiac Disorders: Yes (Afib) Hx Hypertension: Yes - PULMONARY Hx Respiratory Disorders: No - NEUROLOGICAL Hx Neurological Disorder: No - HEENT Hx HEENT Problems: No - RENAL Hx Chronic Kidney Disease: No - ENDOCRINE/METABOLIC Hx Endocrine Disorders: No - HEMATOLOGICAL/ONCOLOGICAL Hx Blood Disorders: No - INTEGUMENTARY Hx Dermatological Problems: No - MUSCULOSKELETAL/RHEUMATOLOGICAL Hx Musculoskeletal Disorders: Yes Hx Unsteady Gait: Yes - GASTROINTESTINAL Hx Gastrointestinal Disorders: No - GENITOURINARY/GYNECOLOGICAL Hx Genitourinary Disorders: No - PSYCHIATRIC Hx Depression: No Hx Emotional Abuse: No Hx Physical Abuse: No Hx Substance Use: No - SURGICAL HISTORY Hx Surgeries: No - ANESTHESIA Hx Anesthesia: No Meds Allergies/Adverse Reactions: Allergies Allergy/AdvReac Type Severity Reaction Status Date / Time No Known Allergies Allergy Verified 05/25/13 15:34 - Medications Medications: Current Medications Allopurinol (Zyloprim) 300 mg PO DAILY [facility] Last Admin: 06/26/17 11:13 Dose: 300 mg Apixaban (Eliquis) 2.5 mg PO BID [facility] PRN Reason: Protocol Aspirin (Ecotrin) 81 mg PO DAILY [facility] Last Admin: 06/26/17 11:14 Dose: 81 mg Atorvastatin Calcium (Lipitor) 40 mg PO DIN [facility] Bisacodyl (Dulcolax) 10 mg RC DAILY PRN PRN Reason: Constipation Digoxin (Digoxin) 0.125 mg PO 1400 [facility] Diltiazem HCl (Cardizem Cd) 240 mg PO DAILY [facility] Last Admin: 06/26/17 11:13 Dose: 240 mg Docusate Sodium (Colace) 100 mg PO TID [facility] Last Admin: 06/26/17 11:13 Dose: 100 mg Doxycycline Hyclate (Doryx) 100 mg PO Q12 [facility] PRN Reason: Protocol Ceftriaxone Sodium (Rocephin 2 Gm Ivpb) 2 gm in 100 mls @ 100 mls/hr IVPB DAILY [facility] PRN Reason: Protocol Last Admin: 06/26/17 11:20 Dose: 100 mls/hr Levalbuterol HCl (Xopenex) 0.63 mg IH [id number] [facility] Last Admin: 06/26/17 10:56 Dose: 0.63 mg Magnesium Oxide (Mag-Ox) 800 mg PO BID [facility] Last Admin: 06/26/17 11:20 Dose: 800 mg Metoprolol Tartrate (Lopressor) 50 mg PO BID [facility] Last Admin: 06/26/17 11:14 Dose: 50 mg Pantoprazole Sodium (Protonix Ec Tab) 20 mg PO ACBD [facility] Polyethylene Glycol (Miralax) 17 gm PO BID [facility] Last Admin: 06/26/17 11:19 Dose: 17 gm Results - Vital Signs Recent Vital Signs: Last Vital Signs Temp 98.2 F 06/26/17 04:26 Pulse 91 H 06/26/17 11:14 Resp 20 06/26/17 10:59 BP 149/99 H 06/26/17 11:14 Pulse Ox 100 06/26/17 08:59 - Labs Result Diagrams: 06/26/17 04:45 06/26/17 12:00 Labs: Laboratory Results - last 24 hr 06/26/17 06/26/17 06/26/17 09:20 10:12 12:00 Sodium 117 L* Cancelled 119 L* Potassium 4.8 Cancelled Chloride 84 L Cancelled Carbon Dioxide 22 Cancelled Anion Gap 17 Cancelled BUN 21 Cancelled Creatinine 1.2 Est GFR ( Amer) > 60 Cancelled Est GFR (Non-Af Amer) 58 Cancelled Random Glucose 83 Cancelled Calcium 9.2 Cancelled Total Creatine Kinase 493 H CK-MB (CK-2) 10.9 H CK-MB (CK-2) % 2.2 L Troponin I 0.03
[2017-06-26] MEDS: Digoxin 125 mcg (0.125 mg) Tab PO SCH (15:20)
[2017-06-26] MEDS: Pantoprazole 20 mg EC Tab PO SCH (15:31)
--- NOTE | 2017-06-26 15:56 | CON ---
DATE: 06/26/2017 REQUESTING PHYSICIAN: Benny Street MD. REASON FOR CONSULT: I have been asked to see this 77-year-old male who is admitted to the hospital for change in mental status at the senior living. The patient had bouts of confusion at the senior living and sent to the emergency room. There is no report of loss of consciousness. The patient was discharged from the hospital 10 days ago after an admission for atrial fibrillation with rapid ventricular response and congestive heart failure. He currently denies any shortness of breath, but does admit to some pedal edema. Routine blood work in the emergency room showed the patient to be severely hyponatremic with a sodium of 115. He was also noted to have elevated liver enzymes. He currently denies any abdominal pain, nausea, vomiting, melena or rectal bleeding. PAST MEDICAL HISTORY: Notable for atrial fibrillation, on Eliquis; congestive heart failure; hypertension and prostate cancer with diffuse bone metastasis. SOCIAL HISTORY: The patient is a former cigarette smoker and alcohol user. He is domiciled at a senior living. FAMILY HISTORY: Noncontributory. REVIEW OF SYSTEMS: Fourteen-point review of systems is notable for confusion and pedal edema. PHYSICAL EXAMINATION: GENERAL: Elderly male, lying in bed, in no acute distress. VITAL SIGNS: Reveal temperature of 98.2, blood pressure 149/99, heart rate 91. HEENT: Reveal sclerae to be white. Conjunctivae pink. NECK: Supple. CHEST: Reveal lungs to be clear. HEART: Exam reveals an irregularly irregular rate. ABDOMEN: Soft, nontender. EXTREMITIES: Show 1+ pedal edema with chronic venous stasis changes. LABORATORY DATA: Reveals white blood cell count 6.9, hemoglobin 12.8. Chemistries reveal on admission to the hospital, sodium of 115, chloride of 84, bicarb of 22, BUN 21, creatinine 1.2, total bilirubin 1.8, AST 145, ALT 82, alkaline phosphatase of 141. CT scan of the abdomen and pelvis showed no masses or abnormal bile ducts on CAT scan on previous admission. He did have suggestion of bone metastasis with sclerotic changes to the bone. IMPRESSION: 1. Elevated liver enzymes, most likely secondary to passive congestion of the liver. An echocardiogram performed on his most recent hospitalization showed a dilated left ventricle with an ejection fraction of only 20%. 2. Hyponatremia. 3. Atrial fibrillation. 4. Cardiomyopathy with ejection fraction of 20%. RECOMMENDATIONS: 1. I would follow liver enzymes. 2. Check hepatitis serology. The patient's long-term prognosis is guarded. Jhon Meza MD
[2017-06-26 16:35] LABS: HEPATITIS B SURFACE AG Negative (NEGATIVE)
[2017-06-26 16:41] LABS: HEPATITIS A IGM NEGATIVE (NEGATIVE); HEPATITIS B CORE AB NEGATIVE (NEGATIVE)
[2017-06-26] MEDS ORDERED: Levalbuterol 0.63 MG/3 ML Inhal Soln UD IH PRN (16:44)
[2017-06-26 16:52] LABS: HEPATITIS C ANTIBODY NEGATIVE (NEGATIVE)
[2017-06-26 16:55] LABS: TROPONIN I 0.02 ng/mL
[2017-06-26 17:12] LABS: CK MB% 2.5 % (2.5-3.0); CK-MB 11.1 ng/mL (0.0-3.6)
--- NOTE | 2017-06-26 18:02 | CP.PCM.CON ---
History of Present Illness - History of Present Illness History of Present Illness: 77 year old male with a history of CHF, afib on Eliquis, stage IV hormone naive prostate cancer diagnosed 05/2017, admitted with AMS from rehab, found to have hyponatremia. The patient was recently discharged after being found to have diffuse bone lesions s/p percutaneous biopsy confirming metastatic prostate cancer. He is conversational but his mental status is not like his prior admission. It appears his sodium is improving. He does have some conversational dyspnea. Past medical history: CHF, afib Past surgical history: None Family history: Father had throat cancer Social history: Former 1/2ppd x 50 years, former alcohol, denies illicit drug use. Allergies: NKA Review of systems: All remaining review of systems including HEENT, cardiovascular, respiratory, gastrointestinal, genitourinary, musculoskeletal, dermatologic, neurologic and psychiatric are negative unless mentioned in the HPI. Past Patient History - Infectious Disease Hx of Infectious Diseases: None - Tetanus Immunizations Tetanus Immunization: Unknown - Past Social History Smoking Status: Never Smoked - CARDIAC Hx Cardiac Disorders: Yes (Afib) Hx Hypertension: Yes - PULMONARY Hx Respiratory Disorders: No - NEUROLOGICAL Hx Neurological Disorder: No - HEENT Hx HEENT Problems: No - RENAL Hx Chronic Kidney Disease: No - ENDOCRINE/METABOLIC Hx Endocrine Disorders: No - HEMATOLOGICAL/ONCOLOGICAL Hx Blood Disorders: No - INTEGUMENTARY Hx Dermatological Problems: No - MUSCULOSKELETAL/RHEUMATOLOGICAL Hx Musculoskeletal Disorders: Yes Hx Unsteady Gait: Yes - GASTROINTESTINAL Hx Gastrointestinal Disorders: No - GENITOURINARY/GYNECOLOGICAL Hx Genitourinary Disorders: No - PSYCHIATRIC Hx Depression: No Hx Emotional Abuse: No Hx Physical Abuse: No Hx Substance Use: No - SURGICAL HISTORY Hx Surgeries: No - ANESTHESIA Hx Anesthesia: No Meds Allergies/Adverse Reactions: Allergies Allergy/AdvReac Type Severity Reaction Status Date / Time No Known Allergies Allergy Verified 05/25/13 15:34 - Medications Medications: Current Medications Allopurinol (Zyloprim) 300 mg PO DAILY [facility] Last Admin: 06/26/17 11:13 Dose: 300 mg Apixaban (Eliquis) 2.5 mg PO BID [facility] PRN Reason: Protocol Last Admin: 06/26/17 17:18 Dose: 2.5 mg Aspirin (Ecotrin) 81 mg PO DAILY [facility] Last Admin: 06/26/17 11:14 Dose: 81 mg Atorvastatin Calcium (Lipitor) 40 mg PO DIN [facility] Last Admin: 06/26/17 17:18 Dose: 40 mg Bisacodyl (Dulcolax) 10 mg RC DAILY PRN PRN Reason: Constipation Digoxin (Digoxin) 0.125 mg PO 1400 [facility] Last Admin: 06/26/17 15:20 Dose: 0.125 mg Diltiazem HCl (Cardizem Cd) 240 mg PO DAILY [facility] Last Admin: 06/26/17 11:13 Dose: 240 mg Docusate Sodium (Colace) 100 mg PO TID [facility] Last Admin: 06/26/17 17:17 Dose: 100 mg Doxycycline Hyclate (Doryx) 100 mg PO Q12 [facility] PRN Reason: Protocol Last Admin: 06/26/17 15:17 Dose: 100 mg Ceftriaxone Sodium (Rocephin 2 Gm Ivpb) 2 gm in 100 mls @ 100 mls/hr IVPB DAILY [facility] PRN Reason: Protocol Last Admin: 06/26/17 11:20 Dose: 100 mls/hr Levalbuterol HCl (Xopenex) 0.63 mg IH [id number] [facility] Last Admin: 06/26/17 10:56 Dose: 0.63 mg Levalbuterol HCl (Xopenex) 0.63 mg IH Q2H PRN PRN Reason: Shortness of Breath Magnesium Oxide (Mag-Ox) 800 mg PO BID [facility] Last Admin: 06/26/17 17:17 Dose: 800 mg Metoprolol Tartrate (Lopressor) 50 mg PO BID [facility] Last Admin: 06/26/17 17:18 Dose: 50 mg Pantoprazole Sodium (Protonix Ec Tab) 20 mg PO ACBD [facility] Last Admin: 06/26/17 15:31 Dose: 20 mg Polyethylene Glycol (Miralax) 17 gm PO BID [facility] Last Admin: 06/26/17 17:17 Dose: 17 gm Physical Exam - Head Exam Head Exam: ATRAUMATIC - Eye Exam Eye Exam: Normal appearance - ENT Exam ENT Exam: Mucous Membranes Dry - Respiratory Exam Respiratory Exam: Decreased Breath Sounds - Cardiovascular Exam Cardiovascular Exam: +S1, +S2 - GI/Abdominal Exam GI & Abdominal Exam: Normal Bowel Sounds - Extremities Exam Extremities exam: Positive for: pedal edema - Neurological Exam Neurological exam: Altered - Psychiatric Exam Psychiatric exam: Normal Affect, Normal Mood - Skin Skin Exam: Warm Results - Vital Signs Recent Vital Signs: Last Vital Signs Temp 98.2 F 06/26/17 04:26 Pulse 64 06/26/17 17:35 Resp 27 H 06/26/17 17:21 BP 118/67 06/26/17 17:18 Pulse Ox 100 06/26/17 08:59 - Labs Result Diagrams: 06/26/17 04:45 06/26/17 20:55 Labs: Laboratory Results - last 24 hr 06/26/17 06/26/17 06/26/17 09:20 10:12 12:00 Sodium 117 L* Cancelled 119 L* Potassium 4.8 Cancelled Chloride 84 L Cancelled Carbon Dioxide 22 Cancelled Anion Gap 17 Cancelled BUN 21 Cancelled Creatinine 1.2 Est GFR ( Amer) > 60 Cancelled Est GFR (Non-Af Amer) 58 Cancelled Random Glucose 83 Cancelled Calcium 9.2 Cancelled Total Creatine Kinase 493 H CK-MB (CK-2) 10.9 H CK-MB (CK-2) % 2.2 L Troponin I 0.03 06/26/17 06/26/17 16:25 17:56 Sodium Cancelled 120 L Potassium Cancelled Chloride Cancelled Carbon Dioxide Cancelled Anion Gap Cancelled BUN Cancelled Creatinine Est GFR ( Amer) Cancelled Est GFR (Non-Af Amer) Cancelled Random Glucose Cancelled Calcium Cancelled Total Creatine Kinase 436 H CK-MB (CK-2) 11.1 H CK-MB (CK-2) % 2.5 Troponin I 0.02 D Assessment & Plan (1) Anemia Assessment and Plan: Prior w/u consistent with anemia of chronic disease and bone marrow metastasis Status: Acute (2) Prostate cancer Assessment and Plan: stage IV with bone metastasis hormone naive will start peripheral androgen blockage with Casodex daily central androgen blockade to be added in about 2 weeks. Thank you for this interesting consult. Status: Acute
[2017-06-27] MEDS: Levalbuterol 0.63 MG/3 ML Inhal Soln UD IH SCH ×4 (03:38→20:30)
[2017-06-27 06:47] LABS: BASO # 0.01 K/mm3 (0.0-2.0); BASO % 0.2 % (0.0-3.0); EOS # 0.1 (0.0-0.7); EOS % 0.9 % (1.5-5.0); GRAN # 4.33 (1.4-6.5); GRAN % 68.4 % (50.0-68.0); HEMOGLOBIN 13.1 g/dL (14.0-18.0); LYMPH # 1.1 (1.2-3.4); LYMPH % 17.2 % (22.0-35.0); MEAN CELL VOLUME 81.5 fl (80.0-105.0); MEAN CORPUSCULAR HEMOGLOBIN 28.2 pg (25.0-35.0); MEAN CORPUSCULAR HGB CONC 34.6 g/dl (31.0-37.0); MEAN PLATELET VOLUME 9.6 fl (7.0-11.0); MONO # 0.8 (0.1-0.6); MONO % 13.3 % (1.0-6.0); RBC 4.65 10^6/uL (3.5-6.1); RED CELL DISTRIBUTION WIDTH 14.6 % (11.5-14.5); WHITE BLOOD COUNT 6.3 10^3/ul (4.5-11.0)
[2017-06-27 07:01] LABS: ALB/GLOB RATIO 0.9 (1.1-1.8); ALBUMIN 3.4 g/dL (3.0-4.8); ALT/SGPT 72 U/L (7-56); AST/SGOT 115 U/L (17-59); BILIRUBIN,DIRECT 1.2 mg/dL (0.0-0.4); BLOOD UREA NITROGEN 18 mg/dL (7-21); CALCIUM 9.5 mg/dL (8.4-10.5); GFR AFRICAN-AMERICAN > 60; GFR NON-AFRICAN AMERICAN > 60
[2017-06-27] MEDS: Pantoprazole 20 mg EC Tab PO SCH ×2 (08:26→17:24)
--- NOTE | 2017-06-27 09:00 | CP.CCUPN ---
<Mónica Taylor - Last Filed: 06/27/17 09:49> CCU Subjective - Physician Review Subjective (Free Text): 06/27/17 09:51 Patient seen and examined at bedside. No acute events overnight as per nurse. Pt has no complaints at this time. Patient reports last bowel movement was yesterday; soft, nonbloody. Denies fever, headache, cp, abdominal pain, N&V, and diarrhea. Pettit in place, draining urine. Admits to shortness of breath. Critical Care Time Spent (in minutes): 45 CCU Objective - Vital Signs / Intake & Output Vital Signs (Last 4 hours): Vital Signs Temp Pulse Resp Pulse Ox 06/27/17 08:00 97.2 F L 83 21 06/27/17 07:58 75 16 06/27/17 07:57 74 16 06/27/17 07:56 74 15 06/27/17 07:55 78 17 06/27/17 07:54 80 18 06/27/17 07:53 70 16 06/27/17 07:52 77 17 06/27/17 07:51 79 20 06/27/17 07:50 79 19 06/27/17 07:49 71 18 06/27/17 07:48 80 19 06/27/17 07:47 77 17 06/27/17 07:46 72 16 06/27/17 07:17 66 15 06/27/17 07:16 66 14 06/27/17 07:15 66 14 06/27/17 07:14 81 18 06/27/17 07:13 73 17 06/27/17 07:00 74 15 97 06/27/17 06:12 73 19 06/27/17 06:11 76 21 06/27/17 06:10 77 25 H 06/27/17 06:09 75 19 06/27/17 06:08 71 23 06/27/17 06:07 69 20 06/27/17 06:06 73 19 06/27/17 06:05 65 16 06/27/17 06:04 66 14 06/27/17 06:03 68 17 06/27/17 06:02 64 15 06/27/17 06:01 67 16 06/27/17 06:00 67 17 06/27/17 05:59 70 19 06/27/17 05:58 67 15 06/27/17 05:57 65 14 06/27/17 05:56 72 15 06/27/17 05:55 61 15 06/27/17 05:54 66 15 06/27/17 05:53 68 14 06/27/17 05:52 64 14 06/27/17 05:51 75 17 06/27/17 05:50 66 15 06/27/17 05:49 67 24 06/27/17 05:48 71 16 06/27/17 05:47 59 L 15 06/27/17 05:46 70 17 06/27/17 05:45 67 18 06/27/17 05:44 62 15 06/27/17 05:43 76 23 Intake and Output (Last 8hrs): Intake & Output 06/26/17 06/27/17 06/27/17 22:59 06:59 14:59 Intake Total 1300 Output Total 1700 Balance -400 Intake: IV 650 Right Wrist 650 Oral 650 Output: Urine 1700 Urethral (Pettit) 1700 - Physical Exam Head: Positive for: Atraumatic, Normocephalic Pupils: Positive for: PERRL Extroacular Muscles: Positive for: EOMI Conjunctiva: Positive for: Normal Mouth: Positive for: Moist Mucous Membranes Neck: Positive for: Normal Range of Motion Respiratory/Chest: Positive for: Wheezes (thoughout), Decreased Breath Sounds ( reena, right worst than left. ). Negative for: Clear to Auscultation, Respiratory Distress, Accessory Muscle Use, Rales, Retracting, Rhonchi, Tachypneic, Tender to Palpation Cardiovascular: Positive for: Normal S1, S2, Irregular Rhythm. Negative for: Regular Rate and Rhythm, Murmurs, Tachycardic, Bradycardic, Rub, Gallop Abdomen: Positive for: Distention (edematous. ), Normal Bowel Sounds. Negative for: Tenderness, Peritoneal Signs, Rebound Back: Positive for: Normal Inspection Upper Extremity: Positive for: Normal Inspection. Negative for: Cyanosis, Edema Lower Extremity: Positive for: Edema (worst on the right. ) Neurological: Positive for: GCS=15, CN II-XII Intact, Speech Normal Skin: Positive for: Warm, Dry, Normal Color. Negative for: Rashes Psychiatric: Positive for: Alert, Oriented x 3, Normal Insight, Normal Concentration - Medications Active Medications: Active Medications Generic Name Dose Route Start Last Admin Trade Name Freq PRN Reason Stop Dose Admin Allopurinol 300 mg 06/26/17 10:00 06/26/17 11:13 Zyloprim PO 300 mg DAILY NIGEL Administration Apixaban 2.5 mg 06/26/17 10:00 06/26/17 17:18 Eliquis PO 2.5 mg BID NIGEL Administration Protocol Aspirin 81 mg 06/26/17 10:00 06/26/17 11:14 Ecotrin PO 81 mg DAILY NIGEL Administration Atorvastatin Calcium 40 mg 06/26/17 17:00 06/26/17 17:18 Lipitor PO 40 mg DIN NIGEL Administration Bicalutamide 50 mg 06/27/17 10:00 Casodex PO DAILY NIGEL Bisacodyl 10 mg 06/26/17 06:46 Dulcolax RC DAILY PRN Constipation Digoxin 0.125 mg 06/26/17 14:00 06/26/17 15:20 Digoxin PO 0.125 mg 1400 NIGEL Administration Diltiazem HCl 240 mg 06/26/17 10:00 06/26/17 11:13 Cardizem Cd PO 240 mg DAILY NIGEL Administration Docusate Sodium 100 mg 06/26/17 10:00 06/26/17 17:17 Colace PO 100 mg TID NIGEL Administration Doxycycline Hyclate 100 mg 06/26/17 10:00 06/26/17 21:15 Doryx PO 100 mg Q12 NIGEL Administration Protocol Ceftriaxone Sodium 2 gm in 100 mls @ 100 mls/hr 06/26/17 10:00 06/26/17 11:20 Rocephin 2 Gm Ivpb IVPB 06/30/17 10:59 100 mls/hr DAILY NIGEL Administration Protocol Levalbuterol HCl 0.63 mg 06/26/17 10:30 06/27/17 07:24 Xopenex IH 0.63 mg [id number] NIGEL Administration Levalbuterol HCl 0.63 mg 06/26/17 16:44 Xopenex IH Q2H PRN Shortness of Breath Magnesium Oxide 800 mg 06/26/17 10:00 06/26/17 17:17 Mag-Ox PO 800 mg BID NIGEL Administration Metoprolol Tartrate 50 mg 06/26/17 10:00 06/26/17 17:18 Lopressor PO 50 mg BID NIGEL Administration Pantoprazole Sodium 20 mg 06/26/17 16:30 06/27/17 08:26 Protonix Ec Tab PO 20 mg ACBD NIGEL Administration Polyethylene Glycol 17 gm 06/26/17 10:00 06/26/17 17:17 Miralax PO 17 gm BID NIGEL Administration - Patient Studies Lab Studies: Lab Studies 06/27/17 06/27/17 06/27/17 Range/Units 06:08 06:08 06:08 WBC 6.3 (4.5-11.0) 10^3/ul RBC 4.65 (3.5-6.1) 10^6/uL Hgb 13.1 L (14.0-18.0) g/dL Hct 37.9 L (42.0-52.0) % MCV 81.5 (80.0-105.0) fl MCH 28.2 (25.0-35.0) pg MCHC 34.6 (31.0-37.0) g/dl RDW 14.6 H (11.5-14.5) % Plt Count 177 (120.0-450.0) 10^3/uL MPV 9.6 (7.0-11.0) fl Gran % 68.4 H (50.0-68.0) % Lymph % (Auto) 17.2 L (22.0-35.0) % [place] % (Auto) 13.3 H (1.0-6.0) % Eos % (Auto) 0.9 L (1.5-5.0) % Baso % (Auto) 0.2 (0.0-3.0) % Gran # 4.33 (1.4-6.5) Lymph # (Auto) 1.1 L (1.2-3.4) [place] # (Auto) 0.8 H (0.1-0.6) Eos # (Auto) 0.1 (0.0-0.7) Baso # (Auto) 0.01 (0.0-2.0) K/mm3 Sodium 120 L (132-148) mmol/L Potassium 4.8 (3.6-5.0) mmol/L Chloride 86 L (98-107) mmol/L Carbon Dioxide 24 (21-33) mmol/L Anion Gap 14 (10-20) BUN 18 (7-21) mg/dL Creatinine 1.1 (0.8-1.5) mg/dl Est GFR ( Amer) > 60 Est GFR (Non-Af Amer) > 60 Random Glucose 92 (70-110) mg/dL Calcium 9.5 (8.4-10.5) mg/dL Magnesium 2.0 (1.7-2.2) mg/dL Total Bilirubin 1.9 H (0.2-1.3) mg/dL Direct Bilirubin 1.2 H (0.0-0.4) mg/dL AST 115 H D (17-59) U/L ALT 72 H (7-56) U/L Alkaline Phosphatase 142 H (38-126) U/L Total Creatine Kinase (35-230) U/L CK-MB (CK-2) (0.0-3.6) ng/mL CK-MB (CK-2) % (2.5-3.0) % Troponin I ng/mL Total Protein 7.0 (5.8-8.3) g/dL Albumin 3.4 (3.0-4.8) g/dL Globulin 3.6 gm/dL Albumin/Globulin Ratio 0.9 L (1.1-1.8) Digoxin 0.7 L (0.8-2.0) ng/mL 06/27/17 06/26/17 06/26/17 Range/Units 00:30 20:55 17:56 WBC (4.5-11.0) 10^3/ul RBC (3.5-6.1) 10^6/uL Hgb (14.0-18.0) g/dL Hct (42.0-52.0) % MCV (80.0-105.0) fl MCH (25.0-35.0) pg MCHC (31.0-37.0) g/dl RDW (11.5-14.5) % Plt Count (120.0-450.0) 10^3/uL MPV (7.0-11.0) fl Gran % (50.0-68.0) % Lymph % (Auto) (22.0-35.0) % [place] % (Auto) (1.0-6.0) % Eos % (Auto) (1.5-5.0) % Baso % (Auto) (0.0-3.0) % Gran # (1.4-6.5) Lymph # (Auto) (1.2-3.4) [place] # (Auto) (0.1-0.6) Eos # (Auto) (0.0-0.7) Baso # (Auto) (0.0-2.0) K/mm3 Sodium 121 L 120 L 120 L (132-148) mmol/L Potassium (3.6-5.0) mmol/L Chloride (98-107) mmol/L Carbon Dioxide (21-33) mmol/L Anion Gap (10-20) BUN (7-21) mg/dL Creatinine (0.8-1.5) mg/dl Est GFR ( Amer) Est GFR (Non-Af Amer) Random Glucose (70-110) mg/dL Calcium (8.4-10.5) mg/dL Magnesium (1.7-2.2) mg/dL Total Bilirubin (0.2-1.3) mg/dL Direct Bilirubin (0.0-0.4) mg/dL AST (17-59) U/L ALT (7-56) U/L Alkaline Phosphatase (38-126) U/L Total Creatine Kinase (35-230) U/L CK-MB (CK-2) (0.0-3.6) ng/mL CK-MB (CK-2) % (2.5-3.0) % Troponin I ng/mL Total Protein (5.8-8.3) g/dL Albumin (3.0-4.8) g/dL Globulin gm/dL Albumin/Globulin Ratio (1.1-1.8) Digoxin (0.8-2.0) ng/mL 06/26/17 06/26/17 06/26/17 Range/Units 16:25 12:00 10:12 WBC (4.5-11.0) 10^3/ul RBC (3.5-6.1) 10^6/uL Hgb (14.0-18.0) g/dL Hct (42.0-52.0) % MCV (80.0-105.0) fl MCH (25.0-35.0) pg MCHC (31.0-37.0) g/dl RDW (11.5-14.5) % Plt Count (120.0-450.0) 10^3/uL MPV (7.0-11.0) fl Gran % (50.0-68.0) % Lymph % (Auto) (22.0-35.0) % [place] % (Auto) (1.0-6.0) % Eos % (Auto) (1.5-5.0) % Baso % (Auto) (0.0-3.0) % Gran # (1.4-6.5) Lymph # (Auto) (1.2-3.4) [place] # (Auto) (0.1-0.6) Eos # (Auto) (0.0-0.7) Baso # (Auto) (0.0-2.0) K/mm3 Sodium Cancelled 119 L* Cancelled (132-148) mmol/L Potassium Cancelled Cancelled (3.6-5.0) mmol/L Chloride Cancelled Cancelled (98-107) mmol/L Carbon Dioxide Cancelled Cancelled (21-33) mmol/L Anion Gap Cancelled Cancelled (10-20) BUN Cancelled Cancelled (7-21) mg/dL Creatinine (0.8-1.5) mg/dl Est GFR ( Amer) Cancelled Cancelled Est GFR (Non-Af Amer) Cancelled Cancelled Random Glucose Cancelled Cancelled (70-110) mg/dL Calcium Cancelled Cancelled (8.4-10.5) mg/dL Magnesium (1.7-2.2) mg/dL Total Bilirubin (0.2-1.3) mg/dL Direct Bilirubin (0.0-0.4) mg/dL AST (17-59) U/L ALT (7-56) U/L Alkaline Phosphatase (38-126) U/L Total Creatine Kinase 436 H 493 H (35-230) U/L CK-MB (CK-2) 11.1 H 10.9 H (0.0-3.6) ng/mL CK-MB (CK-2) % 2.5 2.2 L (2.5-3.0) % Troponin I 0.02 D 0.03 ng/mL Total Protein (5.8-8.3) g/dL Albumin (3.0-4.8) g/dL Globulin gm/dL Albumin/Globulin Ratio (1.1-1.8) Digoxin (0.8-2.0) ng/mL 06/26/17 Range/Units 09:20 WBC (4.5-11.0) 10^3/ul RBC (3.5-6.1) 10^6/uL Hgb (14.0-18.0) g/dL Hct (42.0-52.0) % MCV (80.0-105.0) fl MCH (25.0-35.0) pg MCHC (31.0-37.0) g/dl RDW (11.5-14.5) % Plt Count (120.0-450.0) 10^3/uL MPV (7.0-11.0) fl Gran % (50.0-68.0) % Lymph % (Auto) (22.0-35.0) % [place] % (Auto) (1.0-6.0) % Eos % (Auto) (1.5-5.0) % Baso % (Auto) (0.0-3.0) % Gran # (1.4-6.5) Lymph # (Auto) (1.2-3.4) [place] # (Auto) (0.1-0.6) Eos # (Auto) (0.0-0.7) Baso # (Auto) (0.0-2.0) K/mm3 Sodium 117 L* (132-148) mmol/L Potassium 4.8 (3.6-5.0) mmol/L Chloride 84 L (98-107) mmol/L Carbon Dioxide 22 (21-33) mmol/L Anion Gap 17 (10-20) BUN 21 (7-21) mg/dL Creatinine 1.2 (0.8-1.5) mg/dl Est GFR ( Amer) > 60 Est GFR (Non-Af Amer) 58 Random Glucose 83 (70-110) mg/dL Calcium 9.2 (8.4-10.5) mg/dL Magnesium (1.7-2.2) mg/dL Total Bilirubin (0.2-1.3) mg/dL Direct Bilirubin (0.0-0.4) mg/dL AST (17-59) U/L ALT (7-56) U/L Alkaline Phosphatase (38-126) U/L Total Creatine Kinase (35-230) U/L CK-MB (CK-2) (0.0-3.6) ng/mL CK-MB (CK-2) % (2.5-3.0) % Troponin I ng/mL Total Protein (5.8-8.3) g/dL Albumin (3.0-4.8) g/dL Globulin gm/dL Albumin/Globulin Ratio (1.1-1.8) Digoxin (0.8-2.0) ng/mL Laboratory Results - last 24 hr 06/26/17 06/26/17 06/26/17 09:20 10:12 12:00 WBC RBC Hgb Hct MCV MCH MCHC RDW Plt Count MPV Gran % Lymph % (Auto) [place] % (Auto) Eos % (Auto) Baso % (Auto) Gran # Lymph # (Auto) [place] # (Auto) Eos # (Auto) Baso # (Auto) Sodium 117 L* Cancelled 119 L* Potassium 4.8 Cancelled Chloride 84 L Cancelled Carbon Dioxide 22 Cancelled Anion Gap 17 Cancelled BUN 21 Cancelled Creatinine 1.2 Est GFR ( Amer) > 60 Cancelled Est GFR (Non-Af Amer) 58 Cancelled Random Glucose 83 Cancelled Calcium 9.2 Cancelled Magnesium Total Bilirubin Direct Bilirubin AST ALT Alkaline Phosphatase Total Creatine Kinase 493 H CK-MB (CK-2) 10.9 H CK-MB (CK-2) % 2.2 L Troponin I 0.03 Total Protein Albumin Globulin Albumin/Globulin Ratio Digoxin 06/26/17 06/26/17 06/26/17 16:25 17:56 20:55 WBC RBC Hgb Hct MCV MCH MCHC RDW Plt Count MPV Gran % Lymph % (Auto) [place] % (Auto) Eos % (Auto) Baso % (Auto) Gran # Lymph # (Auto) [place] # (Auto) Eos # (Auto) Baso # (Auto) Sodium Cancelled 120 L 120 L Potassium Cancelled Chloride Cancelled Carbon Dioxide Cancelled Anion Gap Cancelled BUN Cancelled Creatinine Est GFR ( Amer) Cancelled Est GFR (Non-Af Amer) Cancelled Random Glucose Cancelled Calcium Cancelled Magnesium Total Bilirubin Direct Bilirubin AST ALT Alkaline Phosphatase Total Creatine Kinase 436 H CK-MB (CK-2) 11.1 H CK-MB (CK-2) % 2.5 Troponin I 0.02 D Total Protein Albumin Globulin Albumin/Globulin Ratio Digoxin 06/27/17 06/27/17 06/27/17 00:30 06:08 06:08 WBC 6.3 RBC 4.65 Hgb 13.1 L Hct 37.9 L MCV 81.5 MCH 28.2 MCHC 34.6 RDW 14.6 H Plt Count 177 MPV 9.6 Gran % 68.4 H Lymph % (Auto) 17.2 L [place] % (Auto) 13.3 H Eos % (Auto) 0.9 L Baso % (Auto) 0.2 Gran # 4.33 Lymph # (Auto) 1.1 L [place] # (Auto) 0.8 H Eos # (Auto) 0.1 Baso # (Auto) 0.01 Sodium 121 L 120 L Potassium 4.8 Chloride 86 L Carbon Dioxide 24 Anion Gap 14 BUN 18 Creatinine 1.1 Est GFR ( Amer) > 60 Est GFR (Non-Af Amer) > 60 Random Glucose 92 Calcium 9.5 Magnesium 2.0 Total Bilirubin 1.9 H Direct Bilirubin 1.2 H AST 115 H D ALT 72 H Alkaline Phosphatase 142 H Total Creatine Kinase CK-MB (CK-2) CK-MB (CK-2) % Troponin I Total Protein 7.0 Albumin 3.4 Globulin 3.6 Albumin/Globulin Ratio 0.9 L Digoxin 06/27/17 06:08 WBC RBC Hgb Hct MCV MCH MCHC RDW Plt Count MPV Gran % Lymph % (Auto) [place] % (Auto) Eos % (Auto) Baso % (Auto) Gran # Lymph # (Auto) [place] # (Auto) Eos # (Auto) Baso # (Auto) Sodium Potassium Chloride Carbon Dioxide Anion Gap BUN Creatinine Est GFR ( Amer) Est GFR (Non-Af Amer) Random Glucose Calcium Magnesium Total Bilirubin Direct Bilirubin AST ALT Alkaline Phosphatase Total Creatine Kinase CK-MB (CK-2) CK-MB (CK-2) % Troponin I Total Protein Albumin Globulin Albumin/Globulin Ratio Digoxin 0.7 L Fingerstick Blood Sugar Results: 87 Results Reviewed to Date: Yes Critical Care Progress Note - Nutrition Nutrition: Nutrition Category Date Time Status Heart Healthy Diet [DIET] Diets 06/26/17 Lunch Ordered Assessment/Plan - Assessment and Plan (Free Text) Assessment: Patient is a 77 y/o with PMHx metastatic prostate cancer, afib on eliquis admitted to icu with severe hyponatremia. Plan: Neuro: AMS resolved - likely due to severe hyponatremia, pt AAOx3 - continue to monitor changes in mental status Cardio: - Pt is hemodynamically stable, maintain MAP above 65. - h/o AFib- currently rate controlled, with Lopressor, continue with eliquis. - Cardiology following, patient has h/o severe systolic chf with lvef of 20.9%, on digoxin, diltiazem - on ASA and Lipitor. Respiratory: Pneumonia with moderate right sided pleural effusion superimposed with chf exacerbation. - on chest x-ray and ct chest. - on abx, continue bronchodilators prn and standing dose. - Not on lasix at this time likely due to severe hyponatremia. currently not in acute respiratory distress, saturating well on nasal cannula. - Will monitor and consider lasix prn. - Head of bed above 35 degrees. GI: Transaminitis - likely due to portal vein congestion due to CHF versus allopurinol. -hepatitis panel negative - currently trending down, will consider RUQ abdominal US if it worsens. - Gi following - On Protonix ppx ID: Possible right lower lobe HAP - BCx2 prelim currently negative, no leukocytosis, afebrile. - On rocephin and doxy. - Procal pending. Renal: Severe hyponatremia -likely secondary to SIADH, secondary to metastatic prostate CA, r/o other causes. - Urine lytes pending. - Na+ is currently 120; BMP Q6H as per associate professor of counseling. - limiting water intake and resuming low salt diet, as per Nephro - Continue to monitor electrolytes, replete as necessary - strict I&Os. 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 Reyes Endo: -Maintain euglycemia DVT ppx: on eliquis for afib. Patient seen, examined and case discussed with the call center support consultant. - Date & Time Date: 06/27/17 Time: 10:20 <Obie Smith - Last Filed: 06/27/17 10:16> CCU Objective - Vital Signs / Intake & Output Vital Signs (Last 4 hours): Vital Signs Temp Pulse Resp Pulse Ox 06/27/17 08:00 97.2 F L 83 21 06/27/17 07:58 75 16 06/27/17 07:57 74 16 06/27/17 07:56 74 15 06/27/17 07:55 78 17 06/27/17 07:54 80 18 06/27/17 07:53 70 16 06/27/17 07:52 77 17 06/27/17 07:51 79 20 06/27/17 07:50 79 19 06/27/17 07:49 71 18 06/27/17 07:48 80 19 06/27/17 07:47 77 17 06/27/17 07:46 72 16 06/27/17 07:17 66 15 06/27/17 07:16 66 14 06/27/17 07:15 66 14 06/27/17 07:14 81 18 06/27/17 07:13 73 17 06/27/17 07:00 74 15 97 Intake and Output (Last 8hrs): Intake & Output 06/26/17 06/27/17 06/27/17 22:59 06:59 14:59 Intake Total 1300 Output Total 1700 Balance -400 Intake: IV 650 Right Wrist 650 Oral 650 Output: Urine 1700 Urethral (Pettit) 1700 - Medications Active Medications: Active Medications Generic Name Dose Route Start Last Admin Trade Name Freq PRN Reason Stop Dose Admin Allopurinol 300 mg 06/26/17 10:00 06/26/17 11:13 Zyloprim PO 300 mg DAILY [facility] Administration Apixaban 2.5 mg 06/26/17 10:00 06/26/17 17:18 Eliquis PO 2.5 mg BID [facility] Administration Protocol Aspirin 81 mg 06/26/17 10:00 06/26/17 11:14 Ecotrin PO 81 mg DAILY [facility] Administration Atorvastatin Calcium 40 mg 06/26/17 17:00 06/26/17 17:18 Lipitor PO 40 mg DIN NIGEL Administration Bicalutamide 50 mg 06/27/17 10:00 Casodex PO DAILY [facility] Bisacodyl 10 mg 06/26/17 06:46 Dulcolax RC DAILY PRN Constipation Digoxin 0.125 mg 06/26/17 14:00 06/26/17 15:20 Digoxin PO 0.125 mg 1400 NIGEL Administration Diltiazem HCl 240 mg 06/26/17 10:00 06/26/17 11:13 Cardizem Cd PO 240 mg DAILY NIGEL Administration Docusate Sodium 100 mg 06/26/17 10:00 06/26/17 17:17 Colace PO 100 mg TID NIGEL Administration Doxycycline Hyclate 100 mg 06/26/17 10:00 06/26/17 21:15 Doryx PO 100 mg Q12 NIGEL Administration Protocol Furosemide 20 mg 06/27/17 10:15 Lasix IVP Q12 NIGEL Ceftriaxone Sodium 2 gm in 100 mls @ 100 mls/hr 06/26/17 10:00 06/26/17 11:20 Rocephin 2 Gm Ivpb IVPB 06/30/17 10:59 100 mls/hr DAILY NIGEL Administration Protocol Levalbuterol HCl 0.63 mg 06/26/17 10:30 06/27/17 07:24 Xopenex IH 0.63 mg [id number] NIGEL Administration Levalbuterol HCl 0.63 mg 06/26/17 16:44 Xopenex IH Q2H PRN Shortness of Breath Magnesium Oxide 800 mg 06/26/17 10:00 06/26/17 17:17 Mag-Ox PO 800 mg BID NIGEL Administration Metoprolol Tartrate 50 mg 06/26/17 10:00 06/26/17 17:18 Lopressor PO 50 mg BID NIGEL Administration Pantoprazole Sodium 20 mg 06/26/17 16:30 06/27/17 08:26 Protonix Ec Tab PO 20 mg ACBD NIGEL Administration Polyethylene Glycol 17 gm 06/26/17 10:00 06/26/17 17:17 Miralax PO 17 gm BID NIGEL Administration - Patient Studies Lab Studies: Lab Studies 06/27/17 06/27/17 06/27/17 Range/Units 06:08 06:08 06:08 WBC 6.3 (4.5-11.0) 10^3/ul RBC 4.65 (3.5-6.1) 10^6/uL Hgb 13.1 L (14.0-18.0) g/dL Hct 37.9 L (42.0-52.0) % MCV 81.5 (80.0-105.0) fl MCH 28.2 (25.0-35.0) pg MCHC 34.6 (31.0-37.0) g/dl RDW 14.6 H (11.5-14.5) % Plt Count 177 (120.0-450.0) 10^3/uL MPV 9.6 (7.0-11.0) fl Gran % 68.4 H (50.0-68.0) % Lymph % (Auto) 17.2 L (22.0-35.0) % [place] % (Auto) 13.3 H (1.0-6.0) % Eos % (Auto) 0.9 L (1.5-5.0) % Baso % (Auto) 0.2 (0.0-3.0) % Gran # 4.33 (1.4-6.5) Lymph # (Auto) 1.1 L (1.2-3.4) [place] # (Auto) 0.8 H (0.1-0.6) Eos # (Auto) 0.1 (0.0-0.7) Baso # (Auto) 0.01 (0.0-2.0) K/mm3 Sodium 120 L Potassium 4.8 Chloride 86 L Carbon Dioxide 24 Anion Gap 14 BUN 18 Creatinine 1.1 (0.8-1.5) mg/dl Est GFR ( Amer) > 60 Est GFR (Non-Af Amer) > 60 Random Glucose 92 Calcium 9.5 Magnesium 2.0 (1.7-2.2) mg/dL Total Bilirubin 1.9 H (0.2-1.3) mg/dL Direct Bilirubin 1.2 H (0.0-0.4) mg/dL AST 115 H D (17-59) U/L ALT 72 H (7-56) U/L Alkaline Phosphatase 142 H (38-126) U/L Total Creatine Kinase (35-230) U/L CK-MB (CK-2) (0.0-3.6) ng/mL CK-MB (CK-2) % (2.5-3.0) % Troponin I ng/mL Total Protein 7.0 (5.8-8.3) g/dL Albumin 3.4 (3.0-4.8) g/dL Globulin 3.6 gm/dL Albumin/Globulin Ratio 0.9 L (1.1-1.8) Digoxin 0.7 L (0.8-2.0) ng/mL 06/27/17 06/26/17 06/26/17 Range/Units 00:30 20:55 17:56 WBC (4.5-11.0) 10^3/ul RBC (3.5-6.1) 10^6/uL Hgb (14.0-18.0) g/dL Hct (42.0-52.0) % MCV (80.0-105.0) fl MCH (25.0-35.0) pg MCHC (31.0-37.0) g/dl RDW (11.5-14.5) % Plt Count (120.0-450.0) 10^3/uL MPV (7.0-11.0) fl Gran % (50.0-68.0) % Lymph % (Auto) (22.0-35.0) % [place] % (Auto) (1.0-6.0) % Eos % (Auto) (1.5-5.0) % Baso % (Auto) (0.0-3.0) % Gran # (1.4-6.5) Lymph # (Auto) (1.2-3.4) [place] # (Auto) (0.1-0.6) Eos # (Auto) (0.0-0.7) Baso # (Auto) (0.0-2.0) K/mm3 Sodium 121 L 120 L 120 L Potassium Chloride Carbon Dioxide Anion Gap BUN Creatinine (0.8-1.5) mg/dl Est GFR ( Amer) Est GFR (Non-Af Amer) Random Glucose Calcium Magnesium (1.7-2.2) mg/dL Total Bilirubin (0.2-1.3) mg/dL Direct Bilirubin (0.0-0.4) mg/dL AST (17-59) U/L ALT (7-56) U/L Alkaline Phosphatase (38-126) U/L Total Creatine Kinase (35-230) U/L CK-MB (CK-2) (0.0-3.6) ng/mL CK-MB (CK-2) % (2.5-3.0) % Troponin I ng/mL Total Protein (5.8-8.3) g/dL Albumin (3.0-4.8) g/dL Globulin gm/dL Albumin/Globulin Ratio (1.1-1.8) Digoxin (0.8-2.0) ng/mL 06/26/17 06/26/17 06/26/17 Range/Units 16:25 12:00 10:12 WBC (4.5-11.0) 10^3/ul RBC (3.5-6.1) 10^6/uL Hgb (14.0-18.0) g/dL Hct (42.0-52.0) % MCV (80.0-105.0) fl MCH (25.0-35.0) pg MCHC (31.0-37.0) g/dl RDW (11.5-14.5) % Plt Count (120.0-450.0) 10^3/uL MPV (7.0-11.0) fl Gran % (50.0-68.0) % Lymph % (Auto) (22.0-35.0) % [place] % (Auto) (1.0-6.0) % Eos % (Auto) (1.5-5.0) % Baso % (Auto) (0.0-3.0) % Gran # (1.4-6.5) Lymph # (Auto) (1.2-3.4) [place] # (Auto) (0.1-0.6) Eos # (Auto) (0.0-0.7) Baso # (Auto) (0.0-2.0) K/mm3 Sodium Cancelled 119 L* Cancelled Potassium Cancelled Cancelled Chloride Cancelled Cancelled Carbon Dioxide Cancelled Cancelled Anion Gap Cancelled Cancelled BUN Cancelled Cancelled Creatinine (0.8-1.5) mg/dl Est GFR ( Amer) Cancelled Cancelled Est GFR (Non-Af Amer) Cancelled Cancelled Random Glucose Cancelled Cancelled Calcium Cancelled Cancelled Magnesium (1.7-2.2) mg/dL Total Bilirubin (0.2-1.3) mg/dL Direct Bilirubin (0.0-0.4) mg/dL AST (17-59) U/L ALT (7-56) U/L Alkaline Phosphatase (38-126) U/L Total Creatine Kinase 436 H 493 H (35-230) U/L CK-MB (CK-2) 11.1 H 10.9 H (0.0-3.6) ng/mL CK-MB (CK-2) % 2.5 2.2 L (2.5-3.0) % Troponin I 0.02 D 0.03 ng/mL Total Protein (5.8-8.3) g/dL Albumin (3.0-4.8) g/dL Globulin gm/dL Albumin/Globulin Ratio (1.1-1.8) Digoxin (0.8-2.0) ng/mL Laboratory Results - last 24 hr 06/26/17 06/26/17 06/26/17 10:12 12:00 16:25 WBC RBC Hgb Hct MCV MCH MCHC RDW Plt Count MPV Gran % Lymph % (Auto) [place] % (Auto) Eos % (Auto) Baso % (Auto) Gran # Lymph # (Auto) [place] # (Auto) Eos # (Auto) Baso # (Auto) Sodium Cancelled 119 L* Cancelled Potassium Cancelled Cancelled Chloride Cancelled Cancelled Carbon Dioxide Cancelled Cancelled Anion Gap Cancelled Cancelled BUN Cancelled Cancelled Creatinine Est GFR ( Amer) Cancelled Cancelled Est GFR (Non-Af Amer) Cancelled Cancelled Random Glucose Cancelled Cancelled Calcium Cancelled Cancelled Magnesium Total Bilirubin Direct Bilirubin AST ALT Alkaline Phosphatase Total Creatine Kinase 493 H 436 H CK-MB (CK-2) 10.9 H 11.1 H CK-MB (CK-2) % 2.2 L 2.5 Troponin I 0.03 0.02 D Total Protein Albumin Globulin Albumin/Globulin Ratio Digoxin 06/26/17 06/26/17 06/27/17 17:56 20:55 00:30 WBC RBC Hgb Hct MCV MCH MCHC RDW Plt Count MPV Gran % Lymph % (Auto) [place] % (Auto) Eos % (Auto) Baso % (Auto) Gran # Lymph # (Auto) [place] # (Auto) Eos # (Auto) Baso # (Auto) Sodium 120 L 120 L 121 L Potassium Chloride Carbon Dioxide Anion Gap BUN Creatinine Est GFR ( Amer) Est GFR (Non-Af Amer) Random Glucose Calcium Magnesium Total Bilirubin Direct Bilirubin AST ALT Alkaline Phosphatase Total Creatine Kinase CK-MB (CK-2) CK-MB (CK-2) % Troponin I Total Protein Albumin Globulin Albumin/Globulin Ratio Digoxin 06/27/17 06/27/17 06/27/17 06:08 06:08 06:08 WBC 6.3 RBC 4.65 Hgb 13.1 L Hct 37.9 L MCV 81.5 MCH 28.2 MCHC 34.6 RDW 14.6 H Plt Count 177 MPV 9.6 Gran % 68.4 H Lymph % (Auto) 17.2 L [place] % (Auto) 13.3 H Eos % (Auto) 0.9 L Baso % (Auto) 0.2 Gran # 4.33 Lymph # (Auto) 1.1 L [place] # (Auto) 0.8 H Eos # (Auto) 0.1 Baso # (Auto) 0.01 Sodium 120 L Potassium 4.8 Chloride 86 L Carbon Dioxide 24 Anion Gap 14 BUN 18 Creatinine 1.1 Est GFR ( Amer) > 60 Est GFR (Non-Af Amer) > 60 Random Glucose 92 Calcium 9.5 Magnesium 2.0 Total Bilirubin 1.9 H Direct Bilirubin 1.2 H AST 115 H D ALT 72 H Alkaline Phosphatase 142 H Total Creatine Kinase CK-MB (CK-2) CK-MB (CK-2) % Troponin I Total Protein 7.0 Albumin 3.4 Globulin 3.6 Albumin/Globulin Ratio 0.9 L Digoxin 0.7 L Critical Care Progress Note - Nutrition Nutrition: Nutrition Category Date Time Status Heart Healthy Diet [DIET] Diets 06/26/17 Lunch Ordered Assessment/Plan - Assessment and Plan (Free Text) Plan: Patient seen and examined on rounds with resident, agree with note with following additions/exceptions Patient is 77yo male with PMhx of Prostate Ca w/mets, Afib on A/C, admitted with severe hyponatremia and PNA Currently afebrile, HD stable, AAOx3, NAD, mental status at baseline, Na improving with fluid restriction, renal following. Hyponatremia AMS, resolved PNA Hx Prostate Ca Dehydration CHF, chronic Afib on A/C Recommend: - supp o2 as needed - pancutlure, BCx, UCx, Procal - BP control - resume A/C - Cardiology eval - fluid restriction - check Ulytes, Cortisol level, TSH, Uric Acid - neuro checks - Q12hr BMP - RUQ sono - GI eval for elevated LFTs - GI ppx - DVT ppx - Monitor in MICU
--- NOTE | 2017-06-27 09:51 | CARD ---
APPROVED REPORT EKG Measurement Heart [id number] <Conclusion> Atrial fibrillation Low voltage QRS ST & T wave abnormality, consider anterolateral ischemia or digitalis effect Prolonged QT Abnormal ECG
[2017-06-27] MEDS: diltiaZEM 240 mg/24 Hours CD Cap PO SCH (10:41)
[2017-06-27] MEDS: Magnesium Oxide 400 mg Tab UD PO SCH ×2 (10:41→17:23)
[2017-06-27] MEDS: POLYETHYLENE GLYCOL 3350 17 GM/Dose PACKET PO SCH (10:56)
[2017-06-27] MEDS: cefTRIAXone 2 GM IN NS 2 GM/100 ML BAG IVPB SCH (10:57)
--- NOTE | 2017-06-27 11:31 | PN ---
DATE: 06/27/2017 SUBJECTIVE: The patient is lying in bed, comfortable. He denies any abdominal pain, shortness of breath, chest pain, nausea, vomiting. He tolerated solid foods. MEDICATIONS: Include Cardizem CD 240 mg once a day, Casodex 50 mg daily, Colace 100 mg 3 times a day, digoxin 0.125 mg daily, Doryx 100 mg q. 12 hours p.o., Dulcolax suppository p.r.n., Ecotrin 81 mg daily, Eliquis 2.5 mg b.i.d., Lasix 20 mg IV q.12 hours, Lipitor 40 mg once a day, Lopressor 50 mg b.i.d., mag oxide 800 mg p.o. b.i.d., MiraLax 17 g p.o. b.i.d., Protonix 20 mg twice a day, Rocephin 2 g IV daily, Xopenex inhaler p.r.n., Zyloprim 300 mg daily. PHYSICAL EXAMINATION VITAL SIGNS: Reveal temperature of 97.2, blood pressure 122/68, heart rate of 66. HEENT: Reveals sclerae to be white. Conjunctivae pink. NECK: Supple. CHEST: Reveal decreased breath sounds at the right base with some rhonchi. HEART: Reveals an irregularly irregular rate. ABDOMEN: Soft, nontender. EXTREMITIES: Show chronic stasis changes of his legs. There is trace pedal edema. LABORATORY DATA: Revealed white blood cell count 6.3, hemoglobin 13.1. Chemistries reveal sodium of 120, total bilirubin 1.9, AST 115, ALT 72, alkaline phosphatase of 142. CT scan of the abdomen and pelvis reveal no abnormalities in the liver. He does have sclerotic changes in L1 suggestive of metastatic disease. CT of the chest reveal large right pleural effusion with area of consolidation. IMPRESSION: 1. Hyponatremia with altered mental status. Sodium is slowly trending upward. 2. Elevated liver enzymes, probably secondary to passive congestion of the liver and this patient with atrial fibrillation, cardiomyopathy and estimated ejection fraction of 20%. 3. Pneumonia with right pleural effusion. 4. Prostate cancer with bone metastasis. RECOMMENDATIONS: 1. Continue to follow serum sodium and liver enzymes. 2. No further GI workup planned at this time. His liver enzymes are trending slowly towards normal. His long-term prognosis is poor. Jhon Meza MD [facility] # [id number]
--- NOTE | 2017-06-27 12:37 | PN ---
DATE: SUBJECTIVE: This 77-year-old male patient. The patient was admitted through the emergency room. Patient was transferred from [facility]. Patient was having altered mental state and confusion. Patient has past history of hypertension. Patient has history of atherosclerotic heart disease, chronic lung disease, hyperlipidemia, and atrial fibrillation. Patient was admitted to the ICU because the blood work done in the emergency room showed that he was in severe hyponatremia and altered mental state, which could have been related to the hyponatremia the patient manifested with. He is in the ICU. PHYSICAL EXAMINATION: VITAL SIGNS: Today, pulse is 83, blood pressure 130/80. Patient's respirations are 16 per minute. HEART: Patient is in atrial fibrillation. LUNGS: Clear. ABDOMEN: Soft. Liver and spleen is not palpable. CENTRAL NERVOUS SYSTEM: He is conscious. He is rational now and he is oriented in present time. LABORATORY DATA: Patient's blood work shows that his hemoglobin is 13.1. His chemistry, patient's BUN is 18, creatinine 1.1. Patient's sodium is 120, that is today. The patient still has hyponatremia. Patient is under the care of Dr. Campa. She is the food clerk. Patient's bilirubin is 1.9. MEDICATIONS: Patient's list of medications: Patient takes Cardizem 240 mg daily. Patient is on Casodex for prostate carcinoma. Patient is on digoxin 125 mcg daily. Patient is on doxycycline twice a day. Patient is on apixaban for atrial fibrillation, which is Eliquis. Patient is on Lipitor for hyperlipidemia, metoprolol 50 mg b.i.d. for hypertension. ASSESSMENT AND PLAN: Patient's condition seems to be clinically stable. Chemically, the patient is not stable, his sodium is still very low. Patient is getting antibiotics for infection. Patient has cellulitis of his legs and swelling of one leg, on the right side. His overall prognosis is guarded. Condition is clinically stable. We will follow up. Dahlia Hoang MD [facility]
[2017-06-27] MEDS: Digoxin 125 mcg (0.125 mg) Tab PO SCH (13:35)
--- NOTE | 2017-06-27 14:40 | PN ---
DATE: 06/27/2017 CARDIOLOGY FOLLOWUP SUBJECTIVE: The patient is comfortable in a chair in the ICU. His confusion is much improved. PHYSICAL EXAMINATION: VITAL SIGNS: Blood pressure 151/95, heart rates in the 70s. NECK: Negative JVD. LUNGS: Bilateral rhonchi. HEART: Reveals S1, S2. EXTREMITIES: Decreasing edema. LABORATORY DATA: Hemoglobin is 13.1. Sodium is up to 120. IMPRESSION: 1. Altered mental status. 2. Atrial fibrillation with good heart rate control. 3. Severely dilated cardiomyopathy. 4. Pulmonary hypertension. PLAN: Given these findings, the patient has been improving. Hemodynamically remained stable. He can be transferred to telemetry and continue monitoring his sodium. Vincenzo Grayson MD
--- NOTE | 2017-06-27 15:06 | CP.PCM.PN ---
Subjective - Date & Time of Evaluation Date of Evaluation: 06/27/17 Time of Evaluation: 15:04 - Subjective Subjective: Nephrology Consultation Note Assessment: stable Hypervolemic hyponatremia likely Multifactorial due to CHF, SIADH Caused by metastatic prostate CA Hypertensive Chronic Kidney Disease (I12.9) Altered MENTAL status Chronic Kidney Disease (N18.3) Stage 3 with Cr 1.2 metastatic cancer, HTN (I12.9) CHF LVEF 20% hx of BPH Vitamin D deficiency Plan No acute need for renal replacement therapy at this time. continue with oral fluid fluid restriction 1000 mL per day. Avoid correction serum sodium more than 6-8 meq over 24 hours started lasix 20 mg IV bid today and will consider Samsca 30 mg once serum Na 12 -125 range. Check urine osm and urine sodium Hypertension control with meds as ordered. unable to tolerate losartan due to hyperkalemia episodes. Monitor Input/Output, daily weights and renal function with basic metabolic panel supplement electrolytes as needed Avoid nephrotoxins/NSAIDs Glycemic control Further work up for as per primary team Thanks for allowing me to participate in care of your patient. Will follow patient with you. Please call if any Qs. d/w team. Dr Grupo Vital Office: [phone] Chief complaint low salt Reason for consultation is Hyponatremia HPI patient is 77-year-old male with history of chronic systolic CHF EF 20% also metastatic prostate cancer , BPH, recently seen for hyponatremia due to CHF and likely SIADH which was treated with samsca and and diuretic. Discharged to group home here with the acute change in mentaL status and low sodium of 115 hence renal consult was requested. Patient at this time Feels better.He denies shortness of breath nausea vomiting any pain in his stomach. Subjective/ROS: Noted events overnight. Patients feels okay. Denies chest pain, palpitation,improved shortness of breath, denies leg swelling. All other negative Except as mentioned in HPI. had bone biopsy by IR on 06/10/17 Showed metastatic adeno carcinoma of prostate Physical Examination: General Appearance: Comfortable, in no acute respiratory distress, co-operative . Vitals reviewed and noted as below Head; Atraumatic, normocephalic ENT: no ulcers no thrush. Tongue is midline. Oropharynx: no rash or ulcers. EYES: Pupils are equal, round and reactive to light accommodation. Eye muscles and extraocular movement intact. Sclera is anicteric. Neck; supple no lymphadenopathy, no thyromegaly or bruit Lungs: Normal respiratory rate/effort. Breath sounds reduced at base Heart: Normal rate. s1s2 normal. No rub or gallop. Extremities: RLE 1+ edema. No varicose veins Neurological: Patient is alert, awake and oriented to person, place and time. No focal deficit. Strength bilateral appropriate and equal Skin: Warm and dry. Normal turgor. No rash. Palpitation: Normal elasticity for age. Feets somewhat cool to touch Abdomen: Abdomen is soft. Bowel sounds +. There is no abdominal tenderness, no guarding/rigidity no organomegaly Psych: normal insight and normal affect/mood MSK: no joint tenderness or swelling. Digits and nails normal, no deformity : kidney or bladder not palpable. Has Pettit catheter in place Labs/imaging reviewed. Past medical history, past surgical history, family history, social history, allergy reviewed and noted as below Family hx: no hx of CKD. Rest non-contributor Objective - Vital Signs/Intake and Output Vital Signs (last 24 hours): Temp Pulse Resp BP Pulse Ox 97.2 F L 61 19 151/95 H 97 06/27/17 08:00 06/27/17 14:00 06/27/17 14:00 06/27/17 11:00 06/27/17 14:00 - Medications Medications: Current Medications Allopurinol (Zyloprim) 300 mg PO DAILY [facility] Last Admin: 06/27/17 10:59 Dose: 300 mg Apixaban (Eliquis) 2.5 mg PO BID [facility] PRN Reason: Protocol Last Admin: 06/27/17 10:40 Dose: 2.5 mg Aspirin (Ecotrin) 81 mg PO DAILY [facility] Last Admin: 06/27/17 10:41 Dose: 81 mg Atorvastatin Calcium (Lipitor) 40 mg PO DIN [facility] Last Admin: 06/26/17 17:18 Dose: 40 mg Bicalutamide (Casodex) 50 mg PO DAILY [facility] Last Admin: 06/27/17 10:45 Dose: 50 mg Bisacodyl (Dulcolax) 10 mg RC DAILY PRN PRN Reason: Constipation Digoxin (Digoxin) 0.125 mg PO 1400 [facility] Last Admin: 06/26/17 15:20 Dose: 0.125 mg Diltiazem HCl (Cardizem Cd) 240 mg PO DAILY [facility] Last Admin: 06/27/17 10:41 Dose: 240 mg Docusate Sodium (Colace) 100 mg PO TID [facility] Last Admin: 06/27/17 10:42 Dose: 100 mg Doxycycline Hyclate (Doryx) 100 mg PO Q12 [facility] PRN Reason: Protocol Last Admin: 06/27/17 10:41 Dose: 100 mg Furosemide (Lasix) 20 mg IVP Q12 [facility] Last Admin: 06/27/17 10:40 Dose: 20 mg Ceftriaxone Sodium (Rocephin 2 Gm Ivpb) 2 gm in 100 mls @ 100 mls/hr IVPB DAILY [facility] PRN Reason: Protocol Stop: 06/30/17 10:59 Last Admin: 06/27/17 10:57 Dose: 100 mls/hr Levalbuterol HCl (Xopenex) 0.63 mg IH [id number] [facility] Last Admin: 06/27/17 13:32 Dose: 0.63 mg Levalbuterol HCl (Xopenex) 0.63 mg IH Q2H PRN PRN Reason: Shortness of Breath Magnesium Oxide (Mag-Ox) 800 mg PO BID [facility] Last Admin: 06/27/17 10:41 Dose: 800 mg Metoprolol Tartrate (Lopressor) 50 mg PO BID [facility] Last Admin: 06/27/17 10:41 Dose: 50 mg Pantoprazole Sodium (Protonix Ec Tab) 20 mg PO ACBD [facility] Last Admin: 06/27/17 08:26 Dose: 20 mg Polyethylene Glycol (Miralax) 17 gm PO BID [facility] Last Admin: 06/27/17 10:56 Dose: 17 gm - Labs Labs: 06/27/17 06:08 06/27/17 06:08 PT 18.5 SECONDS (9.4-12.5) H 06/26/17 04:45 INR 1.59 (0.93-1.08) H 06/26/17 04:45 APTT 36.5 Seconds (25.1-36.5) 06/26/17 04:45
--- NOTE | 2017-06-27 21:02 | CP.PCM.PN ---
Subjective - Date & Time of Evaluation Date of Evaluation: 06/27/17 Time of Evaluation: 18:00 - Subjective Subjective: Feeling better Objective - Vital Signs/Intake and Output Vital Signs (last 24 hours): Temp Pulse Resp BP Pulse Ox 97.2 F L 54 L 19 114/62 97 06/27/17 08:00 06/27/17 18:00 06/27/17 14:00 06/27/17 17:17 06/27/17 14:00 Intake and Output: 06/27/17 06/28/17 18:59 06:59 Intake Total 450 Output Total 1250 Balance -800 - Medications Medications: Current Medications Allopurinol (Zyloprim) 300 mg PO DAILY [facility] Last Admin: 06/27/17 10:59 Dose: 300 mg Apixaban (Eliquis) 2.5 mg PO BID [facility] PRN Reason: Protocol Last Admin: 06/27/17 19:25 Dose: 2.5 mg Aspirin (Ecotrin) 81 mg PO DAILY [facility] Last Admin: 06/27/17 10:41 Dose: 81 mg Atorvastatin Calcium (Lipitor) 40 mg PO DIN [facility] Last Admin: 06/27/17 17:16 Dose: 40 mg Bicalutamide (Casodex) 50 mg PO DAILY [facility] Last Admin: 06/27/17 10:45 Dose: 50 mg Bisacodyl (Dulcolax) 10 mg RC DAILY PRN PRN Reason: Constipation Digoxin (Digoxin) 0.125 mg PO 1400 [facility] Last Admin: 06/27/17 13:35 Dose: Not Given Diltiazem HCl (Cardizem Cd) 240 mg PO DAILY [facility] Last Admin: 06/27/17 10:41 Dose: 240 mg Docusate Sodium (Colace) 100 mg PO TID [facility] Last Admin: 06/27/17 19:27 Dose: 100 mg Doxycycline Hyclate (Doryx) 100 mg PO Q12 [facility] PRN Reason: Protocol Last Admin: 06/27/17 10:41 Dose: 100 mg Furosemide (Lasix) 20 mg IVP Q12 [facility] Last Admin: 06/27/17 10:40 Dose: 20 mg Ceftriaxone Sodium (Rocephin 2 Gm Ivpb) 2 gm in 100 mls @ 100 mls/hr IVPB DAILY [facility] PRN Reason: Protocol Stop: 06/30/17 10:59 Last Admin: 06/27/17 10:57 Dose: 100 mls/hr Levalbuterol HCl (Xopenex) 0.63 mg IH [id number] [facility] Last Admin: 06/27/17 20:30 Dose: 0.63 mg Levalbuterol HCl (Xopenex) 0.63 mg IH Q2H PRN PRN Reason: Shortness of Breath Magnesium Oxide (Mag-Ox) 800 mg PO BID [facility] Last Admin: 06/27/17 17:23 Dose: 800 mg Metoprolol Tartrate (Lopressor) 50 mg PO BID [facility] Last Admin: 06/27/17 17:17 Dose: 50 mg Pantoprazole Sodium (Protonix Ec Tab) 20 mg PO ACBD [facility] Last Admin: 06/27/17 17:24 Dose: 20 mg Polyethylene Glycol (Miralax) 17 gm PO BID [facility] Last Admin: 06/27/17 10:56 Dose: 17 gm - Labs Labs: 06/27/17 06:08 06/27/17 06:08 PT 18.5 SECONDS (9.4-12.5) H 06/26/17 04:45 INR 1.59 (0.93-1.08) H 06/26/17 04:45 APTT 36.5 Seconds (25.1-36.5) 06/26/17 04:45 - Head Exam Head Exam: ATRAUMATIC - Eye Exam Eye Exam: Normal appearance - ENT Exam ENT Exam: Mucous Membranes Dry - Respiratory Exam Respiratory Exam: NORMAL BREATHING PATTERN - Cardiovascular Exam Cardiovascular Exam: +S1, +S2 - GI/Abdominal Exam GI & Abdominal Exam: Normal Bowel Sounds - Extremities Exam Extremities Exam: Pedal Edema Assessment and Plan (1) Anemia Assessment & Plan: chronic disease and bone metastasis Status: Acute (2) Prostate cancer Assessment & Plan: bone metastasis started on Casodex outpatient Lupron Status: Acute
[2017-06-27] MEDS ORDERED: Morphine 2 mg/ml ISec IVP STA (23:53)
[2017-06-28] MEDS: Levalbuterol 0.63 MG/3 ML Inhal Soln UD IH SCH ×4 (01:54→21:05)
[2017-06-28] MEDS ORDERED: Morphine 2 mg/ml ISec IVP ONE (02:20)
[2017-06-28 06:13] LABS: BASO # 0.03 K/mm3 (0.0-2.0); BASO % 0.5 % (0.0-3.0); EOS # 0.1 (0.0-0.7); EOS % 1.5 % (1.5-5.0); GRAN # 3.91 (1.4-6.5); HEMOGLOBIN 12.6 g/dL (14.0-18.0); LYMPH # 1.1 (1.2-3.4); LYMPH % 18.5 % (22.0-35.0); MEAN CELL VOLUME 82.3 fl (80.0-105.0); MEAN CORPUSCULAR HEMOGLOBIN 27.6 pg (25.0-35.0); MEAN CORPUSCULAR HGB CONC 33.5 g/dl (31.0-37.0); MEAN PLATELET VOLUME 9.9 fl (7.0-11.0); MONO # 0.7 (0.1-0.6); MONO % 12.5 % (1.0-6.0); RBC 4.57 10^6/uL (3.5-6.1); RED CELL DISTRIBUTION WIDTH 14.8 % (11.5-14.5); WHITE BLOOD COUNT 5.8 10^3/ul (4.5-11.0)
[2017-06-28 06:32] LABS: ALB/GLOB RATIO 0.9 (1.1-1.8); ALBUMIN 3.5 g/dL (3.0-4.8); ALT/SGPT 67 U/L (7-56); AST/SGOT 102 U/L (17-59); BLOOD UREA NITROGEN 16 mg/dL (7-21); CALCIUM 9.3 mg/dL (8.4-10.5); GFR AFRICAN-AMERICAN > 60; GFR NON-AFRICAN AMERICAN 58
--- NOTE | 2017-06-28 08:32 | PN ---
DATE: 06/27/2017 [employer] SPECIALIST NOTE SUBJECTIVE: The patient is resting in bed, awake and alert with no complaints of shortness of breath, cough, wheezing, chest congestion. No chest pain. No abdominal pain. No fever, chills or nausea or vomiting. PHYSICAL EXAMINATION: VITAL SIGNS: Temperature is 97.2, pulse is 66, respirations of 14 and BP is 134/93. SKIN: Warm and dry. HEENT: Head atraumatic, normocephalic. Eyes reactive to light. Ear, nose and throat seem to be within normal limits. NECK: Supple. No JVD. No thyroid enlargement or lymph nodes. HEART: Has a regular rate and rhythm. Normal S1, S2. LUNGS: Reveal good breath sounds bilaterally. ABDOMEN: Soft. Decreased bowel sounds. GENITALIA AND RECTAL: Deferred. MUSCULOSKELETAL: No joint deformities. EXTREMITIES: Reveal trace lower extremity edema. NEUROLOGIC: He seem to be grossly intact. LABORATORY DATA: As far as his laboratories are concerned, his white count is 5.8, hemoglobin is 12.6, hematocrit 37.6 with platelets of 193,000. Sodium is 126, potassium 4.6, chloride 86, CO2 of 28 with a BUN of 16, creatinine of 1.2. IMPRESSION: This patient has hyponatremia and initially presented with altered mental status, which has cleared. The patient has a history of metastatic prostate cancer and chronic kidney insufficiency as well as cardiomyopathy with a history of congestive heart failure and hypertension. PLAN: We will continue to restrict fluids and monitor his sodium closely. The patient continues to get his digoxin as well as diltiazem and is getting Xopenex for bronchodilator. He continues to be on Rocephin and Protonix. The patient will continue with Lipitor and Ecotrin as well as his Eliquis and Lasix. We will continue to follow closely and treat aggressively along with the other consultants and the primary care doctor. Braulio Lyon MD
[2017-06-28] MEDS: cefTRIAXone 2 GM IN NS 2 GM/100 ML BAG IVPB SCH (09:07)
[2017-06-28] MEDS: diltiaZEM 240 mg/24 Hours CD Cap PO SCH (09:09)
[2017-06-28] MEDS: POLYETHYLENE GLYCOL 3350 17 GM/Dose PACKET PO SCH ×2 (09:10→18:09)
[2017-06-28] MEDS: Magnesium Oxide 400 mg Tab UD PO SCH ×2 (09:10→18:09)
[2017-06-28] MEDS: Pantoprazole 20 mg EC Tab PO SCH ×2 (09:12→18:09)
[2017-06-28] MEDS: Morphine 2 mg/ml ISec IVP PRN (09:13)
--- NOTE | 2017-06-28 09:34 | CARD ---
APPROVED REPORT EKG Measurement Heart [id number] <Conclusion> Atrial fibrillation Low voltage QRS ST & T wave abnormality, consider lateral ischemia or digitalis effect Abnormal ECG
[2017-06-28] MEDS ORDERED: Tolvaptan 15 MG TAB PO ONE (10:30)
--- NOTE | 2017-06-28 10:45 | PN ---
DATE: SUBJECTIVE: Patient is in the Intensive Care Unit, room 4. [facility] Patient has swelling of the right leg. He had hyponatremia, altered mental state when he was brought into the Emergency Room; he was admitted for evaluation and management. Patient has been in the hospital for a couple of days. His past history is significant in that he has history of atrial fibrillation. Patient has a history of hypertension, atherosclerotic heart disease. Patient has a history of prostate carcinoma with metastatic disease. Patient's swelling on the right leg is probably due to local compression or may be DVT, so an ultrasound is ordered for the patient. PHYSICAL EXAMINATION VITAL SIGNS: Pulse is 66, blood pressure is 110/70, temperature is 98. LUNGS: Clinically clear. HEART: Atrial fibrillation with rapid ventricular response. ABDOMEN: Soft. No masses. No tenderness. CENTRAL NERVOUS SYSTEM: Patient is conscious. Mild confusion, but does answer all questions and is pleasant. EXTREMITIES: The examination of the right leg shows swelling and edema. The patient probably has some superficial skin infection. MEDICATIONS: He is on doxycycline. Patient gets Casodex for prostrate CA. He is on digoxin. Patient is on Eliquis twice a day. Patient is on Lasix 20 mg IV q. 12 hours, Lipitor 40 mg, metoprolol 50 mg b.i.d., magnesium oxide 800 mg b.i.d. Patient is on MiraLax for constipation. His condition is clinically stable although patient has ongoing hyponatremia. His swelling of his right leg will need to be addressed at this time. We will follow up and have the consultants comment on his condition. Dahlia Hoang MD [facility]
[2017-06-28] MEDS: Digoxin 125 mcg (0.125 mg) Tab PO SCH (13:09)
--- NOTE | 2017-06-28 15:08 | CP.PCM.PN ---
Subjective - Date & Time of Evaluation Date of Evaluation: 06/28/17 Time of Evaluation: 10:00 - Subjective Subjective: Nephrology Consultation Note Assessment: stable Hypervolemic hyponatremia likely Multifactorial due to CHF, SIADH Caused by metastatic prostate CA Hypertensive Chronic Kidney Disease (I12.9) Altered MENTAL status Chronic Kidney Disease (N18.3) Stage 3 with Cr 1.2 metastatic cancer, HTN (I12.9) CHF LVEF 20% hx of BPH Vitamin D deficiency Plan No acute need for renal replacement therapy at this time. Renal function remains stable Na is improving will give a dose of tolvaptan today, asked rn to check bmp at 4 pm to avoid overcorrection bp stable S:seen and examiend, he feels ok today Physical Examination: General Appearance: Comfortable, in no acute respiratory distress, co-operative . Vitals reviewed and noted as below Head; Atraumatic, normocephalic ENT: no ulcers no thrush. Tongue is midline. Oropharynx: no rash or ulcers. EYES: Pupils are equal, round and reactive to light accommodation. Eye muscles and extraocular movement intact. Sclera is anicteric. Neck; supple no lymphadenopathy, no thyromegaly or bruit Lungs: Normal respiratory rate/effort. Breath sounds reduced at base Heart: Normal rate. s1s2 normal. No rub or gallop. Extremities: trace edema. No varicose veins Neurological: Patient is alert, awake and oriented to person, place and time. No focal deficit. Strength bilateral appropriate and equal Skin: Warm and dry. Normal turgor. No rash. Palpitation: Normal elasticity for age Abdomen: Abdomen is soft. Bowel sounds +. There is no abdominal tenderness, no guarding/rigidity no organomegaly Psych: normal insight and normal affect/mood MSK: no joint tenderness or swelling. Digits and nails normal, no deformity : kidney or bladder not palpable. Has Pettit catheter in place Labs/imaging reviewed. Past medical history, past surgical history, family history, social history, allergy reviewed and noted as below Family hx: no hx of CKD. Rest non-contributor Objective - Vital Signs/Intake and Output Vital Signs (last 24 hours): Temp Pulse Resp BP Pulse Ox 97.7 F 75 14 146/87 97 06/28/17 11:30 06/28/17 12:45 06/28/17 06:44 06/28/17 09:09 06/28/17 06:00 - Medications Medications: Current Medications Allopurinol (Zyloprim) 300 mg PO DAILY [facility] Last Admin: 06/28/17 09:08 Dose: 300 mg Apixaban (Eliquis) 2.5 mg PO BID [facility] PRN Reason: Protocol Last Admin: 06/28/17 09:10 Dose: 2.5 mg Aspirin (Ecotrin) 81 mg PO DAILY [facility] Last Admin: 06/28/17 09:08 Dose: 81 mg Atorvastatin Calcium (Lipitor) 40 mg PO DIN [facility] Last Admin: 06/27/17 17:16 Dose: 40 mg Bicalutamide (Casodex) 50 mg PO DAILY [facility] Last Admin: 06/28/17 12:58 Dose: 50 mg Bisacodyl (Dulcolax) 10 mg RC DAILY PRN PRN Reason: Constipation Digoxin (Digoxin) 0.125 mg PO 1400 [facility] Last Admin: 06/28/17 13:09 Dose: Not Given Diltiazem HCl (Cardizem Cd) 240 mg PO DAILY [facility] Last Admin: 06/28/17 09:09 Dose: 240 mg Docusate Sodium (Colace) 100 mg PO TID [facility] Last Admin: 06/28/17 13:00 Dose: 100 mg Doxycycline Hyclate (Doryx) 100 mg PO Q12 [facility] PRN Reason: Protocol Last Admin: 06/28/17 09:08 Dose: 100 mg Furosemide (Lasix) 20 mg IVP Q12 [facility] Last Admin: 06/28/17 09:09 Dose: 20 mg Ceftriaxone Sodium (Rocephin 2 Gm Ivpb) 2 gm in 100 mls @ 100 mls/hr IVPB DAILY [facility] PRN Reason: Protocol Stop: 06/30/17 10:59 Last Admin: 06/28/17 09:07 Dose: 100 mls/hr Levalbuterol HCl (Xopenex) 0.63 mg IH [id number] [facility] Last Admin: 06/28/17 13:17 Dose: 0.63 mg Levalbuterol HCl (Xopenex) 0.63 mg IH Q2H PRN PRN Reason: Shortness of Breath Magnesium Oxide (Mag-Ox) 800 mg PO BID [facility] Last Admin: 06/28/17 09:10 Dose: 800 mg Metoprolol Tartrate (Lopressor) 50 mg PO BID [facility] Last Admin: 06/28/17 09:09 Dose: 50 mg Morphine Sulfate (Morphine) 1 mg IVP Q4H PRN PRN Reason: Pain, moderate (4-7) Last Admin: 06/28/17 09:13 Dose: 1 mg Pantoprazole Sodium (Protonix Ec Tab) 20 mg PO ACBD [facility] Last Admin: 06/28/17 09:12 Dose: 20 mg Polyethylene Glycol (Miralax) 17 gm PO BID [facility] Last Admin: 06/28/17 09:10 Dose: 17 gm - Labs Labs: 06/28/17 05:30 06/28/17 05:30 PT 18.5 SECONDS (9.4-12.5) H 06/26/17 04:45 INR 1.59 (0.93-1.08) H 06/26/17 04:45 APTT 36.5 Seconds (25.1-36.5) 06/26/17 04:45
[2017-06-28 16:31] LABS: BLOOD UREA NITROGEN 15 mg/dL (7-21); CALCIUM 8.4 mg/dL (8.4-10.5); GFR AFRICAN-AMERICAN > 60; GFR NON-AFRICAN AMERICAN > 60
[2017-06-28 18:51] LABS: BLOOD UREA NITROGEN 16 mg/dL (7-21); CALCIUM 9.4 mg/dL (8.4-10.5); GFR AFRICAN-AMERICAN > 60; GFR NON-AFRICAN AMERICAN > 60
--- NOTE | 2017-06-28 19:11 | CP.PCM.PN ---
Subjective - Date & Time of Evaluation Date of Evaluation: 06/28/17 Time of Evaluation: 18:45 - Subjective Subjective: Feeling better Objective - Vital Signs/Intake and Output Vital Signs (last 24 hours): Temp Pulse Resp BP Pulse Ox 98.6 F 65 16 115/73 97 06/28/17 17:04 06/28/17 18:08 06/28/17 17:04 06/28/17 18:08 06/28/17 17:04 Intake and Output: 06/28/17 06/29/17 18:59 06:59 Intake Total 900 Output Total 600 Balance 300 - Medications Medications: Current Medications Allopurinol (Zyloprim) 300 mg PO DAILY [facility] Last Admin: 06/28/17 09:08 Dose: 300 mg Apixaban (Eliquis) 2.5 mg PO BID [facility] PRN Reason: Protocol Last Admin: 06/28/17 18:09 Dose: 2.5 mg Aspirin (Ecotrin) 81 mg PO DAILY [facility] Last Admin: 06/28/17 09:08 Dose: 81 mg Atorvastatin Calcium (Lipitor) 40 mg PO DIN [facility] Last Admin: 06/28/17 18:09 Dose: 40 mg Bicalutamide (Casodex) 50 mg PO DAILY [facility] Last Admin: 06/28/17 12:58 Dose: 50 mg Bisacodyl (Dulcolax) 10 mg RC DAILY PRN PRN Reason: Constipation Digoxin (Digoxin) 0.125 mg PO 1400 [facility] Last Admin: 06/28/17 13:09 Dose: Not Given Diltiazem HCl (Cardizem Cd) 240 mg PO DAILY [facility] Last Admin: 06/28/17 09:09 Dose: 240 mg Docusate Sodium (Colace) 100 mg PO TID [facility] Last Admin: 06/28/17 18:09 Dose: 100 mg Doxycycline Hyclate (Doryx) 100 mg PO Q12 [facility] PRN Reason: Protocol Last Admin: 06/28/17 09:08 Dose: 100 mg Furosemide (Lasix) 20 mg IVP Q12 [facility] Last Admin: 06/28/17 09:09 Dose: 20 mg Ceftriaxone Sodium (Rocephin 2 Gm Ivpb) 2 gm in 100 mls @ 100 mls/hr IVPB DAILY [facility] PRN Reason: Protocol Stop: 06/30/17 10:59 Last Admin: 06/28/17 09:07 Dose: 100 mls/hr Levalbuterol HCl (Xopenex) 0.63 mg IH [id number] [facility] Last Admin: 06/28/17 13:17 Dose: 0.63 mg Levalbuterol HCl (Xopenex) 0.63 mg IH Q2H PRN PRN Reason: Shortness of Breath Magnesium Oxide (Mag-Ox) 800 mg PO BID [facility] Last Admin: 06/28/17 18:09 Dose: 800 mg Metoprolol Tartrate (Lopressor) 50 mg PO BID [facility] Last Admin: 06/28/17 18:08 Dose: 50 mg Morphine Sulfate (Morphine) 1 mg IVP Q4H PRN PRN Reason: Pain, moderate (4-7) Last Admin: 06/28/17 09:13 Dose: 1 mg Pantoprazole Sodium (Protonix Ec Tab) 20 mg PO ACBD [facility] Last Admin: 06/28/17 18:09 Dose: 20 mg Polyethylene Glycol (Miralax) 17 gm PO BID [facility] Last Admin: 06/28/17 18:09 Dose: 17 gm - Labs Labs: 06/28/17 05:30 06/28/17 17:30 PT 18.5 SECONDS (9.4-12.5) H 06/26/17 04:45 INR 1.59 (0.93-1.08) H 06/26/17 04:45 APTT 36.5 Seconds (25.1-36.5) 06/26/17 04:45 - Head Exam Head Exam: ATRAUMATIC - Eye Exam Eye Exam: Normal appearance - ENT Exam ENT Exam: Mucous Membranes Dry - Respiratory Exam Respiratory Exam: NORMAL BREATHING PATTERN - Cardiovascular Exam Cardiovascular Exam: +S1, +S2 - GI/Abdominal Exam GI & Abdominal Exam: Normal Bowel Sounds - Extremities Exam Extremities Exam: Pedal Edema Assessment and Plan (1) Anemia Assessment & Plan: chronic disease bone mets Status: Acute (2) Prostate cancer Assessment & Plan: stage IV bone mets started on Casodex outpatient Lupron injection Status: Acute
[2017-06-29] MEDS: Levalbuterol 0.63 MG/3 ML Inhal Soln UD IH SCH ×4 (02:40→19:48)
[2017-06-29] MEDS: Pantoprazole 20 mg EC Tab PO SCH ×2 (06:39→17:51)
[2017-06-29] MEDS: Morphine 2 mg/ml ISec IVP PRN ×2 (08:12→23:17)
[2017-06-29 08:19] LABS: BASO # 0.03 K/mm3 (0.0-2.0); BASO % 0.5 % (0.0-3.0); EOS % 0.7 % (1.5-5.0); GRAN # 3.82 (1.4-6.5); GRAN % 66.6 % (50.0-68.0); HEMOGLOBIN 12.5 g/dL (14.0-18.0); LYMPH # 1.1 (1.2-3.4); LYMPH % 19.5 % (22.0-35.0); MEAN CELL VOLUME 82.2 fl (80.0-105.0); MEAN CORPUSCULAR HEMOGLOBIN 28.2 pg (25.0-35.0); MEAN CORPUSCULAR HGB CONC 34.2 g/dl (31.0-37.0); MEAN PLATELET VOLUME 9.2 fl (7.0-11.0); MONO # 0.7 (0.1-0.6); MONO % 12.7 % (1.0-6.0); RBC 4.44 10^6/uL (3.5-6.1); WHITE BLOOD COUNT 5.7 10^3/ul (4.5-11.0)
--- NOTE | 2017-06-29 09:05 | CP.PCM.PN ---
Subjective - Date & Time of Evaluation Date of Evaluation: 06/29/17 Time of Evaluation: 08:00 - Subjective Subjective: (covering for Dr. Street) Patient is seen this morning. He was transferred out of the ICU yesterday. He says he gets pain in his right leg, but denies pain at this time. Objective - Vital Signs/Intake and Output Vital Signs (last 24 hours): Temp Pulse Resp BP Pulse Ox 98.2 F 64 20 130/73 98 06/29/17 06:00 06/29/17 06:00 06/29/17 06:00 06/29/17 06:00 06/29/17 06:00 Intake and Output: 06/29/17 06/29/17 06:59 18:59 Intake Total 340 Output Total 3200 Balance -2860 - Medications Medications: Current Medications Allopurinol (Zyloprim) 300 mg PO DAILY [facility] Last Admin: 06/28/17 09:08 Dose: 300 mg Apixaban (Eliquis) 2.5 mg PO BID [facility] PRN Reason: Protocol Last Admin: 06/28/17 18:09 Dose: 2.5 mg Aspirin (Ecotrin) 81 mg PO DAILY [facility] Last Admin: 06/28/17 09:08 Dose: 81 mg Atorvastatin Calcium (Lipitor) 40 mg PO DIN [facility] Last Admin: 06/28/17 18:09 Dose: 40 mg Bicalutamide (Casodex) 50 mg PO DAILY [facility] Last Admin: 06/28/17 12:58 Dose: 50 mg Bisacodyl (Dulcolax) 10 mg RC DAILY PRN PRN Reason: Constipation Digoxin (Digoxin) 0.125 mg PO 1400 [facility] Last Admin: 06/28/17 13:09 Dose: Not Given Diltiazem HCl (Cardizem Cd) 240 mg PO DAILY [facility] 234 [facility] Last Admin: 06/28/17 09:09 Dose: 240 mg Docusate Sodium (Colace) 100 mg PO TID [facility] Last Admin: 06/28/17 18:09 Dose: 100 mg Doxycycline Hyclate (Doryx) 100 mg PO Q12 [facility] PRN Reason: Protocol Last Admin: 06/28/17 21:32 Dose: 100 mg Furosemide (Lasix) 20 mg IVP Q12 [facility] Last Admin: 06/28/17 21:32 Dose: 20 mg Ceftriaxone Sodium (Rocephin 2 Gm Ivpb) 2 gm in 100 mls @ 100 mls/hr IVPB DAILY [facility]S [facility] PRN Reason: Protocol Stop: 06/30/17 10:59 Last Admin: 06/28/17 09:07 Dose: 100 mls/hr Levalbuterol HCl (Xopenex) 0.63 mg IH [id number] [facility] 234 [facility]S [facility] Last Admin: 06/29/17 08:08 Dose: 0.63 mg Levalbuterol HCl (Xopenex) 0.63 mg IH Q2H PRN PRN Reason: Shortness of Breath Magnesium Oxide (Mag-Ox) 800 mg PO BID [facility] Last Admin: 06/28/17 18:09 Dose: 800 mg Metoprolol Tartrate (Lopressor) 50 mg PO BID [facility] Last Admin: 06/28/17 18:08 Dose: 50 mg Morphine Sulfate (Morphine) 1 mg IVP Q4H PRN PRN Reason: Pain, moderate (4-7) Last Admin: 06/29/17 08:12 Dose: 1 mg Pantoprazole Sodium (Protonix Ec Tab) 20 mg PO ACBD [facility] Last Admin: 06/29/17 06:39 Dose: 20 mg Polyethylene Glycol (Miralax) 17 gm PO BID [facility] Last Admin: 06/28/17 18:09 Dose: 17 gm - Labs Labs: 06/29/17 07:30 06/28/17 17:30 PT 18.5 SECONDS (9.4-12.5) H 06/26/17 04:45 INR 1.59 (0.93-1.08) H 06/26/17 04:45 APTT 36.5 Seconds (25.1-36.5) 06/26/17 04:45 - Constitutional Appears: No Acute Distress - Head Exam Head Exam: ATRAUMATIC, NORMOCEPHALIC - Respiratory Exam Respiratory Exam: Clear to Ausculation Bilateral, NORMAL BREATHING PATTERN - Cardiovascular Exam Cardiovascular Exam: +S1, +S2 - GI/Abdominal Exam GI & Abdominal Exam: Soft, Normal Bowel Sounds. absent: Tenderness - Extremities Exam Extremities Exam: Pedal Edema - Neurological Exam Neurological Exam: Alert, Awake Assessment and Plan - Assessment and Plan (Free Text) Assessment: Hyponatremia AMS Cardiomyopathy with EF of 20% Atrial fibrillation stage IV metastatic prostate Cancer Plan: Patient was transferred out of the intensive care unit yesterday. He has swelling of his legs, right greater than left. Swelling of right leg is improved since yesterday. Doppler of right leg done yesterday. results are pending. Patient is on Eliquis for atrial fibrillation, however. continue Lasix.
[2017-06-29 09:24] LABS: ALB/GLOB RATIO 0.9 (1.1-1.8); ALBUMIN 3.2 g/dL (3.0-4.8); ALT/SGPT 63 U/L (7-56); AST/SGOT 91 U/L (17-59); BILIRUBIN,DIRECT 0.9 mg/dL (0.0-0.4); BLOOD UREA NITROGEN 15 mg/dL (7-21); CALCIUM 9.4 mg/dL (8.4-10.5); GFR AFRICAN-AMERICAN > 60; GFR NON-AFRICAN AMERICAN 58
[2017-06-29] MEDS: diltiaZEM 240 mg/24 Hours CD Cap PO SCH (10:18)
[2017-06-29] MEDS: POLYETHYLENE GLYCOL 3350 17 GM/Dose PACKET PO SCH ×3 (10:18→17:51)
[2017-06-29] MEDS: Magnesium Oxide 400 mg Tab UD PO SCH ×2 (10:19→17:51)
--- NOTE | 2017-06-29 11:18 | CP.PCM.PN ---
Subjective - Date & Time of Evaluation Date of Evaluation: 06/29/17 Time of Evaluation: 11:17 - Subjective Subjective: Nephrology Consultation Note Assessment: stable Hypervolemic hyponatremia likely Multifactorial due to CHF, SIADH Caused by metastatic prostate CA Hypertensive Chronic Kidney Disease (I12.9) Altered MENTAL status Chronic Kidney Disease (N18.3) Stage 3 with Cr 1.2 metastatic cancer, HTN (I12.9) CHF LVEF 20% hx of BPH Vitamin D deficiency Plan No acute need for renal replacement therapy at this time. Renal function remains stable Na is improving will hold off on tolvaptan today will see if needs another dose tomorrow bp stable S:seen and examined, he feels good Physical Examination: General Appearance: Comfortable, in no acute respiratory distress, co-operative . Vitals reviewed and noted as below Head; Atraumatic, normocephalic ENT: no ulcers no thrush. Tongue is midline. Oropharynx: no rash or ulcers. EYES: Pupils are equal, round and reactive to light accommodation. Eye muscles and extraocular movement intact. Sclera is anicteric. Neck; supple no lymphadenopathy, no thyromegaly or bruit Lungs: Normal respiratory rate/effort. Breath sounds reduced at base Heart: Normal rate. s1s2 normal. No rub or gallop. Extremities: trace edema. No varicose veins Neurological: Patient is alert, awake and oriented to person, place and time. No focal deficit. Strength bilateral appropriate and equal Skin: Warm and dry. Normal turgor. No rash. Palpitation: Normal elasticity for age Abdomen: Abdomen is soft. Bowel sounds +. There is no abdominal tenderness, no guarding/rigidity no organomegaly Psych: normal insight and normal affect/mood MSK: no joint tenderness or swelling. Digits and nails normal, no deformity : kidney or bladder not palpable. Has Pettit catheter in place Labs/imaging reviewed. Past medical history, past surgical history, family history, social history, allergy reviewed and noted as below Family hx: no hx of CKD. Rest non-contributor Objective - Vital Signs/Intake and Output Vital Signs (last 24 hours): Temp Pulse Resp BP Pulse Ox 98.2 F 64 20 130/73 98 06/29/17 06:00 06/29/17 10:19 06/29/17 06:00 06/29/17 10:19 06/29/17 06:00 Intake and Output: 03/04/18 03/04/18 06:59 18:59 Intake Total 340 Output Total 3200 Balance -2860 - Medications Medications: Current Medications Allopurinol (Zyloprim) 300 mg PO DAILY [facility] Last Admin: 06/29/17 10:19 Dose: 300 mg Apixaban (Eliquis) 2.5 mg PO BID [facility] PRN Reason: Protocol Last Admin: 06/29/17 10:19 Dose: 2.5 mg Aspirin (Ecotrin) 81 mg PO DAILY [facility] Last Admin: 06/29/17 10:19 Dose: 81 mg Atorvastatin Calcium (Lipitor) 40 mg PO DIN [facility] Last Admin: 06/28/17 18:09 Dose: 40 mg Bicalutamide (Casodex) 50 mg PO DAILY [facility] Last Admin: 06/28/17 12:58 Dose: 50 mg Bisacodyl (Dulcolax) 10 mg RC DAILY PRN PRN Reason: Constipation Digoxin (Digoxin) 0.125 mg PO 1400 [facility] Last Admin: 06/28/17 13:09 Dose: Not Given Diltiazem HCl (Cardizem Cd) 240 mg PO DAILY [facility] Last Admin: 06/29/17 10:18 Dose: 240 mg Docusate Sodium (Colace) 100 mg PO TID [facility] Last Admin: 06/29/17 10:19 Dose: 100 mg Doxycycline Hyclate (Doryx) 100 mg PO Q12 [facility] PRN Reason: Protocol Last Admin: 06/29/17 10:19 Dose: 100 mg Furosemide (Lasix) 20 mg IVP Q12 [facility] Last Admin: 06/29/17 10:18 Dose: 20 mg Ceftriaxone Sodium (Rocephin 2 Gm Ivpb) 2 gm in 100 mls @ 100 mls/hr IVPB DAILY [facility] PRN Reason: Protocol Stop: 06/30/17 10:59 Last Admin: 06/28/17 09:07 Dose: 100 mls/hr Levalbuterol HCl (Xopenex) 0.63 mg IH [id number] [facility] Last Admin: 06/29/17 08:08 Dose: 0.63 mg Levalbuterol HCl (Xopenex) 0.63 mg IH Q2H PRN PRN Reason: Shortness of Breath Magnesium Oxide (Mag-Ox) 800 mg PO BID [facility] Last Admin: 06/29/17 10:19 Dose: 800 mg Metoprolol Tartrate (Lopressor) 50 mg PO BID [facility] Last Admin: 06/29/17 10:19 Dose: 50 mg Morphine Sulfate (Morphine) 1 mg IVP Q4H PRN PRN Reason: Pain, moderate (4-7) Last Admin: 06/29/17 08:12 Dose: 1 mg Pantoprazole Sodium (Protonix Ec Tab) 20 mg PO ACBD [facility] Last Admin: 06/29/17 06:39 Dose: 20 mg Polyethylene Glycol (Miralax) 17 gm PO BID [facility] Last Admin: 06/29/17 10:18 Dose: 17 gm - Labs Labs: 06/29/17 07:30 06/29/17 07:30 PT 18.5 SECONDS (9.4-12.5) H 06/26/17 04:45 INR 1.59 (0.93-1.08) H 06/26/17 04:45 APTT 36.5 Seconds (25.1-36.5) 06/26/17 04:45
--- NOTE | 2017-06-29 11:48 | CARD ---
APPROVED REPORT EKG Measurement Heart [id number] <Conclusion> Atrial fibrillation Low voltage QRS ST & T wave abnormality, consider lateral ischemia or digitalis effect Abnormal ECG
--- NOTE | 2017-06-29 13:00 | US ---
PROCEDURE: Right lower extremity venous US HISTORY: Leg pain and swelling. Evaluate for DVT. PHYSICIAN(S): Vincenzo Daniels M.D. TECHNIQUE: Duplex sonography and color-flow Doppler with graded compression were used to evaluate the deep venous system of the right lower extremity. The exam is somewhat limited by edema. FINDINGS: The visualized deep venous system of the right lower extremity is sonographically normal and compressible. Normal waveforms and augmentation are seen. There is no sonographic evidence for deep venous thrombosis in the visualized segments of the right lower extremity. IMPRESSION: 1. No sonographic evidence for deep venous thrombosis in the visualized segments of the right lower extremity.
[2017-06-29] MEDS: cefTRIAXone 2 GM IN NS 2 GM/100 ML BAG IVPB SCH (13:05)
[2017-06-29] MEDS: Digoxin 125 mcg (0.125 mg) Tab PO SCH (13:08)
[2017-06-29 13:20] LABS: OSMOLALITY,URINE 118 mosm/kg (300-1000)
[2017-06-30] MEDS: Levalbuterol 0.63 MG/3 ML Inhal Soln UD IH SCH ×4 (02:37→21:50)
[2017-06-30 07:27] LABS: BASO # 0.04 K/mm3 (0.0-2.0); BASO % 0.7 % (0.0-3.0); EOS # 0.1 (0.0-0.7); EOS % 1.1 % (1.5-5.0); GRAN # 3.95 (1.4-6.5); GRAN % 64.5 % (50.0-68.0); HEMOGLOBIN 12.4 g/dL (14.0-18.0); LYMPH # 1.2 (1.2-3.4); LYMPH % 20.1 % (22.0-35.0); MEAN CELL VOLUME 83.3 fl (80.0-105.0); MEAN CORPUSCULAR HEMOGLOBIN 27.7 pg (25.0-35.0); MEAN CORPUSCULAR HGB CONC 33.2 g/dl (31.0-37.0); MEAN PLATELET VOLUME 9.7 fl (7.0-11.0); MONO # 0.8 (0.1-0.6); MONO % 13.6 % (1.0-6.0); RBC 4.48 10^6/uL (3.5-6.1); RED CELL DISTRIBUTION WIDTH 15.2 % (11.5-14.5); WHITE BLOOD COUNT 6.1 10^3/ul (4.5-11.0)
[2017-06-30 07:49] LABS: ALB/GLOB RATIO 0.9 (1.1-1.8); ALT/SGPT 56 U/L (7-56); AST/SGOT 89 U/L (17-59); BILIRUBIN,DIRECT 0.9 mg/dL (0.0-0.4); BLOOD UREA NITROGEN 13 mg/dL (7-21); CALCIUM 9.3 mg/dL (8.4-10.5); GFR AFRICAN-AMERICAN > 60; GFR NON-AFRICAN AMERICAN 58
[2017-06-30] MEDS: Pantoprazole 20 mg EC Tab PO SCH ×2 (08:24→15:58)
[2017-06-30] MEDS: POLYETHYLENE GLYCOL 3350 17 GM/Dose PACKET PO SCH ×2 (10:43→18:28)
[2017-06-30] MEDS: cefTRIAXone 2 GM IN NS 2 GM/100 ML BAG IVPB SCH (10:43)
[2017-06-30] MEDS: diltiaZEM 240 mg/24 Hours CD Cap PO SCH (10:46)
[2017-06-30] MEDS: Magnesium Oxide 400 mg Tab UD PO SCH ×2 (10:46→18:27)
--- NOTE | 2017-06-30 11:20 | CP.PCM.PN ---
Subjective - Date & Time of Evaluation Date of Evaluation: 06/30/17 Time of Evaluation: 11:17 - Subjective Subjective: Nephrology Consultation Note Assessment: stable Hypervolemic hyponatremia likely Multifactorial due to CHF, SIADH Caused by metastatic prostate CA Hypertensive Chronic Kidney Disease (I12.9) Altered MENTAL status: resolved Chronic Kidney Disease (N18.3) Stage 3 with Cr 1.2 metastatic prostate cancer, HTN (I12.9) systolic CHF LVEF 20% hx of BPH Vitamin D deficiency Plan No acute need for renal replacement therapy at this time. Na stable for now on oral fluid fluid restriction 1000 mL per day and lasix 20 mg IV bid. hence continue with same. can change to lasix 40 mg po bid soon will consider Samsca 30 mg/day if serum Na decreases despite above strategy. Hypertension control with meds as ordered. unable to tolerate losartan due to hyperkalemia episodes. Monitor Input/Output, daily weights and renal function with basic metabolic panel supplement electrolytes as needed Avoid nephrotoxins/NSAIDs Glycemic control Further work up for as per primary team. CHF management as per cardiology Thanks for allowing me to participate in care of your patient. Will follow patient with you. Please call if any Qs. d/w team. Dr Grupo [facility]ital Office: [phone] Reason for consultation is Hyponatremia HPI patient is 77-year-old male with history of chronic systolic CHF EF 20% also metastatic prostate cancer , BPH, recently seen for hyponatremia due to CHF and likely SIADH which was treated with samsca and and diuretic. Discharged to skilled nursing here with the acute change in mentaL status and low sodium of 115 hence renal consult was requested. Patient at this time Feels better.He denies shortness of breath nausea vomiting any pain in his stomach. Subjective/ROS: Noted events overnight. Patients feels okay. Denies chest pain, palpitation,improved shortness of breath, denies leg swelling. All other negative Except as mentioned in HPI. had bone biopsy by IR on 06/10/17 Showed metastatic adeno carcinoma of prostate Physical Examination: General Appearance: Comfortable, in no acute respiratory distress, co-operative . Vitals reviewed and noted as below Head; Atraumatic, normocephalic ENT: no ulcers no thrush. Tongue is midline. Oropharynx: no rash or ulcers. EYES: Pupils are equal, round and reactive to light accommodation. Eye muscles and extraocular movement intact. Sclera is anicteric. Neck; supple no lymphadenopathy, no thyromegaly or bruit Lungs: Normal respiratory rate/effort. Breath sounds reduced at base Heart: Normal rate. s1s2 normal. No rub or gallop. Extremities: RLE 1+ edema. No varicose veins Neurological: Patient is alert, awake and oriented to person, place and time. No focal deficit. Strength bilateral appropriate and equal Skin: Warm and dry. Normal turgor. No rash. Palpitation: Normal elasticity for age. Feets somewhat cool to touch Abdomen: Abdomen is soft. Bowel sounds +. There is no abdominal tenderness, no guarding/rigidity no organomegaly Psych: normal insight and normal affect/mood MSK: no joint tenderness or swelling. Digits and nails normal, no deformity : kidney or bladder not palpable. Has Pettit catheter in place Labs/imaging reviewed. Past medical history, past surgical history, family history, social history, allergy reviewed and noted as below Family hx: no hx of CKD. Rest non-contributor Objective - Vital Signs/Intake and Output Vital Signs (last 24 hours): Temp Pulse Resp BP Pulse Ox 97.3 F L 75 20 129/72 100 06/30/17 06:00 06/30/17 10:46 06/30/17 06:00 06/30/17 10:45 06/30/17 06:00 Intake and Output: 06/30/17 06/30/17 06:59 18:59 Intake Total 0 Output Total 1500 Balance -1500 - Medications Medications: Current Medications Allopurinol (Zyloprim) 300 mg PO DAILY [facility] Last Admin: 06/30/17 10:46 Dose: 300 mg Apixaban (Eliquis) 2.5 mg PO BID [facility] PRN Reason: Protocol Last Admin: 06/30/17 10:46 Dose: 2.5 mg Aspirin (Ecotrin) 81 mg PO DAILY [facility] Last Admin: 06/30/17 10:47 Dose: 81 mg Atorvastatin Calcium (Lipitor) 40 mg PO DIN [facility] Last Admin: 06/29/17 17:50 Dose: 40 mg Bicalutamide (Casodex) 50 mg PO DAILY [facility] Last Admin: 06/29/17 13:06 Dose: 50 mg Bisacodyl (Dulcolax) 10 mg RC DAILY PRN PRN Reason: Constipation Digoxin (Digoxin) 0.125 mg PO 1400 [facility] Last Admin: 06/29/17 13:08 Dose: 0.125 mg Diltiazem HCl (Cardizem Cd) 240 mg PO DAILY [facility] Last Admin: 06/30/17 10:46 Dose: 240 mg Docusate Sodium (Colace) 100 mg PO TID [facility] Last Admin: 06/30/17 10:46 Dose: 100 mg Doxycycline Hyclate (Doryx) 100 mg PO Q12 [facility] PRN Reason: Protocol Last Admin: 06/30/17 10:46 Dose: 100 mg Furosemide (Lasix) 20 mg IVP Q12 [facility] Last Admin: 06/30/17 10:45 Dose: 20 mg Levalbuterol HCl (Xopenex) 0.63 mg IH [id number] [facility] Last Admin: 06/30/17 07:44 Dose: 0.63 mg Levalbuterol HCl (Xopenex) 0.63 mg IH Q2H PRN PRN Reason: Shortness of Breath Magnesium Oxide (Mag-Ox) 800 mg PO BID [facility] Last Admin: 06/30/17 10:46 Dose: 800 mg Metoprolol Tartrate (Lopressor) 50 mg PO BID [facility] Last Admin: 06/30/17 10:46 Dose: 50 mg Morphine Sulfate (Morphine) 1 mg IVP Q4H PRN PRN Reason: Pain, moderate (4-7) Last Admin: 06/29/17 23:17 Dose: 1 mg Pantoprazole Sodium (Protonix Ec Tab) 20 mg PO ACBD [facility] Last Admin: 06/30/17 08:24 Dose: 20 mg Polyethylene Glycol (Miralax) 17 gm PO BID [facility] Last Admin: 06/30/17 10:43 Dose: 17 gm - Labs Labs: 06/30/17 06:45 06/30/17 06:45 PT 18.5 SECONDS (9.4-12.5) H 06/26/17 04:45 INR 1.59 (0.93-1.08) H 06/26/17 04:45 APTT 36.5 Seconds (25.1-36.5) 06/26/17 04:45
--- NOTE | 2017-06-30 11:47 | CP.PCM.PN ---
Subjective - Date & Time of Evaluation Date of Evaluation: 06/30/17 Time of Evaluation: 11:44 - Subjective Subjective: Patient seen and examined at bedside. Patient is alert and oriented this morning. Patient with no acute events overnight. Denies chest pain, shortness of breath, nausea, vomiting, diarrhea, fever, chills. Objective - Vital Signs/Intake and Output Vital Signs (last 24 hours): Temp Pulse Resp BP Pulse Ox 97.3 F L 75 20 129/72 100 06/30/17 06:00 06/30/17 10:46 06/30/17 06:00 06/30/17 10:45 06/30/17 06:00 Intake and Output: 06/30/17 06/30/17 06:59 18:59 Intake Total 0 Output Total 1500 Balance -1500 - Medications Medications: Current Medications Allopurinol (Zyloprim) 300 mg PO DAILY [facility] Last Admin: 06/30/17 10:46 Dose: 300 mg Apixaban (Eliquis) 2.5 mg PO BID [facility] PRN Reason: Protocol Last Admin: 06/30/17 10:46 Dose: 2.5 mg Aspirin (Ecotrin) 81 mg PO DAILY [facility] Last Admin: 06/30/17 10:47 Dose: 81 mg Atorvastatin Calcium (Lipitor) 40 mg PO DIN [facility] Last Admin: 06/29/17 17:50 Dose: 40 mg Bicalutamide (Casodex) 50 mg PO DAILY [facility] Last Admin: 06/30/17 11:24 Dose: 50 mg Bisacodyl (Dulcolax) 10 mg RC DAILY PRN PRN Reason: Constipation Digoxin (Digoxin) 0.125 mg PO 1400 [facility] Last Admin: 06/29/17 13:08 Dose: 0.125 mg Diltiazem HCl (Cardizem Cd) 240 mg PO DAILY [facility] Last Admin: 06/30/17 10:46 Dose: 240 mg Docusate Sodium (Colace) 100 mg PO TID [facility] Last Admin: 06/30/17 10:46 Dose: 100 mg Doxycycline Hyclate (Doryx) 100 mg PO Q12 [facility] PRN Reason: Protocol Last Admin: 06/30/17 10:46 Dose: 100 mg Furosemide (Lasix) 20 mg IVP Q12 [facility] Last Admin: 06/30/17 10:45 Dose: 20 mg Levalbuterol HCl (Xopenex) 0.63 mg IH [id number] [facility] Last Admin: 06/30/17 07:44 Dose: 0.63 mg Levalbuterol HCl (Xopenex) 0.63 mg IH Q2H PRN PRN Reason: Shortness of Breath Magnesium Oxide (Mag-Ox) 800 mg PO BID [facility] Last Admin: 06/30/17 10:46 Dose: 800 mg Metoprolol Tartrate (Lopressor) 50 mg PO BID [facility] Last Admin: 06/30/17 10:46 Dose: 50 mg Morphine Sulfate (Morphine) 1 mg IVP Q4H PRN PRN Reason: Pain, moderate (4-7) Last Admin: 06/29/17 23:17 Dose: 1 mg Pantoprazole Sodium (Protonix Ec Tab) 20 mg PO ACBD [facility] Last Admin: 06/30/17 08:24 Dose: 20 mg Polyethylene Glycol (Miralax) 17 gm PO BID [facility] Last Admin: 06/30/17 10:43 Dose: 17 gm - Labs Labs: 06/30/17 06:45 06/30/17 06:45 PT 18.5 SECONDS (9.4-12.5) H 06/26/17 04:45 INR 1.59 (0.93-1.08) H 06/26/17 04:45 APTT 36.5 Seconds (25.1-36.5) 06/26/17 04:45 - Constitutional Appears: Non-toxic, No Acute Distress - ENT Exam ENT Exam: Mucous Membranes Moist - Respiratory Exam Respiratory Exam: Decreased Breath Sounds, NORMAL BREATHING PATTERN. absent: Rhonchi, Wheezes - Cardiovascular Exam Cardiovascular Exam: RRR, +S1, +S2 - GI/Abdominal Exam GI & Abdominal Exam: Distended, Normal Bowel Sounds. absent: Guarding, Rigid, Tenderness, Rebound - Extremities Exam Extremities Exam: Pedal Edema Additional comments: Right foot +1 - Neurological Exam Neurological Exam: Alert, Awake, Oriented x3 - Psychiatric Exam Psychiatric exam: Normal Affect, Normal Mood - Skin Skin Exam: Intact, Normal Color, Warm Assessment and Plan - Assessment and Plan (Free Text) Plan: 77 year old male with past medical history of prostate cancer, CHF, A-fib on eliquis, and hypertension presents to the ED from long-term for altered mental status likely secondary to severe hyponatremia. Altered mental status now resolved with improving hyponatremia. He is currently on fluid restriction and being followed by Nephrology. He will continue on Lasix and may be transitioned to oral lasix as per Nephrology. Right lower extremity ultrasound is negative for DVT. We will continue the patient on Rocephin and Doxycycline for possible CAP. Patient to be evaluated by TCU. We will continue current medical regimen. We will continue to follow patient closely. Santy, PGY-2
--- NOTE | 2017-06-30 15:07 | PN ---
DATE: 06/30/2017 CARDIOLOGY FOLLOWUP SUBJECTIVE: The patient is comfortable in bed. He is awake, alert. PHYSICAL EXAMINATION VITAL SIGNS: Blood pressure is 130/72, the heart rates in the 70s. NECK: Negative JVD. LUNGS: Decreased breath sounds without rales. HEART: Reveals S1 and S2. EXTREMITIES: Without edema. LABORATORY DATA: Hemoglobin is 12.4. BUN and creatinine is 13 and 1.2. The sodium is up to 131. IMPRESSION: 1. Improved hyponatremia. 2. Atrial fibrillation with good heart rate control. 3. Severely dilated cardiomyopathy. 4. Pulmonary hypertension. PLAN: Given these findings, the patient's heart rate is well controlled on Cardizem. He is on Eliquis for his chronic atrial fibrillation. We will discontinue telemetry today. Vincenzo Grayson MD
[2017-06-30] MEDS: Digoxin 125 mcg (0.125 mg) Tab PO SCH (15:57)
--- NOTE | 2017-06-30 22:04 | CP.PCM.PN ---
Subjective - Date & Time of Evaluation Date of Evaluation: 06/30/17 Time of Evaluation: 18:15 - Subjective Subjective: Feeling better, doing well. Objective - Vital Signs/Intake and Output Vital Signs (last 24 hours): Temp Pulse Resp BP Pulse Ox 98.1 F 64 18 101/61 100 06/30/17 14:00 06/30/17 14:00 06/30/17 14:00 06/30/17 21:46 06/30/17 14:00 Intake and Output: 06/30/17 07/01/17 18:59 06:59 Intake Total 600 Output Total 200 Balance 400 - Medications Medications: Current Medications Allopurinol (Zyloprim) 300 mg PO DAILY [facility] Last Admin: 06/30/17 10:46 Dose: 300 mg Apixaban (Eliquis) 2.5 mg PO BID [facility] PRN Reason: Protocol Last Admin: 06/30/17 18:27 Dose: 2.5 mg Aspirin (Ecotrin) 81 mg PO DAILY [facility] Last Admin: 06/30/17 10:47 Dose: 81 mg Atorvastatin Calcium (Lipitor) 40 mg PO DIN [facility] Last Admin: 06/30/17 18:27 Dose: 40 mg Bicalutamide (Casodex) 50 mg PO DAILY [facility] Last Admin: 06/30/17 11:24 Dose: 50 mg Bisacodyl (Dulcolax) 10 mg RC DAILY PRN PRN Reason: Constipation Digoxin (Digoxin) 0.125 mg PO 1400 [facility] Last Admin: 06/30/17 15:57 Dose: 0.125 mg Diltiazem HCl (Cardizem Cd) 240 mg PO DAILY [facility] Last Admin: 06/30/17 10:46 Dose: 240 mg Docusate Sodium (Colace) 100 mg PO TID [facility] Last Admin: 06/30/17 18:28 Dose: 100 mg Doxycycline Hyclate (Doryx) 100 mg PO Q12 [facility] PRN Reason: Protocol Last Admin: 06/30/17 21:46 Dose: 100 mg Furosemide (Lasix) 20 mg IVP Q12 [facility] Last Admin: 06/30/17 21:46 Dose: 20 mg Levalbuterol HCl (Xopenex) 0.63 mg IH [id number] [facility] Last Admin: 06/30/17 13:44 Dose: 0.63 mg Levalbuterol HCl (Xopenex) 0.63 mg IH Q2H PRN PRN Reason: Shortness of Breath Magnesium Oxide (Mag-Ox) 800 mg PO BID [facility] Last Admin: 06/30/17 18:27 Dose: 800 mg Metoprolol Tartrate (Lopressor) 50 mg PO BID [facility] Last Admin: 06/30/17 18:28 Dose: 50 mg Morphine Sulfate (Morphine) 1 mg IVP Q4H PRN PRN Reason: Pain, moderate (4-7) Last Admin: 06/29/17 23:17 Dose: 1 mg Pantoprazole Sodium (Protonix Ec Tab) 20 mg PO ACBD [facility] Last Admin: 06/30/17 15:58 Dose: 20 mg Polyethylene Glycol (Miralax) 17 gm PO BID [facility] Last Admin: 06/30/17 18:28 Dose: 17 gm - Labs Labs: 06/30/17 06:45 06/30/17 06:45 PT 18.5 SECONDS (9.4-12.5) H 06/26/17 04:45 INR 1.59 (0.93-1.08) H 06/26/17 04:45 APTT 36.5 Seconds (25.1-36.5) 06/26/17 04:45 - Head Exam Head Exam: ATRAUMATIC - Eye Exam Eye Exam: Normal appearance - ENT Exam ENT Exam: Mucous Membranes Dry - Respiratory Exam Respiratory Exam: NORMAL BREATHING PATTERN - Cardiovascular Exam Cardiovascular Exam: +S1, +S2 - GI/Abdominal Exam GI & Abdominal Exam: Normal Bowel Sounds - Extremities Exam Extremities Exam: Pedal Edema Assessment and Plan (1) Anemia Assessment & Plan: chronic disease and bone mets Status: Acute (2) Prostate cancer Assessment & Plan: stage IV bone metastasis start on peripheral androgen blockade outpatient Lupron Status: Acute
[2017-07-01] MEDS ORDERED: cefTRIAXone 2 GM IN NS 2 GM/100 ML BAG IVPB STA (00:37)
[2017-07-01] MEDS: Levalbuterol 0.63 MG/3 ML Inhal Soln UD IH SCH ×4 (03:41→19:39)
--- NOTE | 2017-07-01 05:46 | PN ---
DATE: 06/30/2017 SUBJECTIVE: Patient is seen lying in the bed in room 377, bed 2. Overnight nurse's notes were reviewed. PHYSICAL EXAMINATION: VITAL SIGNS: T-max is 98.9 to 98.1, heart rate 79 and 64. Telemetry shows atrial fibrillation, heart rate in 70s and 60s. Blood pressure is 122/75, 135/89, 135/83, 146/83, 134/69, 127/82. Respiration 18, O2 sat 97%. HEENT: Head examination normocephalic, atraumatic. HEENT examination shows pink conjunctivae. Anicteric sclerae. No oropharyngeal lesion. No neck rigidity. CHEST: Kyphosis. LUNGS: Shows no rales, crackles or wheezing. Decreased breath sound at the bases. CARDIOVASCULAR: S1, S2, irregular rhythm. Positive systolic murmur left sternal border, right second intercostal space, left second intercostal space. ABDOMEN: Soft. Positive bowel sound. Tympanic abdomen. GENITALIA: Male. RECTAL: Examination is deferred. EXTREMITIES: Show positive swelling of the ankles noted. No pitting edema noted. MUSCULOSKELETAL: Examination shows a body mass index of 29. NEUROLOGIC: Patient is alert, awake, responsive, is able to move upper and lower extremity without assistance. Gait examination could not be tested. DIAGNOSTICS: On 06/30, WBC 6.1, hemoglobin/hematocrit 12.4 and 37.3, platelets 173. Sodium 131, potassium is 4.7, chloride 95, CO2 28, anion gap 13, BUN 13, creatinine 1.2, GFR greater than 60, glucose 102, calcium 9.3, magnesium 1.8, direct bili 0.9, AST 89, alk phos 171. Digoxin level 0.4. Hepatitis A, B, C serologies negative. MRSA nondetected. Urine cultures and blood cultures negative. Venous Doppler of the lower extremity was negative. EKG was reviewed; EKG had atrial fibrillation, baseline artifact. IMPRESSION AND PLAN: 1. Severe symptomatic hyponatremia with altered mental status and confusion. 2. Hypochloremic hyponatremia. 3. Hypertension. 4. Atrial fibrillation. 5. Severe gait dysfunction. 6. Normocytic anemia. 7. Granulocytosis. 8. Hyperbilirubinemia and transaminitis. 9. Rhabdomyolysis. 10. Metastases stage IV prostate carcinoma. 11. Proteinuria, microscopic hematuria, pyuria, bacteriuria. 12. Abdominal distention with constipation. 13. Urinary retention. 14. L1 vertebral body bony sclerosis suspicious for metastatic disease. 15. Mid thoracic spine sclerotic lesions. 16. Right lower lobe consolidation, pneumonia and healthcare-associated pneumonia and [id number] right pleural effusion. 17. Deconditioning. 18. Gait dysfunction. 19. Advanced stage IV prostate carcinoma. 20. Cerebral cortical atrophy of the brain. 21. Probable right basal ganglia, chronic lacunar infarct. 22. Intracranial atherosclerotic disease. 23. Questionable lateral ischemic changes on the EKG. 24. Hypervolemic hyponatremia. 25. 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 26. Hypertensive kidney disease. 27. Systolic congestive heart failure. 28. Hypovitaminosis D. 29. Severe dilated cardiomyopathy. 30. Constipation. 31. Dyslipidemia. 32. Hypomagnesemia. Plan at this time, patient is to be continued on the above therapeutic intervention. Patient has been ordered physical therapy, occupational therapy, ambulation therapy, gait training. Patient has been ordered chest x-ray, repeat, PA and lateral, for the progression of right lower lobe pneumonia. Patient has been ordered repeat lab work. Patient has been ordered repeat chemistries and serial chemistries are ordered. Patient was given a dose of tolvaptan by the webmaster. CURRENT CONSULTATIONS: 1. Cardiology. 2. Gastroenterology, 3. Hematology/Oncology. 4. Nephrology. Patient's case referred for TCU and social care worker. CURRENT MEDICATIONS: 1. Cardizem CD 240 mg daily. 2. Casodex 50 mg daily. 3. Colace 100 mg three times a day. 4. Digoxin 0.125 p.o. daily. 5. Doxycycline 100 mg p.o. q. 12. 6. Dulcolax suppository 10 mg daily p.r.n. 7. Ecotrin 81 mg daily. 8. Eliquis 2.5 twice a day. 9. Patient is started on Lasix 20 mg IV q. 12 by Nephrology. 10. Lipitor 40 mg daily. 11. Lopressor 50 mg twice a day. 12. Magnesium oxide 800 twice a day. 13. MiraLax 17 g twice a day. 14. Morphine 1 g IV q. 4 p.r.n. 15. Protonix 40 mg daily. 16. Xopenex nebulizer 0.63 mg every 6 hours [id number] and q. 2 p.r.n. 17. Zyloprim 100 mg daily. Patient has been ordered repeat chest x-ray, PA and lateral. Chest PT ordered. Patient has been ordered elevation of the lower extremity on two pillows, out of bed to chair, LIV stockings, SCDs, occupational therapy, physical therapy ordered. Patient is seen by the physical therapist. The last one was done in 06/28. Patient has not had any therapy since last 2 to 3 days. Patient is to be also continued on IV antibiotic. Patient was given IV antibiotic 2 g IV daily. It seems that patient's IV antibiotic fell off the list, which will be resumed. Dictated and electronically signed, not read. Benny Street MD [facility]
[2017-07-01 07:48] LABS: ALB/GLOB RATIO 0.9 (1.1-1.8); ALT/SGPT 56 U/L (7-56); AST/SGOT 84 U/L (17-59); BILIRUBIN,DIRECT 0.7 mg/dL (0.0-0.4); BLOOD UREA NITROGEN 14 mg/dL (7-21); CALCIUM 9.1 mg/dL (8.4-10.5); GFR AFRICAN-AMERICAN > 60; GFR NON-AFRICAN AMERICAN 58
[2017-07-01] MEDS: Morphine 2 mg/ml ISec IVP PRN ×2 (07:54→19:45)
[2017-07-01] MEDS: Pantoprazole 20 mg EC Tab PO SCH ×2 (09:35→17:54)
[2017-07-01] MEDS: Magnesium Oxide 400 mg Tab UD PO SCH ×2 (09:35→17:51)
[2017-07-01] MEDS: POLYETHYLENE GLYCOL 3350 17 GM/Dose PACKET PO SCH ×2 (09:36→17:50)
[2017-07-01] MEDS: diltiaZEM 240 mg/24 Hours CD Cap PO SCH (09:43)
--- NOTE | 2017-07-01 10:33 | CP.PCM.PN ---
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 hence continue with same. can change to lasix 40 mg po bid soon will consider Samsca 30 mg/day if serum Na decreases to <130 despite above strategy. Hypertension control with meds as ordered. unable to tolerate losartan due to hyperkalemia episodes. Monitor Input/Output, daily weights and renal function with basic metabolic panel supplement electrolytes as needed Avoid nephrotoxins/NSAIDs Glycemic control Further work up for as per primary team. CHF management as per cardiology Thanks for allowing me to participate in care of your patient. Will follow patient with you. Please call if any Qs. d/w team. Dr Grupo Vital Office: [phone] Reason for consultation is Hyponatremia HPI patient is 77-year-old male with history of chronic systolic CHF EF 20% also metastatic prostate cancer , BPH, recently seen for hyponatremia due to CHF and likely SIADH which was treated with samsca and and diuretic. Discharged to fpc here with the acute change in mentaL status and low sodium of 115 hence renal consult was requested. Patient at this time Feels better.He denies shortness of breath nausea vomiting any pain in his stomach. Subjective/ROS: Noted events overnight. Patients feels okay. Denies chest pain, palpitation,improved shortness of breath, denies leg swelling. All other negative Except as mentioned in HPI. had bone biopsy by IR on 06/10/17 Showed metastatic adeno carcinoma of prostate Physical Examination: General Appearance: Comfortable, in no acute respiratory distress, co-operative . Vitals reviewed and noted as below Head; Atraumatic, normocephalic ENT: no ulcers no thrush. Tongue is midline. Oropharynx: no rash or ulcers. EYES: Pupils are equal, round and reactive to light accommodation. Eye muscles and extraocular movement intact. Sclera is anicteric. Neck; supple no lymphadenopathy, no thyromegaly or bruit Lungs: Normal respiratory rate/effort. Breath sounds reduced at Rt base Heart: Normal rate. s1s2 normal. No rub or gallop. Extremities: no edema. No varicose veins Neurological: Patient is alert, awake and oriented to person, place and time. No focal deficit. Strength bilateral appropriate and equal Skin: Warm and dry. Normal turgor. No rash. Palpitation: Normal elasticity for age. Feets somewhat cool to touch Abdomen: Abdomen is soft. Bowel sounds +. There is no abdominal tenderness, no guarding/rigidity no organomegaly Psych: normal insight and normal affect/mood MSK: no joint tenderness or swelling. Digits and nails normal, no deformity : kidney or bladder not palpable. Has Pettit catheter in place Labs/imaging reviewed. Past medical history, past surgical history, family history, social history, allergy reviewed and noted as below Family hx: no hx of CKD. Rest non-contributor Objective - Vital Signs/Intake and Output Vital Signs (last 24 hours): Temp Pulse Resp BP Pulse Ox 99.0 F 77 22 129/85 98 07/01/17 07:30 07/01/17 07:30 07/01/17 07:30 07/01/17 09:43 07/01/17 07:30 Intake and Output: 07/01/17 07/01/17 06:59 18:59 Intake Total 780 Output Total 1100 Balance -320 - Medications Medications: Current Medications Allopurinol (Zyloprim) 300 mg PO DAILY [facility] Last Admin: 07/01/17 09:43 Dose: 300 mg Apixaban (Eliquis) 2.5 mg PO BID [facility] PRN Reason: Protocol Last Admin: 07/01/17 09:35 Dose: 2.5 mg Aspirin (Ecotrin) 81 mg PO DAILY [facility] Last Admin: 07/01/17 09:35 Dose: 81 mg Atorvastatin Calcium (Lipitor) 40 mg PO DIN [facility] Last Admin: 06/30/17 18:27 Dose: 40 mg Bicalutamide (Casodex) 50 mg PO DAILY [facility] Last Admin: 06/30/17 11:24 Dose: 50 mg Bisacodyl (Dulcolax) 10 mg RC DAILY PRN PRN Reason: Constipation Digoxin (Digoxin) 0.125 mg PO 1400 [facility] Last Admin: 06/30/17 15:57 Dose: 0.125 mg Diltiazem HCl (Cardizem Cd) 240 mg PO DAILY [facility] Last Admin: 07/01/17 09:43 Dose: 240 mg Docusate Sodium (Colace) 100 mg PO TID [facility] Last Admin: 07/01/17 09:34 Dose: 100 mg Doxycycline Hyclate (Doryx) 100 mg PO Q12 [facility] PRN Reason: Protocol Last Admin: 07/01/17 09:36 Dose: 100 mg Furosemide (Lasix) 20 mg IVP Q12 [facility] Last Admin: 07/01/17 09:34 Dose: 20 mg Ceftriaxone Sodium (Rocephin 2 Gm Ivpb) 2 gm in 100 mls @ 100 mls/hr IVPB 2200 [facility] PRN Reason: Protocol Levalbuterol HCl (Xopenex) 0.63 mg IH [id number] [facility] Last Admin: 07/01/17 07:26 Dose: 0.63 mg Levalbuterol HCl (Xopenex) 0.63 mg IH Q2H PRN PRN Reason: Shortness of Breath Magnesium Oxide (Mag-Ox) 800 mg PO BID [facility] Last Admin: 07/01/17 09:35 Dose: 800 mg Metoprolol Tartrate (Lopressor) 50 mg PO BID [facility] Last Admin: 07/01/17 09:38 Dose: 50 mg Morphine Sulfate (Morphine) 1 mg IVP Q4H PRN PRN Reason: Pain, moderate (4-7) Last Admin: 07/01/17 07:54 Dose: 1 mg Pantoprazole Sodium (Protonix Ec Tab) 20 mg PO ACBD [facility] Last Admin: 07/01/17 09:35 Dose: 20 mg Polyethylene Glycol (Miralax) 17 gm PO BID [facility] Last Admin: 07/01/17 09:36 Dose: 17 gm - Labs Labs: 06/30/17 06:45 07/01/17 07:00 PT 18.5 SECONDS (9.4-12.5) H 06/26/17 04:45 INR 1.59 (0.93-1.08) H 06/26/17 04:45 APTT 36.5 Seconds (25.1-36.5) 06/26/17 04:45
--- NOTE | 2017-07-01 10:40 | CP.PCM.PN ---
Subjective - Date & Time of Evaluation Date of Evaluation: 07/01/17 Time of Evaluation: 10:37 - Subjective Subjective: Patient seen and examined at bedside. Patient is confused this morning after being oriented throughout yesterday. Patient does respond appropriately to commands. Denies chest pain, shortness of breath, nausea, vomiting, diarrhea, fever, chills. Objective - Vital Signs/Intake and Output Vital Signs (last 24 hours): Temp Pulse Resp BP Pulse Ox 99.0 F 77 22 129/85 98 07/01/17 07:30 07/01/17 07:30 07/01/17 07:30 07/01/17 09:43 07/01/17 07:30 Intake and Output: 07/01/17 07/01/17 06:59 18:59 Intake Total 780 Output Total 1100 Balance -320 - Medications Medications: Current Medications Allopurinol (Zyloprim) 300 mg PO DAILY [facility] Last Admin: 07/01/17 09:43 Dose: 300 mg Apixaban (Eliquis) 2.5 mg PO BID [facility] PRN Reason: Protocol Last Admin: 07/01/17 09:35 Dose: 2.5 mg Aspirin (Ecotrin) 81 mg PO DAILY [facility] Last Admin: 07/01/17 09:35 Dose: 81 mg Atorvastatin Calcium (Lipitor) 40 mg PO DIN [facility] Last Admin: 06/30/17 18:27 Dose: 40 mg Bicalutamide (Casodex) 50 mg PO DAILY [facility] Last Admin: 06/30/17 11:24 Dose: 50 mg Bisacodyl (Dulcolax) 10 mg RC DAILY PRN PRN Reason: Constipation Digoxin (Digoxin) 0.125 mg PO 1400 [facility] Last Admin: 06/30/17 15:57 Dose: 0.125 mg Diltiazem HCl (Cardizem Cd) 240 mg PO DAILY [facility] Last Admin: 07/01/17 09:43 Dose: 240 mg Docusate Sodium (Colace) 100 mg PO TID [facility] Last Admin: 07/01/17 09:34 Dose: 100 mg Doxycycline Hyclate (Doryx) 100 mg PO Q12 [facility] PRN Reason: Protocol Last Admin: 07/01/17 09:36 Dose: 100 mg Furosemide (Lasix) 20 mg IVP Q12 [facility] Last Admin: 07/01/17 09:34 Dose: 20 mg Ceftriaxone Sodium (Rocephin 2 Gm Ivpb) 2 gm in 100 mls @ 100 mls/hr IVPB 2200 NIG[facility] PRN Reason: Protocol Levalbuterol HCl (Xopenex) 0.63 mg IH [id number] [facility] Last Admin: 07/01/17 07:26 Dose: 0.63 mg Levalbuterol HCl (Xopenex) 0.63 mg IH Q2H PRN PRN Reason: Shortness of Breath Magnesium Oxide (Mag-Ox) 800 mg PO BID [facility] Last Admin: 07/01/17 09:35 Dose: 800 mg Metoprolol Tartrate (Lopressor) 50 mg PO BID [facility] Last Admin: 07/01/17 09:38 Dose: 50 mg Morphine Sulfate (Morphine) 1 mg IVP Q4H PRN PRN Reason: Pain, moderate (4-7) Last Admin: 07/01/17 07:54 Dose: 1 mg Pantoprazole Sodium (Protonix Ec Tab) 20 mg PO ACBD [facility] Last Admin: 07/01/17 09:35 Dose: 20 mg Polyethylene Glycol (Miralax) 17 gm PO BID [facility] Last Admin: 07/01/17 09:36 Dose: 17 gm - Labs Labs: 06/30/17 06:45 07/01/17 07:00 PT 18.5 SECONDS (9.4-12.5) H 06/26/17 04:45 INR 1.59 (0.93-1.08) H 06/26/17 04:45 APTT 36.5 Seconds (25.1-36.5) 06/26/17 04:45 - Constitutional Appears: Non-toxic, No Acute Distress - Head Exam Head Exam: ATRAUMATIC, NORMAL INSPECTION, NORMOCEPHALIC - ENT Exam ENT Exam: Mucous Membranes Moist - Respiratory Exam Respiratory Exam: Decreased Breath Sounds, NORMAL BREATHING PATTERN. absent: Rales, Rhonchi, Wheezes - Cardiovascular Exam Cardiovascular Exam: RRR, +S1, +S2 - GI/Abdominal Exam GI & Abdominal Exam: Soft, Normal Bowel Sounds. absent: Tenderness - Extremities Exam Extremities Exam: Pedal Edema (+1 b/l). absent: Calf Tenderness - Neurological Exam Neurological Exam: Alert, Awake. absent: Oriented x3 (Oriented to person) - Psychiatric Exam Additional comments: Confused - Skin Skin Exam: Intact, Normal Color, Warm Assessment and Plan - Assessment and Plan (Free Text) Plan: 77 year old male with past medical history of prostate cancer, CHF, A-fib on eliquis, and hypertension presents to the ED from [facility] for altered mental status likely secondary to severe hyponatremia. Hyponatremia resolved, but patient also demonstrating new onset confusion this morning. Will obtain brain MRI at this time. He is currently on fluid restriction and being followed by Nephrology. Possible transition to oral lasix today as per nephrology. Right lower extremity ultrasound is negative for DVT. We will continue the patient on Rocephin and Doxycycline for possible CAP. Patient is not a candidate for TCU at this time. We will continue current medical regimen. We will continue to follow patient closely. Santy, PGY-2
--- NOTE | 2017-07-01 10:59 | RAD ---
HISTORY: RLL PNEUMONIA/PLEURAL EFFUSION COMPARISON: 06/26/2017 TECHNIQUE: Chest PA and lateral FINDINGS: LUNGS: There is a slight increase in the right lower lobe infiltrate. PLEURA: No significant pleural effusion identified. No pneumothorax apparent. CARDIOVASCULAR: Normal. OSSEOUS STRUCTURES: No significant abnormalities. VISUALIZED UPPER ABDOMEN: Normal. OTHER FINDINGS: None. IMPRESSION: There is an increase in the right lower lobe infiltrate
[2017-07-01] MEDS: Digoxin 125 mcg (0.125 mg) Tab PO SCH (13:00)
--- NOTE | 2017-07-01 14:12 | MRI ---
PROCEDURE: MRI BRAIN WITHOUT CONTRAST HISTORY: evaluate for mets COMPARISON: 06/06/2017 MRI TECHNIQUE: Multiplanar, multisequence MR images of the brain were obtained without intravenous contrast enhancement. FINDINGS: HEMORRHAGE: None DWI: No evidence of an acute or early subacute infarction. BRAIN PARENCHYMA: No mass effect or edema. There is a moderate amount of atrophy VENTRICLES: Unremarkable. No hydrocephalus. CRANIUM: Unremarkable. ORBITS: Grossly unremarkable. PARANASAL SINUSES/MASTOIDS: Clear VASCULAR SYSTEM: Skull base flow voids intact. OTHER FINDINGS: None. IMPRESSION: Unremarkable non contrast enhanced MRI of the brain.
--- NOTE | 2017-07-01 16:39 | PN ---
DATE: 07/01/2017 CARDIOLOGY FOLLOWUP SUBJECTIVE: The patient's confusion is noted. PHYSICAL EXAMINATION: VITAL SIGNS: Blood pressure is 130/85 with heart rates in the 70s. NECK: Negative JVD. LUNGS: Without rales. HEART: Reveals S1, S2. EXTREMITIES: Trace edema. LABORATORY DATA: Hemoglobin is 12.4. Chemistries: BUN and creatinine are unremarkable. Sodium is 135. IMPRESSION: 1. Intermittent confusion. 2. Resolution of hyponatremia. 3. Atrial fibrillation. 4. Dilated cardiomyopathy. 5. Pulmonary hypertension. PLAN: Given these findings, we will continue the patient on his current medications. Neurology has been called for evaluation of his confusion. Vincenzo Grayson MD
--- NOTE | 2017-07-01 17:08 | CP.PCM.PN ---
Subjective - Date & Time of Evaluation Date of Evaluation: 07/01/17 Time of Evaluation: 16:35 - Subjective Subjective: Appears comfortable, denies being confused Objective - Vital Signs/Intake and Output Vital Signs (last 24 hours): Temp Pulse Resp BP Pulse Ox 98.2 F 73 20 114/74 100 07/01/17 14:00 07/01/17 14:00 07/01/17 14:00 07/01/17 14:00 07/01/17 14:00 Intake and Output: 07/01/17 07/01/17 06:59 18:59 Intake Total 780 480 Output Total 1100 300 Balance -320 180 - Medications Medications: Current Medications Allopurinol (Zyloprim) 300 mg PO DAILY [facility] Last Admin: 07/01/17 09:43 Dose: 300 mg Apixaban (Eliquis) 2.5 mg PO BID [facility] PRN Reason: Protocol Last Admin: 07/01/17 09:35 Dose: 2.5 mg Aspirin (Ecotrin) 81 mg PO DAILY [facility] Last Admin: 07/01/17 09:35 Dose: 81 mg Atorvastatin Calcium (Lipitor) 40 mg PO DIN [facility] Last Admin: 06/30/17 18:27 Dose: 40 mg Bicalutamide (Casodex) 50 mg PO DAILY [facility] Last Admin: 07/01/17 12:55 Dose: Not Given Bisacodyl (Dulcolax) 10 mg RC DAILY PRN PRN Reason: Constipation Digoxin (Digoxin) 0.125 mg PO 1400 [facility] Last Admin: 07/01/17 13:00 Dose: 0.125 mg Diltiazem HCl (Cardizem Cd) 240 mg PO DAILY [facility] Last Admin: 07/01/17 09:43 Dose: 240 mg Docusate Sodium (Colace) 100 mg PO TID [facility] Last Admin: 07/01/17 13:00 Dose: 100 mg Doxycycline Hyclate (Doryx) 100 mg PO Q12 [facility] PRN Reason: Protocol Last Admin: 07/01/17 09:36 Dose: 100 mg Furosemide (Lasix) 20 mg IVP Q12 [facility] Last Admin: 07/01/17 09:34 Dose: 20 mg Ceftriaxone Sodium (Rocephin 2 Gm Ivpb) 2 gm in 100 mls @ 100 mls/hr IVPB 2200 [facility]IG[facility] PRN Reason: Protocol Levalbuterol HCl (Xopenex) 0.63 mg IH [id number] [facility] Last Admin: 07/01/17 13:26 Dose: Not Given Levalbuterol HCl (Xopenex) 0.63 mg IH Q2H PRN PRN Reason: Shortness of Breath Magnesium Oxide (Mag-Ox) 800 mg PO BID [facility] Last Admin: 07/01/17 09:35 Dose: 800 mg Metoprolol Tartrate (Lopressor) 50 mg PO BID [facility] Last Admin: 07/01/17 09:38 Dose: 50 mg Morphine Sulfate (Morphine) 1 mg IVP Q4H PRN PRN Reason: Pain, moderate (4-7) Last Admin: 07/01/17 07:54 Dose: 1 mg Pantoprazole Sodium (Protonix Ec Tab) 20 mg PO ACBD [facility] Last Admin: 07/01/17 09:35 Dose: 20 mg Polyethylene Glycol (Miralax) 17 gm PO BID [facility] Last Admin: 07/01/17 09:36 Dose: 17 gm - Labs Labs: 06/30/17 06:45 07/01/17 07:00 PT 18.5 SECONDS (9.4-12.5) H 06/26/17 04:45 INR 1.59 (0.93-1.08) H 06/26/17 04:45 APTT 36.5 Seconds (25.1-36.5) 06/26/17 04:45 - Head Exam Head Exam: ATRAUMATIC - Eye Exam Eye Exam: Normal appearance - ENT Exam ENT Exam: Mucous Membranes Dry - Respiratory Exam Respiratory Exam: NORMAL BREATHING PATTERN - Cardiovascular Exam Cardiovascular Exam: +S1, +S2 - GI/Abdominal Exam GI & Abdominal Exam: Normal Bowel Sounds - Extremities Exam Extremities Exam: Pedal Edema Assessment and Plan (1) Anemia Assessment & Plan: chronic disease, bone metastasis H/H fairly stable Status: Acute (2) Prostate cancer Assessment & Plan: stage IV bone mets on peripheral androgen blockade outpatient Lupron Status: Acute
[2017-07-01] MEDS ORDERED: cefTRIAXone 2 GM IN NS 2 GM/100 ML BAG IVPB SCH (22:00)
[2017-07-02] MEDS: Morphine 2 mg/ml ISec IVP PRN (01:08)
[2017-07-02] MEDS: Levalbuterol 0.63 MG/3 ML Inhal Soln UD IH SCH ×3 (01:41→13:42)
--- NOTE | 2017-07-02 01:48 | PN ---
DATE: 07/01/2017 SUBJECTIVE: The patient is seen today in 577, bed 1. The patient is seen lying in the bed. The patient was lethargic, but arousable, appeared to be confused. Overnight nurse's notes were reviewed.. The patient overnight was comfortable according to the nurses' notes. The patient watched TV overnight. PHYSICAL EXAMINATION: VITAL SIGNS: T-max is 98.0-99.0; heart rate 73, 77, atrial fibrillation; blood pressure in the last 24 hours, 127/82, 129/85, 129/85, 114/74; respiration 20; O2 sat 98-100%. Intake/output: Output in the last 24 hours is noted to be 1300, +200, +900, +300. Total of 2700 mL. HEENT: Head examination normocephalic, atraumatic. HEENT examination shows pinkish conjunctivae. Anicteric sclerae. No oropharyngeal lesion. No neck rigidity. Questionable jugular venous distention. CHEST: Kyphosis. LUNG: Examination shows decreased breath sound at the bases, left more than the right. CARDIOVASCULAR: S1, S2. Irregular rhythm. Positive systolic murmur, left sternal border, right second intercostal space. ABDOMEN: Soft, protuberant. Positive bowel sounds. No hepatosplenomegaly appreciated. No guarding. No rigidity. No rebound tenderness. GENITALIA: Male. RECTAL: Deferred. EXTREMITY: Shows positive ankle swelling and trace swelling and pitting edema of the lower extremity. Positive SCDs. MUSCULOSKELETAL: Shows a body mass index of 29.3. NEUROLOGIC: The patient is arousable, awake, responsive, lethargic and questionable confused. The patient is slow in responding and moving upper lower extremity. DIAGNOSTICS: From today is sodium 135, potassium 4.2, chloride 96, CO2 of 31, anion gap 12, BUN 14, creatinine 1.2, GFR greater than 60, glucose 120, calcium 9.1 with total bili 0.7, AST 84, alk phos 166, total protein 6.2, albumin 3.0. Hepatitis serologies are negative. MRSA urine blood cultures negative. The patient was sent for a stat MRI for evaluation of altered mental status and to rule out brain mets. An MRI of the brain was negative for any metastasis or acute stroke. Only shows moderate cerebral cortical atrophy. The patient also had a chest x-ray done for evaluation of congestive heart failure and the right lower lobe pneumonia and pleural effusion. The patient's repeat chest x-ray was noted. MRI of the brain was noted. IMPRESSION AND PLAN: 1. Questionable altered mental status with episodic confusion and lethargy, etiology undetermined. 2. 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 3. Atrial fibrillation. 4. Anemia. 5. Granulocytosis. 6. Cerebral cortical atrophy of the brain. 7. Increasing right lower lobe infiltrate versus right-sided effusion. 8. Slow resolving hyponatremia secondary to syndrome of inappropriate antidiuretic hormone. 9. Transaminitis. 10. Severe gait dysfunction and deconditioning. 11. Bilateral lower extremity venous stasis. 12. End-stage dilated cardiomyopathy with left ventricular ejection fraction of 20%. 13. Rhabdomyolysis. 14. Severe transaminitis. 15. Proteinuria. 16. Microscopic hematuria. 17. Pyuria. 18. Bacteriuria. 19. History of hypertension. 20. Atrial fibrillation with questionable lateral ischemic changes on the EKG. 21. Slow resolving hyponatremia. 22. Dilated cardiomyopathy. 23. Hypovolemia hyponatremia secondary to congestive heart failure and syndrome of inappropriate antidiuretic hormone secondary to stage IV metastases adenocarcinoma of the prostate. 24. Hypertensive chronic kidney disease. 25. Systolic congestive heart failure with ejection fraction of 20%. Plan at this time, we have requested a Neurology consultation for evaluation of the patient's confusion state. Neurology consultation requested. The patient has also been requested to be evaluated by Interventional Radiology for possible evaluation of the right-sided pleural effusion. The patient has been ordered repeat chemistry, digoxin level, LFT, magnesium. CONSULTATION: 1. Cardiology. 2. Gastroenterology. 3. Hematology/Oncology. 4. Nephrology. 5. Neurology. 6. Interventional Radiology. The patient's case is referred to Traffic Signal Technician upon completion of the acute care hospitalization. The patient was seen by the physical therapist. Their recommendation is to continue PT and subacute rehab. The patient's current medications: Cardizem CD 240 mg daily, Casodex 50 mg daily, Colace 100 mg three times a day, digoxin 0.125 daily, doxycycline 100 mg p.o. q. 12, Dulcolax suppository 10 mg p.r.n. daily, Ecotrin 81 mg daily, Eliquis 2.5 twice a day. The patient is on Lasix 20 mg IV q. 12, Lipitor 40 mg daily, Lopressor 50 mg twice a day, magnesium oxide 800 twice a day, MiraLax 17 g twice a day, morphine 1 mg IV q. 4 p.r.n., which may be cause of the confusion, which will be considered for stopping, Protonix 40 mg daily, Rocephin 2 g IV daily. The patient is on doxycycline 100 p.o. q. 12. The patient is on Xopenex nebulizer 0.63 mg every 6 hours [id number] q. 2 hours p.r.n., allopurinol 300 mg daily. Chest PT, heart-healthy diet, out of bed to chair, LIV stockings, SCDs, physical therapy ordered. Once the patient is cleared by Neurology and Interventional Radiology, the patient will be considered for discharge back to subacute rehab. The patient's son, Rakesh has been explained about the patient's overall guarded to poor prognosis secondary to advanced catastrophic prostate carcinoma, which he acknowledged and understand. The patient's condition and prognosis is poor. Dictated and electronically signed, not read. Benny Street MD
[2017-07-02 08:15] VITALS: PULSE 95; RESP 20; TEMP 99; O2SAT 99
[2017-07-02 08:28] LABS: ALB/GLOB RATIO 0.9 (1.1-1.8); ALT/SGPT 55 U/L (7-56); AST/SGOT 82 U/L (17-59); BILIRUBIN,DIRECT 0.9 mg/dL (0.0-0.4); BLOOD UREA NITROGEN 14 mg/dL (7-21); CALCIUM 9.5 mg/dL (8.4-10.5); GFR AFRICAN-AMERICAN > 60; GFR NON-AFRICAN AMERICAN > 60
[2017-07-02] MEDS: Magnesium Oxide 400 mg Tab UD PO SCH (10:12)
[2017-07-02] MEDS: diltiaZEM 240 mg/24 Hours CD Cap PO SCH (10:12)
[2017-07-02] MEDS: POLYETHYLENE GLYCOL 3350 17 GM/Dose PACKET PO SCH (10:12)
[2017-07-02 10:20] VITALS: BP 144/82
--- NOTE | 2017-07-02 12:09 | RAD ---
HISTORY: rt thora COMPARISON: 07/01/2017 TECHNIQUE: Chest PA and lateral FINDINGS: LUNGS: No active pulmonary disease. PLEURA: There has been a right-sided thoracentesis. There is no pneumothorax. The infiltrate and effusion have decreased CARDIOVASCULAR: Normal. OSSEOUS STRUCTURES: No significant abnormalities. VISUALIZED UPPER ABDOMEN: Normal. OTHER FINDINGS: None. IMPRESSION: There has been a right-sided thoracentesis. There is no pneumothorax. The infiltrate and effusion have decreased
--- NOTE | 2017-07-02 12:12 | US ---
PROCEDURE: Ultrasound guided right thoracentesis. CLINICAL HISTORY: Stage IV prostate CA. New right pleural effusion. Thickness of breath. Evaluate for malignancy. PHYSICIAN(S): Vincenzo Daniels MD. TECHNIQUE: The relative risks and indications of the procedure were explained to the patient and consent obtained. The patient was placed in a sitting position on the stretcher and sonography of the right chest performed. This revealed a small rightpleural effusion. A right posterolateral intercostal approach was selected and the area prepped and draped usual sterile fashion. 1% Xylocaine was used to anesthetize the skin and soft tissues. A 7 Sinhala thoracentesis catheter was trocared into the right pleural cavity and 700of camila fluid aspirated. A cytology specimen was sent IMPRESSION: 1. Ultrasound guided right thoracentesis. 700 cc of amberfluid were aspirated. A cytology specimen was sent
--- NOTE | 2017-07-02 12:13 | CP.PCM.PN ---
Subjective - Date & Time of Evaluation Date of Evaluation: 07/02/17 Time of Evaluation: 12:10 - Subjective Subjective: Nephrology Consultation Note Assessment: stable Hypervolemic hyponatremia likely Multifactorial due to CHF, SIADH Caused by metastatic prostate CA Hypertensive Chronic Kidney Disease (I12.9) Altered MENTAL status: improved Chronic Kidney Disease (N18.3) Stage 3 with Cr 1.2 metastatic prostate cancer, HTN (I12.9) systolic CHF LVEF 20% hx of BPH Vitamin D deficiency Plan Na stable for now on oral fluid fluid restriction 1000 mL per day and lasix 20 mg IV bid. hence continue with same. can change to lasix 40 mg po bid at d/c will consider Samsca 30 mg/day if serum Na decreases to <130 despite above strategy. Hypertension control with meds as ordered. unable to tolerate losartan due to hyperkalemia episodes. Monitor Input/Output, daily weights and renal function with basic metabolic panel supplement electrolytes as needed Avoid nephrotoxins/NSAIDs Glycemic control Further work up for as per primary team. CHF management as per cardiology pt stable for d/c from renal perspective when planned. f/up in renal office 1-2 weeks post d/c Thanks for allowing me to participate in care of your patient. Will follow patient with you. Please call if any Qs. d/w team. Dr Grupo Vital Office: [phone] Reason for consultation is Hyponatremia HPI patient is 77-year-old male with history of chronic systolic CHF EF 20% also metastatic prostate cancer , BPH, recently seen for hyponatremia due to CHF and likely SIADH which was treated with samsca and and diuretic. Discharged to senior care here with the acute change in mentaL status and low sodium of 115 hence renal consult was requested. Patient at this time Feels better.He denies shortness of breath nausea vomiting any pain in his stomach. Subjective/ROS: Noted events overnight. Patients feels okay. Denies chest pain, palpitation,improved shortness of breath, denies leg swelling. All other negative Except as mentioned in HPI. had bone biopsy by IR on 06/10/17 Showed metastatic adeno carcinoma of prostate s/p Rt thoracocentesis 07/02/17 ~ 700 mL fluid aspirated Physical Examination: General Appearance: Comfortable, in no acute respiratory distress, co-operative . Vitals reviewed and noted as below Head; Atraumatic, normocephalic ENT: no ulcers no thrush. Tongue is midline. Oropharynx: no rash or ulcers. EYES: Pupils are equal, round and reactive to light accommodation. Eye muscles and extraocular movement intact. Sclera is anicteric. Neck; supple no lymphadenopathy, no thyromegaly or bruit Lungs: Normal respiratory rate/effort. Breath sounds reduced at Rt base Heart: Normal rate. s1s2 normal. No rub or gallop. Extremities: no edema. No varicose veins Neurological: Patient is alert, awake and oriented to person, place and time. No focal deficit. Strength bilateral appropriate and equal Skin: Warm and dry. Normal turgor. No rash. Palpitation: Normal elasticity for age. Feets somewhat cool to touch Abdomen: Abdomen is soft. Bowel sounds +. There is no abdominal tenderness, no guarding/rigidity no organomegaly Psych: normal insight and normal affect/mood MSK: no joint tenderness or swelling. Digits and nails normal, no deformity : kidney or bladder not palpable. Has Pettit catheter in place Labs/imaging reviewed. Past medical history, past surgical history, family history, social history, allergy reviewed and noted as below Family hx: no hx of CKD. Rest non-contributor Objective - Vital Signs/Intake and Output Vital Signs (last 24 hours): Temp Pulse Resp BP Pulse Ox 99 F 95 H 20 144/82 99 07/02/17 08:34 07/02/17 08:34 07/02/17 08:34 07/02/17 10:12 07/02/17 08:34 Intake and Output: 07/02/17 07/02/17 06:59 18:59 Intake Total 480 Output Total 1400 Balance -920 - Medications Medications: Current Medications Allopurinol (Zyloprim) 300 mg PO DAILY [facility] Last Admin: 07/02/17 10:11 Dose: 300 mg Apixaban (Eliquis) 2.5 mg PO BID [facility] PRN Reason: Protocol Last Admin: 07/02/17 10:12 Dose: 2.5 mg Aspirin (Ecotrin) 81 mg PO DAILY [facility] Last Admin: 07/02/17 10:11 Dose: 81 mg Atorvastatin Calcium (Lipitor) 40 mg PO DIN [facility] Last Admin: 07/01/17 17:51 Dose: 40 mg Bicalutamide (Casodex) 50 mg PO DAILY [facility] Last Admin: 07/01/17 12:55 Dose: Not Given Bisacodyl (Dulcolax) 10 mg RC DAILY PRN PRN Reason: Constipation Digoxin (Digoxin) 0.125 mg PO 1400 [facility] Last Admin: 07/01/17 13:00 Dose: 0.125 mg Diltiazem HCl (Cardizem Cd) 240 mg PO DAILY [facility] Last Admin: 07/02/17 10:12 Dose: 240 mg Docusate Sodium (Colace) 100 mg PO TID [facility] Last Admin: 07/02/17 10:12 Dose: 100 mg Furosemide (Lasix) 20 mg IVP Q12 [facility] Last Admin: 07/02/17 10:12 Dose: 20 mg Ceftriaxone Sodium (Rocephin 2 Gm Ivpb) 2 gm in 100 mls @ 100 mls/hr IVPB 2200 [facility] PRN Reason: Protocol Last Admin: 07/01/17 22:16 Dose: 100 mls/hr Levalbuterol HCl (Xopenex) 0.63 mg IH [id number] [facility] Last Admin: 07/02/17 07:45 Dose: 0.63 mg Levalbuterol HCl (Xopenex) 0.63 mg IH Q2H PRN PRN Reason: Shortness of Breath Magnesium Oxide (Mag-Ox) 800 mg PO BID [facility] Last Admin: 07/02/17 10:12 Dose: 800 mg Metoprolol Tartrate (Lopressor) 50 mg PO BID [facility] Last Admin: 07/02/17 10:12 Dose: 50 mg Pantoprazole Sodium (Protonix Ec Tab) 20 mg PO ACBD [facility] Last Admin: 07/01/17 17:54 Dose: 20 mg Polyethylene Glycol (Miralax) 17 gm PO BID [facility] Last Admin: 07/02/17 10:12 Dose: 17 gm - Labs Labs: 06/30/17 06:45 07/02/17 06:30 PT 18.5 SECONDS (9.4-12.5) H 06/26/17 04:45 INR 1.59 (0.93-1.08) H 06/26/17 04:45 APTT 36.5 Seconds (25.1-36.5) 06/26/17 04:45
--- NOTE | 2017-07-02 12:23 | CP.PCM.PN ---
Subjective - Date & Time of Evaluation Date of Evaluation: 07/02/17 Time of Evaluation: 12:30 - Subjective Subjective: No complaints, tolerated thoracentesis well. Objective - Vital Signs/Intake and Output Vital Signs (last 24 hours): Temp Pulse Resp BP Pulse Ox 99 F 95 H 20 144/82 99 07/02/17 08:34 07/02/17 08:34 07/02/17 08:34 07/02/17 10:12 07/02/17 08:34 Intake and Output: 07/02/17 07/02/17 06:59 18:59 Intake Total 480 Output Total 1400 Balance -920 - Medications Medications: Current Medications Allopurinol (Zyloprim) 300 mg PO DAILY [facility] Last Admin: 07/02/17 10:11 Dose: 300 mg Apixaban (Eliquis) 2.5 mg PO BID [facility] PRN Reason: Protocol Last Admin: 07/02/17 10:12 Dose: 2.5 mg Aspirin (Ecotrin) 81 mg PO DAILY [facility] Last Admin: 07/02/17 10:11 Dose: 81 mg Atorvastatin Calcium (Lipitor) 40 mg PO DIN [facility] Last Admin: 07/01/17 17:51 Dose: 40 mg Bicalutamide (Casodex) 50 mg PO DAILY [facility] Last Admin: 07/01/17 12:55 Dose: Not Given Bisacodyl (Dulcolax) 10 mg RC DAILY PRN PRN Reason: Constipation Digoxin (Digoxin) 0.125 mg PO 1400 [facility] Last Admin: 07/01/17 13:00 Dose: 0.125 mg Diltiazem HCl (Cardizem Cd) 240 mg PO DAILY [facility] Last Admin: 07/02/17 10:12 Dose: 240 mg Docusate Sodium (Colace) 100 mg PO TID [facility] Last Admin: 07/02/17 10:12 Dose: 100 mg Furosemide (Lasix) 20 mg IVP Q12 [facility] Last Admin: 07/02/17 10:12 Dose: 20 mg Ceftriaxone Sodium (Rocephin 2 Gm Ivpb) 2 gm in 100 mls @ 100 mls/hr IVPB 2200 [facility]IG[facility] PRN Reason: Protocol Last Admin: 07/01/17 22:16 Dose: 100 mls/hr Levalbuterol HCl (Xopenex) 0.63 mg IH [id number] [facility] Last Admin: 07/02/17 07:45 Dose: 0.63 mg Levalbuterol HCl (Xopenex) 0.63 mg IH Q2H PRN PRN Reason: Shortness of Breath Magnesium Oxide (Mag-Ox) 800 mg PO BID [facility] Last Admin: 07/02/17 10:12 Dose: 800 mg Metoprolol Tartrate (Lopressor) 50 mg PO BID [facility] Last Admin: 07/02/17 10:12 Dose: 50 mg Pantoprazole Sodium (Protonix Ec Tab) 20 mg PO ACBD [facility] Last Admin: 07/01/17 17:54 Dose: 20 mg Polyethylene Glycol (Miralax) 17 gm PO BID [facility] Last Admin: 07/02/17 10:12 Dose: 17 gm - Labs Labs: 06/30/17 06:45 07/02/17 06:30 PT 18.5 SECONDS (9.4-12.5) H 06/26/17 04:45 INR 1.59 (0.93-1.08) H 06/26/17 04:45 APTT 36.5 Seconds (25.1-36.5) 06/26/17 04:45 - Head Exam Head Exam: ATRAUMATIC - Eye Exam Eye Exam: Normal appearance - ENT Exam ENT Exam: Mucous Membranes Dry - Respiratory Exam Respiratory Exam: NORMAL BREATHING PATTERN - Cardiovascular Exam Cardiovascular Exam: +S1, +S2 - GI/Abdominal Exam GI & Abdominal Exam: Normal Bowel Sounds - Extremities Exam Extremities Exam: Pedal Edema Assessment and Plan (1) Anemia Assessment & Plan: chronic disease and bone metastasis Status: Acute (2) Prostate cancer Assessment & Plan: stage IV bone metastasis on peripheral androgen blockade outpatient Lupron Status: Acute
[2017-07-02] MEDS: Pantoprazole 20 mg EC Tab PO SCH (13:19)
[2017-07-02] MEDS: Digoxin 125 mcg (0.125 mg) Tab PO SCH (13:22)
[2017-07-02 13:24] VITALS: PULSE 60
--- NOTE | 2017-07-03 06:55 | DS ---
HISTORY OF PRESENT ILLNESS: The patient is seen in room 577, bed 2. The patient is lying in the bed having breakfast. The patient is much more awake and responsive today. The patient appears to be alert, awake, oriented x3, much more awake and responsive today. Overnight nurse's notes were reviewed. The patient slept well. PHYSICAL EXAMINATION: VITAL SIGNS: T-max 98.1 to 99, pulse 80 to 95; blood pressure 144/82, 143/85, 117/71; respiration 20, O2 sat 99 to 100%. Intake output is in the last 24 hours. HEENT: Head examination normocephalic, atraumatic. HEENT examination shows pink conjunctivae. Anicteric sclerae. No oropharyngeal lesion. No neck rigidity. CHEST: Kyphosis. LUNGS: Shows decreased breath sound at the right base. CARDIOVASCULAR: S1 and S2, irregular rhythm. Positive systolic murmur, left sternal border, right second intercostal space . ABDOMEN: Distended. Positive bowel sound. No guarding. No rigidity. No rebound tenderness. No hepatosplenomegaly noted. GENITALIA: Male. RECTAL: Examination is deferred. EXTREMITY: Shows complete resolution of the ankle swelling and pitting edema of the lower extremity MUSCULOSKELETAL: Examination shows a body mass index of 29.3. NEUROLOGIC: The patient is alert, awake, oriented x3 today. Cranial nerves II through XII limited. Gait examination is not tested. VASCULAR: Palpable pulses. DIAGNOSTICS: From 07/02/2017, sodium 135, potassium 4.2, chloride 96, CO2 of 30, anion gap 13, BUN 14, creatinine 1.1, GFR greater than 60, glucose 95, calcium 9.5, magnesium 1.9. LFTs are total bili 0.9, AST 82, alk phos 166. MRSA urine culture, blood cultures negative. The patient was seen by the physical therapist. Recommendations, subacute rehab, discharge options. The patient's case was referred to Recycling Coordinator. The patient's case referred for discharge planning to subacute rehab, which is authorized. FINAL IMPRESSION, PLAN AND DISCHARGE DIAGNOSES: 1. Altered mental status (resolved). 2. Severe gait dysfunction. 3. Stage IV adenocarcinoma of the prostate with bone metastasis. 4. Severe hyponatremia secondary to syndrome of inappropriate antidiuretic hormone secondary to metastatic prostate carcinoma. 5. Atrial fibrillation with rapid ventricle response. 6. Normocytic anemia. 7. Granulocytosis. 8. Recurrent slow resolving hyponatremia. 9. Hyperkalemia. 10. Transaminitis. 11. Mild hyperbilirubinemia. 12. Mild rhabdomyolysis. 13. Elevated prostate specific antigen of greater than 50. 14. Proteinuria, microscopic hematuria, pyuria, bacteriuria. 15. Hypervolemic hyponatremia secondary to congestive heart failure, syndrome of inappropriate antidiuretic hormone secondary to metastatic adenocarcinoma of the prostate. 16. Hypertensive cardiovascular disease. 17. Chronic kidney disease stage III. 18. Dilated cardiomyopathy with ejection fraction of 20%. 19. Hypovitaminosis D. 20. Severe gait dysfunction and deconditioning. 21. Constipation. 22. Hyperlipidemia. 23. Hypomagnesemia. 24. Hyperuricemia. The patient has been seen by web content & social media manager. The patient's authorization for subacute rehab has been completed. The patient will be considered for a possible discharge to subacute rehab after thoracentesis and after cleared by Dr. Vincenzo Daniels. Discharge followup with Dr. Street and Dr. Reyes within 1 week after discharge from subacute rehab. The patient's overall medical condition, diagnosis explained to the patient and the patient's son, Rakesh Dolan, at length on multiple occasions. I have explained to the patient's son that the patient's overall prognosis is very guarded to poor, which he acknowledged to understand. The patient's son will be also notified about updates about the patient's condition. The patient is scheduled for thoracentesis today by Dr. Vincenzo Daniels. The patient is on chest PT q. 6 hours. out of bed, etc. The patient will be also discharged on doxycycline 100 mg twice a day for 7 more days. The patient has already completed 6 days of IV antibiotics in the hospital. FINAL DISCHARGE MEDICATIONS: The patient's final discharge medications will be as follows: 1. Allopurinol 300 mg daily. 2. Eliquis 2.5 twice a day. 3. Ecotrin 81 mg daily. 4. Lipitor 40 mg daily. 5. Casodex 50 mg daily. 6. Dulcolax 10 mg suppository p.r.n. 7. Digoxin 0.125 mg daily. 8. Cardizem CD 240 mg daily. 9. Colace 100 mg three times a day. 10. Doxycycline 100 mg twice a day for 7 days. 11. Lasix 40 mg daily. 12. Xopenex 0.63 mg every 6 hours round the clock, q. 2 hours p.r.n. 13. Magnesium oxide 800 mg twice a day. 14. Lopressor 50 mg twice a day. 15. Zofran 4 mg q. 4 p.r.n. 16. Protonix 40 mg daily. 17. MiraLax 17 g twice a day. The patient will be discharged back to subacute rehab. Time spent in the entire discharge process is more than 45 minutes. Dictated and electronically signed, not read. Benny Street MD
== END 2017-07-02 14:09 | DRG 643 ==
LOC: ED 04:15 → ERH 07:33 → ICU 09:14 → 3RSO 06-28 15:27 → 5RSO 06-30 17:03
PROVIDERS: ADMIT Internal Medicine; ATTEND Internal Medicine
PROC: 0W993ZX Drainage of Right Pleural Cavity, Percutaneous Approach, Diagnostic (ICD-10-PCS; principal; 2017-07-02 10:00)
DX: E22.2 Syndrome of inappropriate secretion of antidiuretic hormone (principal); J18.9 Pneumonia, unspecified organism; J90 Pleural effusion, not elsewhere classified; C79.51 Secondary malignant neoplasm of bone; I13.0 Hypertensive heart and chronic kidney disease with heart failure and stage 1 through stage 4 chronic kidney disease, or unspecified chronic kidney disease; I50.22 Chronic systolic (congestive) heart failure; M62.82 Rhabdomyolysis; I42.0 Dilated cardiomyopathy; L03.115 Cellulitis of right lower limb; C61 Malignant neoplasm of prostate; N18.3 Chronic kidney disease, stage 3 (moderate); E86.0 Dehydration; E83.42 Hypomagnesemia; E87.5 Hyperkalemia; I27.21 Secondary pulmonary arterial hypertension; E86.1 Hypovolemia; I48.2 Chronic atrial fibrillation; D63.8 Anemia in other chronic diseases classified elsewhere; R26.81 Unsteadiness on feet; E55.9 Vitamin D deficiency, unspecified; M81.0 Age-related osteoporosis without current pathological fracture; K59.00 Constipation, unspecified; E78.5 Hyperlipidemia, unspecified; E79.0 Hyperuricemia without signs of inflammatory arthritis and tophaceous disease; N40.0 Benign prostatic hyperplasia without lower urinary tract symptoms; G31.9 Degenerative disease of nervous system, unspecified; R31.29 Other microscopic hematuria; Y95 Nosocomial condition; Z79.01 Long term (current) use of anticoagulants; Z87.891 Personal history of nicotine dependence

== ENCOUNTER 2017-07-10 13:36 | Inpatient (IN) | payer MEDICARE, MEDICAID ==
[2017-07-10 13:38] VITALS: BMI 29.2
--- NOTE | 2017-07-10 14:34 | ED PDOC ---
Arrival/HPI - General Chief Complaint: Lower Extremity Problem/Injury Time Seen by Provider: 07/10/17 14:15 Historian: Patient, [facility] - History of Present Illness Narrative History of Present Illness (Text): 07/10/17 14:31 A 77 year old male sent into the emergency department from halfway for evaluation of right foot. See Dr. Plaza most recent discharge for further information as patient has complicated medical history with hx of dilated cardiomyopathy with EF:20% and afib on eliquis and stage 4 prostate cancer. As per [facility] report, patients foot is pulse-less and cold. Patient complains of right foot pain with palpation. He is unable to provide any further details. Patient denies any fever, chills, nausea, vomiting, abdominal pain, chest pain, shortness of breath or any other complaints. 07/10/17 16:19 07/10/17 18:35 Past Medical History - Provider Review Nursing Documentation Reviewed: Yes - Infectious Disease Hx of Infectious Diseases: None - Tetanus Immunization Tetanus Immunization: Unknown - Past Medical History Past Medical History: No Previous - Cardiac Hx Cardiac Disorders: Yes (Afib) Hx Atrial Fibrillation: Yes Hx Congestive Heart Failure: Yes Hx Hypertension: Yes - Pulmonary Hx Respiratory Disorders: No - Neurological Hx Neurological Disorder: No - HEENT Hx HEENT Disorder: No - Renal Hx Renal Disorder: No - Endocrine/Metabolic Hx Endocrine Disorders: No - Hematological/Oncological Hx Blood Disorders: No - Integumentary Hx Dermatological Disorder: No - Musculoskeletal/Rheumatological Hx Musculoskeletal Disorders: Yes Hx Unsteady Gait: Yes - Gastrointestinal Hx Gastrointestinal Disorders: No - Genitourinary/Gynecological Hx Genitourinary Disorders: No Hx Prostate Cancer: Yes - Psychiatric Hx Depression: No Hx Emotional Abuse: No Hx Physical Abuse: No Hx Substance Use: No - Past Surgical History Past Surgical History: No Previous - Anesthesia Hx Anesthesia: No - Suicidal Assessment Feels Threatened In Home Enviroment: No Family/Social History - Physician Review Nursing Documentation Reviewed: Yes Family/Social History: No Known Family HX Smoking Status: Never Smoked Hx Alcohol Use: No Hx Substance Use: No Allergies/Home Meds Allergies/Adverse Reactions: Allergies No Known Allergies Allergy (Verified 05/25/13 15:34) Home Medications: Home Meds Medication Instructions Recorded Confirmed Digoxin 0.125 mg PO DAILY 06/26/17 07/10/17 Ondansetron [Zofran Tab] 4 mg PO Q4 PRN 06/26/17 07/10/17 Pantoprazole [Protonix EC Tab] 20 mg PO DAILY 06/26/17 07/10/17 Acetaminophen [Tylenol 325mg tab] 325 mg PO PRN PRN 07/10/17 07/10/17 Acetaminophen [Tylenol 325mg tab] 325 mg PO PRN PRN 07/10/17 07/10/17 Atorvastatin [Lipitor] 20 mg PO DIN 07/10/17 07/10/17 Levalbuterol [Xopenex] 0.63 mg IH Q4H PRN 07/10/17 07/10/17 Magnesium Oxide [Mag-Ox] 400 mg PO BID 07/10/17 07/10/17 oxyCODONE/Acetaminophen [Percocet 1 tab PO PRN PRN 07/10/17 07/10/17 5/325 mg Tab] Review of Systems - Physician Review All systems were reviewed & negative as marked: Yes - Review of Systems Constitutional: absent: Fevers, Night Sweats Respiratory: absent: SOB Cardiovascular: absent: Chest Pain Gastrointestinal: absent: Abdominal Pain, Nausea, Vomiting Musculoskeletal: Other (right foot pain) Physical Exam Vital Signs Reviewed: Yes Vital Signs Temp Pulse Resp BP Pulse Ox 07/10/17 14:40 70 100 07/10/17 13:51 97.5 F L 18 118/63 Temperature: Afebrile Blood Pressure: Normal Respiratory Rate: Normal Appearance: Positive for: Well-Appearing, Non-Toxic, Comfortable Pain Distress: None Mental Status: Positive for: Alert and Oriented X 3 - Systems Exam Head: Present: Atraumatic, Normocephalic Pupils: Present: PERRL Extroacular Muscles: Present: EOMI Conjunctiva: Present: Normal Mouth: Present: Moist Mucous Membranes Respiratory/Chest: Present: Clear to Auscultation, Good Air Exchange. No: Respiratory Distress, Accessory Muscle Use Cardiovascular: Present: Normal S1, S2, Irregular Rhythm. No: Murmurs Abdomen: Present: Normal Bowel Sounds. No: Tenderness, Distention, Peritoneal Signs Genitourinary Male: Present: Other (draining lawrence catheter) Upper Extremity: Present: Normal Inspection. No: Cyanosis, Edema Lower Extremity: Present: Other (chronic venous stasis changes to bilateral feet. No distal pulse by doppler b/l. R foot colder as compared to L. Normal ankle temperature. Normal movement.) Neurological: Present: GCS=15, CN II-XII Intact, Speech Normal Skin: Present: Warm, Dry. No: Rashes, Normal Color Psychiatric: Present: Alert, Oriented x 3, Normal Insight, Normal Concentration Medical Decision Making ED Course and Treatment: 07/10/17 14:31 Impression: A 77 year old male sent in for evaluation of right foot Plan: -- Duplex lower extremity ultrasound -- Labs -- Reassess and disposition Progress Notes: Ultrasound immediately called upon patients arrival and sent directly to vascular. EKG shows atrial fibrillation at 82 BPM with no acute ST changes compared to prior on 06/28/17. Interpreted by me. 07/10/17 17:32 YEN shows no palpable pulses below popliteal b/l. R YEN:0.53 and L YEN 0.8, consistent with severe arterial disease. Concern that this is low perfusion state due to EF and/or clot due to afib hx and/or hypercoagulable state due to cancer. Patient aware of the limb threatening nature of these results. Consults placed to Dr. Daniels and Dr. Beckwith for futher vascular/IR recommendations. Patient already on eliquis but transitioned to heparin. Also giving slow hydration to maintain perfusion. Dr. Daniels requesting CTA with run off tomorrow after hydration. Ordered. Dr. Street and resident aware and to admit. - Lab Interpretations Lab Results: 07/10/17 16:00 07/10/17 16:30 Lab Results 07/10/17 16:30: Sodium 129 L, Potassium 4.6, Chloride 92 L, Carbon Dioxide 28, Anion Gap 15, BUN 25 H, Creatinine 1.1, Est GFR ( Amer) > 60, Est GFR ( Non-Af Amer) > 60, Random Glucose 100, Calcium 9.5, Total Bilirubin 1.7 H, AST 71 H, ALT 56, Alkaline Phosphatase 162 H, Total Protein 7.2, Albumin 3.5, Globulin 3.7, Albumin/Globulin Ratio 0.9 L 07/10/17 16:30: PT 18.2 H, INR 1.58 H, APTT 37.6 H 07/10/17 16:00: Blood Type Cancelled, Antibody Screen Cancelled, BBK History Checked Cancelled 07/10/17 16:00: WBC 8.2 D, RBC 5.04, Hgb 14.1, Hct 41.1 L, MCV 81.5, MCH 28.0, MCHC 34.3, RDW 15.4 H, Plt Count 274, MPV 9.8, Gran % 57.7, Lymph % (Auto) 27.8 , [place] % (Auto) 14.0 H, Eos % (Auto) 0.4 L, Baso % (Auto) 0.1, Gran # 4.75, Lymph # (Auto) 2.3, [place] # (Auto) 1.2 H, Eos # (Auto) 0.0, Baso # (Auto) 0.01 I have reviewed the lab results: Yes - RAD Interpretation Radiology Orders: 07/10/17 14:25 LOWER EXT ART NON-INV COMPL [US] Stat - Medication Orders Current Medication Orders: Heparin Sodium/Sodium Chloride (Heparin 61960 Units/250ml 1/2 Normal Saline) 25 ,000 units in 250 mls @ 10.002 mls/hr IV .Q24H NIGEL; 10.5 UNITS/KG/HR PRN Reason: Protocol Sodium Chloride (Sodium Chloride 0.9%) 1,000 mls @ 100 mls/hr IV .Q10H NIGEL - Scribe Statement The provider has reviewed the documentation as recorded by the Arielle Gómez Provider Scribe Attestation: All medical record entries made by the Scribe were at my direction and personally dictated by me. I have reviewed the chart and agree that the record accurately reflects my personal performance of the history, physical exam, medical decision making, and the department course for this patient. I have also personally directed, reviewed, and agree with the discharge instructions and disposition. Disposition/Present on Arrival - Present on Arrival Any Indicators Present on Arrival: No History of DVT/PE: No History of Uncontrolled Diabetes: No Urinary Catheter: No History of Decub. Ulcer: No History Surgical Site Infection Following: None - Disposition Have Diagnosis and Disposition been Completed?: Yes Diagnosis: Atrial fibrillation, Peripheral arterial occlusive disease, CHF (congestive heart failure) Disposition: HOSPITALIZED Disposition Time: 17:33 Patient Plan: Admission Patient Problems: Current Active Problems Problem Status Onset Atrial fibrillation Acute Peripheral arterial occlusive disease Acute Condition: FAIR
[2017-07-10 16:34] LABS: BASO # 0.01 K/mm3 (0.0-2.0); BASO % 0.1 % (0.0-3.0); EOS % 0.4 % (1.5-5.0); GRAN # 4.75 (1.4-6.5); GRAN % 57.7 % (50.0-68.0); HEMOGLOBIN 14.1 g/dL (14.0-18.0); LYMPH # 2.3 (1.2-3.4); LYMPH % 27.8 % (22.0-35.0); MEAN CELL VOLUME 81.5 fl (80.0-105.0); MEAN CORPUSCULAR HGB CONC 34.3 g/dl (31.0-37.0); MEAN PLATELET VOLUME 9.8 fl (7.0-11.0); MONO # 1.2 (0.1-0.6); RBC 5.04 10^6/uL (3.5-6.1); RED CELL DISTRIBUTION WIDTH 15.4 % (11.5-14.5); WHITE BLOOD COUNT 8.2 10^3/ul (4.5-11.0)
[2017-07-10 16:43] LABS: INR 1.58 (0.93-1.08); PARTIAL THROMBOPLASTIN TIME 37.6 Seconds (25.1-36.5); PROTHROMBIN TIME 18.2 SECONDS (9.4-12.5)
[2017-07-10 16:46] LABS: ALB/GLOB RATIO 0.9 (1.1-1.8); ALBUMIN 3.5 g/dL (3.0-4.8); ALT/SGPT 56 U/L (7-56); AST/SGOT 71 U/L (17-59); BLOOD UREA NITROGEN 25 mg/dL (7-21); CALCIUM 9.5 mg/dL (8.4-10.5); GFR AFRICAN-AMERICAN > 60; GFR NON-AFRICAN AMERICAN > 60
[2017-07-10] MEDS ORDERED: Heparin25000 units/250ml 1/2NS 25,000 UNITS/250 ML BAG IV SCH ×2 (17:30→17:45)
[2017-07-10] MEDS ORDERED: Heparin 25,000units in 1/2NS 250 ML BAG IV SCH (18:45)
--- NOTE | 2017-07-10 21:09 | CP.PCM.CON ---
History of Present Illness - History of Present Illness History of Present Illness: Vascular Surgery consult note for Dr. Beckwith Patient is a 77 year old male with a past medical history of stage IV prostate cancer, a-fib on Eliquis, and dilated cardiomyopathy. The patient was brought to the ED from a retirement for evaluation of his right foot. The patient states that he has been having pain in his legs and difficulty ambulating for many months. At the retirement the nurses noticed that his right foot was cold and no pulses were felt prompting him to be sent to the ED. The patient complains of pain on the top of his feet and difficulty ambulating at the time of examination. The exact history of the chief complaint was difficult to obtain as the patient is a poor historian. An YEN showed no palpable pulses below the popliteal artery bilaterally. The R YEN was 0.53 and the L YEN was 0.8 consistent with severe peripheral arterial disease. Surgery was consulted for management of the patient's severe PAD. The patient reports nausea and one episode of vomiting however at the time of examination there was no nausea or vomiting present. The patient denies shortness of breath, chest pain, abdominal pain, fever or chills. PMH: stage IV prostate cancer, a-fib on Eliquis, dilated cardiomyopathy PSH: cystoscopy, thoracentesis Family Hx: non-contributatory Social Hx: patient smoked for 50 years, previous alcohol use Allergies: NKDA Medications: MAR reviewed Review of Systems - Musculoskeletal Additional comments: diffulty walking, pain in both legs Past Patient History - Infectious Disease Hx of Infectious Diseases: None - Tetanus Immunizations Tetanus Immunization: Unknown - Past Social History Smoking Status: Never Smoked - CARDIAC Hx Cardiac Disorders: Yes (Afib) Hx Atrial Fibrillation: Yes Hx Congestive Heart Failure: Yes Hx Hypertension: Yes - PULMONARY Hx Respiratory Disorders: No - NEUROLOGICAL Hx Neurological Disorder: No - HEENT Hx HEENT Problems: No - RENAL Hx Chronic Kidney Disease: No - ENDOCRINE/METABOLIC Hx Endocrine Disorders: No - HEMATOLOGICAL/ONCOLOGICAL Hx Blood Disorders: No - INTEGUMENTARY Hx Dermatological Problems: No - MUSCULOSKELETAL/RHEUMATOLOGICAL Hx Musculoskeletal Disorders: Yes Hx Unsteady Gait: Yes - GASTROINTESTINAL Hx Gastrointestinal Disorders: No - GENITOURINARY/GYNECOLOGICAL Hx Genitourinary Disorders: No Hx Prostate Cancer: Yes - PSYCHIATRIC Hx Depression: No Hx Emotional Abuse: No Hx Physical Abuse: No Hx Substance Use: No - SURGICAL HISTORY Hx Surgeries: No - ANESTHESIA Hx Anesthesia: No Meds Allergies/Adverse Reactions: Allergies Allergy/AdvReac Type Severity Reaction Status Date / Time No Known Allergies Allergy Verified 05/25/13 15:34 - Medications Medications: Current Medications Heparin Sodium/Sodium Chloride (Heparin 72638 Units/250ml 1/2 Normal Saline) 25 ,000 units in 250 mls @ 10.002 mls/hr IV .Q24H NIGEL; 10.5 UNITS/KG/HR PRN Reason: Protocol Last Admin: 07/10/17 18:55 Dose: 10.5 units/kg/hr, 10.002 mls/hr Sodium Chloride (Sodium Chloride 0.9%) 1,000 mls @ 100 mls/hr IV .Q10H NIGEL Physical Exam - Head Exam Head Exam: ATRAUMATIC, NORMAL INSPECTION, NORMOCEPHALIC - Eye Exam Eye Exam: EOMI, Normal appearance Pupil Exam: NORMAL ACCOMODATION, PERRL - ENT Exam ENT Exam: Mucous Membranes Moist, Normal Exam - Neck Exam Neck exam: Positive for: Normal Inspection - Respiratory Exam Respiratory Exam: NORMAL BREATHING PATTERN - Cardiovascular Exam Cardiovascular Exam: REGULAR RHYTHM - GI/Abdominal Exam GI & Abdominal Exam: Distended, Soft - Rectal Exam Additional comments: enlarged prostate, negative for blood, good sphincter tone - Extremities Exam Additional comments: pain with palpation on both feet, both feet cold to touch, dorsalis pedis pulse not heard with doppler, wounds on the top of his right foot - Neurological Exam Neurological exam: Alert, CN II-XII Intact, Oriented x3 - Skin Additional comments: Skin of both feet cold to touch Results - Vital Signs Recent Vital Signs: Last Vital Signs Temp 97.5 F L 07/10/17 13:51 Pulse 70 07/10/17 14:40 Resp 18 07/10/17 13:51 BP 118/63 07/10/17 13:51 Pulse Ox 100 07/10/17 14:40 - Labs Result Diagrams: 07/10/17 16:00 07/10/17 16:30 Assessment & Plan - Assessment and Plan (Free Text) Assessment: Patient is a 77 year old male with severe peripheral arterial disease. Plan: Continue IV fluids F/U CTA Continue heparin drip Monitor PTT q6 Further reccs per Dr. Beckwith
[2017-07-10] MEDS ORDERED: Levalbuterol 0.63 MG/3 ML Inhal Soln UD IH PRN (21:34)
[2017-07-10] MEDS ORDERED: Oxycodone/Acetaminophen 5/325 mg Tab PO PRN (21:34)
--- NOTE | 2017-07-10 21:51 | US ---
PROCEDURE: Lower extremity YEN exam HISTORY: Peripheral vascular disease with ischemic pain PHYSICIAN(S): Vincenzo Daniels MD. FINDINGS: The resting YEN's are severely abnormal and not obtainable. The brachial systolic pressures are symmetric. There is a 61 mm gradient between the arm and right low thigh pressure. There is a 25 mm gradient between the arm and left low thigh pressure. The findings are consistent with aortoiliac disease, greater on the right than the left. The calf PVR waveforms are severely blunted bilaterally, consistent with bilateral SFA disease The ankle and metatarsal waveforms are essentially flat. IMPRESSION: 1. Severely abnormal resting YEN on these better not obtainable 2. Aortoiliac disease, greater on the right than the left 3. Bilateral SFA disease. 4. The distal ankle and metatarsal waveforms are essentially flat
[2017-07-10] MEDS ORDERED: Ceftaroline 600 MG in Sodium Chloride 0.9% 100 ML IVPB SCH (22:00)
[2017-07-10] MEDS: Sodium Chloride 0.9% 1,000 ML IV SCH (22:05)
--- NOTE | 2017-07-10 22:45 | CP.PCM.HP ---
<PriyaElliott - Last Filed: 07/11/17 01:44> History of Present Illness - History of Present Illness History of Present Illness: Elliott Powers PGY1 H&P for Dr. Street Service cc: right foot pain Mr. Martin is a 77 year old male with a past medical history of stage IV prostate cancer w/ bone mets, a-fib on Eliquis, and dilated cardiomyopathy w/ EF 20% who was brought to the ED from a senior care for evaluation of his right foot for pain and wounds. The patient states that he has been having pain in his legs and difficulty ambulating for many months. At the senior care the nurses noticed that his right foot was cold and no pulses were felt prompting him to be sent to the ED. The patient complains of pain on the top of his feet and difficulty ambulating at the time of examination. The exact history of the chief complaint was difficult to obtain as the patient is a poor historian, but he also denies hx DM2. An YEN showed no palpable pulses below the popliteal artery bilaterally. The R YEN was 0.53 and the L YEN was 0.8 consistent with severe peripheral arterial disease. The patient reports nausea and one episode of vomiting however at the time of examination there was no nausea or vomiting present. The patient denies shortness of breath, chest pain, abdominal pain, fever or chills. 12-point ROS was reviewed and is otherwise unremarkable. PMH: stage IV prostate cancer w/ bone mets, a-fib on Eliquis, and dilated cardiomyopathy w/ EF 20% PSH: cystoscopy, thoracentesis Family Hx: non-contributatory Social Hx: patient smoked for 50 years, previous alcohol use Allergies: NKDA Medications: MAR reviewed Present on Admission - Present on Admission Any Indicators Present on Admission: No Review of Systems - Review of Systems All systems: reviewed and no additional remarkable complaints except (as per HPI ) Past Patient History - Infectious Disease Hx of Infectious Diseases: None - Tetanus Immunizations Tetanus Immunization: Unknown - Past Social History Smoking Status: Never Smoked Alcohol: None Drugs: Denies Home Situation {Lives}: Alf - CARDIAC Hx Cardiac Disorders: Yes (Afib) Hx Atrial Fibrillation: Yes Hx Congestive Heart Failure: Yes - PULMONARY Hx Respiratory Disorders: No - NEUROLOGICAL Hx Neurological Disorder: No - HEENT Hx HEENT Problems: No - RENAL Hx Chronic Kidney Disease: No - ENDOCRINE/METABOLIC Hx Endocrine Disorders: No - HEMATOLOGICAL/ONCOLOGICAL Hx Cancer: Yes - INTEGUMENTARY Hx Dermatological Problems: No - MUSCULOSKELETAL/RHEUMATOLOGICAL Hx Musculoskeletal Disorders: Yes Hx Unsteady Gait: Yes - GASTROINTESTINAL Hx Gastrointestinal Disorders: No - GENITOURINARY/GYNECOLOGICAL Hx Genitourinary Disorders: No Hx Prostate Cancer: Yes - PSYCHIATRIC Hx Depression: No Hx Emotional Abuse: No Hx Physical Abuse: No Hx Substance Use: No - SURGICAL HISTORY Hx Surgeries: No - ANESTHESIA Hx Anesthesia: No Meds Allergies/Adverse Reactions: Allergies Allergy/AdvReac Type Severity Reaction Status Date / Time No Known Allergies Allergy Verified 05/25/13 15:34 Physical Exam - Constitutional Appears: Well, Non-toxic, No Acute Distress - Head Exam Head Exam: ATRAUMATIC, NORMAL INSPECTION - Eye Exam Eye Exam: EOMI, Normal appearance, PERRL - ENT Exam ENT Exam: Mucous Membranes Moist - Respiratory Exam Respiratory Exam: NORMAL BREATHING PATTERN. absent: Rales, Rhonchi, Wheezes, Respiratory Distress - Cardiovascular Exam Cardiovascular Exam: RRR, +S1, +S2 - GI/Abdominal Exam GI & Abdominal Exam: Distended, Soft. absent: Guarding, Tenderness - Extremities Exam Extremities exam: Positive for: tenderness (b/l feet). Negative for: pedal edema, pedal pulses present (no pulses felt popliteal and distal) Additional comments: R foot with open weeping wounds feet edema +1 feet are cold - Neurological Exam Neurological exam: Alert - Psychiatric Exam Psychiatric exam: Normal Affect, Normal Mood - Skin Skin Exam: Normal Color, Warm Results - Vital Signs Recent Vital Signs: Last Vital Signs Temp 97.5 F L 07/10/17 13:51 Pulse 70 07/10/17 14:40 Resp 18 07/10/17 13:51 BP 118/63 07/10/17 13:51 Pulse Ox 100 07/10/17 14:40 - Labs Result Diagrams: 07/10/17 16:00 07/10/17 16:30 Assessment & Plan - Assessment and Plan (Free Text) Assessment: 77 year old male with a past medical history of stage IV prostate cancer w/ bone mets, a-fib on Eliquis, and dilated cardiomyopathy w/ EF 20% presented for R foot pain, found to have peripheral vascular disease w/ ischemic pain. Plan: 1. PVD w/ ischemic pain - US on LE done and shows severely abnormal resting YEN, b/l SFA disease, aortoiliac disease (R>L), and essentially flat distal ankle and metatarsal waveforms - IR consulted - Vascular surgery consulted - patient started on heparin drip - monitor PTT - will hold home Eliquis given heparin drip - blood and wound cultures ordered - follow coags and CBC/CMP daily - ID consulted, recs appreciated - CT Angio Abd ordered - bed rest - start on Teflaro - ID consulted, recs appreciated 2. Hyponatremia - Nephro consulted - gentle hydration NS 0.9 - indwelling lawrence catheter will be replaced - monitor electrolytes daily and replete as necessary - monitor UOP - will hold Lasix at this time 3. Hx Afib - EKG shows atrial fibrillation at 82 BPM with no acute ST changes - monitor for changes in BP - cont Digoxin, cardizem, and Lopressor home dose 4. Hx cardiomyopathy - cont ASA - cont Lipitor - cont Xopenex - cont Casodex 6. Hx stage IV prostate CA - no acute changes PTX/heparin gtt HHD Miralax Perocet PRN Patient was seen, examined and discussed with attending, Dr. Yenifer Powers PGY1 <Benny Street U - Last Filed: 07/16/17 00:00> Results - Vital Signs Recent Vital Signs: Last Vital Signs Temp 97.9 F 07/15/17 17:40 Pulse 67 07/15/17 18:06 Resp 18 07/15/17 17:40 BP 118/75 07/15/17 18:06 Pulse Ox 98 07/15/17 06:00 - Labs Result Diagrams: 07/13/17 06:00 07/13/17 06:00 Labs: Laboratory Results - last 24 hr 07/15/17 07/15/17 07/15/17 01:50 05:10 07:55 PT 17.5 H INR 1.51 H APTT 45.2 H 73.0 H 86.2 H Attending/Attestation - Attestation I have personally seen and examined this patient.: Yes I have fully participated in the care of the patient.: Yes I have reviewed all pertinent clinical information: Yes Notes (Text): Please read/see my dictated notes.
[2017-07-11] MEDS: Sodium Chloride 0.9% 1,000 ML IV SCH (04:30)
[2017-07-11] MEDS: Heparin 25,000units in 1/2NS 250 ML BAG IV SCH (04:55)
[2017-07-11] MEDS ORDERED: Levalbuterol 0.63 MG/3 ML Inhal Soln UD IH PRN (06:22)
[2017-07-11] MEDS: Levalbuterol 0.63 MG/3 ML Inhal Soln UD IH SCH ×4 (06:46→20:38)
[2017-07-11 06:53] LABS: HEMOGLOBIN 13.8 g/dL (14.0-18.0); MEAN CELL VOLUME 81.5 fl (80.0-105.0); MEAN CORPUSCULAR HEMOGLOBIN 27.4 pg (25.0-35.0); MEAN CORPUSCULAR HGB CONC 33.7 g/dl (31.0-37.0); MEAN PLATELET VOLUME 9.5 fl (7.0-11.0); RBC 5.03 10^6/uL (3.5-6.1); RED CELL DISTRIBUTION WIDTH 15.6 % (11.5-14.5); WHITE BLOOD COUNT 7.5 10^3/ul (4.5-11.0)
[2017-07-11 07:22] LABS: ALB/GLOB RATIO 0.9 (1.1-1.8); ALBUMIN 3.2 g/dL (3.0-4.8); ALT/SGPT 54 U/L (7-56); AST/SGOT 62 U/L (17-59); BLOOD UREA NITROGEN 23 mg/dL (7-21); CALCIUM 9.1 mg/dL (8.4-10.5); GFR AFRICAN-AMERICAN > 60; GFR NON-AFRICAN AMERICAN > 60
[2017-07-11] MEDS ORDERED: Iodixanol 320 mg/ml 150 ml Bottle IV ONE (07:45)
--- NOTE | 2017-07-11 08:56 | HP ---
HISTORY OF PRESENT ILLNESS: The patient is a 77-year-old male, transferred from [facility] because the nurses found patient's right foot to be cold without palpable pulses. Patient has been undergoing physical therapy and rehab therapy at [facility]. Patient was brought to the [facility] emergency room by the ambulance because, according to the [facility] nurses, right foot was pulseless, cold and patient started to complain of right foot pain according to the ER physician's evaluation. Patient came to the emergency room by ambulance from [facility] for evaluation of pulseless and cold foot and complaining of right foot pain. REVIEW OF SYSTEMS: A 13-system review was done, pertinent positives and negatives dictated above. CODE STATUS: Full code. LIVING WILL ADVANCE DIRECTIVE: None. ALLERGIES: NONE. Height is 5 feet 11 inches. Weight is 185. BMI is 26. HOME MEDICATIONS: 1. Allopurinol 300 mg daily. 2. Zofran 4 mg p.o. q.4 p.r.n. 3. Xopenex nebulizer 0.63 mg every 6 hours. 4. Tylenol 650 q.4 p.r.n. 5. Protonix 40 mg daily. 6. Percocet 5/325 one tablet p.r.n. 7. MiraLax 17 g twice a day. 8. Magnesium oxide 400 twice a day. 9. Lopressor 50 mg twice a day. 10. Lipitor 20 mg daily. 11. Lasix 40 mg twice a day. 12. Eliquis 2.5 mg twice a day. 13. Aspirin 81 mg daily. 14. Digoxin 0.125 daily. 15. Colace 100 mg three times a day. 16. Casodex 50 mg daily. 17. Cardizem CD 240 mg daily. SOCIAL HISTORY: Negative for substance abuse. Negative for alcohol use. Negative for smoking use. FAMILY HISTORY: Not available. OCCUPATIONAL HISTORY: Disabled. 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 Past medical history is also significant for bilateral lower extremity venous stasis. Patient's past medical history is significant for encephalopathy, history of stage IV adenocarcinoma of the prostate with bone metastasis, history of severe hyponatremia secondary to SIADH secondary to stage IV metastatic adenocarcinoma of the prostate, history of atrial fibrillation, history of normocytic anemia, history of refractory hyponatremia, history of hyperkalemia, history of transaminitis with hyperbilirubinemia, history of rhabdomyolysis, history of elevated prostate-specific antigen ranging from 50 to greater than 90, history of proteinuria, microscopic hematuria, pyuria, bacteriuria, history of hypervolemic hyponatremia secondary to systolic congestive heart failure and SIADH secondary to stage IV metastatic adenocarcinoma of the prostate, history of hypertensive cardiovascular disease, history of chronic kidney disease stage III, history of dilated cardiomyopathy with ejection fraction 20%, history of hypovitaminosis D, history of severe symptomatic hyponatremia and altered mental status and confusion, history of hyperbilirubinemia, history of urinary retention, history of lumbar metastasis of the adenocarcinoma of the prostate with multiple thoracic spine sclerotic lesion; history of right lower lobe consolidation, pneumonia, pleural effusion; history of severe deconditioning and gait dysfunction, history of cerebral cortical atrophy of the brain, history of probable right basal ganglia chronic lacunar infarct, history of intracranial atherosclerotic disease, history of lateral ischemic changes on the EKG, history of severely dilated cardiomyopathy, history of anemia with granulocytosis, history of poor compliance and noncompliance, history of leukopenia, history of hyperkalemia secondary to angiotensin receptor riky and PAUL-induced, history of pulmonary arterial hypertension with right ventricular systolic pressure of 52 mmHg, history of concentric left ventricular hypertrophy, history of global LV hypokinesis, history of dilated left and right atrium, history of decreased right ventricular systolic function, history of thickened aortic and mitral valve, history of moderate mitral and tricuspid regurgitation, history of decompensated nonischemic dilated cardiomyopathy and decompensated systolic congestive heart failure, history of elevated PSA, history of diffuse osteopenia and osteoporosis, history of questionable ileus,history of acute kidney injury, history of cystoscopy and insertion of an 18-Mosotho two-way Pettit catheter with evacuation of clots and fulguration with retrograde pyelogram, history of CT-guided lumbar 2 vertebral body biopsy, history of hypervolemic hyponatremia, history of bilateral lower extremity lymphedema secondary to pulmonary arterial hypertension and elevated right ventricular systolic pressure, history of diffuse osseous metastasis, history of centrilobular and paraseptal emphysema with atelectasis, history of adrenal gland hypertrophy, history of renal cyst, history of diverticulosis, history of avascular necrosis of the femoral head, history of retroperitoneal lymphadenopathy, history of inferolateral coronary ischemia, history of lost to followup for the office visits for more than a year. History healthcare-associated right lower lobe pneumonia, atelectasis, airspace disease and [id number] pleural effusion, history of Eliquis dependent atrial fibrillation, history of pulmonary arterial hypertension with elevated right ventricular systolic pressure. The patient was seen in stretcher #[id number] in the emergency room. Patient was seen lying in the bed. Patient was seen and examined with the ER physician. PHYSICAL EXAMINATION: GENERAL: Patient is alert, awake, responsive. Patient is lying comfortable. VITAL SIGNS: T-max is 97.5, pulse is 70, blood pressure 118/63, respiration is 18, O2 sat is 100%. HEENT: Patient's head examination is normocephalic, atraumatic. HEENT examination shows pink conjunctivae. Anicteric sclerae. Dry oral mucosa. NECK: No neck rigidity. Questionable soft carotid bruit. CHEST: Kyphosis. LUNGS: Positive decreased breath sound at the bases, left more than the right; bibasilar decreased breath sounds at the bases. CARDIOVASCULAR: S1 and S2, irregular rhythm. Positive systolic murmur at right second intercostal space, left second intercostal space, left sternal border. ABDOMEN: Soft, slightly protuberant. Positive bowel sound. No hepatosplenomegaly noted. No costovertebral angle tenderness. GENITALIA: Male. RECTAL: Deferred. EXTREMITIES: Show trace swelling of the lower extremity. Positive skin discoloration of the lower extremity and foot with some skin discoloration of the lower extremity in the right foot more than the left with positive cold right foot with nonpalpable pulses noted of the right lower extremity and also the left lower extremity, but the left foot and left lower extremity is warm to touch. MUSCULOSKELETAL: Shows body mass index of 26. Gait examination is not tested. VASCULAR: Shows right foot to be cold to touch, no palpable pulses. Left lower extremity and left foot is not cold to touch and is warm to touch. DIAGNOSTICS: On 07/10/2017, WBC 8.2, hemoglobin and hematocrit 14.1 and 41.1, platelet 274. PT/PTT 18.2, 37.6. INR 1.6. Sodium is 129, potassium is 4.6, chloride 92, CO2 of 28, anion gap 15, BUN 25, creatinine 1.1, GFR greater than 60, glucose 100, calcium 9.5, bilirubin 1.7. AST 71 and alk phos 162. Patient had arterial Doppler of the lower extremity done. EKG done. Patient's chest x-ray is not done. Patient's arterial Doppler shows flattened waveform at the level of the metatarsal. Benny Street MD
[2017-07-11] MEDS: Pantoprazole 20 mg EC Tab PO SCH (08:59)
[2017-07-11] MEDS: Digoxin 125 mcg (0.125 mg) Tab PO SCH (09:00)
[2017-07-11] MEDS: diltiaZEM 240 mg/24 Hours CD Cap PO SCH (09:00)
[2017-07-11] MEDS: Magnesium Oxide 400 mg Tab UD PO SCH ×2 (09:01→18:04)
--- NOTE | 2017-07-11 09:40 | RAD ---
HISTORY: RLL PNEUMONIA COMPARISON: 07/02/2017 TECHNIQUE: Chest PA and lateral FINDINGS: LUNGS: There is linear atelectasis at the right lung base. PLEURA: No significant pleural effusion identified. No pneumothorax apparent. CARDIOVASCULAR: Mild cardiomegaly OSSEOUS STRUCTURES: No significant abnormalities. VISUALIZED UPPER ABDOMEN: Normal. OTHER FINDINGS: None. IMPRESSION: No active disease.
[2017-07-11] MEDS ORDERED: POLYETHYLENE GLYCOL 3350 17 GM/Dose PACKET PO SCH (10:00)
[2017-07-11] MEDS: POLYETHYLENE GLYCOL 3350 17 GM/Dose PACKET PO SCH ×3 (10:22→18:05)
[2017-07-11 10:42] LABS: INR 1.85 (0.93-1.08); PROTHROMBIN TIME 21.5 SECONDS (9.4-12.5)
[2017-07-11 10:44] LABS: PARTIAL THROMBOPLASTIN TIME 114.1 Seconds (25.1-36.5)
--- NOTE | 2017-07-11 11:36 | CP.PCM.CON ---
History of Present Illness - History of Present Illness History of Present Illness: Nephrology Consultation Note Assessment: stable PVD hyponatremia likely Multifactorial due to CHF, SIADH Caused by metastatic prostate CA Hypertensive Chronic Kidney Disease (I12.9) Chronic Kidney Disease (N18.3) Stage 3 with Cr 1.2 metastatic prostate cancer, HTN (I12.9) systolic CHF LVEF 20% chronic indwelling lawrence catheter Plan Na stable for now on oral fluid fluid restriction 1000 mL per day and lasix 40 mg po bid pt s/p angiogram for PVD eval. will d/c IVF now due to hx of severe CHF. resume diuretics tomorrow if no further IV iodinated contrast exposure planned Hypertension control with meds as ordered. unable to tolerate losartan due to hyperkalemia episodes. Monitor Input/Output, daily weights, basic metabolic panel and sodium level supplement electrolytes as needed Avoid nephrotoxins/NSAIDs Glycemic control Further work up for as per primary team. CHF management as per cardiology Thanks for allowing me to participate in care of your patient. Will follow patient with you. Please call if any Qs. d/w team. Dr Grupo Vital Office: [phone] Reason for consultation; Hyponatremia HPI patient is 77-year-old male with history of chronic systolic CHF EF 20% also metastatic prostate cancer , BPH, recently seen for hyponatremia due to CHF and likely SIADH discharged to retirement here with the Rt foot PVD. Renal consult was requested for hyponatremia management. Patient at this time denies shortness of breath nausea vomiting any pain in his stomach but reports constipation. Subjective/ROS: Noted events overnight. Patients feels usual health except feet. Denies chest pain, palpitation, denies shortness of breath All other negative Except as mentioned in HPI. had bone biopsy by IR on 06/10/17 Showed metastatic adeno carcinoma of prostate s/p Rt thoracocentesis 07/02/17 ~ 700 mL fluid aspirated Physical Examination: General Appearance: Comfortable, in no acute respiratory distress, co-operative . Vitals reviewed and noted as below Head; Atraumatic, normocephalic ENT: no ulcers no thrush. Tongue is midline. Oropharynx: no rash or ulcers. EYES: Pupils are equal, round and reactive to light accommodation. Eye muscles and extraocular movement intact. Sclera is anicteric. Neck; supple no lymphadenopathy, no thyromegaly or bruit Lungs: Normal respiratory rate/effort. Breath sounds b/l present and clear Heart: Normal rate. s1s2 normal. No rub or gallop. Extremities: no edema. No varicose veins. Rt foot cold to touch Neurological: Patient is alert, awake and oriented to person, place and time. No focal deficit. Strength bilateral appropriate and equal Skin: Warm and dry. Normal turgor. No rash. Palpitation: Normal elasticity for age. Feets somewhat cool to touch Abdomen: Abdomen is soft. Bowel sounds +. There is no abdominal tenderness, no guarding/rigidity no organomegaly. abdomen distended Psych: normal insight and normal affect/mood MSK: no joint tenderness or swelling. Digits and nails normal, no deformity : kidney or bladder not palpable. Has Lawrence catheter in place Labs/imaging reviewed. Past medical history, past surgical history, family history, social history, allergy reviewed and noted as below Family hx: no hx of CKD. Rest non-contributor Past Patient History - Infectious Disease Hx of Infectious Diseases: None - Tetanus Immunizations Tetanus Immunization: Unknown - Past Social History Smoking Status: Former Smoker - CARDIAC Hx Cardiac Disorders: Yes (Afib) Hx Atrial Fibrillation: Yes Hx Congestive Heart Failure: Yes - PULMONARY Hx Respiratory Disorders: No - NEUROLOGICAL Hx Neurological Disorder: No - HEENT Hx HEENT Problems: No - RENAL Hx Chronic Kidney Disease: No - ENDOCRINE/METABOLIC Hx Endocrine Disorders: No - HEMATOLOGICAL/ONCOLOGICAL Hx Cancer: Yes - INTEGUMENTARY Hx Dermatological Problems: No - MUSCULOSKELETAL/RHEUMATOLOGICAL Hx Falls: No - GASTROINTESTINAL Hx Gastrointestinal Disorders: No - GENITOURINARY/GYNECOLOGICAL Hx Genitourinary Disorders: No Hx Prostate Cancer: Yes - PSYCHIATRIC Hx Depression: No Hx Emotional Abuse: No Hx Physical Abuse: No Hx Substance Use: No - SURGICAL HISTORY Hx Surgeries: No - ANESTHESIA Hx Anesthesia: No Meds Allergies/Adverse Reactions: Allergies Allergy/AdvReac Type Severity Reaction Status Date / Time No Known Allergies Allergy Verified 05/25/13 15:34 - Medications Medications: Current Medications Acetaminophen (Tylenol 325mg Tab) 650 mg PO Q6 PRN PRN Reason: TEMP>=99.5F Acetaminophen (Tylenol 650 Mg Supp) 650 mg RC Q6H PRN PRN Reason: TEMP>=99.5F Acetaminophen (Tylenol 325mg Tab) 650 mg PO Q6 PRN PRN Reason: Headache Acetaminophen (Tylenol 650 Mg Supp) 650 mg RC Q6H PRN PRN Reason: Headache Aspirin (Ecotrin) 81 mg PO DAILY [facility] Last Admin: 07/11/17 09:01 Dose: 81 mg Atorvastatin Calcium (Lipitor) 20 mg PO DIN [facility] Bicalutamide (Casodex) 50 mg PO DAILY [facility] Last Admin: 07/11/17 10:02 Dose: 50 mg Digoxin (Digoxin) 0.125 mg PO DAILY [facility] Last Admin: 07/11/17 09:00 Dose: 0.125 mg Diltiazem HCl (Cardizem Cd) 240 mg PO DAILY [facility] Last Admin: 07/11/17 09:00 Dose: 240 mg Docusate Sodium (Colace) 100 mg PO TID [facility] Last Admin: 07/11/17 09:00 Dose: 100 mg Heparin Sodium/Sodium Chloride (Heparin 27911 Units/250ml 1/2 Normal Saline) 25 ,000 units in 250 mls @ 9.906 mls/hr IV .Q24H [facility]; 12 UNITS/KG/HR PRN Reason: Protocol Last Admin: 07/11/17 04:55 Dose: 12 units/kg/hr, 9.906 mls/hr Levalbuterol HCl (Xopenex) 0.63 mg IH [id number] [facility] Last Admin: 07/11/17 07:32 Dose: Not Given Levalbuterol HCl (Xopenex) 0.63 mg IH Q2H PRN PRN Reason: Shortness of Breath Magnesium Oxide (Mag-Ox) 400 mg PO BID [facility] Last Admin: 07/11/17 09:01 Dose: 400 mg Metoprolol Tartrate (Lopressor) 50 mg PO BID [facility] Last Admin: 07/11/17 08:59 Dose: 50 mg Ondansetron HCl (Zofran Tab) 4 mg PO Q4 PRN PRN Reason: Nausea/Vomiting Last Admin: 07/11/17 08:59 Dose: 4 mg Oxycodone/Acetaminophen (Percocet 5/325 Mg Tab) 1 tab PO Q6 PRN PRN Reason: Pain, severe (8-10) Stop: 07/14/17 00:01 Last Admin: 07/11/17 08:58 Dose: 1 tab Pantoprazole Sodium (Protonix Ec Tab) 40 mg PO DAILY [facility] Last Admin: 07/11/17 08:59 Dose: 40 mg Polyethylene Glycol (Miralax) 17 gm PO TID NIGEL Last Admin: 07/11/17 10:22 Dose: 17 gm Results - Vital Signs Recent Vital Signs: Last Vital Signs Temp 97.9 F 07/11/17 05:20 Pulse 92 H 07/11/17 09:00 Resp 20 07/11/17 05:20 BP 127/69 07/11/17 09:00 Pulse Ox 100 07/11/17 05:20 - Labs Result Diagrams: 07/11/17 06:30 07/11/17 06:30 Labs: Laboratory Results - last 24 hr 07/11/17 07/11/17 07/11/17 01:15 06:30 06:30 WBC 7.5 RBC 5.03 Hgb 13.8 L Hct 41.0 L MCV 81.5 MCH 27.4 MCHC 33.7 RDW 15.6 H Plt Count 267 MPV 9.5 PT INR APTT 38.0 H Sodium 130 L Potassium 4.0 Chloride 94 L Carbon Dioxide 25 Anion Gap 15 BUN 23 H Creatinine 1.1 Est GFR ( Amer) > 60 Est GFR (Non-Af Amer) > 60 Random Glucose 81 Calcium 9.1 Magnesium 1.9 Total Bilirubin 1.6 H AST 62 H ALT 54 Alkaline Phosphatase 141 H Total Protein 6.5 Albumin 3.2 Globulin 3.4 Albumin/Globulin Ratio 0.9 L 07/11/17 09:45 WBC RBC Hgb Hct MCV MCH MCHC RDW Plt Count MPV PT 21.5 H INR 1.85 H APTT 114.1 H* Sodium Potassium Chloride Carbon Dioxide Anion Gap BUN Creatinine Est GFR ( Amer) Est GFR (Non-Af Amer) Random Glucose Calcium Magnesium Total Bilirubin AST ALT Alkaline Phosphatase Total Protein Albumin Globulin Albumin/Globulin Ratio
--- NOTE | 2017-07-11 11:47 | PN ---
DATE: 07/11/2017 SUBJECTIVE: The patient is seen in room 260, bed 1. The patient is sitting up in the bed. The patient is alert, awake, responsive, having breakfast. The patient was seen sitting up in the bed. The patient is having breakfast. Overnight nurse's notes were reviewed. PHYSICAL EXAMINATION: VITAL SIGNS: T-max 97.9; heart rate 92, 80, 69; blood pressure 131/72, 127/69, 131/75; respiration 20; O2 sat 100%. HEENT: Head examination normocephalic, atraumatic. HEENT examination shows pink conjunctivae. Anicteric sclerae. No oropharyngeal lesion. No jugular venous distention. CHEST: Kyphosis. LUNGS: Shows decreased breath sound at the bases, right more than the left. CARDIOVASCULAR: S1, S2, irregular rhythm. Positive systolic murmur, left sternal border, right second intercostal space, left second intercostal space. ABDOMEN: Protuberant. Positive bowel sound. GENITALIA: Male. RECTAL: Deferred. EXTREMITY: Shows chronic skin changes of the lower extremity. Positive decreased pulses of the lower extremity. Trace swelling of the lower extremity. MUSCULOSKELETAL: Shows a body mass index of 25.4. NEUROLOGIC: The patient is alert, awake, responsive, is able to move upper and lower extremity without assistance. Gait examination is not tested. DIAGNOSTICS: WBC 7.5, hemoglobin and hematocrit 13.8 and 41.0, platelet 267. Sodium 130, potassium 4.0, chloride 94, CO2 of 25, anion gap 15, BUN 23, creatinine 1.1, GFR greater than 60, glucose 81, calcium 9.1, magnesium 1.9, total bili 1.6, AST 62, alk phos 141. Chest x-ray shows right lower lobe linear atelectasis. No pleural effusion. EKG was reviewed. IMPRESSION AND PLAN: 1. Right foot ischemia versus impending ischemia. 2. Severe peripheral vascular disease. 3. Right foot ischemic pain. 4. Hyponatremia secondary to syndrome of inappropriate antidiuretic hormone secondary to stage IV metastatic adenocarcinoma of the prostate. 5. Atrial fibrillation, rate controlled. 6. Nonischemic dilated cardiomyopathy. 7. Stage IV adenocarcinoma of the prostate. 8. Hypertension. 9. Mild normocytic anemia. 10. Prerenal kidney injury. 11. Transaminitis and mild hyperbilirubinemia. 12. Atrial fibrillation with anterolateral coronary ischemia. 13. Right lower lobe linear atelectasis. 14. Aortoiliac disease, right more than the left with 61 mm gradient between the arm and the right low thigh pressure and 25 mm gradient between the arm and the left low thigh pressure. 15. Severely blunted calf peripheral vascular resistance waveform consistent with bilateral superficial femoral artery disease. 16. Flat ankle and metatarsal waveform. 17. Severely abnormal resting ankle-brachial indices. 18. Bilateral superficial femoral artery disease. 19. Gait dysfunction. 20. Deconditioning. 21. Possible right foot right lower extremity cellulitis. 22. Constipation. 23. Dyslipidemia. 24. Hypomagnesemia. Plan at this time, the [facility] has [facility] The patient's CTA angio will be reviewed when available. The patient is awaiting evaluation by Vascular Surgery, Nephrology, Infectious Disease, Podiatry and Interventional Radiology. Consultations for above have been requested. Current medications: Cardizem CD 240 mg daily, Casodex 50 mg daily, Colace 100 mg three times a day, digoxin 0.125 daily, Ecotrin 81 mg daily, heparin drip as per protocol, Lipitor 20 mg daily, Lopressor 50 mg twice a day, magnesium oxide 400 mg twice a day, MiraLax 17 g three times a day, Percocet 5/325 one tab q. 6 p.r.n., Protonix 40 mg daily, IV fluid 0.9 normal saline at 100 mL an hour, Tylenol 650 mg p.o. suppository q. 6 p.r.n., Xopenex nebulizer q. 6 hours [id number] q. 2 hours p.r.n., Zofran 4 mg p.o. q. 4 p.r.n. The patient has been ordered out of bed. The patient is awaiting Interventional Radiology, Vascular Surgery, Infectious Disease, Podiatry and Nephrology evaluation. The patient updated about his condition, diagnoses, overall guarded to poor prognosis, which he acknowledged and understand. All questions concerned answered. Dictated and electronically signed, not read. Benny Street MD [facility] # [id number]
--- NOTE | 2017-07-11 13:09 | CP.PCM.PN ---
Subjective - Date & Time of Evaluation Date of Evaluation: 07/11/17 Time of Evaluation: 13:06 - Subjective Subjective: Surgery: Dr. Beckwith Pt seen and examined. Resting comfortably in bed. Has pain in RLE when touched. Otherwise pain is controlled. Objective - Vital Signs/Intake and Output Vital Signs (last 24 hours): Temp Pulse Resp BP Pulse Ox 98.1 F 68 19 146/86 100 07/11/17 12:00 07/11/17 12:00 07/11/17 12:00 07/11/17 12:00 07/11/17 05:20 Intake and Output: 07/11/17 07/11/17 06:59 18:59 Intake Total 0 2 Output Total 100 Balance -100 2 - Medications Medications: Current Medications Acetaminophen (Tylenol 325mg Tab) 650 mg PO Q6 PRN PRN Reason: TEMP>=99.5F Acetaminophen (Tylenol 325mg Tab) 650 mg PO Q6 PRN PRN Reason: Headache Acetaminophen (Tylenol 650 Mg Supp) 650 mg RC Q6H PRN PRN Reason: Headache Acetaminophen (Tylenol 650 Mg Supp) 650 mg RC Q6H PRN PRN Reason: TEMP>=99.5F,unable to take PO Aspirin (Ecotrin) 81 mg PO DAILY [facility] Last Admin: 07/11/17 09:01 Dose: 81 mg Atorvastatin Calcium (Lipitor) 20 mg PO DIN [facility] Bicalutamide (Casodex) 50 mg PO DAILY [facility] Last Admin: 07/11/17 10:02 Dose: 50 mg Digoxin (Digoxin) 0.125 mg PO DAILY [facility] Last Admin: 07/11/17 09:00 Dose: 0.125 mg Diltiazem HCl (Cardizem Cd) 240 mg PO DAILY [facility] Last Admin: 07/11/17 09:00 Dose: 240 mg Docusate Sodium (Colace) 100 mg PO TID [facility] Last Admin: 07/11/17 09:00 Dose: 100 mg Furosemide (Lasix) 20 mg IVP Q12 [facility] Heparin Sodium/Sodium Chloride (Heparin 30301 Units/250ml 1/2 Normal Saline) 25 ,000 units in 250 mls @ 9.906 mls/hr IV .Q24H [facility]; 12 UNITS/KG/HR PRN Reason: Protocol Last Titration: 07/11/17 12:25 Dose: 9 units/kg/hr, 7.43 mls/hr Levalbuterol HCl (Xopenex) 0.63 mg IH [id number] [facility] Last Admin: 07/11/17 07:32 Dose: Not Given Levalbuterol HCl (Xopenex) 0.63 mg IH Q2H PRN PRN Reason: Shortness of Breath Magnesium Oxide (Mag-Ox) 400 mg PO BID [facility] Last Admin: 07/11/17 09:01 Dose: 400 mg Metoprolol Tartrate (Lopressor) 50 mg PO BID [facility] Last Admin: 07/11/17 08:59 Dose: 50 mg Ondansetron HCl (Zofran Tab) 4 mg PO Q4 PRN PRN Reason: Nausea/Vomiting Last Admin: 07/11/17 08:59 Dose: 4 mg Oxycodone/Acetaminophen (Percocet 5/325 Mg Tab) 1 tab PO Q6 PRN PRN Reason: Pain, severe (8-10) Stop: 07/14/17 00:01 Last Admin: 07/11/17 08:58 Dose: 1 tab Pantoprazole Sodium (Protonix Ec Tab) 40 mg PO DAILY [facility] Last Admin: 07/11/17 08:59 Dose: 40 mg Polyethylene Glycol (Miralax) 17 gm PO TID [facility] Last Admin: 07/11/17 10:22 Dose: 17 gm - Labs Labs: 07/11/17 06:30 07/11/17 06:30 PT 21.5 SECONDS (9.4-12.5) H 07/11/17 09:45 INR 1.85 (0.93-1.08) H 07/11/17 09:45 APTT 114.1 Seconds (25.1-36.5) H* 07/11/17 09:45 - Constitutional Appears: Non-toxic, No Acute Distress - Head Exam Head Exam: ATRAUMATIC, NORMOCEPHALIC - Eye Exam Eye Exam: EOMI - ENT Exam ENT Exam: Mucous Membranes Moist - Neck Exam Neck Exam: Full ROM - Respiratory Exam Respiratory Exam: NORMAL BREATHING PATTERN. absent: Accessory Muscle Use, Respiratory Distress - GI/Abdominal Exam GI & Abdominal Exam: Soft. absent: Tenderness - Extremities Exam Additional comments: RLE: chronic skin changes, +blisters, no palpable pulse, no sensation/motor fxn - Neurological Exam Neurological Exam: Alert, Awake, Oriented x3 - Psychiatric Exam Psychiatric exam: Normal Affect, Normal Mood Assessment and Plan - Assessment and Plan (Free Text) Assessment: 77M w. stage IV prostate CA and severe PAD -recommend local wound care -no plans for surgical intervention at this time -will signoff, please re-consult if needed -d/w attending Remy PGY3
--- NOTE | 2017-07-11 13:09 | CT ---
PROCEDURE: CT Angiography Abdomen, Pelvis and Lower Extremity with Contrast HISTORY: peripheral arterial disease, requested by Dr. Deal COMPARISON: None. TECHNIQUE: Technique: CT angiography of the abdomen, pelvis and bilateral lower extremities performed in the arterial phase of enhancement. Coronal and sagittal reformats, and well as rotating MIP images of the vessels generated at the workstation. Intravenous contrast dose: 150 cc of Omni 350 Radiation dose: Total exam DLP = 1708 mGy-cm. This CT exam was performed using one or more of the following dose reduction techniques: Automated exposure control, adjustment of the mA and/or kV according to patient size, and/or use of iterative reconstruction technique. FINDINGS: CT ANGIOGRAPHY: ABDOMINAL AORTA:: Unremarkable. Severe tortuosity of the iliac vessels. MAJOR AORTIC BRANCHES: Celiac [place]: Unremarkable. Superior mesenteric artery: Unremarkable. Inferior mesenteric artery: Unremarkable. Renal arteries: Unremarkable. PELVIC ARTERIES: Right Common Iliac: Unremarkable. Right External Iliac: Unremarkable. Right Internal Iliac: Unremarkable. Left Common Iliac: Unremarkable. Left External Iliac: Unremarkable. Left Internal Iliac: Unremarkable. RIGHT LOWER EXTREMITY ARTERIES: There is complete occlusion of the superficial femoral artery. There is no flow seen within the popliteal and no flow demonstrated in the tibials or peroneal arteries. Collateral vessels can be seen LEFT LOWER EXTREMITY ARTERIES: There is complete occlusion of the superficial femoral artery. There is no flow seen within the popliteal and no flow demonstrated in the tibials or peroneal arteries. Collateral vessels can be seen NON-ANGIOGRAPHIC ASPECT OF THE EXAM: LOWER THORAX: Unremarkable. LIVER: Unremarkable. No gross lesion or ductal dilatation. GALLBLADDER AND BILE DUCTS: Unremarkable. PANCREAS: Unremarkable. No gross lesion or ductal dilatation. SPLEEN: Unremarkable. ADRENALS: Unremarkable. No mass. KIDNEYS AND URETERS: Unremarkable. No hydronephrosis. No solid mass. STOMACH AND BOWEL: Multiple dilated loops of small bowel are seen consistent with ileus or partial obstruction APPENDIX: Normal appendix. PERITONEUM: Unremarkable. No free fluid. No free air. LYMPH NODES: Unremarkable. No enlarged lymph nodes. BLADDER: Unremarkable. REPRODUCTIVE: Unremarkable. BONES: No acute fracture. OTHER FINDINGS: None. IMPRESSION: There is complete occlusion of the superficial femoral artery bilaterally. There is no flow seen within the popliteal and no flow demonstrated in the tibials or peroneal arteries. Collateral vessels can be seen . Multiple dilated loops of small bowel consistent with ileus or partial obstruction
--- NOTE | 2017-07-11 16:33 | CP.PCM.CON ---
History of Present Illness - History of Present Illness History of Present Illness: 77 year old male with PMH of prostate cancer with bone metastases, atrial fibrillation on anticoagulation, dilated cardiomyopathy, came in to [facility] because of severe right foot pain associated with wounds on the right foot. It was also noted that his right foot felt cold and that were no note of pulses. The patient denies fever or chills, no nausea or vomiting, no chest pain, no SOB, no headache or dizziness, no abdominal pain, no cough or colds, no diarrhea, no dysuria. Dopller ultrasound of hte lower extremities show severe PAD on the right leg. Infectious Diseases consult is requested to further evaluate and manage. Review of Systems - Review of Systems All systems: reviewed and no additional remarkable complaints except (as per HPI ) Past Patient History - Infectious Disease Hx of Infectious Diseases: None - Tetanus Immunizations Tetanus Immunization: Unknown - Past Social History Smoking Status: Former Smoker - CARDIAC Hx Cardiac Disorders: Yes (Afib) Hx Atrial Fibrillation: Yes Hx Congestive Heart Failure: Yes - PULMONARY Hx Respiratory Disorders: No - NEUROLOGICAL Hx Neurological Disorder: No - HEENT Hx HEENT Problems: No - RENAL Hx Chronic Kidney Disease: No - ENDOCRINE/METABOLIC Hx Endocrine Disorders: No - HEMATOLOGICAL/ONCOLOGICAL Hx Cancer: Yes - INTEGUMENTARY Hx Dermatological Problems: No - MUSCULOSKELETAL/RHEUMATOLOGICAL Hx Falls: No - GASTROINTESTINAL Hx Gastrointestinal Disorders: No - GENITOURINARY/GYNECOLOGICAL Hx Genitourinary Disorders: No Hx Prostate Cancer: Yes - PSYCHIATRIC Hx Depression: No Hx Emotional Abuse: No Hx Physical Abuse: No Hx Substance Use: No - SURGICAL HISTORY Hx Surgeries: No - ANESTHESIA Hx Anesthesia: No Meds Allergies/Adverse Reactions: Allergies Allergy/AdvReac Type Severity Reaction Status Date / Time No Known Allergies Allergy Verified 05/25/13 15:34 - Medications Medications: Current Medications Acetaminophen (Tylenol 325mg Tab) 325 mg PO PRN PRN PRN Reason: Fever >100.4 F Aspirin (Ecotrin) 81 mg PO DAILY [facility] Atorvastatin Calcium (Lipitor) 20 mg PO DIN [facility] Bicalutamide (Casodex) 50 mg PO DAILY [facility] Digoxin (Digoxin) 0.125 mg PO DAILY [facility] Diltiazem HCl (Cardizem Cd) 240 mg PO DAILY [facility] Docusate Sodium (Colace) 100 mg PO TID [facility] Sodium Chloride (Sodium Chloride 0.9%) 1,000 mls @ 100 mls/hr IV .Q10H [facility] Last Admin: 07/10/17 22:05 Dose: 100 mls/hr Heparin Sodium/Sodium Chloride (Heparin 16211 Units/250ml 1/2 Normal Saline) 25 ,000 units in 250 mls @ 9.906 mls/hr IV .Q24H [facility]; 12 UNITS/KG/HR PRN Reason: Protocol Last Admin: 07/11/17 04:55 Dose: 12 units/kg/hr, 9.906 mls/hr Levalbuterol HCl (Xopenex) 0.63 mg IH [id number] [facility] Levalbuterol HCl (Xopenex) 0.63 mg IH Q2H PRN PRN Reason: Shortness of Breath Magnesium Oxide (Mag-Ox) 400 mg PO BID [facility] Metoprolol Tartrate (Lopressor) 50 mg PO BID [facility] Ondansetron HCl (Zofran Tab) 4 mg PO Q4 PRN PRN Reason: Nausea/Vomiting Oxycodone/Acetaminophen (Percocet 5/325 Mg Tab) 1 tab PO Q6 PRN PRN Reason: Pain, severe (8-10) Stop: 07/14/17 00:01 Pantoprazole Sodium (Protonix Ec Tab) 40 mg PO DAILY [facility] Polyethylene Glycol (Miralax) 17 gm PO BID [facility] Physical Exam - Constitutional Appears: Non-toxic, Chronically Ill - Head Exam Head Exam: NORMAL INSPECTION - ENT Exam ENT Exam: Mucous Membranes Moist - Neck Exam Neck exam: Negative for: Meningismus - Respiratory Exam Respiratory Exam: Decreased Breath Sounds - Cardiovascular Exam Cardiovascular Exam: +S1, +S2 - GI/Abdominal Exam GI & Abdominal Exam: Soft. absent: Tenderness - Extremities Exam Additional comments: right foot with dressings in place, feels cold Results - Vital Signs Recent Vital Signs: Last Vital Signs Temp 97.9 F 07/11/17 05:20 Pulse 80 07/11/17 05:20 Resp 20 07/11/17 05:20 BP 131/72 07/11/17 05:20 Pulse Ox 100 07/11/17 05:20 - Labs Result Diagrams: 07/11/17 06:30 07/11/17 06:30 Labs: Laboratory Results - last 24 hr 07/11/17 01:15 APTT 38.0 H Assessment & Plan - Assessment and Plan (Free Text) Plan: Assessment Chronic right foot wounds associated with severe PAD prostate cancer with bone metastases atrial fibrillation on anticoagulation dilated cardiomyopathy Plan Follow up blood and wound cx; patient has no signs of sepsis and severe PAD means systemic antibiotics may not reach the foot; started IV Vancomycin to decrease risk of infection spreading systemically; follow up plans of Surgery for revascularization or if not possible then amputation of foot will monitor clinically
[2017-07-11] MEDS: Vancomycin 1gm in NS 250ml 1 GM/250 ML BAG IVPB SCH (17:55)
--- NOTE | 2017-07-11 18:40 | CON ---
DATE: REASON FOR CONSULTATION: Ischemic right foot. HISTORY OF PRESENT ILLNESS: The patient is a 77-year-old man who is transferred from rehab unit for a cold right foot and nonpalpable pulse. The patient has been undergoing physiotherapy and rehab therapy there after being diagnosed with stage IV prostatic carcinoma. When he was brought to the [facility] Room, he already had a four day history of right foot pain. The right foot was found to be cold and pulseless. The patient was admitted for diagnosis and treatment. REVIEW OF SYSTEMS: HEENT: Negative. CARDIAC: The patient has an ejection fraction of 20%. LUNGS: The patient has COPD. ABDOMEN: He has a history of hyperbilirubinemia. Electively, the patient has history of inappropriate ADH, hypokalemia, hyponatremia secondary to rhabdomyolysis. : He has a history of chronic renal failure, proteinuria, microscopic hematuria, pyuria. He also had a history of urinary retention and prostatic CA stage IV. CONSTITUTIONAL SYMPTOMS: Patient has been loosing weight and is severely deconditioned. The remainder of the review of system was unremarkable. PHYSICAL EXAMINATION GENERAL: Showed an elderly gentleman in moderate distress. HEENT: Negative. CHEST: Clear. ABDOMEN: Soft. There is no tenderness. EXTREMITIES: Revealed palpable femoral pulses and no distal pulses. The right foot is cold and the dorsum is gangrenous. He still has preservation of dorsiflexion of the foot and the toes on both feet. The sensation to pinprick is diminished in the dorsum. Other than the femoral pulses there is no palpable pulses distally. The CT angiogram was reviewed showing severe calcification of the aortoiliac artery, femoral artery, profunda femoris artery, superficial femoral artery and the tibial vessels. There is no blood flow below the femoral artery. Electrolyte showed the potassium 4.6, chloride 92, CO2 28, sodium 129, creatinine 1.1, BUN 25. CBC show a WBC of 8.2, hemoglobin of 14.1. After examination of the patient, the condition was discussed with Dr. Street and the patient's son. The prognosis was deemed dismal. There is no reconstruction of both of his leg due to the severity of disease, the low ejection fraction, cardiomyopathy as well as the patient's mental status. After discussion with his son, the son agreed that palliative care will be the best option for his father. Agreed with Dr. Street, the patient need palliative care and he has been referred to hospice nurse. Princess Beckwith MD
[2017-07-11 20:14] LABS: INR 1.72 (0.93-1.08); PROTHROMBIN TIME 19.8 SECONDS (9.4-12.5)
[2017-07-12] MEDS: Levalbuterol 0.63 MG/3 ML Inhal Soln UD IH SCH ×4 (01:32→20:03)
[2017-07-12] MEDS: Heparin 25,000units in 1/2NS 250 ML BAG IV SCH (03:08)
[2017-07-12] MEDS: Vancomycin 1gm in NS 250ml 1 GM/250 ML BAG IVPB SCH ×2 (03:57→18:03)
--- NOTE | 2017-07-12 04:04 | CON ---
DATE: HISTORY OF PRESENT ILLNESS: A 77-year-old male seen at bedside for consultation, evaluation and management of recent severe right foot pain with severe discoloration. The patient states that he noticed his foot was becoming cold and then followed by pain and the patient was brought in from custodial. The patient's medical history is significant for prostate cancer with metastasis to the bone, atrial fibrillation, cardiomyopathy, severe peripheral arterial disease of the right lower leg, congestive heart failure. SOCIAL HISTORY: The patient was a smoker times 50 years. He was a former heavy drinker. Denies illicit drug use. FAMILY HISTORY: Noncontributory. PAST SURGICAL HISTORY: Includes pleurocentesis and cystoscopy. HOME MEDICATIONS: Noted in JUN. ALLERGIES: THE PATIENT HAS NO KNOWN DRUG ALLERGIES. PHYSICAL EXAMINATION: VITAL SIGNS: The patient's temperature is 98, pulse rate of 58, blood pressure of 125/64, respiratory rate of 18. EXTREMITIES: Nonpalpable pedal pulses noted bilaterally. Absent popliteal pulses noted bilaterally. Right lower extremity presents with gangrenous changes to the entire forefoot. There is noted to be skin sloughing on the third digit as well as on the dorsal aspect of the foot. The temperature gradient is reversed. There are noted to be superficial wounds on the dorsal aspect of the foot as well as on the third digit. Capillary filling time is absent on all of the digits of the right foot. LABORATORY DATA: Reveal white count of 7.5, hemoglobin 13.8, hematocrit of 41, platelet count of 267. Arterial Dopplers taken yesterday reveal severely abnormal resting AB, aortoiliac disease, greater on the right than the left and severe bilateral SFA disease. The distal ankle and metatarsal waveforms are flat consistent with arterial ischemia. ASSESSMENT: Gangrene of the right forefoot secondary to severe peripheral arterial disease. PLAN: The patient was examined. His legs and foot were cleansed with normal sterile saline and application of Xeroform and a dry sterile dressing was applied. Dr. Beckwith's note was read and appreciated. At this point, the patient is a nonsurgical candidate and we will proceed with palliative wound care going forward. The patient will be seen and followed daily. Tobias Carter DPM
[2017-07-12 07:16] LABS: HEMOGLOBIN 11.8 g/dL (14.0-18.0); MEAN CELL VOLUME 80.7 fl (80.0-105.0); MEAN CORPUSCULAR HEMOGLOBIN 27.4 pg (25.0-35.0); MEAN PLATELET VOLUME 9.3 fl (7.0-11.0); RBC 4.3 10^6/uL (3.5-6.1); RED CELL DISTRIBUTION WIDTH 15.2 % (11.5-14.5); WHITE BLOOD COUNT 7.1 10^3/ul (4.5-11.0)
[2017-07-12 07:25] LABS: INR 1.7 (0.93-1.08); PARTIAL THROMBOPLASTIN TIME 51.8 Seconds (25.1-36.5); PROTHROMBIN TIME 19.8 SECONDS (9.4-12.5)
[2017-07-12 07:40] LABS: ALB/GLOB RATIO 0.9 (1.1-1.8); ALBUMIN 2.7 g/dL (3.0-4.8); ALT/SGPT 51 U/L (7-56); AST/SGOT 59 U/L (17-59); BLOOD UREA NITROGEN 18 mg/dL (7-21); CALCIUM 8.7 mg/dL (8.4-10.5); GFR AFRICAN-AMERICAN > 60; GFR NON-AFRICAN AMERICAN > 60
[2017-07-12] MEDS: Digoxin 125 mcg (0.125 mg) Tab PO SCH (10:31)
[2017-07-12] MEDS: diltiaZEM 240 mg/24 Hours CD Cap PO SCH (10:31)
[2017-07-12] MEDS: Magnesium Oxide 400 mg Tab UD PO SCH ×2 (10:31→18:02)
[2017-07-12] MEDS: POLYETHYLENE GLYCOL 3350 17 GM/Dose PACKET PO SCH ×3 (10:32→18:02)
[2017-07-12] MEDS: Pantoprazole 20 mg EC Tab PO SCH (10:40)
--- NOTE | 2017-07-12 10:49 | CARD ---
APPROVED REPORT EKG Measurement Heart [id number] <Conclusion> Atrial fibrillation PRWP STTW changes c/w ischmia
--- NOTE | 2017-07-12 16:04 | PN ---
DATE: 07/12/2017 SUBJECTIVE: The patient seen in room early this morning in 260, bed 1. No fevers and chills. No nausea. PHYSICAL EXAMINATION: VITAL SIGNS: Temperature is 97, blood pressure is 130/70, respiratory rate of 18, heart rate of 80. HEENT: Unremarkable. NECK: Supple. HEART: Normal S1 and S2. ABDOMEN: Soft, nontender. LABORATORY EXAMINATION: Reveals a white count of 7.1, hemoglobin of 11, platelets of 289. Coagulation is noted. Chemistries reveals a BUN of 18, creatinine of 1.0. Microbiology reveals the blood cultures are negative. Foot cultures are no growth. ASSESSMENT AND PLAN: A 77-year-old male with past medical history of prostate cancer with bone metastases, atrial fibrillation, on anticoagulation, dilated cardiomyopathy and chronic right foot wound associated with severe peripheral artery disease. Currently on vancomycin. Dr. Carter's consultation is noted from yesterday. He states the patient has gangrene of right foot secondary to severe peripheral arterial disease and we will follow with you. Justin Musa MD
--- NOTE | 2017-07-12 19:18 | RAD ---
PROCEDURE: Right Foot Radiographs. HISTORY: gangrene right foot COMPARISON: None. FINDINGS: BONES: No evidence of acute fracture. Interval appearance of focal irregularity and erosion at the lateral aspect of the distal 1st metatarsal bone since the previous exam. JOINTS: Arthritic degenerative changes. SOFT TISSUES: No evidence of soft tissue pneumatosis. Foci of vascular calcifications seen P OTHER FINDINGS: None. IMPRESSION: Focal cortical erosion at the lateral distal 1st metatarsal bone. The possibility of osteomyelitis cannot be excluded. .
--- NOTE | 2017-07-12 22:08 | PN ---
DATE: 07/12/2017 SUBJECTIVE: Patient is seen lying in bed in room 260 bed 1. Patient is comfortable. Patient is having the breakfast. Patient denies any chest pain. Denies shortness of breath. Denies nausea, vomiting, diarrhea. Denies any constipation. Patient states that he has been moving his bowels. Patient does not appear to be in any distress. Overnight nurse's notes were reviewed. Patient was noted to have episodic periods of confusion. REVIEW OF SYSTEMS: Thirteen-system review was done, pertinent positive and negative dictated above. PHYSICAL EXAMINATION: VITAL SIGNS: T-max 98.1. Telemetry shows atrial fibrillation, heart rate ranging from 67, 90 to 100. Blood pressure 122/82, 136/76, O2 sat is 98%. HEENT: Head examination normocephalic and atraumatic. HEENT examination shows pinkish conjunctivae. Anicteric sclerae. No oropharyngeal lesion, no neck rigidity. CHEST: Kyphosis. LUNGS: Shows questionable decreased breath sound at the left base. CARDIOVASCULAR: Shows S1, S2. Irregular rhythm. ABDOMEN: Protuberant. Positive bowel sounds. Distended abdomen. GENITALIA: Male. RECTAL: Examination deferred. EXTREMITIES: Show positive cool right foot. Decreased and absent pulses of the lower extremity. Positive dark skin changes of the right lower extremity. MUSCULOSKELETAL: Shows as per the BMI. Gait examination not tested. NEUROLOGIC: Patient is alert, awake, responsive, oriented at this time to person and place. Disoriented to year, date, month and time. DIAGNOSTICS: From 07/12, WBC 7.1, hemoglobin/hematocrit is 11.8 and 34.7, platelet 289,000. PT/PTT 19.5, INR 1.7, PTT 52. Sodium 129, albumin 2.7. Rest of the LFTs are normal. Albumin is 2.7. Microbiological, negative. Patient seen by Vascular Surgery, Podiatry and Infectious Disease. Their recommendations noted. Patient has been told about his overall guarded to poor prognosis. Patient was seen. IMPRESSION AND PLAN: 1. Most probable and most likely right foot ischemia. 2. Right foot gangrene. 3. Bilateral superficial femoral artery 100% occlusion. 4. Atrial fibrillation. 5. Hypertension. 6. Normocytic anemia. 7. Hyponatremia. 8. Hypoalbuminemia. 9. Severe gait dysfunction and deconditioning. 10. 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 11. Syndrome of inappropriate antidiuretic hormone. 12. Episodic confusion versus toxic metabolic encephalopathy. Plan at this time, patient seen by Vascular Surgery, recommends palliative care. Patient is seen by Infectious Disease. Recommend IV antibiotic. Patient was seen by Podiatry, recommend no surgical intervention. Patient's family, patient and the patient's son, was notified by the Vascular Surgery about the patient's extremely guarded to poor prognosis. Patient has been advised by the Vascular Surgery for palliative care. Palliative care consult ordered. Patient will be continued on the current medications as per the MAR, which was reviewed. Patient's medication doses all reviewed. Repeat lab work ordered for the morning. Recommendation by Nephrology, Vascular Surgery, Interventional Radiology, Podiatry all noted. Dictated and electronically signed, not read. Benny Street MD
--- NOTE | 2017-07-12 23:33 | CP.PCM.PN ---
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 CHF management as per cardiology Physical Examination: General Appearance: Comfortable, in no acute respiratory distress, co-operative . Head; Atraumatic, normocephalic ENT: no ulcers no thrush. Tongue is midline. Oropharynx: no rash or ulcers. EYES: Eye muscles and extraocular movement intact. Sclera is anicteric. Neck; supple no lymphadenopathy, no thyromegaly or bruit Lungs: Normal respiratory rate/effort. Breath sounds b/l present and clear Heart: Normal rate. s1s2 normal. No rub or gallop. Extremities: no edema. No varicose veins. Rt foot cold to touch Neurological: Patient is alert, awake and oriented to person, place and time. No focal deficit. Strength bilateral appropriate and equal Skin: Warm and dry. Normal turgor. No rash. Palpitation: Normal elasticity for age. Abdomen: Abdomen is soft. Bowel sounds +. There is no abdominal tenderness, no guarding/rigidity no organomegaly. abdomen distended Psych: normal insight and normal affect/mood MSK: no joint tenderness or swelling Objective - Vital Signs/Intake and Output Vital Signs (last 24 hours): Temp Pulse Resp BP Pulse Ox 97.6 F 63 18 124/70 100 07/12/17 17:16 07/12/17 17:16 07/12/17 17:16 07/12/17 22:08 07/12/17 17:16 Intake and Output: 07/12/17 07/13/17 18:59 06:59 Intake Total 912 Output Total 2100 Balance -1188 - Medications Medications: Current Medications Acetaminophen (Tylenol 325mg Tab) 650 mg PO Q6 PRN PRN Reason: TEMP>=99.5F Acetaminophen (Tylenol 325mg Tab) 650 mg PO Q6 PRN PRN Reason: Headache Acetaminophen (Tylenol 650 Mg Supp) 650 mg RC Q6H PRN PRN Reason: Headache Acetaminophen (Tylenol 650 Mg Supp) 650 mg RC Q6H PRN PRN Reason: TEMP>=99.5F,unable to take PO Aspirin (Ecotrin) 81 mg PO DAILY [facility] Last Admin: 07/12/17 10:31 Dose: 81 mg Atorvastatin Calcium (Lipitor) 20 mg PO DIN [facility] Last Admin: 07/12/17 18:02 Dose: 20 mg Bicalutamide (Casodex) 50 mg PO DAILY [facility] Last Admin: 07/12/17 13:09 Dose: 50 mg Bisacodyl (Dulcolax) 10 mg RC Q48H [facility] Last Admin: 07/12/17 10:41 Dose: 10 mg Digoxin (Digoxin) 0.125 mg PO DAILY [facility] Last Admin: 07/12/17 10:31 Dose: 0.125 mg Diltiazem HCl (Cardizem Cd) 240 mg PO DAILY [facility] Last Admin: 07/12/17 10:31 Dose: 240 mg Docusate Sodium (Colace) 100 mg PO TID [facility] Last Admin: 07/12/17 18:02 Dose: 100 mg Furosemide (Lasix) 20 mg IVP Q12 [facility] Last Admin: 07/12/17 22:08 Dose: 20 mg Heparin Sodium/Sodium Chloride (Heparin 52180 Units/250ml 1/2 Normal Saline) 25 ,000 units in 250 mls @ 9.906 mls/hr IV .Q24H [facility]; 12 UNITS/KG/HR PRN Reason: Protocol Last Admin: 07/12/17 03:08 Dose: 9 units/kg/hr, 7.43 mls/hr Vancomycin HCl (Vancomycin 1gm) 1 gm in 250 mls @ 167 mls/hr IVPB Q12H [facility] PRN Reason: Protocol Last Admin: 07/12/17 18:03 Dose: 167 mls/hr Levalbuterol HCl (Xopenex) 0.63 mg IH [id number] [facility] Last Admin: 07/12/17 20:03 Dose: 0.63 mg Levalbuterol HCl (Xopenex) 0.63 mg IH Q2H PRN PRN Reason: Shortness of Breath Magnesium Oxide (Mag-Ox) 400 mg PO BID [facility] Last Admin: 07/12/17 18:02 Dose: 400 mg Metoprolol Tartrate (Lopressor) 50 mg PO BID [facility] Last Admin: 07/12/17 18:02 Dose: 50 mg Ondansetron HCl (Zofran Tab) 4 mg PO Q4 PRN PRN Reason: Nausea/Vomiting Last Admin: 07/11/17 08:59 Dose: 4 mg Oxycodone/Acetaminophen (Percocet 5/325 Mg Tab) 1 tab PO Q6 PRN PRN Reason: Pain, severe (8-10) Stop: 07/14/17 00:01 Last Admin: 07/11/17 08:58 Dose: 1 tab Pantoprazole Sodium (Protonix Ec Tab) 40 mg PO DAILY [facility] Last Admin: 07/12/17 10:40 Dose: 40 mg Polyethylene Glycol (Miralax) 17 gm PO TID [facility] Last Admin: 07/12/17 18:02 Dose: 17 gm - Labs Labs: 07/12/17 06:00 07/12/17 06:00 PT 19.8 SECONDS (9.4-12.5) H 07/12/17 06:00 INR 1.70 (0.93-1.08) H 07/12/17 06:00 APTT 51.8 Seconds (25.1-36.5) H 07/12/17 06:00
--- NOTE | 2017-07-13 01:05 | PN ---
DATE: SUBJECTIVE: A 77-year-old male seen at bedside for evaluation and management of ischemic changes to his right forefoot. The patient is stating he is still having pain in his right forefoot. The patient's vital signs revealed temperature of 98.1, pulse rate of 60, blood pressure of 130/73, respiratory rate of 20. Laboratory findings reveal a white count of 7.1, hemoglobin of 11.8, hematocrit of 34.7, platelet count of 289. X-rays taken of the right foot today with read by myself revealed no radiographic changes at the forefoot consistent with osteomyelitis. However, there is Monckeberg's calcifications noted throughout the foot and ankle. OBJECTIVE: Nonpalpable pedal pulses noted bilaterally. Absent popliteal pulses noted bilaterally. There are ischemic changes to the entire forefoot with skin sloughing on the third digit as well as continuous sloughing on the dorsal aspect of the right foot. Temperature gradient is reversed and the foot is cold to the touch. Capillary filling time is absent at all the digits of the right foot. Clinical signs of impending ischemia and gangrene are evident. ASSESSMENT: Gangrene of the right foot secondary to severe peripheral arterial disease. PLAN: The patient was examined. His wounds were cleansed with normal sterile saline and application of Xeroform and a dry sterile dressing was applied. The patient is not a surgical candidate for vascular reperfusion and subsequently is not a surgical candidate for pedal amputations as his wounds would not heal and only go on to exacerbate his already ischemic limb. At this point, we will continue with palliative wound care daily. Tobias Carter DPM
[2017-07-13] MEDS: Levalbuterol 0.63 MG/3 ML Inhal Soln UD IH SCH ×4 (01:33→21:05)
[2017-07-13] MEDS: Vancomycin 1gm in NS 250ml 1 GM/250 ML BAG IVPB SCH ×2 (04:37→17:12)
[2017-07-13] MEDS: Heparin 25,000units in 1/2NS 250 ML BAG IV SCH (06:15)
[2017-07-13 07:00] LABS: HEMOGLOBIN 12.6 g/dL (14.0-18.0); MEAN CORPUSCULAR HEMOGLOBIN 27.4 pg (25.0-35.0); MEAN CORPUSCULAR HGB CONC 34.2 g/dl (31.0-37.0); MEAN PLATELET VOLUME 9.2 fl (7.0-11.0); RBC 4.6 10^6/uL (3.5-6.1); RED CELL DISTRIBUTION WIDTH 15.4 % (11.5-14.5); WHITE BLOOD COUNT 7.8 10^3/ul (4.5-11.0)
[2017-07-13 07:23] LABS: INR 1.59 (0.93-1.08); PROTHROMBIN TIME 18.4 SECONDS (9.4-12.5)
[2017-07-13 07:29] LABS: ALB/GLOB RATIO 0.9 (1.1-1.8); ALT/SGPT 45 U/L (7-56); AST/SGOT 54 U/L (17-59); BLOOD UREA NITROGEN 16 mg/dL (7-21); CALCIUM 9.1 mg/dL (8.4-10.5); GFR AFRICAN-AMERICAN > 60; GFR NON-AFRICAN AMERICAN > 60
[2017-07-13 08:17] LABS: INR 1.65 (0.93-1.08); PARTIAL THROMBOPLASTIN TIME 64.8 Seconds (25.1-36.5); PROTHROMBIN TIME 19.2 SECONDS (9.4-12.5)
[2017-07-13] MEDS: diltiaZEM 240 mg/24 Hours CD Cap PO SCH (10:11)
[2017-07-13] MEDS: Pantoprazole 20 mg EC Tab PO SCH (10:12)
[2017-07-13] MEDS: Digoxin 125 mcg (0.125 mg) Tab PO SCH (10:12)
[2017-07-13] MEDS: Magnesium Oxide 400 mg Tab UD PO SCH ×2 (10:16→17:13)
[2017-07-13] MEDS: POLYETHYLENE GLYCOL 3350 17 GM/Dose PACKET PO SCH ×3 (10:16→17:14)
--- NOTE | 2017-07-13 13:18 | PN ---
DATE: 07/13/2017 SUBJECTIVE: The patient is in bed, in no acute distress, nontoxic. PHYSICAL EXAMINATION: VITAL SIGNS: Temperature is 97, blood pressure is 120/60, respiratory rate of 18. HEENT: Unremarkable. NECK: Supple. LUNGS: Have decreased breath sounds. HEART: Normal S1 and S2. ABDOMEN: Soft, nontender. LABORATORY DATA: Reveals a white count of 7.8, hemoglobin of 12, platelets of 308. Coagulation is noted. BUN of 16, creatinine of 1.1. Microbiology reveals the blood cultures are negative. The right foot cultures are negative and also of note is the patient's sodium is 130. Review of orders reveal focal cortical erosion, possibly osteomyelitis. ASSESSMENT AND PLAN: This is a 77-year-old male with past medical history of prostate cancer with bone metastases; atrial fibrillation, on anticoagulation; dilated cardiomyopathy; chronic right foot wound associated with severe peripheral artery disease and currently on vancomycin. We will follow closely with you. Justin Musa MD
--- NOTE | 2017-07-13 13:33 | CP.PCM.PN ---
<Anayeli Hall - Last Filed: 07/13/17 13:27> Subjective - Date & Time of Evaluation Date of Evaluation: 07/13/17 Time of Evaluation: 13:27 - Subjective Subjective: Podiatry Progress Note - Dr. Mojica 77 y/o male seen at bedside this morning for right foot superficial ulcerations with ischemic skin changes. Pt resting comfortably in bedside chair at time of visit. States that the pain in the leg is well managed but that it still feels sore. Denies any acute events overnight. Admits to one episode of vomiting at dinnertime last night. Denies F/C/N/CP/SOB. Objective - Vital Signs/Intake and Output Vital Signs (last 24 hours): Temp Pulse Resp BP Pulse Ox 97.9 F 68 18 116/70 97 07/13/17 11:51 07/13/17 11:51 07/13/17 11:51 07/13/17 11:51 07/13/17 06:00 Intake and Output: 07/13/17 07/13/17 06:59 18:59 Intake Total 518 Output Total 950 Balance -432 - Medications Medications: Current Medications Acetaminophen (Tylenol 325mg Tab) 650 mg PO Q6 PRN PRN Reason: TEMP>=99.5F Acetaminophen (Tylenol 325mg Tab) 650 mg PO Q6 PRN PRN Reason: Headache Acetaminophen (Tylenol 650 Mg Supp) 650 mg RC Q6H PRN PRN Reason: Headache Acetaminophen (Tylenol 650 Mg Supp) 650 mg RC Q6H PRN PRN Reason: TEMP>=99.5F,unable to take PO Aspirin (Ecotrin) 81 mg PO DAILY [facility] Last Admin: 07/13/17 10:15 Dose: 81 mg Atorvastatin Calcium (Lipitor) 20 mg PO DIN [facility] Last Admin: 07/12/17 18:02 Dose: 20 mg Bicalutamide (Casodex) 50 mg PO DAILY [facility] Last Admin: 07/13/17 11:45 Dose: 50 mg Bisacodyl (Dulcolax) 10 mg RC Q48H [facility] Last Admin: 07/12/17 10:41 Dose: 10 mg Digoxin (Digoxin) 0.125 mg PO DAILY [facility] Last Admin: 07/13/17 10:12 Dose: 0.125 mg Diltiazem HCl (Cardizem Cd) 240 mg PO DAILY [facility] Last Admin: 07/13/17 10:11 Dose: 240 mg Docusate Sodium (Colace) 100 mg PO TID [facility] Last Admin: 07/13/17 13:04 Dose: Not Given Furosemide (Lasix) 20 mg IVP Q12 [facility] Last Admin: 07/13/17 10:11 Dose: 20 mg Heparin Sodium/Sodium Chloride (Heparin 75930 Units/250ml 1/2 Normal Saline) 25 ,000 units in 250 mls @ 9.906 mls/hr IV .Q24H [facility]; 12 UNITS/KG/HR PRN Reason: Protocol Last Admin: 07/13/17 06:15 Dose: Not Given Vancomycin HCl (Vancomycin 1gm) 1 gm in 250 mls @ 167 mls/hr IVPB Q12H [facility] PRN Reason: Protocol Last Admin: 07/13/17 04:37 Dose: 167 mls/hr Levalbuterol HCl (Xopenex) 0.63 mg IH [id number] [facility] Last Admin: 07/13/17 13:03 Dose: 0.63 mg Levalbuterol HCl (Xopenex) 0.63 mg IH Q2H PRN PRN Reason: Shortness of Breath Magnesium Oxide (Mag-Ox) 400 mg PO BID [facility] Last Admin: 07/13/17 10:16 Dose: 400 mg Metoprolol Tartrate (Lopressor) 50 mg PO BID [facility] Last Admin: 07/13/17 10:10 Dose: 50 mg Ondansetron HCl (Zofran Tab) 4 mg PO Q4 PRN PRN Reason: Nausea/Vomiting Last Admin: 07/11/17 08:59 Dose: 4 mg Oxycodone/Acetaminophen (Percocet 5/325 Mg Tab) 1 tab PO Q6 PRN PRN Reason: Pain, severe (8-10) Stop: 07/14/17 00:01 Last Admin: 07/11/17 08:58 Dose: 1 tab Pantoprazole Sodium (Protonix Ec Tab) 40 mg PO DAILY [facility] Last Admin: 07/13/17 10:12 Dose: 40 mg Polyethylene Glycol (Miralax) 17 gm PO TID [facility] Last Admin: 07/13/17 13:04 Dose: Not Given - Labs Labs: 07/13/17 06:00 07/13/17 06:00 PT 19.2 SECONDS (9.4-12.5) H 03/18/18 08:00 INR 1.65 (0.93-1.08) H 07/13/17 08:00 APTT 64.8 Seconds (25.1-36.5) H 07/13/17 08:00 - Constitutional Appears: Well, Non-toxic, No Acute Distress - Extremities Exam Additional comments: Right lower extremity focused examination: VASC: DP/PT pulses non-palpable. Ischemic skin changes noted with skin sloughing and shiny, scaly skin diffusely. Skin temperature cool to touch surrounding right foot. CFT absent to all digits. Derm: Superficial diffuse ulcerations noted with peripheral skin sloughing. No active drainage, purulence, no malodor, no fluctuance. Neuro: Protective sensation grossly intact Ortho: Mild-moderate tenderness to palpation of diffuse right foot - Neurological Exam Neurological Exam: Alert, Awake, Oriented x3 - Psychiatric Exam Psychiatric exam: Normal Affect, Normal Mood Assessment and Plan - Assessment and Plan (Free Text) Assessment: 77 y/o male with gangrene of right foot with severe PAD Plan: Pt seen and examined at bedside Discussed with attending Dr. Mojica Cleansed ulcerations with saline Xeroform and DSD applied to RLE Wound culture of R foot pending Continue IV Vancomycin Pt to continue with local wound care - no surgical intervention planned at this time Podiatry will continue to follow while in house <Anabela Mojica - Last Filed: 07/13/17 16:00> Objective - Vital Signs/Intake and Output Vital Signs (last 24 hours): Temp Pulse Resp BP Pulse Ox 97.9 F 58 L 18 116/70 97 07/13/17 11:51 07/13/17 14:00 07/13/17 11:51 07/13/17 11:51 07/13/17 06:00 Intake and Output: 07/13/17 07/13/17 06:59 18:59 Intake Total 518 Output Total 950 Balance -432 - Medications Medications: Current Medications Acetaminophen (Tylenol 325mg Tab) 650 mg PO Q6 PRN PRN Reason: TEMP>=99.5F Acetaminophen (Tylenol 325mg Tab) 650 mg PO Q6 PRN PRN Reason: Headache Acetaminophen (Tylenol 650 Mg Supp) 650 mg RC Q6H PRN PRN Reason: Headache Acetaminophen (Tylenol 650 Mg Supp) 650 mg RC Q6H PRN PRN Reason: TEMP>=99.5F,unable to take PO Aspirin (Ecotrin) 81 mg PO DAILY [facility] Last Admin: 07/13/17 10:15 Dose: 81 mg Atorvastatin Calcium (Lipitor) 20 mg PO DIN [facility] Last Admin: 07/12/17 18:02 Dose: 20 mg Bicalutamide (Casodex) 50 mg PO DAILY [facility] Last Admin: 07/13/17 11:45 Dose: 50 mg Bisacodyl (Dulcolax) 10 mg RC Q48H [facility] Last Admin: 07/12/17 10:41 Dose: 10 mg Digoxin (Digoxin) 0.125 mg PO DAILY [facility] Last Admin: 07/13/17 10:12 Dose: 0.125 mg Diltiazem HCl (Cardizem Cd) 240 mg PO DAILY [facility] Last Admin: 07/13/17 10:11 Dose: 240 mg Docusate Sodium (Colace) 100 mg PO TID [facility] Last Admin: 07/13/17 13:04 Dose: Not Given Furosemide (Lasix) 20 mg IVP Q12 [facility] Last Admin: 07/13/17 10:11 Dose: 20 mg Heparin Sodium/Sodium Chloride (Heparin 16906 Units/250ml 1/2 Normal Saline) 25 ,000 units in 250 mls @ 9.906 mls/hr IV .Q24H [facility]; 12 UNITS/KG/HR PRN Reason: Protocol Last Admin: 07/13/17 06:15 Dose: Not Given Vancomycin HCl (Vancomycin 1gm) 1 gm in 250 mls @ 167 mls/hr IVPB Q12H [facility] PRN Reason: Protocol Last Admin: 07/13/17 04:37 Dose: 167 mls/hr Levalbuterol HCl (Xopenex) 0.63 mg IH [id number] [facility] Last Admin: 07/13/17 13:03 Dose: 0.63 mg Levalbuterol HCl (Xopenex) 0.63 mg IH Q2H PRN PRN Reason: Shortness of Breath Magnesium Oxide (Mag-Ox) 400 mg PO BID [facility] Last Admin: 07/13/17 10:16 Dose: 400 mg Metoprolol Tartrate (Lopressor) 50 mg PO BID [facility] Last Admin: 07/13/17 10:10 Dose: 50 mg Ondansetron HCl (Zofran Tab) 4 mg PO Q4 PRN PRN Reason: Nausea/Vomiting Last Admin: 07/11/17 08:59 Dose: 4 mg Oxycodone/Acetaminophen (Percocet 5/325 Mg Tab) 1 tab PO Q6 PRN PRN Reason: Pain, severe (8-10) Stop: 07/14/17 00:01 Last Admin: 07/11/17 08:58 Dose: 1 tab Pantoprazole Sodium (Protonix Ec Tab) 40 mg PO DAILY [facility] Last Admin: 07/13/17 10:12 Dose: 40 mg Polyethylene Glycol (Miralax) 17 gm PO TID [facility] Last Admin: 07/13/17 13:04 Dose: Not Given - Labs Labs: 07/13/17 06:00 07/13/17 06:00 PT 19.2 SECONDS (9.4-12.5) H 07/13/17 08:00 INR 1.65 (0.93-1.08) H 07/13/17 08:00 APTT 64.8 Seconds (25.1-36.5) H 07/13/17 08:00 Attending/Attestation - Attestation I have personally seen and examined this patient.: Yes I have fully participated in the care of the patient.: Yes I have reviewed all pertinent clinical information, including history, physical exam and plan: Yes
--- NOTE | 2017-07-13 19:35 | PN ---
DATE: 07/13/2017 SUBJECTIVE: Patient is seen in room 260, bed 1. Patient is out of bed to chair. Patient is alert, awake, responsive. Patient does not appear to be in any distress. Overnight nurse's notes were reviewed. PHYSICAL EXAMINATION: VITAL SIGNS: T-max 97.9, telemetry shows atrial fibrillation, heart rate 68, blood pressure 116/70. O2 sat 95% to 98%. HEENT: Head examination, normocephalic, atraumatic. HEENT examination shows pinkish conjunctivae. Anicteric sclerae. No oropharyngeal lesion. No neck rigidity. CHEST: Kyphosis. LUNGS: Shows questionable decreased breath sounds at the bases, left more than the right. CARDIOVASCULAR: S1, S2, irregular rhythm. Positive systolic murmur left sternal border, right second intercostal space, left second intercostal space. ABDOMEN: Less protuberant today. Positive bowel sound. No hepatosplenomegaly noted. GENITALIA: Male. Positive Pettit catheter. EXTREMITIES: Shows positive dressing of the right foot and leg. Positive cool right foot and leg. Left lower extremity shows warm foot, but nonpalpable pulses. MUSCULOSKELETAL: Shows a body mass index of 25. NEUROLOGIC: Patient is alert, awake, oriented to person, place, and not oriented to year, date, month. DIAGNOSTICS: WBC 7.8, hemoglobin/hematocrit 12.6 and 36.8, platelet count is 230. Sodium 130, potassium is 4.1, chloride 93, CO2 25, BUN 16, creatinine 1.1, glucose 82. PT 19.2, PTT 65. Patient had an x-ray of the right foot, which shows focal erosions on the first metatarsal, questionable osteomyelitis. IMPRESSION AND PLAN: 1. Questionable and possible right foot first metatarsal focal erosion, possible osteomyelitis. 2. Intermittent confusional state. 3. 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 4. Normocytic anemia. 5. Hyponatremia. 6. Syndrome of inappropriate antidiuretic hormone secondary to stage IV adenocarcinoma of the prostate with bone metastasis. 7. Atrial fibrillation, Eliquis dependent. 8. Right foot gangrene with severe bilateral peripheral vascular disease with bilateral superficial femoral artery occlusion. 9. Urinary retention with chronic indwelling Pettit catheter. 10. Deconditioning. 11. Gait dysfunction. 12. Questionable ileus versus partial small bowel obstruction. 13. History of hypertension. 14. History of poor compliance. 15. History of atrial fibrillation with rapid ventricle response. 16. Constipation. 17. Dilated nonischemic cardiomyopathy with ejection fraction of 20%. 18. Dyslipidemia. 19. History of right lower lobe atelectasis, pneumonia and pleural effusion. Plan at this time, patient's current medications are as follows: Cardizem CD 240 mg daily, Casodex 50 mg daily, Colace 100 mg three times a day, digoxin 0.125 mg daily, Dulcolax suppository 10 mg every 48 hours, aspirin 81 mg daily, heparin drip as per protocol, Lasix 20 mg IV q. 12, Lipitor 20 mg daily, Lopressor 50 mg twice a day, MiraLax 17 g three times a day, Percocet 5/325 one tab q. 6 p.r.n., Protonix 40 mg daily, Tylenol 650 q. 4 p.r.n. suppository or p.o., vancomycin 1 g IV q. 12, Xopenex nebulizer 0.63 mg every 6 hours round the clock q. 12 p.r.n., Zofran 4 mg p.o. q. 4 hours p.r.n. Patient is to be continued on the above therapeutic intervention. Patient was seen by Nephrology, Infectious Disease, Vascular Surgery, Interventional Radiology. Their recommendation is patient's prognosis is extremely poor and recommend palliative care. Palliative Care consultation ordered. Awaiting further evaluation and recommendation by Palliative Care and further disposition. Dictated and electronically signed, not read. Benny Street MD
[2017-07-14] MEDS: Vancomycin 1gm in NS 250ml 1 GM/250 ML BAG IVPB SCH ×2 (05:48→15:22)
[2017-07-14 06:46] LABS: PROTHROMBIN TIME 18.5 SECONDS (9.4-12.5)
[2017-07-14 06:47] LABS: INR 1.59 (0.93-1.08); PARTIAL THROMBOPLASTIN TIME 36.4 Seconds (25.1-36.5)
[2017-07-14] MEDS: Levalbuterol 0.63 MG/3 ML Inhal Soln UD IH SCH ×4 (07:44→20:47)
[2017-07-14] MEDS: Heparin 25,000units in 1/2NS 250 ML BAG IV SCH (08:44)
[2017-07-14] MEDS: Digoxin 125 mcg (0.125 mg) Tab PO SCH (09:17)
[2017-07-14] MEDS: Pantoprazole 20 mg EC Tab PO SCH (09:17)
[2017-07-14] MEDS: diltiaZEM 240 mg/24 Hours CD Cap PO SCH (09:21)
[2017-07-14] MEDS: POLYETHYLENE GLYCOL 3350 17 GM/Dose PACKET PO SCH ×3 (09:22→17:16)
[2017-07-14] MEDS: Magnesium Oxide 400 mg Tab UD PO SCH ×2 (09:22→17:12)
--- NOTE | 2017-07-14 10:49 | CP.PCM.PN ---
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 unable to tolerate losartan due to hyperkalemia episodes. Monitor Input/Output, daily weights, basic metabolic panel and sodium level supplement electrolytes as needed Avoid nephrotoxins/NSAIDs Glycemic control Further work up for as per primary team. CHF management as per cardiology PVD/osteo management as per podiatry/ID/primary team palliative care being consulted Thanks for allowing me to participate in care of your patient. Will follow patient with you. Please call if any Qs. Dr Grupo Vital Office: [phone] Reason for consultation; Hyponatremia HPI patient is 77-year-old male with history of chronic systolic CHF EF 20% also metastatic prostate cancer , BPH, recently seen for hyponatremia due to CHF and likely SIADH discharged to correction here with the Rt foot PVD. Renal consult was requested for hyponatremia management. Patient at this time denies shortness of breath nausea vomiting any pain in his stomach but reports constipation. Subjective/ROS: Noted events overnight. Patients feels sleepy today Denies chest pain, palpitation, denies shortness of breath All other negative Except as mentioned in HPI. had bone biopsy by IR on 06/10/17 Showed metastatic adeno carcinoma of prostate s/p Rt thoracocentesis 07/02/17 ~ 700 mL fluid aspirated Physical Examination: General Appearance: Comfortable, in no acute respiratory distress, co-operative . Vitals reviewed and noted as below Head; Atraumatic, normocephalic ENT: no ulcers no thrush. Tongue is midline. Oropharynx: no rash or ulcers. EYES: Pupils are equal, round and reactive to light accommodation. Eye muscles and extraocular movement intact. Sclera is anicteric. Neck; supple no lymphadenopathy, no thyromegaly or bruit Lungs: Normal respiratory rate/effort. Breath sounds b/l present and clear anteriorly Heart: Normal rate. s1s2 normal. No rub or gallop. Extremities: no edema. No varicose veins. Rt foot dressed Neurological: Patient is oriented to person, place and time. No focal deficit. Strength bilateral appropriate and equal Skin: Warm and dry. Normal turgor. No rash. Palpitation: Normal elasticity for age. Feets somewhat cool to touch Abdomen: Abdomen is soft. Bowel sounds +. There is no abdominal tenderness, no guarding/rigidity no organomegaly. abdomen distended Psych: normal insight and normal affect/mood MSK: no joint tenderness or swelling. Digits and nails normal, no deformity : kidney or bladder not palpable. Has Lawrence catheter in place Labs/imaging reviewed. Past medical history, past surgical history, family history, social history, allergy reviewed and noted as below Family hx: no hx of CKD. Rest non-contributor Objective - Vital Signs/Intake and Output Vital Signs (last 24 hours): Temp Pulse Resp BP Pulse Ox 97.7 F 93 H 19 124/58 L 97 07/14/17 06:00 07/14/17 06:00 07/14/17 06:00 07/14/17 09:22 07/14/17 06:00 Intake and Output: 07/14/17 07/14/17 06:59 18:59 Intake Total 418 Output Total 1300 Balance -882 - Medications Medications: Current Medications Acetaminophen (Tylenol 325mg Tab) 650 mg PO Q6 PRN PRN Reason: TEMP>=99.5F Acetaminophen (Tylenol 325mg Tab) 650 mg PO Q6 PRN PRN Reason: Headache Acetaminophen (Tylenol 650 Mg Supp) 650 mg RC Q6H PRN PRN Reason: Headache Acetaminophen (Tylenol 650 Mg Supp) 650 mg RC Q6H PRN PRN Reason: TEMP>=99.5F,unable to take PO Aspirin (Ecotrin) 81 mg PO DAILY [facility] Last Admin: 07/14/17 09:17 Dose: 81 mg Atorvastatin Calcium (Lipitor) 20 mg PO DIN [facility] Bicalutamide (Casodex) 50 mg PO DAILY [facility] Last Admin: 07/13/17 11:45 Dose: 50 mg Bisacodyl (Dulcolax) 10 mg RC Q48H [facility] Last Admin: 07/12/17 10:41 Dose: 10 mg Digoxin (Digoxin) 0.125 mg PO DAILY [facility] Last Admin: 07/14/17 09:17 Dose: 0.125 mg Diltiazem HCl (Cardizem Cd) 240 mg PO DAILY [facility] Last Admin: 07/14/17 09:21 Dose: 240 mg Docusate Sodium (Colace) 100 mg PO TID [facility] Last Admin: 07/14/17 09:17 Dose: 100 mg Furosemide (Lasix) 20 mg IVP Q12 [facility] Last Admin: 07/14/17 09:22 Dose: 20 mg Heparin Sodium/Sodium Chloride (Heparin 15256 Units/250ml 1/2 Normal Saline) 25 ,000 units in 250 mls @ 9.906 mls/hr IV .Q24H [facility]; 12 UNITS/KG/HR PRN Reason: Protocol Last Admin: 07/14/17 08:44 Dose: 11 units/kg/hr, 9.081 mls/hr Vancomycin HCl (Vancomycin 1gm) 1 gm in 250 mls @ 167 mls/hr IVPB Q12H [facility] PRN Reason: Protocol Last Admin: 07/14/17 05:48 Dose: 167 mls/hr Levalbuterol HCl (Xopenex) 0.63 mg IH [id number] [facility] Last Admin: 07/14/17 07:44 Dose: 0.63 mg Levalbuterol HCl (Xopenex) 0.63 mg IH Q2H PRN PRN Reason: Shortness of Breath Magnesium Oxide (Mag-Ox) 400 mg PO BID [facility] Last Admin: 07/14/17 09:22 Dose: 400 mg Metoprolol Tartrate (Lopressor) 50 mg PO BID [facility] Last Admin: 07/14/17 09:22 Dose: 50 mg Ondansetron HCl (Zofran Tab) 4 mg PO Q4 PRN PRN Reason: Nausea/Vomiting Last Admin: 07/11/17 08:59 Dose: 4 mg Pantoprazole Sodium (Protonix Ec Tab) 40 mg PO DAILY [facility] Last Admin: 07/14/17 09:17 Dose: 40 mg Polyethylene Glycol (Miralax) 17 gm PO TID [facility] Last Admin: 07/14/17 09:22 Dose: 17 gm - Labs Labs: 07/13/17 06:00 07/13/17 06:00 PT 18.5 SECONDS (9.4-12.5) H 07/14/17 05:30 INR 1.59 (0.93-1.08) H 07/14/17 05:30 APTT 36.4 Seconds (25.1-36.5) 07/14/17 05:30
--- NOTE | 2017-07-14 11:44 | CP.PCM.CON ---
History of Present Illness - History of Present Illness History of Present Illness: Palliative consult requested by Dr Lisa Street Reason: Goals of care 77 year old male with history of advanced prostate cancer who presented with pulse-less cold right foot. He had been complaining of increasing discomfort in right foot for 4 days prior to presentation. CT angiogram showed severe calcification of aortoiciliac artery,femoral artery, profunda femoris artery, superficial femoral artery and the tibial vessels. PMHx: stage IV prostate cancer, A Fib on Eliquis, hyperbilirubenemia, SIADH, hypokalemia,pneumonia and rhabdomyolsis. Social History: Former smoker, no alcohol or drug use. , spouse has dementia. Lives with his son/CHELSEA Cartagena. Advance Care Planing: The patient has an Advanced Directive. He also presented with a POLST which has not been signed by patient or LIP and is therefore not valid. Review of Systems: Other than pain and coldness in right lower extremity, 12 point review negative. Past Patient History - Infectious Disease Hx of Infectious Diseases: None - Tetanus Immunizations Tetanus Immunization: Unknown - Past Social History Smoking Status: Former Smoker - CARDIAC Hx Cardiac Disorders: Yes (Afib) Hx Atrial Fibrillation: Yes Hx Congestive Heart Failure: Yes - PULMONARY Hx Respiratory Disorders: No - NEUROLOGICAL Hx Neurological Disorder: No - HEENT Hx HEENT Problems: No - RENAL Hx Chronic Kidney Disease: No - ENDOCRINE/METABOLIC Hx Endocrine Disorders: No - HEMATOLOGICAL/ONCOLOGICAL Hx Cancer: Yes - INTEGUMENTARY Hx Dermatological Problems: No - MUSCULOSKELETAL/RHEUMATOLOGICAL Hx Falls: No - GASTROINTESTINAL Hx Gastrointestinal Disorders: No - GENITOURINARY/GYNECOLOGICAL Hx Genitourinary Disorders: No Hx Prostate Cancer: Yes - PSYCHIATRIC Hx Depression: No Hx Emotional Abuse: No Hx Physical Abuse: No Hx Substance Use: No - SURGICAL HISTORY Hx Surgeries: No - ANESTHESIA Hx Anesthesia: No Meds Allergies/Adverse Reactions: Allergies Allergy/AdvReac Type Severity Reaction Status Date / Time No Known Allergies Allergy Verified 05/25/13 15:34 - Medications Medications: Current Medications Acetaminophen (Tylenol 325mg Tab) 650 mg PO Q6 PRN PRN Reason: TEMP>=99.5F Acetaminophen (Tylenol 325mg Tab) 650 mg PO Q6 PRN PRN Reason: Headache Acetaminophen (Tylenol 650 Mg Supp) 650 mg RC Q6H PRN PRN Reason: Headache Acetaminophen (Tylenol 650 Mg Supp) 650 mg RC Q6H PRN PRN Reason: TEMP>=99.5F,unable to take PO Aspirin (Ecotrin) 81 mg PO DAILY [facility] Last Admin: 07/14/17 09:17 Dose: 81 mg Atorvastatin Calcium (Lipitor) 20 mg PO DIN [facility] Bicalutamide (Casodex) 50 mg PO DAILY [facility] Last Admin: 07/13/17 11:45 Dose: 50 mg Bisacodyl (Dulcolax) 10 mg RC Q48H [facility] Last Admin: 07/12/17 10:41 Dose: 10 mg Digoxin (Digoxin) 0.125 mg PO DAILY [facility] Last Admin: 07/14/17 09:17 Dose: 0.125 mg Diltiazem HCl (Cardizem Cd) 240 mg PO DAILY [facility] Last Admin: 07/14/17 09:21 Dose: 240 mg Docusate Sodium (Colace) 100 mg PO TID [facility] Last Admin: 07/14/17 09:17 Dose: 100 mg Furosemide (Lasix) 20 mg IVP Q12 [facility] Last Admin: 07/14/17 09:22 Dose: 20 mg Heparin Sodium/Sodium Chloride (Heparin 22945 Units/250ml 1/2 Normal Saline) 25 ,000 units in 250 mls @ 9.906 mls/hr IV .Q24H [facility]; 12 UNITS/KG/HR PRN Reason: Protocol Last Admin: 07/14/17 08:44 Dose: 11 units/kg/hr, 9.081 mls/hr Vancomycin HCl (Vancomycin 1gm) 1 gm in 250 mls @ 167 mls/hr IVPB Q12H [facility] PRN Reason: Protocol Last Admin: 07/14/17 05:48 Dose: 167 mls/hr Levalbuterol HCl (Xopenex) 0.63 mg IH [id number] [facility] Last Admin: 07/14/17 07:44 Dose: 0.63 mg Levalbuterol HCl (Xopenex) 0.63 mg IH Q2H PRN PRN Reason: Shortness of Breath Magnesium Oxide (Mag-Ox) 400 mg PO BID [facility] Last Admin: 07/14/17 09:22 Dose: 400 mg Metoprolol Tartrate (Lopressor) 50 mg PO BID [facility] Last Admin: 07/14/17 09:22 Dose: 50 mg Ondansetron HCl (Zofran Tab) 4 mg PO Q4 PRN PRN Reason: Nausea/Vomiting Last Admin: 07/11/17 08:59 Dose: 4 mg Pantoprazole Sodium (Protonix Ec Tab) 40 mg PO DAILY [facility] Last Admin: 07/14/17 09:17 Dose: 40 mg Polyethylene Glycol (Miralax) 17 gm PO TID [facility] Last Admin: 07/14/17 09:22 Dose: 17 gm Physical Exam - Constitutional Appears: No Acute Distress, Chronically Ill - Head Exam Head Exam: NORMOCEPHALIC - Eye Exam Eye Exam: Normal appearance, PERRL - ENT Exam ENT Exam: Mucous Membranes Moist, Normal Oropharynx - Neck Exam Neck exam: Positive for: Normal Inspection - Respiratory Exam Respiratory Exam: Clear to Auscultation Bilateral, NORMAL BREATHING PATTERN - Cardiovascular Exam Cardiovascular Exam: Irregular Rhythm, +S1, +S2 - GI/Abdominal Exam GI & Abdominal Exam: Normal Bowel Sounds, Soft - Extremities Exam Additional comments: right lower extremity dressing intact, right extremity cold, no palpable pulses - Back Exam Back exam: NORMAL INSPECTION - Neurological Exam Neurological exam: Alert, Oriented x3 - Skin Skin Exam: Dry - Additional Findings Additional findings: palliative performance scale rating 40 % Results - Vital Signs Recent Vital Signs: Last Vital Signs Temp 97.7 F 07/14/17 06:00 Pulse 93 H 07/14/17 06:00 Resp 19 07/14/17 06:00 BP 124/58 L 07/14/17 09:22 Pulse Ox 97 07/14/17 06:00 - Labs Result Diagrams: 07/13/17 06:00 07/13/17 06:00 Labs: Laboratory Results - last 24 hr 07/14/17 05:30 PT 18.5 H INR 1.59 H APTT 36.4 Assessment & Plan - Assessment and Plan (Free Text) Assessment: 77 year old male with history of advanced prostate cancer, A Fib who is admitted with pulse less, gangrenous right lower extremity. The patient is not a candidate for reconstructive surgery to leg due to the severity of his disease. The patient complains of discomfort in right leg. Although alert and oriented, he relies on he son Farrukh for complex decision making. The patient states he wants to go home. Farrukh been updated by [facility] and is aware of father's medical condion and poor prognosis. Rakesh expressed interest in hospice care. He is scheduled to meet with me today to discuss goals of care and hospice. Farrukh and I met, resuscitation status discussed. Farrukh aware of benefits and burdens of resuscitation. States his father wants to be DNR/DNI. POLST directive completed, a copy is placed on chart. Hospice services also explained in detail. Questions answered. Farrukh later met with [facility] business liaison officer. Family agreeable to hospice services. Consents signed by patient for home hospice care. Time spent in gaols of care,advance care plannig and end of life discussion, 45 minutes Plan: Continue current therapeutic interventions as per ID, vascular and nephrology recommendations. Consider Oxycodone 5mg IR every 6 hours as needed for pain Goals of care and advance care planning. POLST: DNR/DNI. Hospice evaluation for home services
--- NOTE | 2017-07-14 13:53 | CP.PCM.PN ---
Subjective - Date & Time of Evaluation Date of Evaluation: 07/14/17 Time of Evaluation: 10:50 - Subjective Subjective: Comfortable in bed, no fevers, not in distress. Objective - Vital Signs/Intake and Output Vital Signs (last 24 hours): Temp Pulse Resp BP Pulse Ox 97.7 F 93 H 19 137/75 97 07/14/17 06:00 07/14/17 06:00 07/14/17 06:00 07/14/17 06:00 07/14/17 06:00 Intake and Output: 07/14/17 07/14/17 06:59 18:59 Intake Total 418 Output Total 1300 Balance -882 - Medications Medications: Current Medications Acetaminophen (Tylenol 325mg Tab) 650 mg PO Q6 PRN PRN Reason: TEMP>=99.5F Acetaminophen (Tylenol 325mg Tab) 650 mg PO Q6 PRN PRN Reason: Headache Acetaminophen (Tylenol 650 Mg Supp) 650 mg RC Q6H PRN PRN Reason: Headache Acetaminophen (Tylenol 650 Mg Supp) 650 mg RC Q6H PRN PRN Reason: TEMP>=99.5F,unable to take PO Aspirin (Ecotrin) 81 mg PO DAILY [facility] Last Admin: 07/13/17 10:15 Dose: 81 mg Atorvastatin Calcium (Lipitor) 20 mg PO DIN [facility] Bicalutamide (Casodex) 50 mg PO DAILY [facility] Last Admin: 07/13/17 11:45 Dose: 50 mg Bisacodyl (Dulcolax) 10 mg RC Q48H [facility] Last Admin: 07/12/17 10:41 Dose: 10 mg Digoxin (Digoxin) 0.125 mg PO DAILY [facility] Last Admin: 07/13/17 10:12 Dose: 0.125 mg Diltiazem HCl (Cardizem Cd) 240 mg PO DAILY [facility] Last Admin: 07/13/17 10:11 Dose: 240 mg Docusate Sodium (Colace) 100 mg PO TID [facility] Last Admin: 07/13/17 17:13 Dose: Not Given Furosemide (Lasix) 20 mg IVP Q12 [facility] Last Admin: 07/13/17 22:14 Dose: 20 mg Heparin Sodium/Sodium Chloride (Heparin 43190 Units/250ml 1/2 Normal Saline) 25 ,000 units in 250 mls @ 9.906 mls/hr IV .Q24H [facility]; 12 UNITS/KG/HR PRN Reason: Protocol Last Admin: 07/14/17 08:44 Dose: 11 units/kg/hr, 9.081 mls/hr Vancomycin HCl (Vancomycin 1gm) 1 gm in 250 mls @ 167 mls/hr IVPB Q12H [facility] PRN Reason: Protocol Last Admin: 07/14/17 05:48 Dose: 167 mls/hr Levalbuterol HCl (Xopenex) 0.63 mg IH [id number] [facility] Last Admin: 07/14/17 07:44 Dose: 0.63 mg Levalbuterol HCl (Xopenex) 0.63 mg IH Q2H PRN PRN Reason: Shortness of Breath Magnesium Oxide (Mag-Ox) 400 mg PO BID [facility] Last Admin: 07/13/17 17:13 Dose: 400 mg Metoprolol Tartrate (Lopressor) 50 mg PO BID [facility] Last Admin: 07/13/17 17:13 Dose: Not Given Ondansetron HCl (Zofran Tab) 4 mg PO Q4 PRN PRN Reason: Nausea/Vomiting Last Admin: 07/11/17 08:59 Dose: 4 mg Pantoprazole Sodium (Protonix Ec Tab) 40 mg PO DAILY [facility] Last Admin: 07/13/17 10:12 Dose: 40 mg Polyethylene Glycol (Miralax) 17 gm PO TID [facility] Last Admin: 07/13/17 17:14 Dose: Not Given - Labs Labs: 07/13/17 06:00 07/13/17 06:00 PT 18.5 SECONDS (9.4-12.5) H 07/14/17 05:30 INR 1.59 (0.93-1.08) H 07/14/17 05:30 APTT 36.4 Seconds (25.1-36.5) 07/14/17 05:30 - Constitutional Appears: Chronically Ill - Head Exam Head Exam: NORMAL INSPECTION - ENT Exam ENT Exam: Mucous Membranes Moist - Neck Exam Neck Exam: absent: Meningismus - Respiratory Exam Respiratory Exam: Decreased Breath Sounds - Cardiovascular Exam Cardiovascular Exam: +S1, +S2 - GI/Abdominal Exam GI & Abdominal Exam: Soft. 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
--- NOTE | 2017-07-14 15:22 | CP.PCM.PN ---
Subjective - Date & Time of Evaluation Date of Evaluation: 07/14/17 Time of Evaluation: 15:22 - Subjective Subjective: Podiatry Progress Note - Dr. Mojica 77 y/o male seen at bedside today for right foot superficial ulcerations with ischemic skin changes. Pt resting comfortably in bedside chair at time of visit. Pt is lethargic upon visit. Admits to pain that comes and goes to the right leg and foot. Denies any acute events overnight. Denies F/C/N/V/CP/SOB as of today. Objective - Vital Signs/Intake and Output Vital Signs (last 24 hours): Temp Pulse Resp BP Pulse Ox 97.8 F 71 20 117/68 97 07/14/17 11:47 07/14/17 11:47 07/14/17 11:47 07/14/17 11:47 07/14/17 06:00 Intake and Output: 07/14/17 07/14/17 06:59 18:59 Intake Total 418 Output Total 1300 Balance -882 - Medications Medications: Current Medications Acetaminophen (Tylenol 325mg Tab) 650 mg PO Q6 PRN PRN Reason: TEMP>=99.5F Acetaminophen (Tylenol 325mg Tab) 650 mg PO Q6 PRN PRN Reason: Headache Acetaminophen (Tylenol 650 Mg Supp) 650 mg RC Q6H PRN PRN Reason: Headache Acetaminophen (Tylenol 650 Mg Supp) 650 mg RC Q6H PRN PRN Reason: TEMP>=99.5F,unable to take PO Aspirin (Ecotrin) 81 mg PO DAILY [facility] Last Admin: 07/14/17 09:17 Dose: 81 mg Atorvastatin Calcium (Lipitor) 20 mg PO DIN [facility] Bicalutamide (Casodex) 50 mg PO DAILY [facility] Last Admin: 07/14/17 11:52 Dose: 50 mg Bisacodyl (Dulcolax) 10 mg RC Q48H [facility] Last Admin: 07/14/17 11:40 Dose: 10 mg Digoxin (Digoxin) 0.125 mg PO DAILY [facility] Last Admin: 07/14/17 09:17 Dose: 0.125 mg Diltiazem HCl (Cardizem Cd) 240 mg PO DAILY [facility] Last Admin: 07/14/17 09:21 Dose: 240 mg Docusate Sodium (Colace) 100 mg PO TID [facility] Last Admin: 07/14/17 14:05 Dose: Not Given Furosemide (Lasix) 20 mg IVP Q12 [facility] Last Admin: 07/14/17 09:22 Dose: 20 mg Heparin Sodium/Sodium Chloride (Heparin 47648 Units/250ml 1/2 Normal Saline) 25 ,000 units in 250 mls @ 9.906 mls/hr IV .Q24H [facility]; 12 UNITS/KG/HR PRN Reason: Protocol Last Admin: 07/14/17 08:44 Dose: 11 units/kg/hr, 9.081 mls/hr Vancomycin HCl (Vancomycin 1gm) 1 gm in 250 mls @ 167 mls/hr IVPB Q12H [facility] PRN Reason: Protocol Last Admin: 07/14/17 05:48 Dose: 167 mls/hr Levalbuterol HCl (Xopenex) 0.63 mg IH [id number] [facility] Last Admin: 07/14/17 13:46 Dose: 0.63 mg Levalbuterol HCl (Xopenex) 0.63 mg IH Q2H PRN PRN Reason: Shortness of Breath Magnesium Oxide (Mag-Ox) 400 mg PO BID [facility] Last Admin: 07/14/17 09:22 Dose: 400 mg Metoprolol Tartrate (Lopressor) 50 mg PO BID [facility] Last Admin: 07/14/17 09:22 Dose: 50 mg Mupirocin (Bactroban Ointment) 0 gm TOP BID [facility] Ondansetron HCl (Zofran Tab) 4 mg PO Q4 PRN PRN Reason: Nausea/Vomiting Last Admin: 07/11/17 08:59 Dose: 4 mg Pantoprazole Sodium (Protonix Ec Tab) 40 mg PO DAILY [facility] Last Admin: 07/14/17 09:17 Dose: 40 mg Polyethylene Glycol (Miralax) 17 gm PO TID [facility] Last Admin: 07/14/17 14:05 Dose: Not Given - Labs Labs: 07/13/17 06:00 07/13/17 06:00 PT 18.5 SECONDS (9.4-12.5) H 07/14/17 05:30 INR 1.59 (0.93-1.08) H 07/14/17 05:30 APTT 102.0 Seconds (25.1-36.5) H* 07/14/17 13:20 - Constitutional Appears: Well, Non-toxic, No Acute Distress - Extremities Exam Additional comments: Right lower extremity focused examination: VASC: DP/PT pulses non-palpable. Ischemic skin changes noted with skin sloughing and shiny skin diffusely. Skin temperature cool to touch surrounding right foot. CFT absent to all digits. Derm: Superficial diffuse ulcerations noted with peripheral skin sloughing. No active drainage, purulence, no malodor, no fluctuance. Neuro: Protective sensation grossly intact Ortho: Mild-moderate tenderness to palpation to entirety of right lower extremity at level of ankle and foot - Neurological Exam Neurological Exam: Alert, Awake, Oriented x3 - Psychiatric Exam Psychiatric exam: Normal Affect, Normal Mood Assessment and Plan - Assessment and Plan (Free Text) Assessment: 77 y/o male with pulseless cold right foot with severe PAD Plan: Pt seen and examined at bedside Discussed with attending Dr. Mojica Cleansed ulcerations with saline Optifoam applied to dorsal foot wounds; adaptic, ABD and DSD applied to anterior distal right leg wound Wound culture of R foot pending - prelim no growth Continue IV Vancomycin Pt to continue with local wound care - no surgical intervention planned at this time Podiatry will continue to follow while in house
--- NOTE | 2017-07-14 16:05 | CP.PCM.PN ---
Subjective - Date & Time of Evaluation Date of Evaluation: 07/14/17 Time of Evaluation: 09:00 - Subjective Subjective: Medicine Note for Dr. Street Patient seen and examined at bedside. No acute event overnight. Patient and son have decided on DNR/DNI for patient. Patient complains of pain in right leg. He states he wants to go home. The family has agreed to home hospice service. Objective - Vital Signs/Intake and Output Vital Signs (last 24 hours): Temp Pulse Resp BP Pulse Ox 97.8 F 71 20 117/68 97 07/14/17 11:47 07/14/17 11:47 07/14/17 11:47 07/14/17 11:47 07/14/17 06:00 Intake and Output: 07/14/17 07/14/17 06:59 18:59 Intake Total 418 Output Total 1300 Balance -882 - Medications Medications: Current Medications Acetaminophen (Tylenol 325mg Tab) 650 mg PO Q6 PRN PRN Reason: TEMP>=99.5F Acetaminophen (Tylenol 325mg Tab) 650 mg PO Q6 PRN PRN Reason: Headache Acetaminophen (Tylenol 650 Mg Supp) 650 mg RC Q6H PRN PRN Reason: Headache Acetaminophen (Tylenol 650 Mg Supp) 650 mg RC Q6H PRN PRN Reason: TEMP>=99.5F,unable to take PO Aspirin (Ecotrin) 81 mg PO DAILY [facility] Last Admin: 07/14/17 09:17 Dose: 81 mg Atorvastatin Calcium (Lipitor) 20 mg PO DIN [facility] Bicalutamide (Casodex) 50 mg PO DAILY [facility] Last Admin: 07/14/17 11:52 Dose: 50 mg Bisacodyl (Dulcolax) 10 mg RC Q48H [facility] Last Admin: 07/14/17 11:40 Dose: 10 mg Digoxin (Digoxin) 0.125 mg PO DAILY [facility] Last Admin: 07/14/17 09:17 Dose: 0.125 mg Diltiazem HCl (Cardizem Cd) 240 mg PO DAILY [facility] Last Admin: 07/14/17 09:21 Dose: 240 mg Docusate Sodium (Colace) 100 mg PO TID [facility] Last Admin: 07/14/17 14:05 Dose: Not Given Furosemide (Lasix) 20 mg IVP Q12 [facility] Last Admin: 07/14/17 09:22 Dose: 20 mg Heparin Sodium/Sodium Chloride (Heparin 42995 Units/250ml 1/2 Normal Saline) 25 ,000 units in 250 mls @ 9.906 mls/hr IV .Q24H [facility]; 12 UNITS/KG/HR PRN Reason: Protocol Last Admin: 07/14/17 08:44 Dose: 11 units/kg/hr, 9.081 mls/hr Vancomycin HCl (Vancomycin 1gm) 1 gm in 250 mls @ 167 mls/hr IVPB Q12H [facility] PRN Reason: Protocol Last Admin: 07/14/17 15:22 Dose: 167 mls/hr Levalbuterol HCl (Xopenex) 0.63 mg IH [id number] [facility] Last Admin: 07/14/17 13:46 Dose: 0.63 mg Levalbuterol HCl (Xopenex) 0.63 mg IH Q2H PRN PRN Reason: Shortness of Breath Magnesium Oxide (Mag-Ox) 400 mg PO BID [facility] Last Admin: 07/14/17 09:22 Dose: 400 mg Metoprolol Tartrate (Lopressor) 50 mg PO BID [facility] Last Admin: 07/14/17 09:22 Dose: 50 mg Mupirocin (Bactroban Ointment) 0 gm TOP BID [facility] Ondansetron HCl (Zofran Tab) 4 mg PO Q4 PRN PRN Reason: Nausea/Vomiting Last Admin: 07/11/17 08:59 Dose: 4 mg Pantoprazole Sodium (Protonix Ec Tab) 40 mg PO DAILY [facility] Last Admin: 07/14/17 09:17 Dose: 40 mg Polyethylene Glycol (Miralax) 17 gm PO TID [facility] Last Admin: 07/14/17 14:05 Dose: Not Given - Labs Labs: 07/13/17 06:00 07/13/17 06:00 PT 18.5 SECONDS (9.4-12.5) H 07/14/17 05:30 INR 1.59 (0.93-1.08) H 07/14/17 05:30 APTT 102.0 Seconds (25.1-36.5) H* 07/14/17 13:20 - Constitutional Appears: No Acute Distress, Chronically Ill - Head Exam Head Exam: ATRAUMATIC, NORMOCEPHALIC - Eye Exam Eye Exam: Normal appearance - ENT Exam ENT Exam: Mucous Membranes Moist - Respiratory Exam Respiratory Exam: NORMAL BREATHING PATTERN - Cardiovascular Exam Cardiovascular Exam: REGULAR RHYTHM - GI/Abdominal Exam GI & Abdominal Exam: Soft. absent: Tenderness - Extremities Exam Additional comments: RLE: no pulses appreciated, ulceration, ischemic skin changes, bandage clean dry and intact - Neurological Exam Neurological Exam: Alert, Awake - Psychiatric Exam Psychiatric exam: Normal Affect, Normal Mood - Skin Skin Exam: Dry Assessment and Plan - Assessment and Plan (Free Text) Plan: 77 M with PMH of advanced prostate cancer who is admitted for gangrenous right lower extremity. Patient is not a candidate for surgery. Continuing current management for now Goals of care and advance care planning was discussed with palliative care DNR/DNI Pain control Hospice evaluation for home services Patient will be discharged pending hospice evaluation Discussed with Dr. Yenifer Portillo PGY1
[2017-07-15] MEDS: Levalbuterol 0.63 MG/3 ML Inhal Soln UD IH SCH ×3 (01:37→13:56)
[2017-07-15] MEDS: Vancomycin 1gm in NS 250ml 1 GM/250 ML BAG IVPB SCH (03:28)
[2017-07-15] MEDS: Heparin 25,000units in 1/2NS 250 ML BAG IV SCH (04:59)
[2017-07-15 06:13] VITALS: O2SAT 98
[2017-07-15 06:58] LABS: INR 1.51 (0.93-1.08); PROTHROMBIN TIME 17.5 SECONDS (9.4-12.5)
[2017-07-15] MEDS ORDERED: oxyCODONE 5 mg Immediate Release Tab PO PRN (07:12)
[2017-07-15] MEDS: diltiaZEM 240 mg/24 Hours CD Cap PO SCH (09:30)
[2017-07-15] MEDS: Digoxin 125 mcg (0.125 mg) Tab PO SCH (09:30)
[2017-07-15] MEDS: Magnesium Oxide 400 mg Tab UD PO SCH ×2 (09:31→18:06)
[2017-07-15] MEDS: POLYETHYLENE GLYCOL 3350 17 GM/Dose PACKET PO SCH ×3 (09:31→18:05)
[2017-07-15] MEDS: Pantoprazole 20 mg EC Tab PO SCH (09:31)
[2017-07-15 09:41] VITALS: PULSE 79
--- NOTE | 2017-07-15 09:49 | PN ---
DATE: 07/14/2017 SUBJECTIVE: The patient is seen in room 260, bed 1. The patient is seen sitting up in the bed. Overnight nurse's notes were reviewed. The patient was found to be alert, awake, oriented x2. The patient is awake, responsive, alert, oriented to person, is able to say his name correctly, is able to recall a son's name without any difficulty, able to state my name without any difficulty. PHYSICAL EXAMINATION: VITAL SIGNS: T-max 97.7. Telemetry shows atrial fibrillation, heart rate 82, 93; blood pressure 124/58, 137/75; respiration 18; O2 sat 97%. Telemetry shows atrial fibrillation as mentioned. HEENT: Head examination normocephalic, atraumatic. HEENT examination shows pinkish conjunctivae. Anicteric sclerae. No oropharyngeal lesion. No neck rigidity. CHEST: Kyphosis. LUNGS: Examination shows decreased breath sound at the bases, left more than the right. CARDIOVASCULAR: S1, S2, irregular rhythm. Positive systolic murmur, left sternal border, left second intercostal space, right second intercostal space. ABDOMEN: Less protuberant. No hepatosplenomegaly palpable. GENITALIA: Male. Positive Pettit catheter. EXTREMITY: Shows positive right foot dressing. Positive discoloration of the left foot and toe. MUSCULOSKELETAL: Examination shows a body mass index of 26. NEUROLOGIC: The patient is alert, awake, responsive. Oriented to person, oriented to place, oriented to his name and his son's name and my name. The patient is able to follow simple command. DIAGNOSTICS: On 07/13/2017 were reviewed. On 07/14/2018, the patient had a PT/PTT, which is 18.5 and 36.4. Microbiology: Cultures are all negative. The patient's foot x-ray was the last x-ray noted. The patient was seen by Infectious Disease, Nephrology, Podiatry, Vascular Surgery. Their impression was noted. IMPRESSION AND PLAN: 1. Severe bilateral lower extremity peripheral vascular disease with bilateral superficial femoral artery occlusion. 2. Right foot metatarsal osteomyelitis. 3. 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 4. Hyponatremia, probably secondary to congestive heart failure, syndrome of inappropriate antidiuretic hormone secondary to his stage IV metastatic adenocarcinoma of the prostate. 5. Chronic kidney disease stage 2. 6. Dilated nonischemic cardiomyopathy. 7. Questionable urinary voiding dysfunction versus urinary retention with indwelling Pettit catheter. 8. Gait dysfunction. 9. Deconditioning. 10. Right foot gangrene. 11. Eliquis-requiring atrial fibrillation. 12. Normocytic anemia. 13. Recurrent, refractory hyponatremia. 14. Prerenal kidney injury. 15. Mild hyperbilirubinemia and transaminitis. 16. Severe gait dysfunction and deconditioning, bilateral lower extremity. 17. Constipation. 18. Questionable ileus versus partial small bowel obstruction. 19. Systolic congestive heart failure. 20. Dyslipidemia. 21. Hypomagnesemia. Plan at this time, the patient's condition has been extensively discussed again with the patient's son, Rakesh on phone number [phone]. I have explained again to the patient's son about the patient's extremely poor prognosis. The patient's son has already been contacted by the Vascular Surgery. They have already explained to the patient's son about the patient's overall poor prognosis. I have discussed with the patient's son about living will advanced directive DNR/DNI and palliative supportive care including hospice care was discussed. The patient's son was advised to contact palliative care nurse, Oneida Chirinos to initiate the above mentioned. The patient's son is very receptive to the living will advanced directive DNR/DNI and palliative care including hospice care. The patient's son has stated very clearly that he wants to take his father home and make him comfortable. The patient's current medications are; 1. Cardizem CD 240 mg daily. 2. Casodex 50 mg daily. 3. Colace 100 mg three times a day. 4. Digoxin 0.125 daily. 5. Dulcolax suppository 10 mg every 48 hours. 6. Ecotrin 81 mg daily. 7. Heparin drip. 8. Lasix 20 mg IV q. 12. 9. Lipitor 20 mg daily. 10. Lopressor 50 mg twice a day. 11. Magnesium oxide 400 twice a day. 12. MiraLax 17 g three times a day. 13. Protonix 40 mg daily. 14. Tylenol 650 mg suppository and p.o. q. 6 p.r.n. 15. Vancomycin 1 g IV q. 12. 16. Xopenex nebulizer q. 6 hours [id number], q. 2 hours p.r.n. 17. Zofran 4 mg p.o. q. 4 p.r.n. The patient has been ordered out of bed. Overall prognosis is extremely poor, awaiting the patient and the patient's family decision about living will advanced directive DNR/DNI and palliative care/hospice care. Dictated and electronically signed, not read. Benny Street MD
--- NOTE | 2017-07-15 11:19 | CP.PCM.PN ---
<Anayeli Hall - Last Filed: 07/15/17 11:16> Subjective - Date & Time of Evaluation Date of Evaluation: 07/15/17 Time of Evaluation: 11:16 - Subjective Subjective: Podiatry Progress Note - Dr. Carter 77 y/o male seen and examined at bedside this morning for RLE superficial wounds with ischemic changes. Pt states his pain is the same in the right leg, coming and going. States he is ready to go home today. Dressings remain intact to RLE. Denies any F/C/N/V/CP/SOB. Denies any events overnight. Objective - Vital Signs/Intake and Output Vital Signs (last 24 hours): Temp Pulse Resp BP Pulse Ox 97.5 F L 79 20 121/67 98 07/15/17 06:00 07/15/17 09:30 07/15/17 06:00 07/15/17 09:30 07/15/17 06:00 Intake and Output: 07/15/17 07/15/17 06:59 18:59 Intake Total 476 Output Total 1500 Balance -1024 - Medications Medications: Current Medications Acetaminophen (Tylenol 325mg Tab) 650 mg PO Q6 PRN PRN Reason: TEMP>=99.5F Acetaminophen (Tylenol 325mg Tab) 650 mg PO Q6 PRN PRN Reason: Headache Acetaminophen (Tylenol 650 Mg Supp) 650 mg RC Q6H PRN PRN Reason: Headache Acetaminophen (Tylenol 650 Mg Supp) 650 mg RC Q6H PRN PRN Reason: TEMP>=99.5F,unable to take PO Aspirin (Ecotrin) 81 mg PO DAILY [facility] Last Admin: 07/15/17 09:30 Dose: 81 mg Atorvastatin Calcium (Lipitor) 20 mg PO DIN [facility] Last Admin: 07/14/17 17:12 Dose: 20 mg Bicalutamide (Casodex) 50 mg PO DAILY [facility] Last Admin: 07/15/17 09:35 Dose: 50 mg Bisacodyl (Dulcolax) 10 mg RC Q48H [facility] Last Admin: 07/14/17 11:40 Dose: 10 mg Digoxin (Digoxin) 0.125 mg PO DAILY [facility] Last Admin: 07/15/17 09:30 Dose: 0.125 mg Diltiazem HCl (Cardizem Cd) 240 mg PO DAILY [facility] Last Admin: 07/15/17 09:30 Dose: 240 mg Docusate Sodium (Colace) 100 mg PO TID [facility] Last Admin: 07/15/17 09:30 Dose: 100 mg Furosemide (Lasix) 20 mg IVP Q12 [facility] Last Admin: 07/15/17 09:30 Dose: 20 mg Heparin Sodium/Sodium Chloride (Heparin 61595 Units/250ml 1/2 Normal Saline) 25 ,000 units in 250 mls @ 9.906 mls/hr IV .Q24H [facility]; 12 UNITS/KG/HR PRN Reason: Protocol Last Admin: 07/15/17 04:59 Dose: 8 units/kg/hr, 6.604 mls/hr Vancomycin HCl (Vancomycin 1gm) 1 gm in 250 mls @ 167 mls/hr IVPB Q12H [facility] PRN Reason: Protocol Last Admin: 07/15/17 03:28 Dose: 167 mls/hr Levalbuterol HCl (Xopenex) 0.63 mg IH [id number] [facility] Last Admin: 07/15/17 07:51 Dose: 0.63 mg Levalbuterol HCl (Xopenex) 0.63 mg IH Q2H PRN PRN Reason: Shortness of Breath Magnesium Oxide (Mag-Ox) 400 mg PO BID [facility] Last Admin: 07/15/17 09:31 Dose: 400 mg Metoprolol Tartrate (Lopressor) 50 mg PO BID [facility] Last Admin: 07/15/17 09:30 Dose: 50 mg Mupirocin (Bactroban Ointment) 0 gm TOP BID [facility] Last Admin: 07/14/17 17:12 Dose: 1 applic Ondansetron HCl (Zofran Tab) 4 mg PO Q4 PRN PRN Reason: Nausea/Vomiting Last Admin: 07/11/17 08:59 Dose: 4 mg Oxycodone HCl (Oxycodone Immediate Release Tab) 5 mg PO Q6H PRN PRN Reason: Pain, moderate (4-7) Pantoprazole Sodium (Protonix Ec Tab) 40 mg PO DAILY [facility] Last Admin: 07/15/17 09:31 Dose: 40 mg Polyethylene Glycol (Miralax) 17 gm PO TID [facility] Last Admin: 07/15/17 09:31 Dose: 17 gm - Labs Labs: 07/13/17 06:00 03/18/18 06:00 PT 17.5 SECONDS (9.4-12.5) H 07/15/17 05:10 INR 1.51 (0.93-1.08) H 07/15/17 05:10 APTT 86.2 Seconds (25.1-36.5) H 07/15/17 07:55 - Constitutional Appears: Well, Non-toxic, No Acute Distress - Extremities Exam Additional comments: Right lower extremity focused examination: VASC: DP/PT pulses non-palpable. Ischemic skin changes noted with skin sloughing and shiny skin diffusely. Skin temperature cool to touch surrounding right foot. CFT absent to all digits. Derm: Superficial diffuse ulcerations noted to dorsum of 4th digit and dorsum of midfoot, with shiny red granular wound bases with peripheral skin sloughing. No active drainage, no purulence, no malodor, no fluctuance. Neuro: Protective sensation grossly intact Ortho: Mild-moderate tenderness to palpation to entirety of right lower extremity at level of ankle and foot - Neurological Exam Neurological Exam: Alert, Awake, Oriented x3 - Psychiatric Exam Psychiatric exam: Normal Affect, Normal Mood Assessment and Plan - Assessment and Plan (Free Text) Assessment: 77 y/o male with superficial ischemic ulcerations to RLE with severe PAD Plan: Pt seen and examined at bedside Discussed with attending Dr. Carter Cleansed ulcerations with saline Optifoam applied to dorsal foot wounds; adaptic, ABD and DSD applied to anterior distal right leg wound Wound culture of R foot final no growth Continue IV Vancomycin Pt to continue with local wound care - no surgical intervention planned at this time Pt stable for discharge from podiatry standpoint Podiatry will continue to follow while in house <Tobias Carter - Last Filed: 07/15/17 11:51> Objective - Vital Signs/Intake and Output Vital Signs (last 24 hours): Temp Pulse Resp BP Pulse Ox 97.5 F L 79 20 121/67 98 07/15/17 06:00 07/15/17 09:30 07/15/17 06:00 07/15/17 09:30 07/15/17 06:00 Intake and Output: 07/15/17 07/15/17 06:59 18:59 Intake Total 476 Output Total 1500 Balance -1024 - Medications Medications: Current Medications Acetaminophen (Tylenol 325mg Tab) 650 mg PO Q6 PRN PRN Reason: TEMP>=99.5F Acetaminophen (Tylenol 325mg Tab) 650 mg PO Q6 PRN PRN Reason: Headache Acetaminophen (Tylenol 650 Mg Supp) 650 mg RC Q6H PRN PRN Reason: Headache Acetaminophen (Tylenol 650 Mg Supp) 650 mg RC Q6H PRN PRN Reason: TEMP>=99.5F,unable to take PO Aspirin (Ecotrin) 81 mg PO DAILY [facility] Last Admin: 07/15/17 09:30 Dose: 81 mg Atorvastatin Calcium (Lipitor) 20 mg PO DIN [facility] Last Admin: 07/14/17 17:12 Dose: 20 mg Bicalutamide (Casodex) 50 mg PO DAILY [facility] Last Admin: 07/15/17 09:35 Dose: 50 mg Bisacodyl (Dulcolax) 10 mg RC Q48H [facility] Last Admin: 07/14/17 11:40 Dose: 10 mg Digoxin (Digoxin) 0.125 mg PO DAILY [facility] Last Admin: 07/15/17 09:30 Dose: 0.125 mg Diltiazem HCl (Cardizem Cd) 240 mg PO DAILY [facility] Last Admin: 07/15/17 09:30 Dose: 240 mg Docusate Sodium (Colace) 100 mg PO TID [facility] Last Admin: 07/15/17 09:30 Dose: 100 mg Furosemide (Lasix) 20 mg IVP Q12 [facility] Last Admin: 07/15/17 09:30 Dose: 20 mg Heparin Sodium/Sodium Chloride (Heparin 51742 Units/250ml 1/2 Normal Saline) 25 ,000 units in 250 mls @ 9.906 mls/hr IV .Q24H [facility]; 12 UNITS/KG/HR PRN Reason: Protocol Last Admin: 07/15/17 04:59 Dose: 8 units/kg/hr, 6.604 mls/hr Vancomycin HCl (Vancomycin 1gm) 1 gm in 250 mls @ 167 mls/hr IVPB Q12H [facility] PRN Reason: Protocol Last Admin: 07/15/17 03:28 Dose: 167 mls/hr Levalbuterol HCl (Xopenex) 0.63 mg IH [id number] [facility] Last Admin: 07/15/17 07:51 Dose: 0.63 mg Levalbuterol HCl (Xopenex) 0.63 mg IH Q2H PRN PRN Reason: Shortness of Breath Magnesium Oxide (Mag-Ox) 400 mg PO BID [facility] Last Admin: 07/15/17 09:31 Dose: 400 mg Metoprolol Tartrate (Lopressor) 50 mg PO BID [facility] Last Admin: 07/15/17 09:30 Dose: 50 mg Mupirocin (Bactroban Ointment) 0 gm TOP BID [facility] Last Admin: 07/14/17 17:12 Dose: 1 applic Ondansetron HCl (Zofran Tab) 4 mg PO Q4 PRN PRN Reason: Nausea/Vomiting Last Admin: 07/11/17 08:59 Dose: 4 mg Oxycodone HCl (Oxycodone Immediate Release Tab) 5 mg PO Q6H PRN PRN Reason: Pain, moderate (4-7) Pantoprazole Sodium (Protonix Ec Tab) 40 mg PO DAILY [facility] Last Admin: 07/15/17 09:31 Dose: 40 mg Polyethylene Glycol (Miralax) 17 gm PO TID [facility] Last Admin: 07/15/17 09:31 Dose: 17 gm - Labs Labs: 07/13/17 06:00 07/13/17 06:00 PT 17.5 SECONDS (9.4-12.5) H 07/15/17 05:10 INR 1.51 (0.93-1.08) H 07/15/17 05:10 APTT 86.2 Seconds (25.1-36.5) H 07/15/17 07:55 Attending/Attestation - Attestation I have personally seen and examined this patient.: Yes I have fully participated in the care of the patient.: Yes I have reviewed all pertinent clinical information, including history, physical exam and plan: Yes
--- NOTE | 2017-07-15 12:16 | CP.PCM.PN ---
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 unable to tolerate losartan due to hyperkalemia episodes. supplement electrolytes as needed Avoid nephrotoxins/NSAIDs Glycemic control Further work up for as per primary team. CHF management as per cardiology PVD/osteo management as per podiatry/ID/primary team palliative care input noted. pt being d/c to home with hospice. stable from renal perspective Thanks for allowing me to participate in care of your patient. Will sign off. Please call if any Qs. Dr Grupo Vital Office: [phone] Reason for consultation; Hyponatremia HPI patient is 77-year-old male with history of chronic systolic CHF EF 20% also metastatic prostate cancer , BPH, recently seen for hyponatremia due to CHF and likely SIADH discharged to [facility] here with the Rt foot PVD. Renal consult was requested for hyponatremia management. Patient at this time denies shortness of breath nausea vomiting any pain in his stomach but reports constipation. Subjective/ROS: Noted events overnight. Patients feels sleepy today Denies chest pain, palpitation, denies shortness of breath All other negative Except as mentioned in HPI. had bone biopsy by IR on 06/10/17 Showed metastatic adeno carcinoma of prostate s/p Rt thoracocentesis 07/02/17 ~ 700 mL fluid aspirated Physical Examination: General Appearance: Comfortable, in no acute respiratory distress, co-operative . Vitals reviewed and noted as below Head; Atraumatic, normocephalic ENT: no ulcers no thrush. Tongue is midline. Oropharynx: no rash or ulcers. EYES: Pupils are equal, round and reactive to light accommodation. Eye muscles and extraocular movement intact. Sclera is anicteric. Neck; supple no lymphadenopathy, no thyromegaly or bruit Lungs: Normal respiratory rate/effort. Breath sounds b/l present and clear anteriorly Heart: Normal rate. s1s2 normal. No rub or gallop. Extremities: no edema. No varicose veins. Rt foot dressed Neurological: Patient is oriented to person, place and time. No focal deficit. Strength bilateral appropriate and equal Skin: Warm and dry. Normal turgor. No rash. Palpitation: Normal elasticity for age. Feets somewhat cool to touch Abdomen: Abdomen is soft. Bowel sounds +. There is no abdominal tenderness, no guarding/rigidity no organomegaly. abdomen distended Psych: normal insight and normal affect/mood MSK: no joint tenderness or swelling. Digits and nails normal, no deformity : kidney or bladder not palpable. Has Lawrence catheter in place Labs/imaging reviewed. Past medical history, past surgical history, family history, social history, allergy reviewed and noted as below Family hx: no hx of CKD. Rest non-contributor Objective - Vital Signs/Intake and Output Vital Signs (last 24 hours): Temp Pulse Resp BP Pulse Ox 97.5 F L 79 20 121/67 98 07/15/17 06:00 07/15/17 09:30 07/15/17 06:00 07/15/17 09:30 07/15/17 06:00 Intake and Output: 07/15/17 07/15/17 06:59 18:59 Intake Total 476 Output Total 1500 Balance -1024 - Medications Medications: Current Medications Acetaminophen (Tylenol 325mg Tab) 650 mg PO Q6 PRN PRN Reason: TEMP>=99.5F Acetaminophen (Tylenol 325mg Tab) 650 mg PO Q6 PRN PRN Reason: Headache Acetaminophen (Tylenol 650 Mg Supp) 650 mg RC Q6H PRN PRN Reason: Headache Acetaminophen (Tylenol 650 Mg Supp) 650 mg RC Q6H PRN PRN Reason: TEMP>=99.5F,unable to take PO Aspirin (Ecotrin) 81 mg PO DAILY [facility] Last Admin: 07/15/17 09:30 Dose: 81 mg Atorvastatin Calcium (Lipitor) 20 mg PO DIN [facility] Last Admin: 07/14/17 17:12 Dose: 20 mg Bicalutamide (Casodex) 50 mg PO DAILY [facility] Last Admin: 07/15/17 09:35 Dose: 50 mg Bisacodyl (Dulcolax) 10 mg RC Q48H [facility] Last Admin: 07/14/17 11:40 Dose: 10 mg Digoxin (Digoxin) 0.125 mg PO DAILY [facility] Last Admin: 07/15/17 09:30 Dose: 0.125 mg Diltiazem HCl (Cardizem Cd) 240 mg PO DAILY [facility] Last Admin: 07/15/17 09:30 Dose: 240 mg Docusate Sodium (Colace) 100 mg PO TID [facility] Last Admin: 07/15/17 09:30 Dose: 100 mg Furosemide (Lasix) 20 mg IVP Q12 [facility] Last Admin: 07/15/17 09:30 Dose: 20 mg Heparin Sodium/Sodium Chloride (Heparin 51351 Units/250ml 1/2 Normal Saline) 25 ,000 units in 250 mls @ 9.906 mls/hr IV .Q24H [facility]; 12 UNITS/KG/HR PRN Reason: Protocol Last Admin: 07/15/17 04:59 Dose: 8 units/kg/hr, 6.604 mls/hr Vancomycin HCl (Vancomycin 1gm) 1 gm in 250 mls @ 167 mls/hr IVPB Q12H [facility] PRN Reason: Protocol Last Admin: 07/15/17 03:28 Dose: 167 mls/hr Levalbuterol HCl (Xopenex) 0.63 mg IH [id number] Last Admin: 07/15/17 07:51 Dose: 0.63 mg Levalbuterol HCl (Xopenex) 0.63 mg IH Q2H PRN PRN Reason: Shortness of Breath Magnesium Oxide (Mag-Ox) 400 mg PO BID [facility] Last Admin: 07/15/17 09:31 Dose: 400 mg Metoprolol Tartrate (Lopressor) 50 mg PO BID [facility] Last Admin: 07/15/17 09:30 Dose: 50 mg Mupirocin (Bactroban Ointment) 0 gm TOP BID [facility] Last Admin: 07/14/17 17:12 Dose: 1 applic Ondansetron HCl (Zofran Tab) 4 mg PO Q4 PRN PRN Reason: Nausea/Vomiting Last Admin: 07/11/17 08:59 Dose: 4 mg Oxycodone HCl (Oxycodone Immediate Release Tab) 5 mg PO Q6H PRN PRN Reason: Pain, moderate (4-7) Pantoprazole Sodium (Protonix Ec Tab) 40 mg PO DAILY [facility] Last Admin: 07/15/17 09:31 Dose: 40 mg Polyethylene Glycol (Miralax) 17 gm PO TID [facility] Last Admin: 07/15/17 09:31 Dose: 17 gm - Labs Labs: 07/13/17 06:00 07/13/17 06:00 PT 17.5 SECONDS (9.4-12.5) H 07/15/17 05:10 INR 1.51 (0.93-1.08) H 07/15/17 05:10 APTT 86.2 Seconds (25.1-36.5) H 07/15/17 07:55
--- NOTE | 2017-07-15 13:00 | CP.PCM.PN ---
Subjective - Date & Time of Evaluation Date of Evaluation: 07/15/17 Time of Evaluation: 10:00 - Subjective Subjective: Alert,oriented. Offers no complaints Objective - Vital Signs/Intake and Output Vital Signs (last 24 hours): Temp Pulse Resp BP Pulse Ox 97.5 F L 79 20 121/67 98 07/15/17 06:00 07/15/17 09:30 07/15/17 06:00 07/15/17 09:30 07/15/17 06:00 Intake and Output: 07/15/17 07/15/17 06:59 18:59 Intake Total 476 Output Total 1500 Balance -1024 - Medications Medications: Current Medications Acetaminophen (Tylenol 325mg Tab) 650 mg PO Q6 PRN PRN Reason: TEMP>=99.5F Acetaminophen (Tylenol 325mg Tab) 650 mg PO Q6 PRN PRN Reason: Headache Acetaminophen (Tylenol 650 Mg Supp) 650 mg RC Q6H PRN PRN Reason: Headache Acetaminophen (Tylenol 650 Mg Supp) 650 mg RC Q6H PRN PRN Reason: TEMP>=99.5F,unable to take PO Aspirin (Ecotrin) 81 mg PO DAILY [facility] Last Admin: 07/15/17 09:30 Dose: 81 mg Atorvastatin Calcium (Lipitor) 20 mg PO DIN [facility] Last Admin: 07/14/17 17:12 Dose: 20 mg Bicalutamide (Casodex) 50 mg PO DAILY [facility] Last Admin: 07/15/17 09:35 Dose: 50 mg Bisacodyl (Dulcolax) 10 mg RC Q48H [facility] Last Admin: 07/14/17 11:40 Dose: 10 mg Digoxin (Digoxin) 0.125 mg PO DAILY [facility] Last Admin: 07/15/17 09:30 Dose: 0.125 mg Diltiazem HCl (Cardizem Cd) 240 mg PO DAILY [facility] Last Admin: 07/15/17 09:30 Dose: 240 mg Docusate Sodium (Colace) 100 mg PO TID [facility] Last Admin: 07/15/17 09:30 Dose: 100 mg Furosemide (Lasix) 40 mg PO BID [facility] Heparin Sodium/Sodium Chloride (Heparin 80777 Units/250ml 1/2 Normal Saline) 25 ,000 units in 250 mls @ 9.906 mls/hr IV .Q24H [facility]; 12 UNITS/KG/HR PRN Reason: Protocol Last Admin: 07/15/17 04:59 Dose: 8 units/kg/hr, 6.604 mls/hr Vancomycin HCl (Vancomycin 1gm) 1 gm in 250 mls @ 167 mls/hr IVPB Q12H [facility] PRN Reason: Protocol Last Admin: 07/15/17 03:28 Dose: 167 mls/hr Levalbuterol HCl (Xopenex) 0.63 mg IH [id number] [facility] Last Admin: 07/15/17 07:51 Dose: 0.63 mg Levalbuterol HCl (Xopenex) 0.63 mg IH Q2H PRN PRN Reason: Shortness of Breath Magnesium Oxide (Mag-Ox) 400 mg PO BID [facility] Last Admin: 07/15/17 09:31 Dose: 400 mg Metoprolol Tartrate (Lopressor) 50 mg PO BID [facility] Last Admin: 07/15/17 09:30 Dose: 50 mg Mupirocin (Bactroban Ointment) 0 gm TOP BID [facility] Last Admin: 07/15/17 12:21 Dose: 1 applic Ondansetron HCl (Zofran Tab) 4 mg PO Q4 PRN PRN Reason: Nausea/Vomiting Last Admin: 07/11/17 08:59 Dose: 4 mg Oxycodone HCl (Oxycodone Immediate Release Tab) 5 mg PO Q6H PRN PRN Reason: Pain, moderate (4-7) Pantoprazole Sodium (Protonix Ec Tab) 40 mg PO DAILY [facility] Last Admin: 07/15/17 09:31 Dose: 40 mg Polyethylene Glycol (Miralax) 17 gm PO TID [facility] Last Admin: 07/15/17 09:31 Dose: 17 gm - Labs Labs: 07/13/17 06:00 07/13/17 06:00 PT 17.5 SECONDS (9.4-12.5) H 07/15/17 05:10 INR 1.51 (0.93-1.08) H 07/15/17 05:10 APTT 86.2 Seconds (25.1-36.5) H 07/15/17 07:55 - Constitutional Appears: No Acute Distress, Chronically Ill - Eye Exam Eye Exam: Normal appearance, PERRL - ENT Exam ENT Exam: Mucous Membranes Moist - Neck Exam Neck Exam: Normal Inspection - Respiratory Exam Respiratory Exam: Decreased Breath Sounds, NORMAL BREATHING PATTERN - Cardiovascular Exam Cardiovascular Exam: Irregular Rhythm, +S1, +S2 - GI/Abdominal Exam GI & Abdominal Exam: Distended, Soft, Normal Bowel Sounds - Extremities Exam Additional comments: RLE dressing intact, extremity cold/pulse less - Neurological Exam Neurological Exam: Alert, Oriented x3 - Skin Skin Exam: Dry, Warm Assessment and Plan - Assessment and Plan (Free Text) Assessment: 77 year old male with history of A Fib, advanced prostate cancer who is admitted with gangrenous right foot. Family discussion regarding goals of care has taken place. Both patient and son agree to transition to hospice care. End of life counseling provided. Patient to be discharged home today under [facility]. End of life counseling provided Plan: End of life counseling
--- NOTE | 2017-07-15 14:18 | CP.PCM.PN ---
Subjective - Date & Time of Evaluation Date of Evaluation: 07/15/17 Time of Evaluation: 10:20 - Subjective Subjective: Pain on the right leg is slightly improved, no fevers, not in distress, afebrile. Objective - Vital Signs/Intake and Output Vital Signs (last 24 hours): Temp Pulse Resp BP Pulse Ox 97.5 F L 79 20 119/68 98 07/15/17 06:00 07/15/17 06:00 07/15/17 06:00 07/15/17 06:00 07/15/17 06:00 Intake and Output: 07/15/17 07/15/17 06:59 18:59 Intake Total 476 Output Total 1500 Balance -1024 - Medications Medications: Current Medications Acetaminophen (Tylenol 325mg Tab) 650 mg PO Q6 PRN PRN Reason: TEMP>=99.5F Acetaminophen (Tylenol 325mg Tab) 650 mg PO Q6 PRN PRN Reason: Headache Acetaminophen (Tylenol 650 Mg Supp) 650 mg RC Q6H PRN PRN Reason: Headache Acetaminophen (Tylenol 650 Mg Supp) 650 mg RC Q6H PRN PRN Reason: TEMP>=99.5F,unable to take PO Aspirin (Ecotrin) 81 mg PO DAILY [facility] Last Admin: 07/14/17 09:17 Dose: 81 mg Atorvastatin Calcium (Lipitor) 20 mg PO DIN [facility] Last Admin: 07/14/17 17:12 Dose: 20 mg Bicalutamide (Casodex) 50 mg PO DAILY [facility] Last Admin: 07/14/17 11:52 Dose: 50 mg Bisacodyl (Dulcolax) 10 mg RC Q48H [facility] Last Admin: 07/14/17 11:40 Dose: 10 mg Digoxin (Digoxin) 0.125 mg PO DAILY [facility] Last Admin: 07/14/17 09:17 Dose: 0.125 mg Diltiazem HCl (Cardizem Cd) 240 mg PO DAILY [facility] Last Admin: 07/14/17 09:21 Dose: 240 mg Docusate Sodium (Colace) 100 mg PO TID [facility] Last Admin: 07/14/17 17:16 Dose: Not Given Furosemide (Lasix) 20 mg IVP Q12 [facility] Last Admin: 07/14/17 21:00 Dose: 20 mg Heparin Sodium/Sodium Chloride (Heparin 70589 Units/250ml 1/2 Normal Saline) 25 ,000 units in 250 mls @ 9.906 mls/hr IV .Q24H [facility]; 12 UNITS/KG/HR PRN Reason: Protocol Last Admin: 07/15/17 04:59 Dose: 10 units/kg/hr, 8.255 mls/hr Vancomycin HCl (Vancomycin 1gm) 1 gm in 250 mls @ 167 mls/hr IVPB Q12H [facility] PRN Reason: Protocol Last Admin: 07/15/17 03:28 Dose: 167 mls/hr Levalbuterol HCl (Xopenex) 0.63 mg IH [id number] [facility] Last Admin: 07/15/17 07:51 Dose: 0.63 mg Levalbuterol HCl (Xopenex) 0.63 mg IH Q2H PRN PRN Reason: Shortness of Breath Magnesium Oxide (Mag-Ox) 400 mg PO BID [facility] Last Admin: 07/14/17 17:12 Dose: 400 mg Metoprolol Tartrate (Lopressor) 50 mg PO BID [facility] Last Admin: 07/14/17 17:12 Dose: 50 mg Mupirocin (Bactroban Ointment) 0 gm TOP BID [facility] Last Admin: 07/14/17 17:12 Dose: 1 applic Ondansetron HCl (Zofran Tab) 4 mg PO Q4 PRN PRN Reason: Nausea/Vomiting Last Admin: 07/11/17 08:59 Dose: 4 mg Oxycodone HCl (Oxycodone Immediate Release Tab) 5 mg PO Q6H PRN PRN Reason: Pain, moderate (4-7) Pantoprazole Sodium (Protonix Ec Tab) 40 mg PO DAILY [facility] Last Admin: 07/14/17 09:17 Dose: 40 mg Polyethylene Glycol (Miralax) 17 gm PO TID [facility] Last Admin: 07/14/17 17:16 Dose: Not Given - Labs Labs: 07/13/17 06:00 07/13/17 06:00 PT 17.5 SECONDS (9.4-12.5) H 07/15/17 05:10 INR 1.51 (0.93-1.08) H 07/15/17 05:10 APTT 86.2 Seconds (25.1-36.5) H 07/15/17 07:55 - Constitutional Appears: Non-toxic, Chronically Ill - Head Exam Head Exam: NORMAL INSPECTION - ENT Exam ENT Exam: Mucous Membranes Moist - Neck Exam Neck Exam: absent: Meningismus - Respiratory Exam Respiratory Exam: Decreased Breath Sounds - Cardiovascular Exam Cardiovascular Exam: +S1, +S2 - GI/Abdominal Exam GI & Abdominal Exam: Soft. absent: Tenderness - Extremities Exam Additional comments: right foot with dressings in place Assessment and Plan - Assessment and Plan (Free Text) Plan: Assessment Chronic right foot wounds with gangrene associated with severe PAD prostate cancer with bone metastases atrial fibrillation on anticoagulation dilated cardiomyopathy Plan blood cx have been negative; follow up plans of Surgery for revascularization or if not possible then amputation of foot; on foot xray, patient may also have osteomyelitis continue IV Vancomycin (day 5) will continue to monitor clinically
[2017-07-15 17:41] VITALS: BP 118/75; PULSE 67; RESP 18; TEMP 97.9
--- NOTE | 2017-07-16 08:49 | DS ---
HISTORY OF PRESENT ILLNESS: Patient is seen in room 260, bed 1. Patient is lying in the bed. Patient is alert, awake, responsive. Overnight events were noted. Patient was seen by the palliative care nurse. Patient was made DNR/DNI with patient and patient's son agreement. Patient was then later on referred to home hospice, which patient and patient's son agreed to. Patient is seen lying in the bed. PHYSICAL EXAMINATION: VITAL SIGNS: T-max 97.5. Telemetry shows atrial fibrillation. Heart rate 79, blood pressure 121/67, 119/68. Respiration 20. O2 sat 98%. HEENT: Head examination normocephalic, atraumatic. HEENT examination shows pinkish conjunctivae. Anicteric sclerae. No oropharyngeal lesion. NECK: No neck rigidity. . CHEST: Kyphosis. LUNGS: Decreased breath sound at the bases, left more than the right. CARDIOVASCULAR: Shows S1 and S2, regular rhythm. Positive systolic murmur at left sternal border, right second intercostal space, left second intercostal space. ABDOMEN: Much less distended. Soft. Positive bowel sounds. GENITALIA: Male. Positive Pettit catheter. EXTREMITIES: Shows positive dressing of the right lower extremity. Positive skin changes of the bilateral lower extremities. Decreased pulses. Positive gangrenous changes of the toes noted. DIAGNOSTICS: None from today. IMPRESSION AND PLAN: 1. 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 2. Severe bilateral lower extremities peripheral vascular disease with complete occlusion of the bilateral superficial femoral artery. 3. Pulseless cold right foot with right foot ischemia secondary to severe peripheral vascular disease. 4. Atrial fibrillation. 5. Hyponatremia secondary to syndrome of inappropriate secretion of antidiuretic hormone. 6. Normocytic anemia. 7. Transaminitis. 8. Mild hyperbilirubinemia. 9. Deconditioning. 10. Gait dysfunction. 11. Right foot distal first metatarsal cortical erosion, possible osteomyelitis. 12. Bilateral superficial femoral artery complete occlusion with no flow in the popliteal and tibialis and peroneal artery. 13. Questionable ileus versus partial obstruction. 14. Hypertension. 15. Severely abnormal resting ankle-brachial indices. 16. Aortoiliac disease, right more than the left with 61 mm gradient between the arm and the right low thigh pressure and 25 mm gradient between the arm and the left low thigh pressure. 17. Severely blunted bilateral calf peripheral vascular resistance waveform consistent with bilateral superficial femoral artery disease. 18. Constipation. 19. Bilateral lower extremity venous stasis. 20. Dilated nonischemic cardiomyopathy with ejection fraction of 20%. 21. Dyslipidemia. 22. Hypomagnesemia. Plan at this time, patient seen by the palliative care nurse Oneida Chirinos. Patient's son and the patient agreed for living will advance directive and DNR. POLST was completed after the patient was made DNR/DNI. Patient's case was referred to [facility], and patient is accepted to home hospice, which patient and the patient's son is in agreement with. At this time, patient is to be discharged on home hospice. CURRENT MEDICATIONS: 1. Cardizem CD 240 mg daily. 2. Casodex 50 mg daily. 3. Colace 100 mg three times a day. 4. Digoxin 0.125 mg p.o. daily. 5. Dulcolax suppository 10 mg suppository q. 48 hours. 6. Ecotrin 81 mg daily. 7. Heparin drip, which will be discontinued upon discharge. 8. Lasix 20 mg IV q. 12. 9. Lipitor 20 mg daily. 10. Lopressor 50 mg twice a day. 11. Magnesium oxide 400 mg twice a day. 12. MiraLax 17 g three times a day. 13. Oxycodone 5 mg q. 6 p.r.n. 14. Protonix 40 mg daily. 15. Tylenol 650 suppository p.o. q. 6 p.r.n. 16. Vancomycin 1 g IV q. 12. 17. Xopenex nebulizer 0.63 mg q. 6 hours [id number], q. 2 hours p.r.n. 18. Zofran 4 mg p.o. q. 4 hours p.r.n. Patient will be discharged to home hospice today because all the arrangements are made. Patient's lead caregiver medications are Tylenol 650 mg q. 6 p.o. suppository p.r.n., allopurinol 300 mg daily, Eliquis 2.5 twice a day, Ecotrin 81 mg daily, Lipitor 40 mg daily, Casodex 50 mg daily, digoxin 0.125 mg daily, Cardizem CD 240 mg daily, Colace 100 mg three times a day, Lasix 40 mg once or twice a day, Xopenex nebulizer 0.63 mg [id number] q. 6 hours and q. 2 hours p.r.n., magnesium oxide 400 mg twice a day, Lopressor 50 mg twice a day, Zofran 4 mg q. 4 hours p.r.n., Protonix 40 mg daily, MiraLax 17 g twice a day. Patient's son and the patient has been extensively explained about the diagnosis since the first admission, which was in 05/2017. I have explained to the patient and the patient's son about extremely poor prognosis with metastatic adenocarcinoma of the prostate with associated complications. Patient and the patient's son understand the patient's overall poor prognosis, and patient is now referred to home hospice after patient is made DNR/DNI. Time spent in the entire discharge process more than 45 minutes. Dictated and electronically signed, not read. Benny Street MD
== END 2017-07-15 19:02 | disposition hospice, home (50) | DRG 300 ==
LOC: ED 13:36 → ERH 17:31 → 2RNO 07-11 02:57
PROVIDERS: ADMIT Internal Medicine; ATTEND Internal Medicine
DX: I70.209 Unspecified atherosclerosis of native arteries of extremities, unspecified extremity (principal); C79.51 Secondary malignant neoplasm of bone; I96 Gangrene, not elsewhere classified; E88.09 Other disorders of plasma-protein metabolism, not elsewhere classified; I13.0 Hypertensive heart and chronic kidney disease with heart failure and stage 1 through stage 4 chronic kidney disease, or unspecified chronic kidney disease; E22.2 Syndrome of inappropriate secretion of antidiuretic hormone; E83.42 Hypomagnesemia; I08.1 Rheumatic disorders of both mitral and tricuspid valves; I50.22 Chronic systolic (congestive) heart failure; I42.0 Dilated cardiomyopathy; J98.11 Atelectasis; M86.9 Osteomyelitis, unspecified; R17 Unspecified jaundice; I67.2 Cerebral atherosclerosis; I48.91 Unspecified atrial fibrillation; C61 Malignant neoplasm of prostate; D64.9 Anemia, unspecified; E78.5 Hyperlipidemia, unspecified; F03.90 Unspecified dementia, unspecified severity, without behavioral disturbance, psychotic disturbance, mood disturbance, and anxiety; I27.21 Secondary pulmonary arterial hypertension; I87.8 Other specified disorders of veins; K59.00 Constipation, unspecified; L97.519 Non-pressure chronic ulcer of other part of right foot with unspecified severity; M81.0 Age-related osteoporosis without current pathological fracture; N18.3 Chronic kidney disease, stage 3 (moderate); Z51.5 Encounter for palliative care; Z66 Do not resuscitate; Z79.01 Long term (current) use of anticoagulants; Z79.82 Long term (current) use of aspirin; Z79.899 Other long term (current) drug therapy; Z86.73 Personal history of transient ischemic attack (TIA), and cerebral infarction without residual deficits; Z87.891 Personal history of nicotine dependence; Z91.19 Patient's noncompliance with other medical treatment and regimen